=== PATIENT | female | born 1955 | race Caucasian/White ===

== ENCOUNTER → 2019-06-05 11:14 | Outpatient (BNVA) | payer MEDICARE, SELFPAY | PROVIDERS: Family Provider Nurse Practitioner Family; PCP Nurse Practitioner Family; Referring Provider Internal Medicine Nephrology; Visit Provider Family Medicine | DX: N18.4 Chronic kidney disease, stage 4 (severe) (principal) | CPT/HCPCS: 80069; 82044; 82728; 83540; 83550; 85025 ==

== ENCOUNTER 2019-07-21 13:22 | Emergency (ER) | payer OTHER, MEDICARE, SELFPAY ==
[2019-07-21 13:23] VITALS: BP 169/80; PULSE 70; RESP 18; TEMP 36.9; O2SAT 92; BMI 23.2
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
[2019-07-21 14:26] VITALS: BP 116/71; PULSE 63; RESP 16; O2SAT 93
--- NOTE | 2019-07-24 09:59 | DCPLANNER ---
Patient called case liner about a referral to the ortho clinic. certified orthotist practice manager reviewed patients chart, patient was referred to the ortho clinic, case liner called the ortho clinic, spoke with Pat, gave clinic patients information. A follow up appointment is scheduled for Wednesday, July 24, 2019 at 1:[address] Jose. Clinic called patient with appointment information.
--- NOTE | 2019-08-08 15:33 | DCPLANNER ---
Patient did attend appointment scheduled for 07.24.19 with ortho.
== END 2019-07-21 14:27 | disposition home or self-care (01) ==
PROVIDERS: Emergency Provider Emergency Medicine
DX: S72.411A Displaced unspecified condyle fracture of lower end of right femur, initial encounter for closed fracture (principal); I12.9 Hypertensive chronic kidney disease with stage 1 through stage 4 chronic kidney disease, or unspecified chronic kidney disease; N18.9 Chronic kidney disease, unspecified; E11.22 Type 2 diabetes mellitus with diabetic chronic kidney disease; E11.42 Type 2 diabetes mellitus with diabetic polyneuropathy; Z87.891 Personal history of nicotine dependence; Z79.84 Long term (current) use of oral hypoglycemic drugs; V89.2XXA Person injured in unspecified motor-vehicle accident, traffic, initial encounter; Y92.411 Interstate highway as the place of occurrence of the external cause
CPT/HCPCS: 29530; 70450; 71046; 73562; 99282; 99283; E0114; L1830

== ENCOUNTER → 2019-08-09 11:48 | Outpatient (BNVA) | payer MEDICARE, SELFPAY | PROVIDERS: PCP Family Medicine; Visit Provider Orthopaedic Surgery | DX: S72.4 Fracture of lower end of femur (principal); X58.XXXA Exposure to other specified factors, initial encounter | CPT/HCPCS: 73560; 73565 ==

== ENCOUNTER 2019-08-29 12:07 | Outpatient (CLI) | payer MEDICARE, SELFPAY ==
--- NOTE | 2019-08-29 12:45 | USCV_ITS ---
Yas Oconnell Age: 63 Gender: F : 1955 Exam Date: 08/29/2019 12:24 Ordering Phys: Karri Nayak MD (Andy) ([email or web address] [place] Technologist: Mary Werner [place] [facility] [place]: CAROTID ARTERY STENOSIS Risk Factors: Previous Vascular Surgery: Right Brachial BP: / Left Brachial BP: / Right Left Velocity (cm/s) Spectral Plaque Velocity (cm/s) Spectral Plaque Syst/Diast Broadening Syst/Diast Broadening 75.00/ 14.30 Prox CCA 109.20/ 26.50 75.00/ 17.60 Mid CCA 108.10/ 26.50 86.30/ 22.20 Distal CCA 148.60/ 32.90 310.90/80.95 Prox ICA 133.60/ 31.10 209.60/31.90 Mid ICA 125.80/ 23.30 89.30/ 26.50 Distal ICA 130.25/ 29.65 187.00 ECA 144.50 4.24 ICA/CCA 1.24 Antegrade Vertebral Antegrade 83.70/ 16.20 cm/s 48.00/ 13.10 cm/s Tri Subclavian Tri 191.1 132.8 0 0 FINDINGS Comparison 01/15 CONCLUSIONS Right ICA stenosis 70-99%. Severe atheromatous plaque right carotid bulb/ICA. Velocities stable from previous. Left ICA stenosis 50-69%. Moderate atheromatous plaque left carotid bulb/ICA. Left ICA velocities slightly progressed. Normal antegrade Doppler flow noted in the right vertebral artery. Normal antegrade Doppler flow noted in the left vertebral artery. Osito Webb MD (Electronically Signed) Final Date: 29 August 2019 15:49 S
== END 2019-08-29 12:08 | disposition home or self-care (01) ==
PROVIDERS: PCP Family Medicine; Visit Provider Thoracic Surgery (Cardiothoracic Vascular Surgery)
DX: I65.23 Occlusion and stenosis of bilateral carotid arteries (principal)
CPT/HCPCS: 93880

== ENCOUNTER 2019-09-04 07:56 | Outpatient (CLI) | payer MEDICARE, SELFPAY ==
--- NOTE | 2019-09-04 08:00 | CT_ITS ---
WS: [id number] CT ANGIOGRAM CAROTID ARTERIES HISTORY: ABNORMAL CAROTID DUPLEX TECHNIQUE: CT angiogram is performed of the carotid arteries. During arterial injection imaging is ob tained from the skull base to the aortic arch in 1.25 mm imaging. Coronal and sagittal reformats are submitted, MIP imaging also reviewed. Additional multiplanar reformats of the carotid arteries are carmona bmitted. NASCET criteria utilized. All CT scans at [facility] use at least one of these d ose optimization techniques: automated exposure control; mA and/or kV adjustment per patient size (in cludes targeted exams where dose is matched to clinical indication); or iterative reconstruction. CONTRAST: Visipaque 320; 75 mL IV. DLP: 806.19 mGycm COMPARISON: 07/24/2018 and carotid ultrasound 08/29/2019 Right carotid: Common carotid artery: Arises normally from the innominate artery. There is extensive scattered calci fication within the innominate artery and mild relative common carotid artery to the bifurcation. Internal carotid artery: Calcified plaque and intimal thickening causing narrowing of the proximal IC A. Stenosis calculated at 75%. External carotid artery: Patent. Left carotid: Common carotid artery: Small noncalcified plaque at the origin of the LEFT common carotid artery the arch. Common carotid artery arises at the base of the innominate. Internal carotid artery: Scattered calcified plaque and intimal thickening. No significant stenosis. Prior LEFT carotid endarterectomy. External carotid artery: Patent. Right vertebral artery: Unremarkable. Left vertebral artery: Mild scattered plaque. Smaller caliber LEFT vertebral artery but it is patent. There is very minimal narrowing in the C6 transverse foramina. Subclavian arteries: No stenosis or abnormality identified. Upper thorax: Chronic emphysema at the lung apices. Benign granuloma RIGHT upper lobe. Thyroid gland: Subcentimeter RIGHT thyroid nodule. Osseous structures: Multilevel spondylitic changes in the cervical spine. No fractures. Skull base: No abnormality at the skull base. There is an osseous defect in the RIGHT occipital bone which is stable. CT/CT angio neck [id number] IMPRESSION: 1. RIGHT ICA stenosis 75%. Minimal increase in stenosis since the prior CT ang iogram is probably not significant. 2. No significant LEFT ICA stenosis. Elevated velocities seen on the recent ul trasound are probably secondary to the RIGHT ICA stenosis. Status post LEFT car otid endarterectomy.
[2019-09-04 08:37] LABS: Blood Urea Nitrogen 30 mg/dL (8-23); Glomerular Filtration Rate 30.4 mL/min (90-130)
[2019-09-04] MEDS: iodixanol 320 mg/mL 100mL Btl IV (08:53)
== END 2019-09-04 07:57 | disposition home or self-care (01) ==
LOC: RADWPI 07:58
PROVIDERS: PCP Family Medicine; Visit Provider Thoracic Surgery (Cardiothoracic Vascular Surgery)
DX: I65.21 Occlusion and stenosis of right carotid artery (principal)
CPT/HCPCS: 70498; 82565; 84520; Q9967

== ENCOUNTER → 2019-09-05 09:44 | Outpatient (BNVA) | payer MEDICARE, SELFPAY | PROVIDERS: PCP Family Medicine; Visit Provider Internal Medicine | DX: N18.4 Chronic kidney disease, stage 4 (severe) (principal) | CPT/HCPCS: 80069; 82044; 82310; 83970 ==

== ENCOUNTER 2019-09-17 10:32 | Inpatient (IN) | payer MEDICARE, SELFPAY ==
--- NOTE | 2019-09-14 11:34 | ECG_ITS ---
Measurements Intervals [place] Rate: 57 P: 86 LA: 173 QRS: 76 QRSD: 93 T: 64 QT: 458 QTc: 449 SINUS BRADYCARDIA Compared to ECG 10/16/2017 18:25:31 Sinus tachycardia no longer present T-wave abnormality no longer present Electronically Signed On 09-14-2019 18:26:54 CDT by Amie Leonardo M.D. [email or web address]
[2019-09-14 11:42] VITALS: BMI 22.4
--- NOTE | 2019-09-14 12:29 | ANES.PREANE2 ---
Pre-Anesthetic Assessment Pre-Anesthetic Assessment: Height/Weight: Height 1.5 m Weight 50.349 kg Proposed Procedure: Operation Date: 09/17/19 07:00 Proposed Procedures p Carotid Endarterectomy(Right) - Karri Nayak MD Familial anesthetic complications: None Social: Social History: Tobacco and No alcohol Packs per day: 0.5 pppd Exam: Pre-Anes Outpt Exam: alert, oriented x 3, clear to auscultation bilaterally and regular rate & rhythm Airway: Cervical ROM: WNL MP: 2 Additional comments: missing Pulmonary: Pulmonary: Asthma and COPD CV/HEM: CV/HEM: HTN and TN (May 2018) Comments: stents X4 in 2019 : Comments: 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
[2019-09-14 13:31] LABS: Basophils # 0.1 10^3/uL (0.0-0.1); Basophils % 1.1 %; Eosinophils # 0.2 10^3/uL (0.0-0.8); Eosinophils % 2.9 %; Hematocrit 45.1 % (37.0-47.0); Hemoglobin 13.9 g/dL (11.5-15.3); Lymphocytes % 27.1 %; Mean Corpuscular HGB Conc 30.8 g/dL (30.0-36.0); Mean Corpuscular Hemoglobin 29.6 pg (28.0-34.0); Mean Platelet Volume 10.3 fL (7.4-10.4); Monocytes # 0.5 10^3/uL (0.2-0.9); Monocytes % 6.4 %; Neutrophils # 4.5 10^3/uL (1.8-7.7); Neutrophils % 62.2 %; Nucleated Red Blood Cells % 0 %; Platelet Count 270 10^3/cmm (130-400); Red Cell Distribution Width 12.9 % (12.1-15.1); White Blood Count 7.2 10^3/uL (4.0-10.0)
[2019-09-14 13:37] LABS: INR 0.91 (0.8-1.2)
[2019-09-14 13:43] LABS: Anion Gap 16.5 (5-19); Blood Urea Nitrogen 26 mg/dL (8-23); Calcium 9.7 mg/dL (8.5-10.5); Carbon Dioxide 27 mmol/L (22-29); Chloride 100 mmol/L (98-107); Glomerular Filtration Rate 28.4 mL/min (90-130); Glucose 99 mg/dL (65-115); Osmolality Calculated 285 mOsm/kg (285-295); Potassium 4.5 mmol/L (3.5-5.1); Sodium 139 mmol/L (136-145)
[2019-09-14 13:47] LABS: Urine Appearance Clear (CLEAR); Urine Color Yellow (Yellow); pH Urine 6.5 (5-7)
[2019-09-14 13:48] LABS: Add Urine Microscopic? YES; Bilirubin Urine Neg (NEGATIVE); Blood Urine Neg (Negative); Glucose Urine UA Norm (Normal); Ketones Urine Negative (Negative); Leukocyte Esterase Urine Negative (Negative); Nitrate Urine Negative (Negative); Protein Urine 3+ (Negative); Urobilinogen Urine Norm (Negative)
[2019-09-14 13:54] LABS: Add Urine Culture? No; Bacteria Urine TRACE; Squamous Epithelial Cell Urine 0-4 (0-5)
[2019-09-17] VITALS (32 sets, daily range): BP systolic 101–162; BP diastolic 48–72; PULSE 43–63; RESP 10–18; TEMP 36.2–36.9; O2SAT 93–100
[2019-09-17 06:02] LABS: Glucose Point of Care 92 mg/dL (70-110)
--- NOTE | 2019-09-17 06:17 | W.PM.OPSUD ---
Surgery/Procedure H&P Update DATE OF PROCEDURE: September 17, 2019 DATE H&P PERFORMED: 09/12/19 H&P UPDATE INFORMATION: I have reviewed H&P completed within last 30 days, I have examined patient prior to procedure and No changes to prior documentation PREOP DIAGNOSIS: Right carotid artery stenosis PRIMARY INDICATION FOR PROCEDURE: High-grade right carotid artery stenosis at bifurcation PLANNED PROCEDURE: Operation Date: 09/17/19 07:00 Proposed Procedures p Carotid Endarterectomy(Right) - Karri Nayak MD
[2019-09-17] MEDS: sodium chloride 0.9% 1,000 ML 30 ML IV (06:34)
[2019-09-17] MEDS: heparin, porcine 1,000 unit/mL INJ 10 mL 10000 UNIT IRRIGATION (07:40)
[2019-09-17] MEDS: vancomycin 1,000 MG SDV 1000 MG IRRIGATION (07:40)
--- NOTE | 2019-09-17 10:12 | PM.OP ---
Operative Report Date of procedure: September 17, 2019 Pre-op Diagnosis: Right carotid artery stenosis Post-op diagnosis: same Procedure Done: Right carotid endarterectomy with patch angioplasty Implants: Hemashield patch Specimens removed/disposition: Right carotid artery plaque to pathology Surgeon: Karri Nayak Anesthesia: General Estimated blood loss (mL): 50 Complications: None: Grossly neurologically intact postop Condition: stable Disposition: ICU Brief History: Patient is a 63-year-old female with a prior history for left carotid endarterectomy in September 2015. She is been followed with surveillance duplex studies and exam since that time. She had slowly increasing velocities on the right side. Unfortunately she continues to smoke. Most recent elevated velocities prompted a CTA of the neck which confirmed a stenosis of at least 75% at the bifurcation involving the right ICA proximally. Carotid endarterectomy was recommended to reduce her statistical increased risk for spontaneous CVA related to this high-grade lesion. Details the risk of procedure were carefully reviewed. Proper consents have been reviewed and signed. Procedure: Patient was placed on the OR table and underwent general endotracheal anesthesia with a neurological monitoring endotracheal tube as well as placement of a right radial arterial line. Bihemispheric monitoring pads were placed as well as grounding and sensing pads for nerve conduction evaluation during neck dissection.The entire upper chest and [right/left] neck were sterilely prepped and draped. Incision was made along the anterior border of the sternomastoid muscle and carried down to the platysma with cautery. Dissection from this point forward was carried out utilizing Metzenbaum scissors and limited use of bipolar cautery as needed. The internal jugular vein was dissected free and the facial vein was ligated, oversewn, and divided. Dissection was continued down through the ansa cervicalis with preservation of major branches. Minor branches were divided if required to allow for adequate exposure. Nerve conduction evaluation was performed throughout the dissection for protection of the recurrent nerve. We subsequently reached the common carotid artery. Dissection was then continued proximally to distally across the bifurcation. Vessel loops were placed around the common carotid artery, internal carotid artery, and external carotid artery. Distally, the base of the hypoglossal nerve could be identified and was protected. The internal carotid artery disease went fairly high and extended above the level of the mandibular angle. This did require some traction in this region, but great care was taken to minimize pressure to the hypoglossal nerve, which was protected. Care was taken during this dissection to avoid injury to the vagus nerve. The patient was then heparinized with 10,000 units. The systolic blood pressure was elevated to 160. Following this, in a rapid sequenced fashion, the distal internal carotid artery was clamped followed by clamping of the common carotid artery and external carotid artery. #11 scalpel blade was used to open the common carotid artery proximally. Beck scissors were then utilized to extend this arteriotomy across the distal common carotid artery and ulcerated very stenotic plaque and continue this further at the bifurcation across the calcific plaque in the internal carotid artery until we had reached normal intima. The internal carotid artery clamp was briefly flashed with evidence of brisk back bleeding, therefore we elected not to shunt. It should be noted that bi-hemispheric oximetry was recorded throughout the procedure. Next, a freer elevator was utilized to create a dissection plane the plaque from intima at the proximal portion of the arteriotomy. This was then divided with a #11 scalpel blade. This plaque was then further dissected along the intimal plane proximally to distally across the bifurcation. Utilizing an everting technique, plaque was removed from the external carotid artery with brisk flow. This plaque was then dissected free up the internal carotid artery to a feathered edge. Heparinized saline solution was utilized to remove any loose debris. Next, a Hemashield patch was brought into the field and sewn into position utilizing a running 6-0 Prolene suture, thereby completing our patch angioplasty. At the completion of the patch, the external carotid artery was opened followed by the common carotid artery and finally the internal carotid artery, thereby reestablishing cerebral flow. Areas of extravasation were repaired with 6-0 Prolene suture. After 5 minutes, heparin was reversed with protamine. Hemostasis was confirmed. The wound was irrigated with antibiotic solution. A small, flat, Shaka-Canseco drain was placed in the wound and connected to bulb suction. Sponge and needle count was correct. The wound was then closed in 2 layers of 3-0 Vicryl suture. Skin was reapproximated in a subcuticular manner with 4-0 Monocryl suture. A pressure dressing was then applied. The patient was awakened from anesthesia and spontaneous movement of all extremities as well as movement to command was noted. The patient was then transferred to the ICU in stable condition. We did student loan counselor with her by phone at completion of the procedure. Ms. Oconnell will be monitored in the ICU for at least the next 24 hours.
--- NOTE | 2019-09-17 10:30 | ANE.PACU2 ---
 Inpatient post-anesthesia follow up: Airway intact: Yes Vital signs: Temperature 98.2 F Pulse Rate 63 Respiratory Rate 18 Blood Pressure 162/72 Pulse Oximetry 94 Oxygen Delivery Me thod Room Air Oxygen Flow Rate Fraction of Inspir ed Oxygen Hydration adequate: Yes Nausea and vomiting: No Pain level: 2 Mental status: Baseline Additional Comments: this is note for post drop off in ICU after surgery. patient responds appropriately.
[2019-09-17] MEDS: sodium chloride 0.45% 1,000 ML 75 ML IV (10:56)
[2019-09-17] MEDS: atorvastatin 40 mg Tablet 80 MG PO (11:53)
[2019-09-17] MEDS: HYDROcodone-acetaminophen 5-325 mg Tablet 1 TAB PO (11:53)
[2019-09-17] MEDS: ceFAZolin 1,000 MG in sodium chloride 0.9% (plus) 50 ML 100 MG IV ×2 (12:46→21:26)
--- NOTE | 2019-09-17 19:23 | PC.NURSE ---
Solis and arterial line removed. pt tolerated well.
[2019-09-17 21:33] LABS: Glucose Point of Care 127 mg/dL (70-110)
[2019-09-18] VITALS (16 sets, daily range): BP systolic 108–152; BP diastolic 55–73; PULSE 52–71; RESP 10–21; TEMP 36.7–36.8; O2SAT 89–98
[2019-09-18] MEDS: TRAMadol 50 mg Tablet PO (00:49)
[2019-09-18] MEDS: sodium chloride 0.45% 1,000 ML 75 ML IV (03:34)
[2019-09-18] MEDS: HYDROcodone-acetaminophen 5-325 mg Tablet 1 TAB PO (05:07)
[2019-09-18] MEDS: ceFAZolin 1,000 MG in sodium chloride 0.9% (plus) 50 ML 100 MG IV (06:26)
[2019-09-18] MEDS: aspirin 81 mg EC Tablet PO (06:26)
--- NOTE | 2019-09-18 06:44 | P.DS_ITS ---
Discharge Providers Date of Admission: 09/17/19 10:32 Date of Discharge: September 18, 2019 Attending Provider at Admission: Karri Nayak MD Attending Provider at Discharge: Karri Nayak MD Primary Care Provider: Renay Duarte MD Diagnoses at Discharge Discharge Diagnosis (1) Carotid stenosis, right: Status: Acute Problem details: Patient electively admitted for repair of high-grade right carotid artery stenosis. Reason for Visit Reason for Visit: Reason For Visit: CAROTID Hospital Course Discharge Summary: Ms. Oconnell has been followed in heart care service for known carotid disease. She is status post left carotid endarterectomy in 2016. She is now developed a progressive and now significant stenosis of the right carotid artery at 75%. She underwent right carotid endarterectomy with patch angioplasty yesterday. Postoperatively she remains neurologically intact. No swallowing or speech difficulties. Low SIM drain output. SIM drain was discontinued this morning. Incision is clean and dry. Pain is been under good control. Vital signs are stable. She will be discharged home today in stable condition. She will follow-up in heart care services in 1 week. Physical Exam Const: COMMON NORMALS: oriented x3 Neck/C-Spine: COMMON NORMALS: full ROM OTHER: Incision is clean and dry. SIM drain was removed without difficulty. No significant swelling. No drainage. Trachea midline. Resp: COMMON NORMALS: clear to auscultation bilaterally AUSCULTATION: clear to auscultation bilaterally Cardio: COMMON NORMALS: regular rate, regular rhythm and S1 normal heart sound RATE: regular rate RHYTHM: regular rhythm HEART SOUNDS: S1 normal Neuro: COMMON NORMALS: oriented x3, no focal motor deficits and no sensory deficits noted Urinary Catheter Management^: [facility]: Cath Placed During This Visit: yes Reason for Continuing Indwelling Catheter: Accurate Measurement of Urinary Output in Critically Ill Patients Urinary Catheter Date of Insertion: 09/17/19 Urinary Catheter Time of Insertion: 07:20 Discharge Data Data Completed and Pending: Pending at discharge Category Date Time Status PRBC [Leukocyte R educed RBC] Routin e Lab 09/14/19 12:00 Results Retype for XM Rou la Lab 09/14/19 12:00 Results Type and Screen - Cardiac Routine Lab 09/14/19 12:00 Results Pathology: Surgic al [PTH] Routine Pth 09/17/19 09:10 Received Labs from last 24 hours 09/17/19 09/14/19 21:29 12:00 POC Glucose 127 Blood Type A Positive Rho(D) Type Positive Antibody Screen Negative Crossmatch See Detail Vitals: Last Vital Signs Temp 98.0 F 09/18/19 02:00 Pulse 63 09/18/19 06:00 Resp 16 09/18/19 06:00 BP 152/73 09/18/19 06:00 Pulse Ox 90 09/18/19 06:00 Discharge Plan Discharge Patient Disposition: Home, Self-Care Condition: Stable Prescriptions: New hydrocodone-acetaminophen 5-325 mg Tablet 1 tab PO Q8H PRN (Reason: Moderate Pain) Qty: 10 RF: 0 Continued trazodone 50 mg tablet 50 mg PO DAILY RF: 0 gabapentin 300 mg capsule 300 mg PO DAILY PRN (Reason: Anxiety) RF: 0 metoprolol succinate 50 mg capsule,sprinkle,ER 24hr 50 mg PO DAILY RF: 0 citalopram 40 mg tablet 40 mg PO DAILY RF: 0 albuterol sulfate [ProAir HFA] 90 mcg/actuation HFA aerosol inhaler 2 puff INHALATION Q6H PRN (Reason: Cough) RF: 0 aspirin 81 mg tablet,delayed release (DR/EC) 81 mg PO DAILY RF: 0 cholecalciferol (vitamin D3) 50 mcg (2,000 unit) capsule 2,000 unit PO DAILY RF: 0 iron-vitamin B complex Tablet 65 tab PO DAILY RF: 0 Wal-Zyr (cetirizine) 10 mg capsule 10 mg PO DAILY PRN (Reason: Allergy Symptoms) RF: 0 lisinopril 2.5 mg tablet 2.5 mg PO DAILY RF: 0 Symbicort 160-4.5 mcg/actuation HFA aerosol inhaler 2 puff INHALATION BID PRN (Reason: Cough) RF: 0 amlodipine 2.5 mg tablet 5 mg PO DAILY RF: 0 clopidogrel 75 mg tablet 75 mg PO DAILY RF: 0 glipizide 2.5 mg tablet extended release 24hr 2.5 mg PO DAILY RF: 0 rosuvastatin 40 mg tablet 40 mg PO DAILY RF: 0 Discharge Orders: Discharge Order (Routine); Ordered 09/18/19 Ordered By: Karri Nayak Referrals: Karri Nayak MD [Physician] - 09/27/19 Discharge Diet: Usual diet Discharge Activity: Limit activity as instructed Activity Restrictions/Additional Instructions: May remove bandage tomorrow May begin daily showers tomorrow No swimming or tub baths x 2 weeks No ointments on incision Report drainage, redness, heat, increased pain, or swelling to clinic No heavy lifting or pulling x2 weeks Discharge Attestations Time Spent in Discharge Care*: less than 30 min Specific Discharge Activities: Specific discharge activities: educating patient, documenting/other paperwork and evaluating patient/reviewing data Time Spent in Smoking Cessation: Time spent discussing smoking cessation with patient: 3 to 10 minutes Details of Smoking Cessation Education: Again, discussed concerns related to atherosclerosis and continued tobacco use in relation to her known carotid disease. Status at Discharge: Cognitive status at discharge: cognitively intact , Overall status at discharge: patient is back to baseline Quality Metrics Clinical Quality Measures During this hospital stay, did patient experience: None Coding Level of Care Code Acute Director Of Recruitment for Trell Nuñez Diagnoses Carotid stenosis, right I65.21
[2019-09-18 07:37] LABS: Glucose Point of Care 110 mg/dL (70-110)
[2019-09-18] MEDS: pantoprazole DR 40 mg Tablet PO (08:29)
[2019-09-18] MEDS: citalopram 20 mg Tablet 40 MG PO (08:29)
[2019-09-18] MEDS: atorvastatin 40 mg Tablet 80 MG PO (08:29)
[2019-09-18] MEDS: lisinopril 2.5 mg Tablet PO (08:29)
[2019-09-18] MEDS: amlodipine 5 mg Tablet PO (08:29)
[2019-09-18] MEDS: metoprolol tartrate 50 mg Tablet PO (08:30)
[2019-09-18] MEDS: albuterol 8 gm MDI 2 PUFF INHALATION (09:32)
--- NOTE | 2019-09-18 10:44 | PC.NURSE ---
Discharge instructions gone over. All questions answered. Neuromuscular check done upon discharge and all actions done appropriately. Discussed signs of infection at incision site and signs of stroke to was gone over. Follow up appointment made. TAken to personal vehicle via wheelchair.
== END 2019-09-18 10:59 | disposition home or self-care (01) | DRG 38 ==
LOC: ICU 10:33
PROVIDERS: Admitting Provider Thoracic Surgery (Cardiothoracic Vascular Surgery); PCP Family Medicine; Visit Provider Thoracic Surgery (Cardiothoracic Vascular Surgery)
PROC: 03CH0ZZ Extirpation of Matter from Right Common Carotid Artery, Open Approach (ICD-10-PCS; CPT 35301; principal; 2019-09-17 07:00)
DX: I65.21 Occlusion and stenosis of right carotid artery (principal); N18.4 Chronic kidney disease, stage 4 (severe); Z79.82 Long term (current) use of aspirin; Z79.02 Long term (current) use of antithrombotics/antiplatelets; F17.210 Nicotine dependence, cigarettes, uncomplicated; J44.9 Chronic obstructive pulmonary disease, unspecified; I25.2 Old myocardial infarction; Z95.5 Presence of coronary angioplasty implant and graft; I12.9 Hypertensive chronic kidney disease with stage 1 through stage 4 chronic kidney disease, or unspecified chronic kidney disease
CPT/HCPCS: 12345; 36415; 36416; 51702; 80048; 81001; 82962; 85025; 85610; 86850; 86900; 86920; 88304; 88305; 93005; 94640; J0690; J1644; J2001; J2370; J2405; J2704; J2720; J3010; J3370; J3490; J3535; J7030; P9016

== ENCOUNTER → 2019-10-08 17:35 | Outpatient (BNVA) | payer MEDICARE, SELFPAY | PROVIDERS: PCP Family Medicine; Visit Provider Family Medicine | DX: I10 Essential (primary) hypertension (principal); G47.00 Insomnia, unspecified; J44.9 Chronic obstructive pulmonary disease, unspecified; E78.5 Hyperlipidemia, unspecified; E11.42 Type 2 diabetes mellitus with diabetic polyneuropathy | CPT/HCPCS: 80053; 80061; 83036; 85025 ==

== ENCOUNTER 2019-10-25 12:10 | Outpatient (CLI) | payer MEDICARE, SELFPAY ==
--- NOTE | 2019-10-25 12:45 | USCV_ITS ---
Kourtney Yas Age: 63 Gender: F : 1955 Exam Date: 10/25/2019 12:24 Ordering Phys: Karri Nayak MD (And[place]) ([email or web address] [place] Technologist: Peg Alvarez Exam Location: [facility] [place] Indication: CAROTID STENOSIS Risk Factors: Smoker Previous Vascular Surgery: R CEA, , L CEA Right Brachial BP: / Left Brachial BP: / Right Left Velocity (cm/s) Spectral Plaque Velocity (cm/s) Spectral Plaque Syst/Diast Broadening Syst/Diast Broadening 90.40/ 17.60 Prox CCA 60.70 / 16.20 93.70/ 22.10 Hetro Mid CCA 45.80 / 10.90 79.40/ 7.70 Distal CCA 76.90 / 15.40 78.50/ 17.10 Prox ICA 145.95/ 23.20 Hetro 107.80/18.40 Mid ICA 122.70/ 29.50 86.80/ 23.70 Distal ICA 119.60/ 34.20 82.70 ECA 93.70 Hetro 1.15 ICA/CCA 2.12 Antegrade Vertebral Antegrade 52.60/ 19.70 cm/s 30.40/ 8.50 cm/s Tri Subclavian Tri 124.9 152.9 0 0 FINDINGS Comparison:. 08/29/19. Recent right CEA. Recently described stenosis has been corrected. Mild intimal thickening right ICA but no stenosis. Diffuse left carotid scattered calcified plaque and intimal thickening throughout the common carotid artery and extending through the bifurcation. Mild elevation of velocity. CONCLUSIONS Interval right CEA with resolved stenosis. Right ICA stenosis < 50%. Stable left carotid atherosclerosis. Left ICA stenosis 50-69%. Dr. Corina Aquino DO (Electronically Signed) Final Date: 25 Oct 2019 14:40 S
== END 2019-10-25 12:11 | disposition home or self-care (01) ==
LOC: RAD 12:14
PROVIDERS: PCP Family Medicine; Visit Provider Thoracic Surgery (Cardiothoracic Vascular Surgery)
DX: I65.23 Occlusion and stenosis of bilateral carotid arteries (principal)
CPT/HCPCS: 93880

== ENCOUNTER → 2019-12-13 12:12 | Outpatient (BNVA) | payer MEDICARE, SELFPAY | PROVIDERS: PCP Family Medicine; Visit Provider Internal Medicine Nephrology | DX: N18.4 Chronic kidney disease, stage 4 (severe) (principal) | CPT/HCPCS: 80069; 82044; 82306; 82310; 83970; 85025 ==

== ENCOUNTER 2020-03-06 09:46 | Outpatient (CLI) | payer MEDICARE, SELFPAY ==
--- NOTE | 2020-03-06 09:52 | MM_ITS ---
WS: [id number] BILATERAL SCREENING DIGITAL MAMMOGRAM WITH CAD HISTORY: SCREENING COMPARISON: 01/26/2019 and 01/06/2018 Bilateral CC and MLO views submitted. Computer aided detection analyzed. Breast composition: There are scattered areas of fibroglandular density. No suspicious masses, microc alcifications or architectural distortion. Benign calcifications in each breast. MM/[place] [id number] IMPRESSION: BI-RADS: 2-Benign FOLLOW UP: 1 Year Follow-up
== END 2020-03-06 09:47 | disposition home or self-care (01) ==
LOC: RADSHAW 09:50
PROVIDERS: PCP Family Medicine; Visit Provider Family Medicine
DX: Z12.31 Encounter for screening mammogram for malignant neoplasm of breast (principal)
CPT/HCPCS: 77067

== ENCOUNTER → 2020-03-18 10:46 | Outpatient (BNVA) | payer MEDICARE, SELFPAY | PROVIDERS: PCP Family Medicine; Visit Provider Family Medicine | DX: J44.9 Chronic obstructive pulmonary disease, unspecified (principal); E11.9 Type 2 diabetes mellitus without complications; I10 Essential (primary) hypertension; G47.00 Insomnia, unspecified; E78.5 Hyperlipidemia, unspecified; E11.42 Type 2 diabetes mellitus with diabetic polyneuropathy; N18.4 Chronic kidney disease, stage 4 (severe) | CPT/HCPCS: 80053; 80061; 80069; 82043; 82310; 83036; 83970 ==

== ENCOUNTER → 2020-04-15 13:25 | Outpatient (BNVA) | payer MEDICARE, SELFPAY | PROVIDERS: PCP Family Medicine; Visit Provider Internal Medicine Nephrology | DX: N18.4 Chronic kidney disease, stage 4 (severe) (principal) | CPT/HCPCS: 80048 ==

== ENCOUNTER → 2020-04-22 12:02 | Outpatient (BNVA) | payer MEDICARE, SELFPAY | PROVIDERS: PCP Family Medicine; Visit Provider Internal Medicine Nephrology | DX: N18.4 Chronic kidney disease, stage 4 (severe) (principal); R60.9 Edema, unspecified | CPT/HCPCS: 80069 ==

== ENCOUNTER 2020-04-28 13:21 | Emergency (ER) | payer MEDICARE, SELFPAY ==
[2020-04-28 13:39] VITALS: BP 169/46; PULSE 79; RESP 14; TEMP 36.8; O2SAT 94; BMI 23.2
--- NOTE | 2020-04-28 13:48 | ECG_ITS ---
[facility] Test Date: 2020-04-28 Pat Name: Yas Oconnell Department: Room: Gender: Female Word Processing Operator: CHARLOTTE : 1955 Requested By: Fabian Butler Order Number: [id number] Reading MD: CHILO WEINBERG Measurements Intervals [place] Rate: 78 P: 93 ID: [id number] QRS: 83 QRSD: 93 T: 66 QT: 407 QTc: 464 Interpretive Statements SINUS RHYTHM WARNING: DATA QUALITY MAY AFFECT INTERPRETATION Compared to ECG 09/14/2019 12:25:39 Sinus bradycardia no longer present Electronically Signed On 04-28-2020 17:23:57 CASH CHECKER by CHILO WEINBERG [id number]
--- NOTE | 2020-04-28 13:48 | XRR_ITS ---
PROCEDURE INFORMATION: Exam: XR Chest, 1 View Exam date and time: 04/28/2020 2:58 PM Age: 64 years old Clinical indication: Cough and dyspnea; Additional info: Dyspnea/cough TECHNIQUE: Imaging protocol: XR of the chest Views: Frontal portable upright view of the chest. COMPARISON: CR XR chest 2V* [id number] 07/21/2019 1:53 PM FINDINGS: Lungs: Mild pulmonary hyperexpansion. The pulmonary vasculature is congested. The lungs are otherwise peripherally clear bilaterally. Pleural space: No pleural effusion. No pneumothorax. Heart/Mediastinum: The heart is normal in size and contour. Mediastinum: Stable. Vasculature: Moderate aortic arch atherosclerotic calcification without ectasia. Bones/joints: Stable. XR/XR chest 1V portable [id number] IMPRESSION: 1. Mild pulmonary hyperexpansion. 2. Pulmonary vascular congestion.
--- NOTE | 2020-04-28 15:48 | ECG_ITS ---
[facility] Test Date: 2020-04-28 Pat Name: Yas Oconnell Department: Room: Gender: Female Circus Rider: : 1955 Requested By: Fabian Butler Order Number: [id number] Reading MD: CHILO WEINBERG Measurements Intervals [place] Rate: 84 P: 86 MI: 155 QRS: 78 QRSD: 94 T: 70 QT: 338 QTc: 400 Interpretive Statements SINUS RHYTHM NONSPECIFIC ST & T-WAVE ABNORMALITY Compared to ECG 04/28/2020 14:34:50 T-wave abnormality now present Electronically Signed On 04-28-2020 17:31:52 SENIOR ENVIRONMENTAL SCIENTIST by CHILO WEINBERG [id number]
[2020-04-28 18:06] LABS: Basophils # 0.1 10^3/uL (0.0-0.1); Eosinophils # 0.2 10^3/uL (0.0-0.8); Eosinophils % 2.8 %; Hematocrit 41.4 % (37.0-47.0); Hemoglobin 13.3 g/dL (11.5-15.3); Lymphocytes # 1.7 10^3/uL (0.8-4.8); Lymphocytes % 22.1 %; Mean Corpuscular HGB Conc 32.1 g/dL (30.0-36.0); Mean Corpuscular Hemoglobin 30.4 pg (28.0-34.0); Mean Corpuscular Volume 94.5 fL (81-99); Mean Platelet Volume 10.2 fL (7.4-10.4); Monocytes # 0.5 10^3/uL (0.2-0.9); Neutrophils # 5.18 10^3/uL (1.8-7.7); Neutrophils % 66.8 %; Nucleated Red Blood Cells % 0 %; Platelet Count 273 10^3/cmm (130-400); Red Blood Count 4.38 10^6/uL (4.1-5.3); Red Cell Distribution Width 11.9 % (12.1-15.1); White Blood Count 7.8 10^3/uL (4.0-10.0)
[2020-04-28 18:10] VITALS: BP 156/96; PULSE 82; O2SAT 92
[2020-04-28 18:27] LABS: Troponin(5th) Baseline 27 ng/L (0-10)
--- NOTE | 2020-04-28 18:29 | W.ED.GENADLT ---
Documented by User: Fabian Tellez DO 04/29/20 06:48 HPI - General Adult General: Chief complaint: General Medical Stated complaint: phy ref/kidney issues Time Seen by Provider: 04/28/20 16:46 History of Present Illness: HPI narrative: 64-year-old female comes in complaining of increased swelling in her legs. She has a history of chronic kidney disease she describes a stage IV she is about to the point of needing to have dialysis. She had up until recently been on an ELIUD inhibitor about 7 to 10 days ago the ELIUD inhibitor was stopped she has only taken 2 half milligrams lisinopril. We increased her from 5 to 10 mg of amlodipine. She denies any chest pain. She has had some orthopnea. She has a chronic baseline cough which is unchanged no fever no myalgias. Onset (ago): hour(s) Location: lower extremity Radiation: non-radiation Relieving factors: none Exacerbating factors: none Associated symptoms: Reports decreased appetite, dyspnea, short of breath and weakness; Deny chest pain, confusion, cough, diaphoresis, fevers/chills, headache(s), malaise, nausea, rash, palpitations, seizures, syncope or vomiting Treatments prior to arrival: none Review of Systems Const: Denies: malaise or diaphoresis ENMT: Denies: throat pain, ear or mastoid pain, nasal discharge or nasal congestion Card: Denies: chest pain, palpitations or syncope Resp: Reports: dyspnea GI: Denies: nausea or vomiting : Denies: flank pain, difficulty voiding, dysuria, urinary frequency or urinary urgency Skin/Breast: Denies: rash Neuro: Denies: headache(s) or confusion PFSH ED PFSH: Medical History CAD (coronary artery disease) Chronic kidney disease History of heart attack Hypertension Type 2 diabetes mellitus with diabetic polyneuropathy Surgical History H/O dilation and curettage History of carotid endarterectomy History of carpal tunnel release S/P pericardiocentesis S/P PTCA (percutaneous transluminal coronary angioplasty) Status post carotid endarterectomy Family History Mother Heart disease Dementia Father Cancer Denies family history of Diabetes CAD (coronary artery disease) Clotting disorder Hyperlipidemia Psychiatric illness Chronic kidney disease (CKD) Suicide Anesthesia complication Bleeding disorder Family history of premature coronary artery disease Lung disease Hypertension Stroke Social History Smoking and tobacco status: current every day smoker cigarettes Alcohol intake: never Current occupational status: retired and disabled Physical Exam Const: COMMON NORMALS: no acute distress GENERAL APPEARANCE: cooperative and comfortable ORIENTATION/CONSCIOUSNESS: Yes awake, Yes oriented to person, Yes oriented to place and Yes oriented to time HENMT: COMMON NORMALS: normocephalic, atraumatic and hearing grossly normal bilaterally HEAD & SCALP: normocephalic and atraumatic Eye: COMMON NORMALS: Equal, round and reactive pupils present, EOMs intact bilaterally, conjunctivae normal and no scleral icterus CONJUNCTIVA: Yes conjunctivae normal PUPIL: Yes Equal, round and reactive pupils present Neck/C-Spine: COMMON NORMALS: full ROM, no lymphadenopathy, supple and no JVD Lymph: LYMPHATIC: no lymphadenopathy noted and no lymphedema noted Resp: COMMON NORMALS: normal respiratory effort, No retractions, No use of accessory muscles and clear to auscultation bilaterally AUSCULTATION: clear to auscultation bilaterally Cardio: COMMON NORMALS: no JVD, regular rate, regular rhythm and No murmurs present (Cardio) RATE: regular rate RHYTHM: regular rhythm GI: COMMON NORMALS: Soft to palpation and No hepatosplenomegaly present AUSCULTATION: Yes normoactive bowel sounds PALPATION: Yes Soft to palpation, No Tenderness to palpation present (GI), No Guarding due to palpation present (GI) and Yes No hepatosplenomegaly present Extremity: NARRATIVE EXTREMITY EXAM: 2+ edema lower extremities bilaterally to the level of the knees Neuro: SENSORIUM/ORIENTATION: Yes oriented to person, Yes oriented to place and Yes oriented to time Skin: COMMON NORMALS: no rashes or lesions noted GENERAL SKIN EXAM: no rashes or lesions noted Course Vital Signs: Vital signs: Vital Signs Temperature 98.2 F 04/28/20 13:39 Pulse Rate 79 04/28/20 21:07 Respiratory Rate 18 04/28/20 21:07 Blood Pressure 181/76 04/28/20 21:07 Pulse Oximetry 94 04/28/20 21:07 MDM - General Adult MDM Narrative: Medical decision making narrative: Care turned over to Dr. Parra at change of shift. Lab Data: Labs: Lab Results 04/28/20 04/28/20 04/28/20 Range/Units 17:40 17:40 17:40 WBC 7.8 (4.0-10.0) 10^3/ uL RBC 4.38 (4.1-5.3) 10^6/u L Hgb 13.3 (11.5-15.3) g/dL Hct 41.4 (37.0-47.0) % MCV 94.5 (81-99) fL MCH 30.4 (28.0-34.0) pg MCHC 32.1 (30.0-36.0) g/dL RDW 11.9 L (12.1-15.1) % Plt Count 273 (130-400) 10^3/c mm MPV 10.2 (7.4-10.4) fL Neut % (Auto) 66.8 % Lymph % (Auto) 22.1 % [place] % (Auto) 7.0 % Eos % (Auto) 2.8 % Baso % (Auto) 1.0 % Neut # (Auto) 5.18 (1.8-7.7) 10^3/u L Lymph # (Auto) 1.7 (0.8-4.8) 10^3/u L [place] # (Auto) 0.5 (0.2-0.9) 10^3/u L Eos # (Auto) 0.2 (0.0-0.8) 10^3/u L Baso # (Auto) 0.1 (0.0-0.1) 10^3/u L Nucleated RBC % (a uto) 0 % Nucleated RBCs # 0.0 /100WBC Sodium 143 (136-145) mmol/L Potassium 3.2 L (3.5-5.1) mmol/L Chloride 103 (98-107) mmol/L Carbon Dioxide 28 (22-29) mmol/L Anion Gap 15.2 (5-19) BUN 34 H (8-23) mg/dL Creatinine 2.2 H (0.5-0.9) mg/dL GFR Calculation 22.5 L (90-130) mL/min Glucose 74 (65-115) mg/dL Calculated Osmolal ity 302 H (285-295) mOsm/k g Calcium 9.4 (8.5-10.5) mg/dL Magnesium (1.7-2.3) mg/dL Total Bilirubin 0.3 (0.15-1.2) mg/dL AST 26 (0-32) U/L ALT 30 (0-33) U/L Alkaline Phosphata se 121 H (35-105) IU/L Troponin T Baselin e 27 H (0-10) ng/L Troponin T 120 Min [place] (0-10) ng/L Delta Troponin T (0-10) ABS# NT-Pro-B Natriuret Pep 2982 H (0-125) pg/mL Total Protein 6.2 L (6.6-8.7) g/dL Albumin 3.9 (3.5-5.2) g/dL Globulin 2.3 (1.3-4.6) g/dL Urine Color (Yellow) Urine Appearance (CLEAR) Urine pH (5-7) Ur Specific Gravit y (1.005-1.030) Urine Protein (Negative) Urine Glucose (UA) (Normal) Urine Ketones (Negative) Urine Blood (Negative) Urine Nitrate (Negative) Urine Bilirubin (Negative) Urine Urobilinogen (Negative) mg/dL Ur Leukocyte Delfina ase (Negative) Urine RBC (0-2) /hpf Urine WBC (0-5) /hpf Ur Squamous Epith Cells (0-5) /hpf Amorphous Sediment Urine Bacteria (NONE) /hpf 04/28/20 04/28/20 04/28/20 Range/Units 17:50 19:20 19:20 WBC (4.0-10.0) 10^3/ uL RBC (4.1-5.3) 10^6/u L Hgb (11.5-15.3) g/dL Hct (37.0-47.0) % MCV (81-99) fL MCH (28.0-34.0) pg MCHC (30.0-36.0) g/dL RDW (12.1-15.1) % Plt Count (130-400) 10^3/c mm MPV (7.4-10.4) fL Neut % (Auto) % Lymph % (Auto) % [place] % (Auto) % Eos % (Auto) % Baso % (Auto) % Neut # (Auto) (1.8-7.7) 10^3/u L Lymph # (Auto) (0.8-4.8) 10^3/u L [place] # (Auto) (0.2-0.9) 10^3/u L Eos # (Auto) (0.0-0.8) 10^3/u L Baso # (Auto) (0.0-0.1) 10^3/u L Nucleated RBC % (a uto) % Nucleated RBCs # /100WBC Sodium (136-145) mmol/L Potassium (3.5-5.1) mmol/L Chloride (98-107) mmol/L Carbon Dioxide (22-29) mmol/L Anion Gap (5-19) BUN (8-23) mg/dL Creatinine (0.5-0.9) mg/dL GFR Calculation (90-130) mL/min Glucose (65-115) mg/dL Calculated Osmolal ity (285-295) mOsm/k g Calcium (8.5-10.5) mg/dL Magnesium 2.3 (1.7-2.3) mg/dL Total Bilirubin (0.15-1.2) mg/dL AST (0-32) U/L ALT (0-33) U/L Alkaline Phosphata se (35-105) IU/L Troponin T Baselin e (0-10) ng/L Troponin T 120 Min [place] 27.68 H (0-10) ng/L Delta Troponin T 0.68 (0-10) ABS# NT-Pro-B Natriuret Pep (0-125) pg/mL Total Protein (6.6-8.7) g/dL Albumin (3.5-5.2) g/dL Globulin (1.3-4.6) g/dL Urine Color Straw (Yellow) Urine Appearance Clear (CLEAR) Urine pH 7 (5-7) Ur Specific Gravit y 1.010 (1.005-1.030) Urine Protein 3+ H (Negative) Urine Glucose (UA) Norm (Normal) Urine Ketones Negative (Negative) Urine Blood 2+ H (Negative) Urine Nitrate Negative (Negative) Urine Bilirubin Neg (Negative) Urine Urobilinogen Norm (Negative) mg/dL Ur Leukocyte Delfina ase Negative (Negative) Urine RBC 0-4 H (0-2) /hpf Urine WBC 0-4 H (0-5) /hpf Ur Squamous Epith Cells None (0-5) /hpf Amorphous Sediment Not Reportable Urine Bacteria Trace (NONE) /hpf EKG Data^: EKG 1: Computer generated interpretation: Chest X-Ray 04/28/20 13:48 IMPRESSION: 1. Mild pulmonary hyperexpansion. 2. Pulmonary vascular congestion. EKG 2: Computer generated interpretation: Chest X-Ray 04/28/20 13:48 IMPRESSION: 1. Mild pulmonary hyperexpansion. 2. Pulmonary vascular congestion. EKG 3: Computer generated interpretation: Chest X-Ray 04/28/20 13:48 IMPRESSION: 1. Mild pulmonary hyperexpansion. 2. Pulmonary vascular congestion. Discharge Plan Discharge Patient Disposition: Home Clinical Impression: Congestive heart failure Qualifiers: Heart failure type: unspecified Heart failure chronicity: acute on chronic Qualified Code(s): I50.9 - Heart failure, unspecified Condition: Stable Prescriptions: No Action gabapentin 300 mg capsule 300 mg PO DAILY PRN (Reason: neuropathy) RF: 0 metoprolol succinate 50 mg capsule,sprinkle,ER 24hr 50 mg PO DAILY RF: 0 aspirin 81 mg tablet,delayed release (DR/EC) 81 mg PO DAILY RF: 0 cholecalciferol (vitamin D3) 50 mcg (2,000 unit) capsule 2,000 unit PO DAILY RF: 0 iron-vitamin B complex Tablet 65 tab PO DAILY RF: 0 Wal-Zyr (cetirizine) 10 mg capsule 10 mg PO DAILY PRN (Reason: Allergy Symptoms) RF: 0 albuterol sulfate 90 mcg/actuation HFA aerosol inhaler 1 inh INHALATION QID PRN (Reason: shortness of breath or wheezing) Qty: 8.5 RF: 5 glipizide 2.5 mg tablet extended release 24hr 2.5 mg PO DAILY Qty: 90 RF: 1 rosuvastatin 40 mg tablet 40 mg PO DAILY Qty: 90 RF: 1 citalopram 40 mg tablet 40 mg PO DAILY Qty: 90 RF: 1 trazodone 50 mg tablet 50 mg PO DAILY Qty: 90 RF: 1 Trelegy Ellipta 100-62.5-25 mcg blister with device 1 inh INHALATION DAILY Qty: 28 RF: 5 (DME) MELONIE HOSE(thigh high) INTERMEDIATE STRENGTH See Rx Instructions .Route .MEDSUPPLY Qty: 1 RF: 1 clopidogrel 75 mg tablet 75 mg PO DAILY RF: 0 amlodipine 5 mg tablet 10 mg PO DAILY RF: 0 Discharge Orders: Discharge Order (Routine); Ordered 04/28/20 Ordered By: Lo Kaye Referrals: Renay Duarte MD [Primary Care Provider] - 1-3 days Discharge Diet: Usual diet Discharge Activity: Increase activity as tolerated Patient Instructions: Congestive Heart Failure Activity Restrictions/Additional Instructions: Please return to the ER immediately for any of the signs or symptoms listed on your discharge instruction sheets, worsening/changing of your symptoms, you are not getting better as quickly as expected, or for ANY other cause or concerns. Call 's office first thing in the morning as Dr. Valiente who is covering for him is expecting your phone call. He will review your history and decide what medication changes if any are necessary to make. If you develop any other symptoms such as chest pain, worsening shortness of breath or has any other concerns please return to the ER immediately for recheck. Sign Out Sign Out Data: Patient Sign Out occurred on 04/28/20 at 18:48. Patient's care was discussed, and care was transferred from to Lo Kaye. Coding Level of Care Code ED Masseur/Masseuse for Chg Fwd Documented by User: Lo Kaye 04/28/20 22:09 HPI - General Adult General: Chief complaint: General Medical Stated complaint: phy ref/kidney issues Time Seen by Provider: 04/28/20 16:46 PFSH ED PFSH: Medical History CAD (coronary artery disease) Chronic kidney disease History of heart attack Hypertension Type 2 diabetes mellitus with diabetic polyneuropathy Surgical History H/O dilation and curettage History of carotid endarterectomy History of carpal tunnel release S/P pericardiocentesis S/P PTCA (percutaneous transluminal coronary angioplasty) Status post carotid endarterectomy Family History Mother Heart disease Dementia Father Cancer Denies family history of Diabetes CAD (coronary artery disease) Clotting disorder Hyperlipidemia Psychiatric illness Chronic kidney disease (CKD) Suicide Anesthesia complication Bleeding disorder Family history of premature coronary artery disease Lung disease Hypertension Stroke Social History Smoking and tobacco status: current every day smoker cigarettes Alcohol intake: never Current occupational status: retired and disabled Course Vital Signs: Vital signs: Vital Signs Temperature 98.2 F 04/28/20 13:39 Pulse Rate 79 04/28/20 21:07 Respiratory Rate 18 04/28/20 21:07 Blood Pressure 181/76 04/28/20 21:07 Pulse Oximetry 94 04/28/20 21:07 MDM - General Adult MDM Narrative: Medical decision making narrative: 1923 -Case turned over to me at change of shift from Dr. Tellez. Please see his note for his history, physical exam and medical decision-making notes. Patient tells me she for the past 2 weeks she has had increased swelling to both lower extremities and increasing shortness of breath. She denies any chest pain. Shortness of breath is when she lays flat and that is mild and the shortness of breath with exertion is not normally present. Patient does have a history of COPD and end-stage renal disease. Patient recently had her lisinopril stopped secondary to climbing creatinine and then was placed on 10 mg of amlodipine. Ever since that switch is when the symptoms began. Patient still denies any chest pain. There is no report of fever or cough. Patient does have end-stage renal disease but is not on dialysis at this time. 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 The patient is unaware of the specific reason why she was told to come here. 2055 -Mrs. Oconnell still has no chest pain. Her EKGs are normal and unchanging. Her troponin is trended down. Patient's only complaining of orthopnea and shortness of breath with exertion. I reviewed the case in its entirety with Dr. Carbajal who is on-call for . He wants me to give the patient an additional 20 mEq of potassium, this is in addition to the 40 already given. He then wants me to give her 80 mg of IV Lasix. He wants the patient to call 's office first thing in the morning and he is going to work through that office to review all of her medicines that she has taken and make the appropriate change. He understands the patient is not having any complaints at this time other than the shortness of breath with exertion. The patient understands to she needs to return here if her symptoms change or worsen but at this time she states that she is comfortable with this plan and wants to follow-up as an outpatient. Lab Data: Labs: Lab Results 04/28/20 04/28/20 04/28/20 Range/Units 17:40 17:40 17:40 WBC 7.8 (4.0-10.0) 10^3/ uL RBC 4.38 (4.1-5.3) 10^6/u L Hgb 13.3 (11.5-15.3) g/dL Hct 41.4 (37.0-47.0) % MCV 94.5 (81-99) fL MCH 30.4 (28.0-34.0) pg MCHC 32.1 (30.0-36.0) g/dL RDW 11.9 L (12.1-15.1) % Plt Count 273 (130-400) 10^3/c mm MPV 10.2 (7.4-10.4) fL Neut % (Auto) 66.8 % Lymph % (Auto) 22.1 % [place] % (Auto) 7.0 % Eos % (Auto) 2.8 % Baso % (Auto) 1.0 % Neut # (Auto) 5.18 (1.8-7.7) 10^3/u L Lymph # (Auto) 1.7 (0.8-4.8) 10^3/u L [place] # (Auto) 0.5 (0.2-0.9) 10^3/u L Eos # (Auto) 0.2 (0.0-0.8) 10^3/u L Baso # (Auto) 0.1 (0.0-0.1) 10^3/u L Nucleated RBC % (a uto) 0 % Nucleated RBCs # 0.0 /100WBC Sodium 143 (136-145) mmol/L Potassium 3.2 L (3.5-5.1) mmol/L Chloride 103 (98-107) mmol/L Carbon Dioxide 28 (22-29) mmol/L Anion Gap 15.2 (5-19) BUN 34 H (8-23) mg/dL Creatinine 2.2 H (0.5-0.9) mg/dL GFR Calculation 22.5 L (90-130) mL/min Glucose 74 (65-115) mg/dL Calculated Osmolal ity 302 H (285-295) mOsm/k g Calcium 9.4 (8.5-10.5) mg/dL Magnesium (1.7-2.3) mg/dL Total Bilirubin 0.3 (0.15-1.2) mg/dL AST 26 (0-32) U/L ALT 30 (0-33) U/L Alkaline Phosphata se 121 H (35-105) IU/L Troponin T Baselin e 27 H (0-10) ng/L Troponin T 120 Min [place] (0-10) ng/L Delta Troponin T (0-10) ABS# NT-Pro-B Natriuret Pep 2982 H (0-125) pg/mL Total Protein 6.2 L (6.6-8.7) g/dL Albumin 3.9 (3.5-5.2) g/dL Globulin 2.3 (1.3-4.6) g/dL Urine Color (Yellow) Urine Appearance (CLEAR) Urine pH (5-7) Ur Specific Gravit y (1.005-1.030) Urine Protein (Negative) Urine Glucose (UA) (Normal) Urine Ketones (Negative) Urine Blood (Negative) Urine Nitrate (Negative) Urine Bilirubin (Negative) Urine Urobilinogen (Negative) mg/dL Ur Leukocyte Delfina ase (Negative) Urine RBC (0-2) /hpf Urine WBC (0-5) /hpf Ur Squamous Epith Cells (0-5) /hpf Amorphous Sediment Urine Bacteria (NONE) /hpf 04/28/20 04/28/2020 Range/Units 17:50 19:20 19:20 WBC (4.0-10.0) 10^3/ uL RBC (4.1-5.3) 10^6/u L Hgb (11.5-15.3) g/dL Hct (37.0-47.0) % MCV (81-99) fL MCH (28.0-34.0) pg MCHC (30.0-36.0) g/dL RDW (12.1-15.1) % Plt Count (130-400) 10^3/c mm MPV (7.4-10.4) fL Neut % (Auto) % Lymph % (Auto) % [place] % (Auto) % Eos % (Auto) % Baso % (Auto) % Neut # (Auto) (1.8-7.7) 10^3/u L Lymph # (Auto) (0.8-4.8) 10^3/u L [place] # (Auto) (0.2-0.9) 10^3/u L Eos # (Auto) (0.0-0.8) 10^3/u L Baso # (Auto) (0.0-0.1) 10^3/u L Nucleated RBC % (a uto) % Nucleated RBCs # /100WBC Sodium (136-145) mmol/L Potassium (3.5-5.1) mmol/L Chloride (98-107) mmol/L Carbon Dioxide (22-29) mmol/L Anion Gap (5-19) BUN (8-23) mg/dL Creatinine (0.5-0.9) mg/dL GFR Calculation (90-130) mL/min Glucose (65-115) mg/dL Calculated Osmolal ity (285-295) mOsm/k g Calcium (8.5-10.5) mg/dL Magnesium 2.3 (1.7-2.3) mg/dL Total Bilirubin (0.15-1.2) mg/dL AST (0-32) U/L ALT (0-33) U/L Alkaline Phosphata se (35-105) IU/L Troponin T Baselin e (0-10) ng/L Troponin T 120 Min [place] 27.68 H (0-10) ng/L Delta Troponin T 0.68 (0-10) ABS# NT-Pro-B Natriuret Pep (0-125) pg/mL Total Protein (6.6-8.7) g/dL Albumin (3.5-5.2) g/dL Globulin (1.3-4.6) g/dL Urine Color Straw (Yellow) Urine Appearance Clear (CLEAR) Urine pH 7 (5-7) Ur Specific Gravit y 1.010 (1.005-1.030) Urine Protein 3+ H (Negative) Urine Glucose (UA) Norm (Normal) Urine Ketones Negative (Negative) Urine Blood 2+ H (Negative) Urine Nitrate Negative (Negative) Urine Bilirubin Neg (Negative) Urine Urobilinogen Norm (Negative) mg/dL Ur Leukocyte Delfina ase Negative (Negative) Urine RBC 0-4 H (0-2) /hpf Urine WBC 0-4 H (0-5) /hpf Ur Squamous Epith Cells None (0-5) /hpf Amorphous Sediment Not Reportable Urine Bacteria Trace (NONE) /hpf Imaging Data^: CXR: Attestation: I personally reviewed and interpreted this imaging study as follows: My impression: Changes COPD. Mild pulmonary vascular congestion EKG Data^: EKG 1: Attestation: I personally reviewed and interpreted this EKG as follows: EKG interpretation date: 04/28/20 EKG interpretation time: 19:49 Interpretation: Normal sinus rhythm at 78 beats a minute, no blocks, normal intervals, no acute ST-T wave changes. Computer generated interpretation: Chest X-Ray 04/28/20 13:48 IMPRESSION: 1. Mild pulmonary hyperexpansion. 2. Pulmonary vascular congestion. EKG 2: Attestation: I personally reviewed and interpreted this EKG as follows: EKG interpretation date: 04/28/20 EKG interpretation time: 19:42 Interpretation: Normal sinus rhythm at 79 beats a minute, no blocks, normal intervals, nonspecific ST-T wave changes. Unchanged from previous. Computer generated interpretation: Chest X-Ray 04/28/20 13:48 IMPRESSION: 1. Mild pulmonary hyperexpansion. 2. Pulmonary vascular congestion. EKG 3: Attestation: I personally reviewed and interpreted this EKG as follows: EKG interpretation date: 04/28/20 EKG interpretation time: 19:42 Interpretation: Normal sinus rhythm 79 beats a minute, no blocks, normal intervals, nonspecific ST-T wave changes. Computer generated interpretation: Chest X-Ray 04/28/20 13:48 IMPRESSION: 1. Mild pulmonary hyperexpansion. 2. Pulmonary vascular congestion. Discharge Plan Discharge Patient Disposition: Home Clinical Impression: Congestive heart failure Qualifiers: Heart failure type: unspecified Heart failure chronicity: acute on chronic Qualified Code(s): I50.9 - Heart failure, unspecified Condition: Stable Prescriptions: No Action gabapentin 300 mg capsule 300 mg PO DAILY PRN (Reason: neuropathy) RF: 0 metoprolol succinate 50 mg capsule,sprinkle,ER 24hr 50 mg PO DAILY RF: 0 aspirin 81 mg tablet,delayed release (DR/EC) 81 mg PO DAILY RF: 0 cholecalciferol (vitamin D3) 50 mcg (2,000 unit) capsule 2,000 unit PO DAILY RF: 0 iron-vitamin B complex Tablet 65 tab PO DAILY RF: 0 Wal-Zyr (cetirizine) 10 mg capsule 10 mg PO DAILY PRN (Reason: Allergy Symptoms) RF: 0 albuterol sulfate 90 mcg/actuation HFA aerosol inhaler 1 inh INHALATION QID PRN (Reason: shortness of breath or wheezing) Qty: 8.5 RF: 5 glipizide 2.5 mg tablet extended release 24hr 2.5 mg PO DAILY Qty: 90 RF: 1 rosuvastatin 40 mg tablet 40 mg PO DAILY Qty: 90 RF: 1 citalopram 40 mg tablet 40 mg PO DAILY Qty: 90 RF: 1 trazodone 50 mg tablet 50 mg PO DAILY Qty: 90 RF: 1 Trelegy Ellipta 100-62.5-25 mcg blister with device 1 inh INHALATION DAILY Qty: 28 RF: 5 (DME) MELONIE HOSE(thigh high) INTERMEDIATE STRENGTH See Rx Instructions .Route .MEDSUPPLY Qty: 1 RF: 1 clopidogrel 75 mg tablet 75 mg PO DAILY RF: 0 amlodipine 5 mg tablet 10 mg PO DAILY RF: 0 Discharge Orders: Discharge Order (Routine); Ordered 04/28/20 Ordered By: Lo Kaye Referrals: Renay Duarte MD [Primary Care Provider] - 1-3 days Discharge Diet: Usual diet Discharge Activity: Increase activity as tolerated Patient Instructions: Congestive Heart Failure Activity Restrictions/Additional Instructions: Please return to the ER immediately for any of the signs or symptoms listed on your discharge instruction sheets, worsening/changing of your symptoms, you are not getting better as quickly as expected, or for ANY other cause or concerns. Call 's office first thing in the morning as Dr. Valiente who is covering for him is expecting your phone call. He will review your history and decide what medication changes if any are necessary to make. If you develop any other symptoms such as chest pain, worsening shortness of breath or has any other concerns please return to the ER immediately for recheck. Sign Out Sign Out Data: Patient Sign Out occurred on 04/28/20 at 18:48. Patient's care was discussed, and care was transferred from to Lo Kaye. Coding Level of Care Code ED Masseur/Masseuse for Trell Nuñez
[2020-04-28 18:45] LABS: Alanine Aminotransferase 30 U/L (0-33); Albumin Level 3.9 g/dL (3.5-5.2); Alkaline Phosphatase 121 IU/L (35-105); Anion Gap 15.2 (5-19); Aspartate Amino Transferase 26 U/L (0-32); Blood Urea Nitrogen 34 mg/dL (8-23); Calcium 9.4 mg/dL (8.5-10.5); Carbon Dioxide 28 mmol/L (22-29); Chloride 103 mmol/L (98-107); Globulin 2.3 g/dL (1.3-4.6); Glomerular Filtration Rate 22.5 mL/min (90-130); Glucose 74 mg/dL (65-115); NT Pro B Type Natriuretic Pept 2982 pg/mL (0-125); Osmolality Calculated 302 mOsm/kg (285-295); Potassium 3.2 mmol/L (3.5-5.1); Sodium 143 mmol/L (136-145); Total Bilirubin 0.3 mg/dL (0.15-1.2); Total Protein 6.2 g/dL (6.6-8.7)
[2020-04-28 19:01] LABS: Add Urine Culture? No; Add Urine Microscopic? YES; Bacteria Urine TRACE /hpf; Bilirubin Urine Neg (Negative); Blood Urine 2+ (Negative); Glucose Urine UA Norm (Normal); Ketones Urine Negative (Negative); Leukocyte Esterase Urine Negative (Negative); Nitrate Urine Negative (Negative); Protein Urine 3+ (Negative); RBC Urine 0-4 /hpf (0-2); Urine Appearance Clear (CLEAR); Urine Color Straw (Yellow); Urobilinogen Urine Norm (Negative); WBC Urine 0-4 /hpf (0-5); pH Urine 7 (5-7)
--- NOTE | 2020-04-28 19:48 | ECG_ITS ---
[facility] Test Date: 2020-04-28 Pat Name: Yas Oconnell Department: Room: Gender: Female Marketing Director: : 1955 Requested By: Fabian Butler Order Number: [id number] Lenni MD: Janette Garcia M.D. Measurements Intervals [place] Rate: 79 P: 86 [place]: 162 QRS: 76 QRSD: 93 T: 69 QT: 418 QTc: 479 Interpretive Statements SINUS RHYTHM MODERATE ST DEPRESSION [0.05+ mV ST DEPRESSION] Compared to ECG 04/28/2020 16:56:29 ST (T wave) deviation now present T-wave abnormality no longer present Electronically Signed On 04-29-2020 22:32:06 ACCOUNTING GENERALIST by Janette Garcia M.D. [id number]
[2020-04-28 19:53] LABS: Magnesium 2.3 mg/dL (1.7-2.3)
[2020-04-28] MEDS: potassium chloride oral liq 20 mEq/15 mL UDC 40 MEQ PO (19:53)
[2020-04-28 19:54] LABS: Troponin 5 2HR 27.68 ng/L (0-10); Troponin 5 2HR Delta 0.68 ABS# (0-10)
[2020-04-28 19:55] VITALS: BP 154/80; PULSE 81; RESP 17; O2SAT 92
[2020-04-28 20:29] VITALS: BP 173/76; PULSE 83; RESP 18; O2SAT 95
[2020-04-28] MEDS: potassium chloride oral liq 20 mEq/15 mL UDC PO (21:01)
[2020-04-28] MEDS: FUROsemide 10 mg/mL SDV 10mL 80 MG IVP (21:02)
[2020-04-28 21:07] VITALS: BP 181/76; PULSE 79; RESP 18; O2SAT 94
== END 2020-04-28 21:16 | disposition home or self-care (01) ==
PROVIDERS: Family Medicine; Emergency Provider Emergency Medicine; PCP Family Medicine
DX: I13.0 Hypertensive heart and chronic kidney disease with heart failure and stage 1 through stage 4 chronic kidney disease, or unspecified chronic kidney disease (principal); E11.22 Type 2 diabetes mellitus with diabetic chronic kidney disease; N18.4 Chronic kidney disease, stage 4 (severe); I50.9 Heart failure, unspecified; Z79.82 Long term (current) use of aspirin; Z79.02 Long term (current) use of antithrombotics/antiplatelets; I25.10 Atherosclerotic heart disease of native coronary artery without angina pectoris; E11.42 Type 2 diabetes mellitus with diabetic polyneuropathy; F17.210 Nicotine dependence, cigarettes, uncomplicated
CPT/HCPCS: 12345; 71045; 80053; 81001; 83735; 83880; 84484; 85025; 93005; 96374; 96375; 99283; 99284; J1940

== ENCOUNTER → 2020-05-08 09:44 | Outpatient (BNVA) | payer MEDICARE, SELFPAY | PROVIDERS: PCP Family Medicine; Visit Provider Internal Medicine Nephrology | DX: N18.4 Chronic kidney disease, stage 4 (severe) (principal) | CPT/HCPCS: 80048 ==

== ENCOUNTER 2020-05-26 13:06 | Emergency (ER) | payer MEDICARE, SELFPAY ==
[2020-05-26 13:20] VITALS: BP 171/76; PULSE 62; RESP 18; TEMP 37.1; O2SAT 94; BMI 23.2
--- NOTE | 2020-05-26 14:27 | XR_ITS ---
WS: [id number] Exam: XR chest 1V portable [id number] Date/Time of Exam: 05/26/2020 2:27 PM Reason For Exam: chest pain Comparison 04/28/2020. The lungs are clear and fully expanded. Cardiomediastinal structures are unremarkable. Pulmonary vasc ularity mildly increased but unchanged. Bony structures are intact. XR/XR chest 1V portable [id number] IMPRESSION: 1. Increased pulmonary vascularity essentially unchanged since previous exam. 2. No pulmonary infiltrate or other significant finding.
--- NOTE | 2020-05-26 14:28 | ECG_ITS ---
[facility] Test Date: 2020-05-26 Pat Name: Yas Oconnell Department: Room: Gender: Female Environmental Health Aide: : 1955 Requested By: Fabian Butler Order Number: [id number] Lenin MD: Robert Cook M.D. Measurements Intervals [place] Rate: 60 P: 88 [place]: 158 QRS: 81 QRSD: 90 T: 64 QT: 429 QTc: 430 Interpretive Statements SINUS RHYTHM WITH SINUS ARRHYTHMIA Compared to ECG 04/28/2020 19:42:10 ST (T wave) deviation no longer present Electronically Signed On 05-26-2020 16:49:29 LEAD CAREGIVER by Robert Cook M.D. [email or web address] [email or web address].TappIn/store/NU/[id number] f
--- NOTE | 2020-05-26 16:28 | ECG_ITS ---
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 Measurements Intervals [place] Rate: 70 P: 88 MN: 163 QRS: 82 QRSD: 87 T: 58 QT: 414 QTc: 447 Interpretive Statements SINUS RHYTHM Compared to ECG 05/26/2020 13:29:20 Sinus arrhythmia no longer present Electronically Signed On 05-27-2020 23:56:19 CURING MACHINE OPERATOR by Janette Garcia M.D. [email or web address] Like My [email or web address] [facility].Wiki-[email or web address]/[id number] f
--- NOTE | 2020-05-26 19:11 | ED_ITS ---
HPI - Chest Pain General: Chief Complaint: Chest Pain Stated Complaint: CHEST PAIN,COUGH AND SOB Time Seen by Provider: 05/26/20 18:53 Source: patient Mode of arrival: ambulatory Limitations: no limitations History of Present Illness: HPI narrative: Dennys is a 64-year-old female has a history of CHF COPD along with heart history. States over the last 3 to 4 days she had increasing wheezing along with shortness of breath. She states her dyspnea is worse with exertion and improved with rest. She denies any fevers. She states she has had some chest pain as well with her dyspnea. Denies any vomiting or diarrhea. Associated symptoms: Reports dyspnea; Deny abdominal pain, fever(s), nausea or vomiting Review of Systems Const: Denies: fever(s), chills, body aches or change in appetite Eyes: Denies: blurry vision or eye discomfort ENMT: Denies: throat pain or dental pain Card: Denies: chest pain Resp: Reports: dyspnea, non-productive cough and wheezing GI: Denies: abdominal pain, nausea, vomiting or diarrhea : Denies: dysuria Musc: Denies: neck pain or back pain Skin/Breast: Denies: rash Neuro: Denies: headache(s) Psych: Denies: depression Liban/Lymph: Denies: easy bruising All/Imm: Denies: urticaria PFSH ED PFSH: Medical History CAD (coronary artery disease) Chronic kidney disease CKD (chronic kidney disease) stage 4, GFR 15-29 ml/min History of heart attack Hypertension Type 2 diabetes mellitus with diabetic polyneuropathy Surgical History H/O dilation and curettage History of carotid endarterectomy History of carpal tunnel release S/P pericardiocentesis S/P PTCA (percutaneous transluminal coronary angioplasty) Status post carotid endarterectomy Family History Mother Heart disease Dementia Father Cancer Denies family history of Diabetes CAD (coronary artery disease) Clotting disorder Hyperlipidemia Psychiatric illness Chronic kidney disease (CKD) Suicide Anesthesia complication Bleeding disorder Family history of premature coronary artery disease Lung disease Hypertension Stroke Social History Smoking and tobacco status: current every day smoker cigarettes Alcohol intake: never Current occupational status: retired and disabled Physical Exam Const: COMMON NORMALS: no acute distress, patient oriented x3 and healthy appearing HENMT: COMMON NORMALS: normocephalic and atraumatic HEAD & SCALP: normocephalic and atraumatic Eye: COMMON NORMALS: Equal, round and reactive pupils present and EOMs intact bilaterally PUPIL: Yes Equal, round and reactive pupils present Neck/C-Spine: COMMON NORMALS: full ROM and supple Chest: COMMONS NORMALS: normal inspection of the chest and normal palpation of entire chest wall Resp: COMMON NORMALS: normal respiratory effort, No retractions and No use of accessory muscles AUSCULTATION: wheezes Cardio: COMMON NORMALS: regular rate, regular rhythm and No murmurs present (Cardio) RATE: regular rate RHYTHM: regular rhythm GI: COMMON NORMALS: Normal to inspection, nondistended, normoactive bowel sounds present, Soft to palpation, non-tender and no masses PALPATION: Yes Soft to palpation Extremity: COMMON NORMALS: normal to inspection and full ROM Neuro: COMMON NORMALS: patient oriented x3, moves all extremities and no focal motor deficits Psych: COMMON NORMALS: mental status grossly normal, Normal thought process present and cooperative THOUGHT PROCESS: Normal thought process present Skin: COMMON NORMALS: no rashes or lesions noted and no wounds GENERAL SKIN EXAM: no rashes or lesions noted Course Vital Signs: Vital signs: Vital Signs Temperature 99.3 F 05/26/20 19:56 Pulse Rate 68 05/26/20 23:39 Respiratory Rate 16 05/26/20 23:39 Blood Pressure 186/66 05/26/20 23:39 Pulse Oximetry 91 05/26/20 23:39 MDM - Chest Pain MDM Narrative: Medical decision making narrative: Yas presents here with COPD exacerbation. She feels improved after breathing treatment. Repeat troponin showed no change. She has no signs of pulmonary embolism. X-ray showed no pneumonia. Will order is Covid test. Did a home O2 eval and she does not require oxygen at home. Patient is stable for discharge and will placed on antibiotics along with steroids. She is to return if worsening. Lab Data: Labs: Lab Results 05/26/20 05/26/20 05/26/20 Range/Units 20:00 20:00 20:00 WBC 9.5 (4.0-10.0) 10^3/ uL RBC 3.73 L (4.1-5.3) 10^6/u L Hgb 11.4 L (11.5-15.3) g/dL Hct 36.1 L (37.0-47.0) % MCV 96.8 (81-99) fL MCH 30.6 (28.0-34.0) pg MCHC 31.6 (30.0-36.0) g/dL RDW 12.1 (12.1-15.1) % Plt Count 194 (130-400) 10^3/c mm MPV 10.4 (7.4-10.4) fL Neut % (Auto) 71.5 % Lymph % (Auto) 17.1 % Lyman % (Auto) 8.5 % Eos % (Auto) 2.1 % Baso % (Auto) 0.6 % Neut # (Auto) 6.77 (1.8-7.7) 10^3/u L Lymph # (Auto) 1.6 (0.8-4.8) 10^3/u L Lyman # (Auto) 0.8 (0.2-0.9) 10^3/u L Eos # (Auto) 0.2 (0.0-0.8) 10^3/u L Baso # (Auto) 0.1 (0.0-0.1) 10^3/u L Nucleated RBC % (a uto) 0 % Nucleated RBCs # 0.0 /100WBC Sodium 140 (136-145) mmol/L Potassium 4.2 (3.5-5.1) mmol/L Chloride 108 H (98-107) mmol/L Carbon Dioxide 21 L (22-29) mmol/L Anion Gap 15.2 (5-19) BUN 42 H (8-23) mg/dL Creatinine 2.8 H (0.5-0.9) mg/dL GFR Calculation 17.0 L (90-130) mL/min Glucose 86 (65-115) mg/dL Calculated Osmolal ity 300 H (285-295) mOsm/k g Calcium 8.9 (8.5-10.5) mg/dL Total Bilirubin 0.4 (0.15-1.2) mg/dL AST 32 (0-32) U/L ALT 50 H (0-33) U/L Alkaline Phosphata se 105 (35-105) IU/L Troponin T Baselin e 27 H (0-10) ng/L Troponin T 120 Min cheesh-na (0-10) ng/L Delta Troponin T (0-10) ABS# NT-Pro-B Natriuret Pep (0-125) pg/mL Total Protein 5.5 L (6.6-8.7) g/dL Albumin 3.1 L (3.5-5.2) g/dL Globulin 2.4 (1.3-4.6) g/dL 05/26/20 05/26/20 Range/Units 20:00 21:45 WBC (4.0-10.0) 10^3/ uL RBC (4.1-5.3) 10^6/u L Hgb (11.5-15.3) g/dL Hct (37.0-47.0) % MCV (81-99) fL MCH (28.0-34.0) pg MCHC (30.0-36.0) g/dL RDW (12.1-15.1) % Plt Count (130-400) 10^3/c mm MPV (7.4-10.4) fL Neut % (Auto) % Lymph % (Auto) % Lyman % (Auto) % Eos % (Auto) % Baso % (Auto) % Neut # (Auto) (1.8-7.7) 10^3/u L Lymph # (Auto) (0.8-4.8) 10^3/u L Lyman # (Auto) (0.2-0.9) 10^3/u L Eos # (Auto) (0.0-0.8) 10^3/u L Baso # (Auto) (0.0-0.1) 10^3/u L Nucleated RBC % (a uto) % Nucleated RBCs # /100WBC Sodium (136-145) mmol/L Potassium (3.5-5.1) mmol/L Chloride (98-107) mmol/L Carbon Dioxide (22-29) mmol/L Anion Gap (5-19) BUN (8-23) mg/dL Creatinine (0.5-0.9) mg/dL GFR Calculation (90-130) mL/min Glucose (65-115) mg/dL Calculated Osmolal ity (285-295) mOsm/k g Calcium (8.5-10.5) mg/dL Total Bilirubin (0.15-1.2) mg/dL AST (0-32) U/L ALT (0-33) U/L Alkaline Phosphata se (35-105) IU/L Troponin T Baselin e (0-10) ng/L Troponin T 120 Min cheesh-na 27.55 H (0-10) ng/L Delta Troponin T 0.55 (0-10) ABS# NT-Pro-B Natriuret Pep 5548 H (0-125) pg/mL Total Protein (6.6-8.7) g/dL Albumin (3.5-5.2) g/dL Globulin (1.3-4.6) g/dL Imaging Data^: CXR: Radiologist's impression: [address] [address] XRay Report Signed Patient: Yas Oconnell Unit #: [id number] : 1955 Age/Sex: 64 / F ADM Date: 05/26/20 Loc: ER Room/Bed: Attending Dr: Ordering Provider/Ordering MD: Fabian Tellez DO Date of Service: 05/26/20 Procedure(s): XR chest 1V portable [id number] Accession Number(s): [id number] Report Number: [id number] WS: [id number] Exam: XR chest 1V portable [id number] Date/Time of Exam: 05/26/2020 2:27 PM Reason For Exam: chest pain Comparison 04/28/2020. The lungs are clear and fully expanded. Cardiomediastinal structures are unremarkable. Pulmonary vascularity mildly increased but unchanged. Bony structures are intact. XR/XR chest 1V portable [id number] IMPRESSION: 1. Increased pulmonary vascularity essentially unchanged since previous exam. 2. No pulmonary infiltrate or other significant finding. EKG Data^: EKG 1: Attestation: I personally reviewed and interpreted this EKG as follows: EKG interpretation date: 05/26/20 EKG interpretation time: 17:52 Interpretation: nsr hr [address] or t wave bnormalities qrs 87 qtc 434 EKG 2: Attestation: I personally reviewed and interpreted this EKG as follows: EKG interpretation date: 05/26/20 EKG interpretation time: 20:57 Interpretation: nsr hr [address] or t wave abnormalities qrs 89 qtc 436 Discharge Plan Discharge Patient Disposition: Home Clinical Impression: Chronic obstructive pulmonary disease Qualifiers: COPD type: COPD with acute exacerbation Qualified Code(s): J44.1 - Chronic obstructive pulmonary disease with (acute) exacerbation Condition: Stable Prescriptions: New Keflex 500 mg capsule 500 mg PO Q6H 7 Days Qty: 28 RF: 0 prednisone 50 mg tablet 50 mg PO DAILY Qty: 5 RF: 0 No Action aspirin 81 mg tablet,delayed release (DR/EC) 81 mg PO DAILY RF: 0 cholecalciferol (vitamin D3) 50 mcg (2,000 unit) capsule 2,000 unit PO DAILY RF: 0 iron-vitamin B complex Tablet 65 tab PO DAILY RF: 0 Wal-Zyr (cetirizine) 10 mg capsule 10 mg PO DAILY PRN (Reason: Allergy Symptoms) RF: 0 metoprolol succinate 50 mg capsule,sprinkle,ER 24hr 100 mg PO DAILY RF: 0 albuterol sulfate 90 mcg/actuation HFA aerosol inhaler 1 inh INHALATION QID PRN (Reason: shortness of breath or wheezing) Qty: 8.5 RF: 5 glipizide 2.5 mg tablet extended release 24hr 2.5 mg PO DAILY Qty: 90 RF: 1 rosuvastatin 40 mg tablet 40 mg PO DAILY Qty: 90 RF: 1 citalopram 40 mg tablet 40 mg PO DAILY Qty: 90 RF: 1 trazodone 50 mg tablet 50 mg PO DAILY Qty: 90 RF: 1 Trelegy Ellipta 100-62.5-25 mcg blister with device 1 inh INHALATION DAILY Qty: 28 RF: 5 chlorthalidone 50 mg tablet 50 mg PO DAILY RF: 0 potassium chloride 20 mEq tablet extended release 20 meq PO DAILY RF: 0 bumetanide 1 mg tablet 1 mg PO DAILY Qty: 90 RF: 3 (DME) MELONIE HOSE(thigh high) INTERMEDIATE STRENGTH See Rx Instructions .Route .MEDSUPPLY Qty: 1 RF: 1 clopidogrel 75 mg tablet 75 mg PO DAILY RF: 0 Discharge Orders: Discharge ED (Routine); Ordered 05/26/20 Ordered By: Shraon Berg Referrals: Renay Duarte MD [Primary Care Provider] - 1-3 days Discharge Diet: Advance as tolerated Discharge Activity: Resume usual activity Patient Instructions: Chronic Bronchitis (ED) Coding Level of Care Code ED Tanning Drum Operator for Chg Fwd Exam Comprehensive
[2020-05-26 19:12] VITALS: PULSE 58; RESP 22; O2SAT 95
[2020-05-26] MEDS: albuterol 8 gm MDI 2 PUFF INHALATION (19:12)
[2020-05-26 19:56] VITALS: BP 206/86; PULSE 69; RESP 16; TEMP 37.4; O2SAT 93
[2020-05-26 20:19] LABS: Basophils # 0.1 10^3/uL (0.0-0.1); Basophils % 0.6 %; Eosinophils # 0.2 10^3/uL (0.0-0.8); Eosinophils % 2.1 %; Hematocrit 36.1 % (37.0-47.0); Hemoglobin 11.4 g/dL (11.5-15.3); Lymphocytes # 1.6 10^3/uL (0.8-4.8); Lymphocytes % 17.1 %; Mean Corpuscular HGB Conc 31.6 g/dL (30.0-36.0); Mean Corpuscular Hemoglobin 30.6 pg (28.0-34.0); Mean Corpuscular Volume 96.8 fL (81-99); Mean Platelet Volume 10.4 fL (7.4-10.4); Monocytes # 0.8 10^3/uL (0.2-0.9); Monocytes % 8.5 %; Neutrophils # 6.77 10^3/uL (1.8-7.7); Neutrophils % 71.5 %; Nucleated Red Blood Cells % 0 %; Platelet Count 194 10^3/cmm (130-400); Red Blood Count 3.73 10^6/uL (4.1-5.3); Red Cell Distribution Width 12.1 % (12.1-15.1); White Blood Count 9.5 10^3/uL (4.0-10.0)
--- NOTE | 2020-05-26 20:28 | ECG_ITS ---
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 Measurements Intervals [place] Rate: 69 P: 95 SD: 156 QRS: 87 QRSD: 89 T: 65 QT: 417 QTc: 448 Interpretive Statements SINUS RHYTHM Compared to ECG 05/26/2020 17:52:01 No significant changes Electronically Signed On 05-27-2020 23:57:38 WASTE REDUCTION COORDINATOR by Janette Garcia M.D. [email or web address] servicesArchitexamemorial [email or web address]/store/[id number]
[2020-05-26 20:44] LABS: Troponin(5th) Baseline 27 ng/L (0-10)
[2020-05-26 20:45] LABS: Alanine Aminotransferase 50 U/L (0-33); Albumin Level 3.1 g/dL (3.5-5.2); Alkaline Phosphatase 105 IU/L (35-105); Anion Gap 15.2 (5-19); Aspartate Amino Transferase 32 U/L (0-32); Blood Urea Nitrogen 42 mg/dL (8-23); Calcium 8.9 mg/dL (8.5-10.5); Carbon Dioxide 21 mmol/L (22-29); Chloride 108 mmol/L (98-107); Globulin 2.4 g/dL (1.3-4.6); Glucose 86 mg/dL (65-115); Osmolality Calculated 300 mOsm/kg (285-295); Potassium 4.2 mmol/L (3.5-5.1); Sodium 140 mmol/L (136-145); Total Bilirubin 0.4 mg/dL (0.15-1.2); Total Protein 5.5 g/dL (6.6-8.7)
[2020-05-26 20:52] LABS: NT Pro B Type Natriuretic Pept 5548 pg/mL (0-125)
[2020-05-26] MEDS: acetaminophen 325 mg Tablet 650 MG PO (21:04)
[2020-05-26 21:06] VITALS: PULSE 72; RESP 14; O2SAT 92
[2020-05-26 22:25] VITALS: BP 186/67; PULSE 69; RESP 19; O2SAT 92
[2020-05-26 22:25] LABS: Troponin 5 2HR 27.55 ng/L (0-10); Troponin 5 2HR Delta 0.55 ABS# (0-10)
[2020-05-26] MEDS: FUROsemide 10 mg/mL SDV 4mL 40 MG IVP (22:26)
[2020-05-26 23:39] VITALS: BP 186/66; PULSE 68; RESP 16; O2SAT 91
[2020-05-27 17:35] LABS: Coronavirus Test Green County Not Detected
== END 2020-05-26 23:42 | disposition home or self-care (01) ==
PROVIDERS: Family Medicine; Emergency Provider Emergency Medicine; PCP Family Medicine
DX: J44.1 Chronic obstructive pulmonary disease with (acute) exacerbation (principal); Z79.82 Long term (current) use of aspirin; Z79.02 Long term (current) use of antithrombotics/antiplatelets; I25.10 Atherosclerotic heart disease of native coronary artery without angina pectoris; I12.9 Hypertensive chronic kidney disease with stage 1 through stage 4 chronic kidney disease, or unspecified chronic kidney disease; E11.22 Type 2 diabetes mellitus with diabetic chronic kidney disease; N18.4 Chronic kidney disease, stage 4 (severe); E11.42 Type 2 diabetes mellitus with diabetic polyneuropathy; F17.210 Nicotine dependence, cigarettes, uncomplicated
CPT/HCPCS: 12345; 71045; 80053; 83880; 84484; 85025; 87635; 93005; 94640; 96374; 96375; 99282; 99284; J1940; J2930; J3535

== ENCOUNTER 2020-06-02 12:30 | Outpatient (CLI) | payer MEDICARE, SELFPAY ==
--- NOTE | 2020-06-02 12:35 | USCV_ITS ---
Yas Oconnell Age: 64 Gender: F : 1955 Exam Date: 06/02/2020 13:11 Ordering Phys: Karri Nayak MD (Andy) ([email or web address] Technologist: Jany Kwong [place] [facility] [place] Indication: CAROTID STENOSIS Risk Factors: Previous Vascular Surgery: BILAT CEA Right Brachial BP: / Left Brachial BP: / Right Left Velocity (cm/s) Spectral Plaque Velocity (cm/s) Spectral Plaque Syst/Diast Broadening Syst/Diast Broadening 77.80/ 12.80 Prox CCA 82.00 / 15.40 73.70/ 14.90 Mid CCA 72.60 / 16.20 66.70/ 16.50 Distal CCA 83.10 / 15.60 71.80/ 13.70 Prox ICA 103.10/ 17.00 76.00/ 17.90 Mid ICA 103.90/ 23.70 74.40/ 17.90 Distal ICA 75.20 / 18.80 116.90 ECA 376.30 0.98 ICA/CCA 1.25 Antegrade Vertebral Antegrade 55.90/ 11.70 cm/s 40.20/ 12.00 cm/s Tri Subclavian Tri 106.9 189.5 0 0 FINDINGS Comparison:. 10/25/19. No significant elevation of systolic or diastolic velocities. Diffuse bilateral scattered calcified plaque and intimal thickening throughout the common carotid arteries and extending through the bifurcation. No stenosis. Antegrade vertebral arteries. CONCLUSIONS Bilateral ICA stenosis less than 50%. Mild carotid atherosclerosis. Dr. Corina Aquino DO (Electronically Signed) Final Date: 02 June 2020 14:20 S
== END 2020-06-02 12:31 | disposition home or self-care (01) ==
LOC: RAD 12:34
PROVIDERS: PCP Family Medicine; Visit Provider Thoracic Surgery (Cardiothoracic Vascular Surgery)
DX: I65.23 Occlusion and stenosis of bilateral carotid arteries (principal)
CPT/HCPCS: 93880

== ENCOUNTER → 2020-06-06 09:22 | Outpatient (BNVA) | payer MEDICARE, SELFPAY | PROVIDERS: PCP Family Medicine; Visit Provider Internal Medicine Nephrology | DX: N18.4 Chronic kidney disease, stage 4 (severe) (principal) | CPT/HCPCS: 80048 ==

== ENCOUNTER 2020-06-07 15:23 | Inpatient (IN) | payer MEDICARE, SELFPAY ==
[2020-06-07] VITALS (65 sets, daily range): BP systolic 158–228; BP diastolic 65–91; PULSE 52–77; RESP 4–28; TEMP 36.7–37.2; O2SAT 89–96; BMI 24.2
--- NOTE | 2020-06-07 15:53 | XRR_ITS ---
PROCEDURE INFORMATION: Exam: XR Chest, 1 View Exam date and time: 06/07/2020 4:03 PM Age: 64 years old Clinical indication: Dyspnea TECHNIQUE: Imaging protocol: XR of the chest Views: 1 view. Total images: 1 COMPARISON: 1. CR XR chest 1V portable [id number] 05/26/2020 2:43 PM 2. CR - XR chest 1V portable [id number] 04/28/2020 3:07:55 PM 3. CR - XR chest 2V* [id number] 07/21/2019 1:53:45 PM FINDINGS: Lungs: Bilateral reticulonodular interstitial lung disease which represents a new finding since prior studies. Potential for active interstitial pneumonitis. No findings raising suspicion for interstitial edema/pulmonary edema. Suspected underlying mild senile fibrosis. COPD/chronic bronchitis. Pleural space: Unremarkable. No pleural effusion. No pneumothorax. Heart/Mediastinum: Cardiac structures and configuration with arteriosclerosis. Bones/joints: Unremarkable. XR/XR chest 1V portable [id number] IMPRESSION: Bilateral reticulonodular interstitial lung disease which may represent active interstitial pneumonitis.
--- NOTE | 2020-06-07 15:53 | ECG_ITS ---
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 Measurements Intervals [place] Rate: 73 P: 84 [place]: 162 QRS: 89 QRSD: 87 T: 36 QT: 414 QTc: 458 Interpretive Statements SINUS RHYTHM MINIMAL ST DEPRESSION [0.025+ mV ST DEPRESSION] Compared to ECG 05/26/2020 20:57:31 ST (T wave) deviation now present Electronically Signed On 06-07-2020 17:23:03 POCKET SETTER by Shabana Hall M.D. [id number]
[2020-06-07 16:02] LABS: Basophils % 0.3 %; Eosinophils # 0.2 10^3/uL (0.0-0.8); Eosinophils % 1.9 %; Hematocrit 34.8 % (37.0-47.0); Hemoglobin 11.1 g/dL (11.5-15.3); Lymphocytes # 1.4 10^3/uL (0.8-4.8); Lymphocytes % 12.8 %; Mean Corpuscular HGB Conc 31.9 g/dL (30.0-36.0); Mean Corpuscular Hemoglobin 30.6 pg (28.0-34.0); Mean Corpuscular Volume 95.9 fL (81-99); Mean Platelet Volume 10.3 fL (7.4-10.4); Monocytes # 0.8 10^3/uL (0.2-0.9); Monocytes % 7.9 %; Neutrophils # 8.18 10^3/uL (1.8-7.7); Neutrophils % 76.8 %; Nucleated Red Blood Cells % 0 %; Platelet Count 241 10^3/cmm (130-400); Red Blood Count 3.63 10^6/uL (4.1-5.3); Red Cell Distribution Width 12.1 % (12.1-15.1); White Blood Count 10.6 10^3/uL (4.0-10.0)
--- NOTE | 2020-06-07 16:07 | ED_ITS ---
HPI - Chest Pain General: Chief Complaint: Chest Pain Stated Complaint: High bp/ SOB/ tighness in chest Time Seen by Provider: 06/07/20 15:45 History of Present Illness: HPI narrative: The patient is a 64-year-old female with past medical history 1 kidney, stage IV kidney disease, COPD, coronary artery disease, history of TX, hypertension, diabetes who comes to the ER complaining of increased swelling in her legs, shortness of breath, and elevated blood pressures. At home she had a systolic blood pressure of 230 and came to the ER. She says she started to not feel well 2 weeks ago and was diagnosed with bronchitis, given steroids and sent home. It helped her breathing but made her have increased swelling. She has chronic issues with swelling and takes Lasix at home. Also has associated mild chest tightness she says she has been told she might have congestive heart failure also Pertinent past history: coronary artery disease and prior TX Timing of current episode: constant Onset: during rest Pain radiation: none Quality: tightness Relieving factors: nothing Context: recent illness Associated symptoms: Reports dyspnea and leg edema; Deny abdominal pain or palpitations Review of Systems General: Reports: 10 or more systems reviewed and unremarkable except in HPI and below Const: Denies: fatigue Eyes: Denies: change in vision, blurry vision or eye redness ENMT: Denies: throat pain, swelling of lips/tongue, ear or mastoid pain or nasal congestion Card: Denies: chest pain, palpitations, irregular heart rhythm, edema, dyspnea on exertion or orthopnea Resp: Reports: dyspnea and wheezing; Denies: productive cough or non-productive cough GI: Denies: abdominal pain, diarrhea or GI cramping : Denies: flank pain, difficulty voiding, urinary frequency or urinary urgency Musc: Denies: neck pain, back pain, extremity pain, joint pain, joint redness, limited range of motion or muscle weakness Skin/Breast: Denies: rash, pruritus, erythema, skin pain or skin tenderness Neuro: Denies: headache(s), numbness in extremities, weakness in extremities, sensory changes, difficulty walking, dizziness, confusion or Slurred speech present Psych: Denies: anxiety or depression Endo: Denies: polyuria All/Imm: Denies: urticaria, throat swelling or tongue swelling PFS ED PFSH: Medical History (Updated 06/07/20 @ 21:14 by Filipe Carballo MD) CAD (coronary artery disease) Chronic kidney disease CKD (chronic kidney disease) stage 4, GFR 15-29 ml/min History of heart attack Hypertension Type 2 diabetes mellitus with diabetic polyneuropathy Surgical History H/O dilation and curettage H/O tubal ligation History of carotid endarterectomy History of carpal tunnel release S/P pericardiocentesis S/P PTCA (percutaneous transluminal coronary angioplasty) S/P thoracentesis Status post carotid endarterectomy Family History Mother Heart disease Dementia Father Cancer Denies family history of Diabetes CAD (coronary artery disease) Clotting disorder Hyperlipidemia Psychiatric illness Chronic kidney disease (CKD) Suicide Anesthesia complication Bleeding disorder Family history of premature coronary artery disease Lung disease Hypertension Stroke Social History (Updated 06/07/20 @ 19:14 by China Melgar MD) Smoking and tobacco status: current some day smoker cigarettes [ Other cigarette details: 4 cig/day ] Alcohol intake: never Substance/Drug Use: current Substance/Drug use frequency: few times a week Substance/Drug use type: Marijuana Household members: spouse Marital status: Current occupational status: retired and disabled Physical Exam Const: COMMON NORMALS: no acute distress, average body habitus, patient oriented x3, no limitations, healthy appearing, alert and well nourished GENERAL APPEARANCE: cooperative, comfortable, well kempt and well developed ORIENTATION/CONSCIOUSNESS: Yes awake, Yes oriented to person, Yes oriented to place and Yes oriented to time HENMT: COMMON NORMALS: normocephalic, external ears normal and Normal external nose present HEAD & SCALP: normal to inspection and normocephalic NOSE: Normal external nose present EXTERNAL EAR: Yes external ears normal MOUTH: Normal oral and palatal mucosa present THROAT: posterior oropharynx normal Eye: COMMON NORMALS: Equal, round and reactive pupils present and EOMs intact bilaterally GENERAL EYE: appearance normal, both eyes and all related structures PUPIL: Yes Equal, round and reactive pupils present Neck/C-Spine: COMMON NORMALS: full ROM, no lymphadenopathy, no meningeal signs and no JVD GENERAL: Yes normal visual inspection Lymph: LYMPHATIC: no lymphadenopathy noted Chest: COMMONS NORMALS: normal inspection of the chest and normal palpation of entire chest wall Resp: COMMON NORMALS: normal respiratory effort, No retractions and No use of accessory muscles EFFORT & INSPECTION: Yes able to speak in complete sentences AUSCULTATION: wheezes expiratory wheezes and lower bilaterally Cardio: COMMON NORMALS: no JVD, regular rate, regular rhythm, S1 normal heart sound present, S2 normal heart sound present and Peripheral pulses 2+ throughout RATE: regular rate RHYTHM: regular rhythm HEART SOUNDS: S1 normal heart sound present and S2 normal heart sound present PERIPHERAL PULSES: Peripheral pulses 2+ throughout GI: COMMON NORMALS: Normal to inspection, nondistended, normoactive bowel sounds present, Soft to palpation, non-tender and no masses INSPECTION: Yes normal to inspection PALPATION: Yes Soft to palpation : COMMON NORMALS: Yes no CVA tenderness BLADDER/KIDNEY EXAM: Yes no CVA tenderness Back/Pelvis: COMMON NORMALS: no CVA tenderness, thoracic and lumbar spine normal to inspection, no thoracic nor lumbar tenderness and thoraco-lumbar ROM normal Extremity: COMMON NORMALS: normal to inspection, full ROM, capillary refill normal and no joint enlargement GENERAL: Yes normal exam except as noted OTHER: 3+ pitting edema to knees bilaterally. Neuro: COMMON NORMALS: patient oriented x3, CN's II-XII intact bilaterally, mo ves all extremities, no focal motor deficits, no sensory deficits noted and gait normal SENSORIUM/ORIENTATION: Yes alert, Yes oriented to person, Yes oriented to place and Yes oriented to time MENINGEAL SIGNS: Yes no meningeal signs Psych: COMMON NORMALS: mental status grossly normal, Normal thought process present, cooperative, normal affect and speech normal APPEARANCE: Yes well kempt ATTITUDE: Yes calm SPEECH: Yes normal speech THOUGHT PROCESS: Normal thought process present Skin: COMMON NORMALS: no rashes or lesions noted GENERAL SKIN EXAM: no rashes or lesions noted Course Vital Signs: Vital signs: Vital Signs Temperature 98.1 F 06/07/20 19:24 Pulse Rate 66 06/07/20 19:24 Respiratory Rate 17 06/07/20 19:24 Blood Pressure 199/86 06/07/20 19:24 Pulse Oximetry 91 06/07/20 19:24 MDM - Chest Pain MDM Narrative: Medical decision making narrative: The patient came to the ER grossly swollen in her lower extremities and short of breath with wheezing. She has known COPD and CHF as well as chronic kidney failure. She only has 1 kidne y. She was given Lasix and it is obvious that she will need admission. Discussed with Dr. Lo who accepts for admission Lab Data: Labs: Lab Results 06/07/20 06/07/20 06/07/20 Range/Units 15:45 15:47 15:47 WBC 10.6 H (4.0-10.0) 10^3/ uL RBC 3.63 L (4.1-5.3) 10^6/u L Hgb 11.1 L (11.5-15.3) g/dL Hct 34.8 L (37.0-47.0) % MCV 95.9 (81-99) fL MCH 30.6 (28.0-34.0) pg MCHC 31.9 (30.0-36.0) g/dL RDW 12.1 (12.1-15.1) % Plt Count 241 (130-400) 10^3/c mm MPV 10.3 (7.4-10.4) fL Neut % (Auto) 76.8 % Lymph % (Auto) 12.8 % Lake % (Auto) 7.9 % Eos % (Auto) 1.9 % Baso % (Auto) 0.3 % Neut # (Auto) 8.18 H (1.8-7.7) 10^3/u L Lymph # (Auto) 1.4 (0.8-4.8) 10^3/u L Lake # (Auto) 0.8 (0.2-0.9) 10^3/u L Eos # (Auto) 0.2 (0.0-0.8) 10^3/u L Baso # (Auto) 0.0 (0.0-0.1) 10^3/u L Nucleated RBC % (a uto) 0 % Nucleated RBCs # 0.0 /100WBC PT 13.20 (12.1-14.9) SECO NDS INR 0.97 (0.8-1.2) Sodium (136-145) mmol/L Potassium (3.5-5.1) mmol/L Chloride (98-107) mmol/L Carbon Dioxide (22-29) mmol/L Anion Gap (5-19) BUN (8-23) mg/dL Creatinine (0.5-0.9) mg/dL GFR Calculation (90-130) mL/min Glucose (65-115) mg/dL Calculated Osmolal ity (285-295) mOsm/k g Calcium (8.5-10.5) mg/dL Total Bilirubin (0.15-1.2) mg/dL AST (0-32) U/L ALT (0-33) U/L Alkaline Phosphata se (35-105) IU/L Troponin T Baselin e (0-10) ng/L NT-Pro-B Natriuret Pep (0-125) pg/mL Total Protein (6.6-8.7) g/dL Albumin (3.5-5.2) g/dL Globulin (1.3-4.6) g/dL Urine Color (Yellow) Urine Appearance (CLEAR) Urine pH (5-7) Ur Specific Gravit y (1.005-1.030) Urine Protein (Negative) Urine Glucose (UA) (Normal) Urine Ketones (Negative) Urine Blood (Negative) Urine Nitrate (Negative) Urine Bilirubin (Negative) Urine Urobilinogen (Negative) mg/dL Ur Leukocyte Delfina ase (Negative) Urine RBC (0-2) /hpf Urine WBC (0-5) /hpf Ur Squamous Epith Cells (0-5) /hpf Amorphous Sediment Urine Bacteria (NONE) /hpf Urine Mucus /hpf Ethyl Alcohol (0-10) mg/dL Hepatitis A IgM Ab Non-reactive (Nonreactive) Hep Bs Antigen Non-reactive (Nonreactive) Hep B Core IgM Ab Non-reactive (Nonreactive) Hepatitis C Antibo dy Non-reactive (Nonreactive) SARS-CoV-2 Ag (Rap id) (Negative) 06/07/20 06/07/20 06/07/20 Range/Units 15:47 15:47 15:47 WBC (4.0-10.0) 10^3/ uL RBC (4.1-5.3) 10^6/u L Hgb (11.5-15.3) g/dL Hct (37.0-47.0) % MCV (81-99) fL MCH (28.0-34.0) pg MCHC (30.0-36.0) g/dL RDW (12.1-15.1) % Plt Count (130-400) 10^3/c mm MPV (7.4-10.4) fL Neut % (Auto) % Lymph % (Auto) % Lake % (Auto) % Eos % (Auto) % Baso % (Auto) % Neut # (Auto) (1.8-7.7) 10^3/u L Lymph # (Auto) (0.8-4.8) 10^3/u L Lake # (Auto) (0.2-0.9) 10^3/u L Eos # (Auto) (0.0-0.8) 10^3/u L Baso # (Auto) (0.0-0.1) 10^3/u L Nucleated RBC % (a uto) % Nucleated RBCs # /100WBC PT (12.1-14.9) SECO NDS INR (0.8-1.2) Sodium 140 (136-145) mmol/L Potassium 4.6 (3.5-5.1) mmol/L Chloride 106 (98-107) mmol/L Carbon Dioxide 24 (22-29) mmol/L Anion Gap 14.6 (5-19) BUN 61 H (8-23) mg/dL Creatinine 2.9 H (0.5-0.9) mg/dL GFR Calculation 16.3 L (90-130) mL/min Glucose 97 (65-115) mg/dL Calculated Osmolal ity 307 H (285-295) mOsm/k g Calcium 8.9 (8.5-10.5) mg/dL Total Bilirubin 0.3 (0.15-1.2) mg/dL AST 52 H (0-32) U/L ALT 61 H (0-33) U/L Alkaline Phosphata se 111 H (35-105) IU/L Troponin T Baselin e 30 H (0-10) ng/L NT-Pro-B Natriuret Pep 9530 H (0-125) pg/mL Total Protein 5.4 L (6.6-8.7) g/dL Albumin 3.5 (3.5-5.2) g/dL Globulin 1.9 (1.3-4.6) g/dL Urine Color (Yellow) Urine Appearance (CLEAR) Urine pH (5-7) Ur Specific Gravit y (1.005-1.030) Urine Protein (Negative) Urine Glucose (UA) (Normal) Urine Ketones (Negative) Urine Blood (Negative) Urine Nitrate (Negative) Urine Bilirubin (Negative) Urine Urobilinogen (Negative) mg/dL Ur Leukocyte Delfina ase (Negative) Urine RBC (0-2) /hpf Urine WBC (0-5) /hpf Ur Squamous Epith Cells (0-5) /hpf Amorphous Sediment Urine Bacteria (NONE) /hpf Urine Mucus /hpf Ethyl Alcohol < 10 (0-10) mg/dL Hepatitis A IgM Ab (Nonreactive) Hep Bs Antigen (Nonreactive) Hep B Core IgM Ab (Nonreactive) Hepatitis C Antibo dy (Nonreactive) SARS-CoV-2 Ag (Rap id) (Negative) 06/07/20 06/07/20 Range/Units 16:16 16:16 WBC (4.0-10.0) 10^3/ uL RBC (4.1-5.3) 10^6/u L Hgb (11.5-15.3) g/dL Hct (37.0-47.0) % MCV (81-99) fL MCH (28.0-34.0) pg MCHC (30.0-36.0) g/dL RDW (12.1-15.1) % Plt Count (130-400) 10^3/c mm MPV (7.4-10.4) fL Neut % (Auto) % Lymph % (Auto) % Lake % (Auto) % Eos % (Auto) % Baso % (Auto) % Neut # (Auto) (1.8-7.7) 10^3/u L Lymph # (Auto) (0.8-4.8) 10^3/u L Lake # (Auto) (0.2-0.9) 10^3/u L Eos # (Auto) (0.0-0.8) 10^3/u L Baso # (Auto) (0.0-0.1) 10^3/u L Nucleated RBC % (a uto) % Nucleated RBCs # /100WBC PT (12.1-14.9) SECO NDS INR (0.8-1.2) Sodium (136-145) mmol/L Potassium (3.5-5.1) mmol/L Chloride (98-107) mmol/L Carbon Dioxide (22-29) mmol/L Anion Gap (5-19) BUN (8-23) mg/dL Creatinine (0.5-0.9) mg/dL GFR Calculation (90-130) mL/min Glucose (65-115) mg/dL Calculated Osmolal ity (285-295) mOsm/k g Calcium (8.5-10.5) mg/dL Total Bilirubin (0.15-1.2) mg/dL AST (0-32) U/L ALT (0-33) U/L Alkaline Phosphata se (35-105) IU/L Troponin T Baselin e (0-10) ng/L NT-Pro-B Natriuret Pep (0-125) pg/mL Total Protein (6.6-8.7) g/dL Albumin (3.5-5.2) g/dL Globulin (1.3-4.6) g/dL Urine Color Straw (Yellow) Urine Appearance Clear (CLEAR) Urine pH 5 (5-7) Ur Specific Gravit y 1.015 (1.005-1.030) Urine Protein 3+ H (Negative) Urine Glucose (UA) Trace H (Normal) Urine Ketones Negative (Negative) Urine Blood Neg (Negative) Urine Nitrate Negative (Negative) Urine Bilirubin Neg (Negative) Urine Urobilinogen Norm (Negative) mg/dL Ur Leukocyte Delfina ase Negative (Negative) Urine RBC None (0-2) /hpf Urine WBC None (0-5) /hpf Ur Squamous Epith Cells 5-10 H (0-5) /hpf Amorphous Sediment Not Reportable Urine Bacteria Trace (NONE) /hpf Urine Mucus Trace /hpf Ethyl Alcohol (0-10) mg/dL Hepatitis A IgM Ab (Nonreactive) Hep Bs Antigen (Nonreactive) Hep B Core IgM Ab (Nonreactive) Hepatitis C Antibo dy (Nonreactive) SARS-CoV-2 Ag (Rap id) Negative (Negative) Discharge Plan Discharge Patient Disposition: Home Clinical Impression: Chronic obstructive pulmonary disease, Acute exacerbation of CHF (congestive heart failure) Condition: Stable Coding Level of Care Code ED Senior Accounting Specialist for Chg Fwd Exam Comprehensive
[2020-06-07] MEDS: FUROsemide 10 mg/mL SDV 4mL 40 MG IVP (16:09)
[2020-06-07 16:13] LABS: INR 0.97 (0.8-1.2)
[2020-06-07] MEDS: cloNIDine 0.1 mg Tablet 0.2 MG PO (16:20)
[2020-06-07 16:22] LABS: Troponin(5th) Baseline 30 ng/L (0-10)
[2020-06-07 16:30] LABS: Alanine Aminotransferase 61 U/L (0-33); Albumin Level 3.5 g/dL (3.5-5.2); Alkaline Phosphatase 111 IU/L (35-105); Anion Gap 14.6 (5-19); Aspartate Amino Transferase 52 U/L (0-32); Blood Urea Nitrogen 61 mg/dL (8-23); Calcium 8.9 mg/dL (8.5-10.5); Carbon Dioxide 24 mmol/L (22-29); Chloride 106 mmol/L (98-107); Globulin 1.9 g/dL (1.3-4.6); Glomerular Filtration Rate 16.3 mL/min (90-130); Glucose 97 mg/dL (65-115); NT Pro B Type Natriuretic Pept 9530 pg/mL (0-125); Osmolality Calculated 307 mOsm/kg (285-295); Potassium 4.6 mmol/L (3.5-5.1); Sodium 140 mmol/L (136-145); Total Bilirubin 0.3 mg/dL (0.15-1.2); Total Protein 5.4 g/dL (6.6-8.7)
[2020-06-07] MEDS: albuterol 8 gm MDI 2 PUFF INHALATION (16:35)
[2020-06-07 16:51] LABS: SARS Covid-2 Antigen Negative (Negative)
[2020-06-07 17:25] LABS: Alcohol Level < 10 mg/dL (0-10)
--- NOTE | 2020-06-07 17:53 | ECG_ITS ---
[facility] Test Date: 2020-06-07 Pat Name: Yas Oconnell Department: Room: Gender: Female News Video Editor: : 1955 Requested By: Filipe Carballo Order Number: [id number] Phelps MD: Shabana Hall M.D. Measurements Intervals [place] Rate: 62 P: 76 OH: 154 QRS: 90 QRSD: 93 T: 18 QT: 433 QTc: 442 Interpretive Statements SINUS RHYTHM Compared to ECG 06/07/2020 15:38:46 ST (T wave) deviation no longer present Electronically Signed On 06-07-2020 17:55:15 DENTAL EQUIPMENT MECHANIC by Shabana Hall M.D. [email or web address]
[2020-06-07 18:18] LABS: Troponin 5 2HR 29.27 ng/L (0-10)
[2020-06-07 18:26] LABS: Hepatitis A Antibody IgM Non-Reactive (Nonreactive); Hepatitis B Core IgM Non-Reactive (Nonreactive); Hepatitis B Surface Antigen Non-Reactive (Nonreactive); Hepatitis C Virus Antibody Non-Reactive (Nonreactive)
[2020-06-07 18:33] LABS: Troponin 5 2HR Delta -0.73 ABS# (0-10)
[2020-06-07 18:41] LABS: Add Urine Microscopic? YES; Bilirubin Urine Neg (Negative); Blood Urine Neg (Negative); Glucose Urine UA Trace (Normal); Ketones Urine Negative (Negative); Leukocyte Esterase Urine Negative (Negative); Nitrate Urine Negative (Negative); Protein Urine 3+ (Negative); Specific Gravity, Urine 1.015 (1.005-1.030); Urine Appearance Clear (CLEAR); Urine Color Straw (Yellow); Urobilinogen Urine Norm (Negative); pH Urine 5 (5-7)
[2020-06-07 18:50] LABS: Add Urine Culture? No; Bacteria Urine TRACE /hpf; Mucus Urine TRACE /hpf
--- NOTE | 2020-06-07 19:03 | PM.HP ---
Providers/Chief Complaint Admitting Physician: China Melgar MD Primary Care Provider: Renay Duarte MD Chief Complaint: High bp/ SOB/ tighness in chest History of Present Illness Yas Oconnell is a 64 year old female with PMHx noted below presents complaints of gradually worsening shortness of breath with exertion, increasing lower extremity swelling, gradually increasing blood pressure. She has been monitoring her blood pressure at home and at bedside provides a log reflecting upward trend with most recent systolic blood pressure this morning greater than 220. 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 She follows up with Dr. Leonardo and respectively. She has known CKD stage IV seems that she has only one functioning kidney potentially due to diabetic nephropathy. There has been some discussion about potential for dialysis so her kidney function has been closely monitored. She has noticed that she is getting increasingly short of breath with decreasing distance, has noted that she sometimes wakes up at night to sit up and catch her breath and she has noted consistent lower extremity edema and some abdominal distention and overall weight gain. She was seen in the ER on 05/26 for acute COPD exacerbation during which time she was prescribed a short course of oral steroids and Keflex. Patient states that while taking the steroids her blood pressure has increased even more so and she has noticed herself feeling more puffy. states that she had some changes in her mentation as well as increased jitteriness. She would like to avoid taking the steroids in the future if possible. Initial blood pressure here was 228/84, this has since improved following a dose of clonidine and is currently 158/65. Further work-up includes white count of 10.6, hemoglobin of 11.1, normal electrolytes, BUN of 61, creatinine of 2.9, BNP of 9500, baseline troponin of 30, chest x-ray is reported as possible interstitial pneumonitis, rapid COVID-19 testing is negative. She has received a 40 mg dose of IV Lasix. I had an extensive discussion with patient and about need for further diuresis and improved blood pressure control, they are both agreeable to the care plan. Due to this, patient needs admission. Review of Systems Const: Denies: fever(s), chills or change in appetite Eyes: Denies: change in vision ENMT: Reports: dry mouth Card: Reports: edema, swelling of feet/ankles, dyspnea on exertion and other (PND); Denies: chest pain or lightheadedness Resp: Reports: dyspnea, productive cough (white/schroeder sputum) and wheezing GI: Reports: constipation (chronic, intermittent); Denies: abdominal pain, nausea, vomiting, hematemesis or hematochezia : Reports: urinary frequency; Denies: difficulty voiding, dysuria, oliguria or hematuria Musc: Denies: back pain Skin/Breast: Denies: rash Neuro: Denies: numbness in extremities, weakness in extremities, dizziness or confusion Psych: Denies: anxiety Medications/Allergies Home Medications Medication Instructions Recorded Confirmed Last Taken Type aspirin 81 mg tablet,delayed 81 mg PO DAILY@199906/26/19 06/07/20 06/06/20 History release cetirizine 10 mg capsule 10 mg PO DAILY@06/26/19 06/07/20 06/07/20 History cholecalciferol (vitamin D3) 50 2,000 unit PO DAILY@06/26/19 06/07/20 06/07/20 History mcg (2,000 unit) capsule clopidogrel 75 mg PO DAILY@09/14/19 06/07/20 06/07/20 History metoprolol succinate 50 mg capsule 100 mg PO Q12H ea 05/05/20 06/07/20 06/07/20 History sprinkle, ext. release 24 hr potassium chloride 20 mEq 20 meq PO DAILY@199905/05/20 06/07/20 06/06/20 History tablet,extended release albuterol sulfate 90 mcg/actuation See Rx Instructions .ROUTE 05/27/20 06/07/20 06/07/20 Rx aerosol inhaler .COMPLEX #9 g bumetanide 0.5 mg PO DAILY@06/07/20 06/07/20 06/07/20 History citalopram 40 mg PO DAILY@06/07/20 06/07/20 06/07/20 History doxazosin 2 mg PO DAILY@199906/07/20 06/07/20 06/06/20 History ferrous sulfate 325 mg PO DAILY@06/07/20 06/07/20 06/06/20 History fululranlpw-qahdtrykm-ylgghdoe 1 inh INHALATION DAILY@06/07/20 06/07/20 06/07/20 History [Trelegy Ellipta] glipizide 2.5 mg PO DAILY@06/07/20 06/07/20 06/07/20 History rosuvastatin 40 mg PO DAILY@199906/07/20 06/07/20 06/06/20 History trazodone 50 mg PO BEDTIME 06/07/20 06/07/20 06/06/20 History Allergies Allergy/AdvReac Type Severity Reaction Status Date / Time prednisone AdvReac Mild ADR-Confusi Verified 06/07/20 19:29 on PFSH Acute PFSH: Medical History (Updated 06/07/20 @ 19:30 by China Melgar MD) CAD (coronary artery disease) Chronic kidney disease CKD (chronic kidney disease) stage 4, GFR 15-29 ml/min History of heart attack Hypertension Type 2 diabetes mellitus with diabetic polyneuropathy Surgical History H/O dilation and curettage H/O tubal ligation History of carotid endarterectomy History of carpal tunnel release S/P pericardiocentesis S/P PTCA (percutaneous transluminal coronary angioplasty) S/P thoracentesis Status post carotid endarterectomy Family History Mother Heart disease Dementia Father Cancer Denies family history of Diabetes CAD (coronary artery disease) Clotting disorder Hyperlipidemia Psychiatric illness Chronic kidney disease (CKD) Suicide Anesthesia complication Bleeding disorder Family history of premature coronary artery disease Lung disease Hypertension Stroke Social History (Updated 06/07/20 @ 19:14 by China Melgar MD) Smoking and tobacco status: current some day smoker cigarettes [ Other cigarette details: 4 cig/day ] Alcohol intake: never Substance/Drug Use: current Substance/Drug use frequency: few times a week Substance/Drug use type: Marijuana Household members: spouse Marital status: Current occupational status: retired and disabled Vitals/I&O/Wt Last Vital Signs Temp 98.9 F 06/07/20 18:42 Pulse 67 06/07/20 18:42 Resp 19 H 06/07/20 18:42 BP 158/65 06/07/20 18:42 Pulse Ox 95 06/07/20 18:42 Weight last 48 hrs Weight 55.338 kg Physical Exam Const: COMMON NORMALS: no acute distress, patient oriented x3 and alert GENERAL APPEARANCE: cooperative and comfortable NUTRITIONAL APPEARANCE: thin ORIENTATION/CONSCIOUSNESS: Yes awake OTHER: -looks appropriate for age HENMT: COMMON NORMALS: normocephalic, atraumatic and hearing grossly normal bilaterally HEAD & SCALP: normocephalic and atraumatic MOUTH: moist mucous membranes abnormal Details: parched Eye: COMMON NORMALS: Equal, round and reactive pupils present, EOMs intact bilaterally and conjunctivae normal CONJUNCTIVA: Yes conjunctivae normal PUPIL: Yes Equal, round and reactive pupils present Neck/C-Spine: COMMON NORMALS: full ROM GENERAL: Yes normal visual inspection and Yes trachea midline Chest: COMMONS NORMALS: normal inspection of the chest Resp: COMMON NORMALS: normal respiratory effort, No retractions and No use of accessory muscles EFFORT & INSPECTION: Yes able to speak in complete sentences, Yes symmetric chest movement and Yes tachypneic AUSCULTATION: wheezes expiratory wheezes (diffuse) and diminished lung sounds Cardio: COMMON NORMALS: regular rate, regular rhythm, S1 normal heart sound present, S2 normal heart sound present and No murmurs present (Cardio) RATE: regular rate RHYTHM: regular rhythm HEART SOUNDS: S1 normal heart sound present and S2 normal heart sound present OTHER: -hypertensive GI: COMMON NORMALS: Normal to inspection, nondistended, normoactive bowel sounds present, Soft to palpation and non-tender PALPATION: Yes Soft to palpation Extremity: COMMON NORMALS: normal to inspection and full ROM GENERAL: Yes edema (2+ pitting edema in bilateral LEs) Neuro: COMMON NORMALS: patient oriented x3, moves all extremities, no focal motor deficits and no sensory deficits noted Psych: COMMON NORMALS: mental status grossly normal, Normal thought process present, cooperative, normal affect and speech normal SPEECH: Yes normal speech THOUGHT PROCESS: Normal thought process present Skin: COMMON NORMALS: no rashes or lesions noted, no jaundice, no petechiae and no mottling GENERAL SKIN EXAM: no rashes or lesions noted Data : 06/07/20 15:47 06/07/20 15:47 Other data: -all labs reviewed including CBC, CMP, troponins, BNP -CXR and ECG reviewed A&P Assessment and plan (1) Acute exacerbation of CHF (congestive heart failure): -as evidenced by dyspnea on exertion, PND, increased LE edema, elevated BNP (9500) -last Echo (2018): EF=58%, G1DD; order repeat echo Status: Acute Qualifiers: Heart failure type: diastolic Qualified Code(s): I50.33 - Acute on chronic diastolic (congestive) heart failure (2) Hypertensive urgency: -has had gradually increasing BP at home, primarily systolic. On arrival here, BP-228/84 -improved after clonidine -resume BB, doxazosin, add hydralazine -close monitoring of BP -suspect this is multifactorial given underlying chronic kidney disease, acute CHF exacerbation, recent steroid use Status: Acute (3) CKD (chronic kidney disease) stage 4, GFR 15-29 ml/min: -baseline Cr -monitor renal function closely with diuresis -follows up with Status: Chronic (4) Type 2 diabetes mellitus with diabetic polyneuropathy: -check A1c -accucheks, hypoglycemia precautions, ISS, hold oral hypoglycemic agents -renal diabetic diet as tolerated Status: Acute Qualifiers: Diabetes mellitus longterm insulin use: without termite control service representative use Qualified Code(s): E11.42 - Type 2 diabetes mellitus with diabetic polyneuropathy (5) Chronic obstructive pulmonary disease: -recently treated for acute COPD exacerbation with short course of oral steroids and Keflex -noted wheezing on examination -would like to avoid steroids as patient thinks this contributed to edema as well as episodes of confusion, jitteriness -monitor respiratory status, supplemental oxygen as needed, not oxygen dependent at baseline -neb treatments as needed; would hold off on additional antibiotic treatment at this time given recent use -rapid COVID-19 negative; screen for influenza Status: Acute Qualifiers: COPD type: COPD with acute exacerbation Qualified Code(s): J44.1 - Chronic obstructive pulmonary disease with (acute) exacerbation (6) CAD (coronary artery disease): -hx of CAD s/p stenting x 4 (LAD x 2, LCx, RCA) in 2018 -resume ASA, Plavix, statin -follows up with Dr. Leonardo Status: Chronic Qualifiers: Coronary Disease-Associated Artery/Lesion type: [place] artery [place] vs. transplanted heart: [place] heart Associated angina: without angina Qualified Code(s): I25.10 - Atherosclerotic heart disease of [place] coronary artery without angina pectoris Additional A&P Information -hx of carotid artery stenosis s/p L carotid endarterectomy with patch angioplasty due to 95% left ICA stenosis -gastritis per endoscopic evaluation (2018): famotidine -hx of normocytic anemia; Hg stable -troponin slightly elevated, no significant delta, likely from demand ischemia secondary to hypertensive urgency, CHF exacerbation -GI ppx with famotidine -DVT ppx with heparin -Dispo: home -Code status: FULL code Attestations Medical Necessity Statement*: Yas Oconnell's hospital stay will require greater than 2 midnights for management of acute CHF exacerbation, hypertensive urgency requiring diuresis, close monitoring of renal function and blood pressure. Time Spent in Patient Care: Greater than 35 minutes (>than 50% of time spent in counselling and/or direct pt care on unit). Coding Level of Care Code Acute Director Of Radiology for Trell Nuñez Diagnoses Acute exacerbation of CHF (congestive heart failure) I50.33 Heart failure type: diastolic Hypertensive urgency I16.0 CKD (chronic kidney disease) stage 4, GFR 15-29 ml/min N18.4 Type 2 diabetes mellitus with diabetic polyneuropathy E11.42 Diabetes mellitus termite control service representative insulin use: without termite control service representative use Chronic obstructive pulmonary disease J44.1 COPD type: COPD with acute exacerbation CAD (coronary artery disease) I25.10 Coronary Disease-Associated Artery/Lesion type: [place] artery [place] vs. transplanted heart: [place] heart Associated angina: without angina
[2020-06-07 20:19] LABS: Glucose Point of Care 69 mg/dL (70-110)
[2020-06-07] MEDS: bumetanide 0.25 mg/mL SDV 4 mL 1 MG IV (21:23)
[2020-06-07] MEDS: trazodone 50 mg Tablet PO (21:24)
[2020-06-07] MEDS: aspirin 81 mg EC Tablet PO (21:24)
[2020-06-07] MEDS: hyDRALAzine 25 mg Tablet PO (21:24)
[2020-06-07] MEDS: atorvastatin 40 mg Tablet 80 MG PO (21:24)
[2020-06-07] MEDS: heparin 5,000 unit/mL INJ 1 mL 5000 UNIT SUBCUT (21:25)
[2020-06-07] MEDS: metoprolol tartrate 50 mg Tablet 100 MG PO (21:25)
[2020-06-07] MEDS: acetaminophen 325 mg Tablet 650 MG PO (21:25)
[2020-06-07] MEDS: doxazosin 1 mg Tablet 2 MG PO (21:26)
[2020-06-07] MEDS: ferrous sulfate EC 325 mg Tablet PO (21:27)
[2020-06-07 22:32] LABS: Troponin 5 6HR 30.81 ng/L (0-10); Troponin 5 6HR Delta 0.81 ng/L (0-12)
[2020-06-08] VITALS (26 sets, daily range): BP systolic 124–199; BP diastolic 48–86; PULSE 51–65; RESP 11–24; TEMP 36.7–37.2; O2SAT 90–95
[2020-06-08 01:00] LABS: Glucose Point of Care 105 mg/dL (70-110)
--- NOTE | 2020-06-08 05:00 | USCV_ITS ---
Kourtney Yas Age: 64 Gender: F : 1955 Exam Date: 06/08/2020 06:29 Ordering Phys: China Melgar MD Technologist: Monie Buckner [place] [facility] [place]: Acute CHF exacerbation, hypertensive urgency BP: 144 / 55 HR: 62 Rhythm: Sinus Technical Quality: Fair MEASUREMENTS (Male / Female) Normal Values 2D ECHO LV Diastolic Diameter PLAX 3.6 cm 4.2 - 5.9 / 3.9 - 5.3 cm LV Systolic Diameter PLAX 2.0 cm LV Chamber Size 3.7 cm IVS Diastolic Thickness 1.4 cm 0.6 - 1.0 / 0.6 - 0.9 cm IVS Systolic Thickness 1.4 cm LVPW Diastolic Thickness 0.9 cm 0.6 - 1.0 / 0.6 - 0.9 cm LVPW Systolic Thickness 0.9 cm RV Chamber Size 2.2 cm LVOT Diameter 1.7 cm LV Ejection Fraction 2D Teich 76.2 % LV Ejection Fraction MOD 2C 73.7 % LV Ejection Fraction 2C AL 73.7 % LA Diameter 2.8 cm LA Width 3.7 cm LA Height 5.3 cm RA Width 2.9 cm RA Height 4.6 cm Aorta at Sinotubular Diameter 1.7 cm M-MODE LV Diastolic Diameter MM 4.2 cm 4.2 - 5.9 / 3.9 - 5.3 cm LV Systolic Diameter MM 2.3 cm LV Ejection Fraction MM Teich 77.8 % IVS Diastolic Thickness MM 0.9 cm 0.6 - 1.0 / 0.6 - 0.9 cm IVS Systolic Thickness MM 1.8 cm LVPW Diastolic Thickness MM 1.0 cm 0.6 - 1.0 / 0.6 - 0.9 cm LVPW Systolic Thickness MM 1.5 cm RV Diastolic Diameter MM 1.9 cm Aortic Annulus Diameter 2.0 cm LA Ao Ratio MM 1.7 MV E Point Septal Separation 0.6 cm DOPPLER AV Peak Velocity 224.0 cm/s LVOT Peak Velocity 93.0 cm/s AV Area Cont Eq vti 1.0 cm squared AV Area Cont Eq pk 0.9 cm squared MV Peak Velocity 141.0 cm/s MV Area PHT 3.9 cm squared Mitral E to A Ratio 1.8 MV E' Velocity 142.0 cm/s TR Peak Velocity 263.2 cm/s TR Peak Gradient 27.7 mmHg TR Mean Velocity 238.9 cm/s TR Mean Gradient 23.5 mmHg TR Velocity Time Integral 109.5 cm TV Peak E Velocity 72.0 cm/s Right Atrial Pressure 8.0 mmHg Pulmonary Artery Systolic Pressu 35.7 mmHg PV Peak Velocity 80.0 cm/s RV Acceleration Time 0.1 s RV Ejection Time 0.3 s RV AcT/ET 0.4 FINDINGS Left Ventricle Normal left ventricular size, systolic function and wall thickness, with no regional wall motion abnormalities. Left ventricular ejection fraction is estimated at 73 %. Indeterminate diastolic function. Right Ventricle Normal right ventricular size and systolic function. Right ventricular systolic pressure 39 mmHg. Right Atrium Normal right atrial size. Right atrial size estimated at 8 mmHg. Left Atrium Mildly increased left atrial size. Mitral Valve Moderate mitral annular calcification. No mitral valve stenosis. Trace mitral valve regurgitation. Aortic Valve Aortic valve not well visualized. Mildly thickened and calcified trileaflet aortic valve. Aortic valve sclerosis without stenosis. Mild aortic valve regurgitation. Tricuspid Valve Structurally normal tricuspid valve. Mild tricuspid valve regurgitation. Pulmonic Valve Pulmonic valve not well visualized. No pulmonary valve stenosis. Trace pulmonary valve regurgitation. Pericardium No pericardial effusion. Aorta Normal-sized aortic root. Normal-sized inferior vena cava with less than 50% respiratory variation. CONCLUSIONS 1. Normal left ventricular size, systolic function and wall thickness, with no regional wall motion abnormalities. Left ventricular ejection fraction is estimated at 73 %. 2. Normal right ventricular size and systolic function. 3. Mild pulmonary hypertension with pulmonary artery pressure estimated at 39 mmHg. 4. Mild aortic valve regurgitation. 5. When compared to previous echocardiogram dated 07/26/2017, there is aortic valve regurgitation now. Shabana Hall MD (Electronically Signed) Final Date: 08 June 2020 17:34 S
[2020-06-08 05:13] LABS: Basophils % 0.3 %; Eosinophils # 0.2 10^3/uL (0.0-0.8); Eosinophils % 3.1 %; Hematocrit 29.9 % (37.0-47.0); Hemoglobin 9.6 g/dL (11.5-15.3); Lymphocytes # 1.3 10^3/uL (0.8-4.8); Lymphocytes % 19.2 %; Mean Corpuscular HGB Conc 32.1 g/dL (30.0-36.0); Mean Corpuscular Hemoglobin 30.4 pg (28.0-34.0); Mean Corpuscular Volume 94.6 fL (81-99); Mean Platelet Volume 10.4 fL (7.4-10.4); Monocytes # 0.7 10^3/uL (0.2-0.9); Monocytes % 10.5 %; Neutrophils # 4.52 10^3/uL (1.8-7.7); Neutrophils % 66.8 %; Nucleated Red Blood Cells % 0 %; Platelet Count 211 10^3/cmm (130-400); Red Blood Count 3.16 10^6/uL (4.1-5.3); White Blood Count 6.8 10^3/uL (4.0-10.0)
[2020-06-08] MEDS: heparin 5,000 unit/mL INJ 1 mL 5000 UNIT SUBCUT ×3 (05:17→19:13)
[2020-06-08 05:38] LABS: Estmated Average Glucose 111; Hemoglobin A1C 5.5 % (4.0-6.0)
[2020-06-08 05:43] LABS: Anion Gap 13.8 (5-19); Blood Urea Nitrogen 60 mg/dL (8-23); Calcium 8.4 mg/dL (8.5-10.5); Carbon Dioxide 23 mmol/L (22-29); Chloride 108 mmol/L (98-107); Glomerular Filtration Rate 15.7 mL/min (90-130); Glucose 85 mg/dL (65-115); Osmolality Calculated 308 mOsm/kg (285-295); Phosphorus 5.1 mg/dL (2.5-4.5); Potassium 3.8 mmol/L (3.5-5.1); Sodium 141 mmol/L (136-145); Thyroid Stimulating Hormone 2.92 uIU/mL (0.27-4.20)
[2020-06-08] MEDS: bumetanide 0.25 mg/mL SDV 4 mL 1 MG IV ×2 (06:41→19:12)
[2020-06-08 06:43] LABS: Glucose Point of Care 117 mg/dL (70-110)
[2020-06-08] MEDS: famotidine 20 mg Tablet PO ×2 (08:20→17:15)
[2020-06-08] MEDS: cholecalciferol (vitamin D3) 1,000 unit Tablet 2000 UNIT PO (08:20)
[2020-06-08] MEDS: hyDRALAzine 25 mg Tablet PO ×3 (08:20→17:15)
[2020-06-08] MEDS: metoprolol tartrate 50 mg Tablet 100 MG PO ×2 (08:21→20:51)
[2020-06-08] MEDS: citalopram 20 mg Tablet 40 MG PO (08:21)
[2020-06-08] MEDS: clopidogrel 75 mg Tablet PO (08:21)
[2020-06-08] MEDS: potassium chloride ER 20 mEq Tablet PO (08:21)
[2020-06-08] MEDS: docusate sodium 100 mg Capsule PO ×2 (08:21→17:16)
[2020-06-08] MEDS: acetaminophen 325 mg Tablet 650 MG PO ×2 (08:22→16:03)
--- NOTE | 2020-06-08 09:00 | PC.NURSE ---
Patient had episode of incontinence. MELONIE hose and socks changed, sabina care performed. Absorbent briefs applied. No further needs identified at this time.
--- NOTE | 2020-06-08 09:06 | PM.PN ---
Subjective Subjective: Interval history: Blood pressure improved this AM, remains on RA, no documentation of urine output overnight because patient was voiding independently. Renal function stable, resolved leukocytosis. Resting quietly in bed, no complaints, rested well overnight. Medications: Reviewed: Yes Medication Review Details: Active Medications Generic Name Dose Route Start Last Admin Trade Name Freq PRN Reason Stop Dose Admin Acetaminophen 650 mg 06/07/20 19:45 06/08/20 08:22 Acetaminophen 32 5 Mg Tablet PO 650 mg Q6H PRN Administration Mild/Mod Pain Or Temp >/= 101 Albuterol Sulfate 2 puff 06/07/20 19:45 Albuterol 8 Gm M di INHALATION Q6H PRN shortness of raj th Albuterol/Ipratrop ium 3 ml 06/07/20 19:45 Ipratropium-Albu terol 3 Ml Neb INHALATION Q6H PRN SHORTNESS OF RAJ TH Aspirin 81 mg 06/07/20 20:00 06/07/20 21:24 Aspirin 81 Mg Ec Tablet PO 81 mg DAILY@1999 [facility] Administration Atorvastatin Calci um 80 mg 06/07/20 20:00 06/07/20 21:24 Atorvastatin 40 Mg Tablet PO 80 mg DAILY@1999 [facility] Administration Bumetanide 1 mg 06/07/20 19:45 06/08/20 06:41 Bumetanide 0.25 Mg/Ml Sdv 4 Ml IV 1 mg Q12H [facility] Administration Citalopram Hydrobr omide 40 mg 06/08/20 08:00 06/08/20 08:21 Citalopram 20 Mg Tablet PO 40 mg DAILY@ [facility] Administration Clopidogrel Bisulf ate 75 mg 06/08/20 08:00 06/08/20 08:21 Clopidogrel 75 M g Tablet PO 75 mg DAILY@08 [facility] Administration Dextrose 25 ml 06/07/20 19:45 Dextrose 50% Syr amber 50 Ml IVP ONCE PRN hypoglycemia prot ocol Protocol Dextrose 50 ml 06/07/20 19:45 Dextrose 50% Syr amber 50 Ml IVP PRN PRN hypoglycemia prot ocol Protocol Docusate Sodium 100 mg 06/08/20 09:00 06/08/20 08:21 Docusate Sodium 100 Mg Capsule PO 100 mg BID [facility] Administration Doxazosin Mesylate 2 mg 06/07/20 20:00 06/07/20 21:26 Doxazosin 1 Mg T ablet PO 2 mg DAILY@1999 [facility] Administration Famotidine 20 mg 06/08/20 09:00 06/08/20 08:20 Famotidine 20 Mg Tablet PO 20 mg BID [facility] Administration Ferrous Sulfate 325 mg 06/07/20 20:00 06/07/20 21:27 Ferrous Sulfate Ec 325 Mg Tablet PO 325 mg DAILY@20 [facility] Administration Glucagon 1 mg 06/07/20 19:45 Glucagon 1 Mg/Ml Inj 1 Ml IM ONCE PRN Adult Acute Hypog lycemia Prot. Protocol Heparin Sodium (Be ef Lung) 5,000 unit 06/07/20 19:45 06/08/20 05:17 Heparin 5,000 Un it/Ml Inj 1 Ml SUBCUT 5,000 unit Q8H [facility] Administration Hydralazine HCl 25 mg 06/07/20 21:00 06/08/20 08:20 Hydralazine 25 M g Tablet PO 25 mg TID [facility] Administration Dextrose 500 mls @ 100 mls /hr 06/07/20 19:45 D5w IV ONCE PRN Adult Acute Hypog lycemia Prot Protocol Insulin Aspart 0 unit 06/07/20 21:00 06/08/20 07:23 Insulin Aspart 1 00 Unit/1 Ml SUBCUT Not Given WM&BEDTIME [facility] Protocol Metoprolol Tartrat e 100 mg 06/07/20 21:00 06/08/20 08:21 Metoprolol Tartr ate 50 Mg Tablet PO 100 mg BID@0900,2100 [facility] Administration Morphine Sulfate 2 mg 06/07/20 19:45 Morphine 4 Mg/Ml Sdv 1 Ml IVP Q4H PRN SEVERE PAIN Ondansetron HCl 4 mg 06/07/20 19:45 Ondansetron 2 Mg /Ml Sdv 2 Ml IVP Q6H PRN vomiting, or N/V if npo Potassium Chloride 20 meq 06/08/20 09:00 06/08/20 08:21 Potassium Chlori de Er 20 Meq Table t PO 20 meq DAILY [facility] Administration Trazodone HCl 50 mg 06/07/20 21:00 06/07/20 21:24 Trazodone 50 Mg Tablet PO 50 mg BEDTIME [facility] Administration Vitamin D 2,000 unit 06/08/20 08:00 06/08/20 08:20 Cholecalciferol (Vitamin D3) 1,000 Unit Tablet PO 2,000 unit DAILY@08 [facility] Administration prednisone Adverse Reaction (Mild, Verified 06/07/20 19:29) ADR-Confusion Vitals/I&O/Wt Last Vital Signs Temp 98.0 F 06/08/20 07:12 Pulse 62 06/08/20 07:12 Resp 11 L 06/08/20 07:12 BP 165/73 06/08/20 07:12 Pulse Ox 90 06/08/20 07:12 06/07/20 06/08/20 06/08/20 22:59 06:59 14:59 Intake Total 120 / 120 Balance 120 / 120 Weight last 48 hrs Weight 55.338 kg Physical Exam Const: COMMON NORMALS: no acute distress, patient oriented x3 and alert GENERAL APPEARANCE: cooperative and comfortable NUTRITIONAL APPEARANCE: thin ORIENTATION/CONSCIOUSNESS: Yes awake OTHER: -looks appropriate for age HENMT: COMMON NORMALS: normocephalic, atraumatic and hearing grossly normal bilaterally HEAD & SCALP: normocephalic and atraumatic MOUTH: moist mucous membranes abnormal Details: parched Eye: COMMON NORMALS: Equal, round and reactive pupils present, EOMs intact bilaterally and conjunctivae normal CONJUNCTIVA: Yes conjunctivae normal PUPIL: Yes Equal, round and reactive pupils present Neck/C-Spine: COMMON NORMALS: full ROM GENERAL: Yes normal visual inspection and Yes trachea midline Chest: COMMONS NORMALS: normal inspection of the chest Resp: COMMON NORMALS: normal respiratory effort, No retractions and No use of accessory muscles EFFORT & INSPECTION: Yes able to speak in complete sentences, Yes symmetric chest movement and Yes tachypneic AUSCULTATION: wheezes expiratory wheezes (diffuse) and diminished lung sounds Cardio: COMMON NORMALS: regular rate, regular rhythm, S1 normal heart sound present, S2 normal heart sound present and No murmurs present (Cardio) RATE: regular rate RHYTHM: regular rhythm HEART SOUNDS: S1 normal heart sound present and S2 normal heart sound present OTHER: -hypertensive GI: COMMON NORMALS: Normal to inspection, nondistended, normoactive bowel sounds present, Soft to palpation and non-tender PALPATION: Yes Soft to palpation Extremity: COMMON NORMALS: normal to inspection and full ROM GENERAL: Yes edema (2+ pitting edema in bilateral LEs) Neuro: COMMON NORMALS: patient oriented x3, moves all extremities, no focal motor deficits and no sensory deficits noted SENSORIUM/ORIENTATION: Yes alert Psych: COMMON NORMALS: mental status grossly normal, Normal thought process present, cooperative, normal affect and speech normal SPEECH: Yes normal speech THOUGHT PROCESS: Normal thought process present Skin: COMMON NORMALS: no rashes or lesions noted, no jaundice, no petechiae and no mottling GENERAL SKIN EXAM: no rashes or lesions noted Data : 06/08/20 04:48 06/08/20 04:48 A&P Assessment and plan (1) Acute exacerbation of CHF (congestive heart failure): -as evidenced by dyspnea on exertion, PND, increased LE edema, elevated BNP (9500) -last Echo (2018): EF=58%, G1DD; order repeat echo Status: Acute (2) Hypertensive urgency: -has had gradually increasing BP at home, primarily systolic. On arrival here, BP-228/84. -improved after clonidine -continue BB, doxazosin, hydralazine; titrate as needed -close monitoring of BP -suspect this is multifactorial given underlying chronic kidney disease, acute CHF exacerbation, recent steroid use Status: Acute (3) CKD (chronic kidney disease) stage 4, GFR 15-29 ml/min: -baseline Cr appears to be around 2 -continue to monitor renal function closely with diuresis -follows up with Status: Chronic (4) Type 2 diabetes mellitus with diabetic polyneuropathy: -A1c-5.5 -accucheks, hypoglycemia precautions, ISS, hold oral hypoglycemic agents -renal diabetic diet as tolerated Status: Acute Qualifiers: Diabetes mellitus intermediate insulin use: without intermediate use Qualified Code(s): E11.42 - Type 2 diabetes mellitus with diabetic polyneuropathy (5) Chronic obstructive pulmonary disease: -recently treated for acute COPD exacerbation with short course of oral steroids and Keflex -noted wheezing on examination -would like to avoid steroids as patient thinks this contributed to edema as well as episodes of confusion, jitteriness -monitor respiratory status, supplemental oxygen as needed, not oxygen dependent at baseline -neb treatments as needed; would hold off on additional antibiotic treatment at this time given recent use -rapid COVID-19 negative; screen for influenza Status: Acute (6) CAD (coronary artery disease): -hx of CAD s/p stenting x 4 (LAD x 2, LCx, RCA) in 2018 -continue ASA, Plavix, statin -follows up with Dr. Leonardo Status: Chronic Qualifiers: Associated angina: without angina Coronary Disease-Associated Artery/Lesion type: [place] artery [place] vs. transplanted heart: [place] heart Qualified Code(s): I25.10 - Atherosclerotic heart disease of [place] coronary artery without angina pectoris Additional A&P Information -hx of carotid artery stenosis s/p L carotid endarterectomy with patch angioplasty due to 95% left ICA stenosis -gastritis per endoscopic evaluation (2018): famotidine -hx of normocytic anemia; Hg stable -troponin slightly elevated, no significant delta, likely from demand ischemia secondary to hypertensive urgency, CHF exacerbation -GI ppx with famotidine -DVT ppx with heparin -Dispo: home -Code status: FULL code Attestations Medical Necessity Statement*: Patient requires hospitalization for continued diuresis, more optimal BP control, close monitoring of renal function given underlying CKD stage IV. Time Spent in Patient Care: 16 - 35 minutes (>than 50% of time spent in counselling and/or direct pt care on unit). Coding Level of Care Code Acute Payroll Administrative Assistant for Chg Fwd Exam Comprehensive Diagnoses Acute exacerbation of CHF (congestive heart failure) I50.9 Hypertensive urgency I16.0 CKD (chronic kidney disease) stage 4, GFR 15-29 ml/min N18.4 Type 2 diabetes mellitus with diabetic polyneuropathy E11.42 Diabetes mellitus intermediate insulin use: without emt intermediate use Chronic obstructive pulmonary disease J44.9 CAD (coronary artery disease) I25.10 Associated angina: without angina Coronary Disease-Associated Artery/Lesion type: [place] artery [place] vs. transplanted heart: [place] heart
--- NOTE | 2020-06-08 09:45 | PC.CHAP ---
Pastoral Care Encounter/Spiritual Assessment Type of Contact [] Declined construction supervisor/carpenter visit [] Patient/Family/Request visit [] Outpatient visit [] Follow-up visit [] Physician referral [] Code/Alert [X] Routine visit [] Staff referral [] Actively dying [] Patient sleeping [] Family support [] [] Out of room [] Palliative care [] [] Receiving care in room [] Pre-surgical visit [] Trauma [] Long length of stay [] ICU visit [] Other: Relational/Emotional Strength [X] Patient feels connected with others/family/visitors/staff [] Distress [] Loneliness/isolation [] Abandonment Spirituality of Patient [X] Person of Marta [] Attends Congregation of their Marta [X] Believes in Prayer [X] Reads Bible or Christian materials [] There are Spiritual issues to be addressed Phlebotomist Supervisor/Instructor Interventions [X] Prayer [X] Active listening [X] Non-anxious presence [X] Spiritual/emotional support [] Crisis/trauma care [] Spiritual counseling [] Bereavement support [] Provided bereavement packet [] Provided Bible/devotional materials [] Provided toy/stuffed animal, coloring book to patient or family member [] Provided Communion [] Anointing/[place] [] Salvation [X] Completed spiritual assessment [] Other: Impact on Illness or Injury [] Angry [] Fearful [] Anxious [] Often cries [] Exhaustion [] Unable to work [] Unable to attend methodist [] Unable to walk/stand [] Unable to read [] Unable to drive [] Unable to eat/drink [] Unable to sleep [] Unable to be with family [] Patient intubated [] Other: Summary Pt alert and able to speak freely. Indicated a strong support system with family and community. Pt said she is a believer, prayer was offered and received. Offered Bible and Daily Bread but Pt declined. Time spent with patient 5-10 min
[2020-06-08 10:50] LABS: Influenza A by IFA Negative (Negative); Influenza B by IFA Negative (Negative)
[2020-06-08 11:03] LABS: Glucose Point of Care 120 mg/dL (70-110)
--- NOTE | 2020-06-08 14:50 | PC.NURSE ---
Dr. Melgar notified patient BP 179/76. 25 mg Hydralazine administered 30 minutes ago. Telephone order to recheck BP in 30 minutes, RBTO. Nurse to continue to monitor.
[2020-06-08 16:26] LABS: Glucose Point of Care 107 mg/dL (70-110)
[2020-06-08] MEDS: ferrous sulfate EC 325 mg Tablet PO (19:15)
[2020-06-08] MEDS: aspirin 81 mg EC Tablet PO (19:15)
[2020-06-08] MEDS: atorvastatin 40 mg Tablet 80 MG PO (19:15)
[2020-06-08] MEDS: doxazosin 1 mg Tablet 2 MG PO (19:16)
[2020-06-08] MEDS: hyDRALAzine 25 mg Tablet 50 MG PO (20:52)
[2020-06-08] MEDS: trazodone 50 mg Tablet PO (20:52)
[2020-06-08 21:13] LABS: Glucose Point of Care 105 mg/dL (70-110)
[2020-06-09] VITALS (12 sets, daily range): BP systolic 126–160; BP diastolic 57–90; PULSE 22–66; RESP 16–20; TEMP 36.7–37; O2SAT 90–98
--- NOTE | 2020-06-09 03:12 | PC.NURSE ---
NURSE NOTE: PT ALERT AND ORIENTED X4. MOVES ALL EXTREMITIES AND FOLLOWS COMMANDS. PT C/O SKIN BURNING WHEN URINE TOUCHES HER SKIN. NO DIFFICULTY URINATING. OUTPUT ADEQUATE. THIS NURSE TOLD PT WOULD PASS ON TO DAYSHIFT TO LET DOCTOR KNOW IN MORNING. PT CURRENTLY RESTING WITH EYES CLOSED. RESP EVEN AND NON LABORED. ALL VS AND ASSESSMENTS CHARTED. NO DISTRESS NOTED. WILL CONTINUE TO MONITOR.
[2020-06-09] MEDS: heparin 5,000 unit/mL INJ 1 mL 5000 UNIT SUBCUT ×3 (04:15→20:26)
[2020-06-09 05:47] LABS: Anion Gap 14.6 (5-19); Blood Urea Nitrogen 60 mg/dL (8-23); Calcium 8.3 mg/dL (8.5-10.5); Carbon Dioxide 23 mmol/L (22-29); Chloride 108 mmol/L (98-107); Glucose 108 mg/dL (65-115); Osmolality Calculated 311 mOsm/kg (285-295); Potassium 3.6 mmol/L (3.5-5.1); Sodium 142 mmol/L (136-145)
[2020-06-09 06:07] LABS: Glucose Point of Care 109 mg/dL (70-110)
[2020-06-09] MEDS: cholecalciferol (vitamin D3) 1,000 unit Tablet 2000 UNIT PO (08:55)
[2020-06-09] MEDS: clopidogrel 75 mg Tablet PO (08:55)
[2020-06-09] MEDS: hyDRALAzine 25 mg Tablet 50 MG PO ×3 (08:55→20:26)
[2020-06-09] MEDS: citalopram 20 mg Tablet 40 MG PO (08:55)
[2020-06-09] MEDS: potassium chloride ER 20 mEq Tablet PO (08:56)
[2020-06-09] MEDS: famotidine 20 mg Tablet PO ×2 (08:56→17:35)
[2020-06-09] MEDS: bumetanide 0.25 mg/mL SDV 4 mL 1 MG IV ×2 (08:56→20:25)
[2020-06-09] MEDS: metoprolol tartrate 50 mg Tablet 100 MG PO (08:59)
[2020-06-09] MEDS: acetaminophen 325 mg Tablet 650 MG PO (09:00)
--- NOTE | 2020-06-09 09:16 | P.PN_ITS ---
Subjective Subjective: Interval history: Continues to diurese well, BP improved, on RA, afebrile. Improved renal function. Resting quietly in bed, no complaints, encouraged to get up and ambulate more today with continued monitoring of vitals and symptoms, she admits to some dyspnea when ambulating to the bathroom. Medications: Reviewed: Yes Medication Review Details: Active Medications Generic Name Dose Route Start Last Admin Trade Name Freq PRN Reason Stop Dose Admin Acetaminophen 650 mg 06/07/20 19:45 06/09/20 09:00 Acetaminophen 32 5 Mg Tablet PO 650 mg Q6H PRN Administration Mild/Mod Pain Or Temp >/= 101 Albuterol Sulfate 2 puff 06/07/20 19:45 Albuterol 8 Gm M di INHALATION Q6H PRN shortness of raj th Albuterol/Ipratrop ium 3 ml 06/07/20 19:45 Ipratropium-Albu terol 3 Ml Neb INHALATION Q6H PRN SHORTNESS OF RAJ TH Aspirin 81 mg 06/07/20 20:00 06/08/20 19:15 Aspirin 81 Mg Ec Tablet PO 81 mg DAILY@1999 [facility] Administration Atorvastatin Calci um 80 mg 06/07/20 20:00 06/08/20 19:15 Atorvastatin 40 Mg Tablet PO 80 mg DAILY@1999 [facility] Administration Bumetanide 1 mg 06/07/20 19:45 06/09/20 08:56 Bumetanide 0.25 Mg/Ml Sdv 4 Ml IV 1 mg Q12H [facility] Administration Citalopram Hydrobr omide 40 mg 06/08/20 08:00 06/09/20 08:55 Citalopram 20 Mg Tablet PO 40 mg DAILY@ [facility] Administration Clopidogrel Bisulf ate 75 mg 06/08/20 08:00 06/09/20 08:55 Clopidogrel 75 M g Tablet PO 75 mg DAILY@08 [facility] Administration Dextrose 25 ml 06/07/20 19:45 Dextrose 50% Syr amber 50 Ml IVP ONCE PRN hypoglycemia prot ocol Protocol Dextrose 50 ml 06/07/20 19:45 Dextrose 50% Syr amber 50 Ml IVP PRN PRN hypoglycemia prot ocol Protocol Docusate Sodium 100 mg 06/08/20 09:00 06/09/20 08:57 Docusate Sodium 100 Mg Capsule PO Not Given BID [facility] Doxazosin Mesylate 2 mg 06/07/20 20:00 06/08/20 19:16 Doxazosin 1 Mg T ablet PO 2 mg DAILY@1999 [facility] Administration Famotidine 20 mg 06/08/20 09:00 06/09/20 08:56 Famotidine 20 Mg Tablet PO 20 mg BID [facility] Administration Ferrous Sulfate 325 mg 06/07/20 20:00 06/08/20 19:15 Ferrous Sulfate Ec 325 Mg Tablet PO 325 mg DAILY@20 [facility] Administration Glucagon 1 mg 06/07/20 19:45 Glucagon 1 Mg/Ml Inj 1 Ml IM ONCE PRN Adult Acute Hypog lycemia Prot. Protocol Heparin Sodium (Be ef Lung) 5,000 unit 06/07/20 19:45 06/09/20 04:15 Heparin 5,000 Un it/Ml Inj 1 Ml SUBCUT 5,000 unit Q8H [facility] Administration Hydralazine HCl 50 mg 06/08/20 21:00 06/09/20 08:55 Hydralazine 25 M g Tablet PO 50 mg TID [facility] Administration Dextrose 500 mls @ 100 mls /hr 06/07/20 19:45 D5w IV ONCE PRN Adult Acute Hypog lycemia Prot Protocol Insulin Aspart 0 unit 06/07/20 21:00 06/09/20 08:59 Insulin Aspart 1 00 Unit/1 Ml SUBCUT Not Given WM&BEDTIME [facility] Protocol Metoprolol Tartrat e 50 mg 06/09/20 21:00 Metoprolol Tartr ate 50 Mg Tablet PO BID@0900,2100 [facility] Morphine Sulfate 2 mg 06/07/20 19:45 Morphine 4 Mg/Ml Sdv 1 Ml IVP Q4H PRN SEVERE PAIN Ondansetron HCl 4 mg 06/07/20 19:45 Ondansetron 2 Mg /Ml Sdv 2 Ml IVP Q6H PRN vomiting, or N/V if npo Potassium Chloride 20 meq 06/08/20 09:00 06/09/20 08:56 Potassium Chlori de Er 20 Meq Table t PO 20 meq DAILY [facility] Administration Trazodone HCl 50 mg 06/07/20 21:00 06/08/20 20:52 Trazodone 50 Mg Tablet PO 50 mg BEDTIME [facility] Administration Vitamin D 2,000 unit 06/08/20 08:00 06/09/20 08:55 Cholecalciferol (Vitamin D3) 1,000 Unit Tablet PO 2,000 unit DAILY@08 [facility] Administration prednisone Adverse Reaction (Mild, Verified 06/07/20 19:29) ADR-Confusion Vitals/I&O/Wt Last Vital Signs Temp 98.6 F 06/09/20 07:47 Pulse 62 06/09/20 07:47 Resp 17 06/09/20 07:47 BP 149/90 06/09/20 07:47 Pulse Ox 90 06/09/20 07:47 06/08/20 06/09/20 06/09/20 22:59 06:59 14:59 Intake Total 240 / 600 Output Total 500 / 500 750 / 750 Balance -260 / 100 -750 / -750 Weight last 48 hrs Weight 53.07 kg Weight 55.338 kg Physical Exam Const: COMMON NORMALS: no acute distress, patient oriented x3 and alert GENERAL APPEARANCE: cooperative and comfortable NUTRITIONAL APPEARANCE: thin ORIENTATION/CONSCIOUSNESS: Yes awake OTHER: -looks appropriate for age HENMT: COMMON NORMALS: normocephalic, atraumatic and hearing grossly normal bilaterally HEAD & SCALP: normocephalic and atraumatic MOUTH: moist mucous membranes abnormal Details: parched Eye: COMMON NORMALS: Equal, round and reactive pupils present, EOMs intact bilaterally and conjunctivae normal CONJUNCTIVA: Yes conjunctivae normal PUPIL: Yes Equal, round and reactive pupils present Neck/C-Spine: COMMON NORMALS: full ROM GENERAL: Yes normal visual inspection and Yes trachea midline Chest: COMMONS NORMALS: normal inspection of the chest Resp: COMMON NORMALS: normal respiratory effort, No retractions and No use of accessory muscles EFFORT & INSPECTION: Yes able to speak in complete sentences, Yes symmetric chest movement and Yes tachypneic AUSCULTATION: whe ezes expiratory wheezes (decreased) and diminished lung sounds Cardio: COMMON NORMALS: regular rate, regular rhythm, S1 normal heart sound present, S2 normal heart sound present and No murmurs present (Cardio) RATE: regular rate RHYTHM: regular rhythm HEART SOUNDS: S1 normal heart sound present and S2 normal heart sound present OTHER: -hypertensive though BP improved GI: COMMON NORMALS: Normal to inspection, nondistended, normoactive bowel sounds present, Soft to palpation and non-tender PALPATION: Yes Soft to palpation Extremity: COMMON NORMALS: normal to inspection and full ROM GENERAL: Yes edema (some edema in bilateral ankles ) Neuro: COMMON NORMALS: patient oriented x3, moves all extremities, no focal motor deficits and no sensory deficits noted SENSORIUM/ORIENTATION: Yes alert Psych: COMMON NORMALS: mental status grossly normal, Normal thought process present, cooperative, normal affect and speech normal SPEECH: Yes normal speech THOUGHT PROCESS: Normal thought process present Skin: COMMON NORMALS: no rashes or lesions noted, no jaundice, no petechiae and no mottling GENERAL SKIN EXAM: no rashes or lesions noted Data : 06/08/20 04:48 06/09/20 04:36 A&P Assessment and plan (1) Acute exacerbation of CHF (congestive heart failure): -as evidenced by dyspnea on exertion, PND, increased LE edema, elevated BNP (9500) -Echo: EF=73%, no RWMA, trace MR, mild AR, mild TR, trace NE, mild pulmonary HTN (39) -continue to monitor vital signs -monitor renal function, lytes -daily weights, monitor Is & Os Status: Acute (2) Hypertensive urgency: -has had gradually increasing BP at home, primarily systolic. On arrival here, BP-228/84. -improved after clonidine -continue BB, doxazosin, hydralazine; titrate as needed -close monitoring of BP -suspect this is multifactorial given underlying chronic kidney disease, acute CHF exacerbation, recent steroid use Status: Acute (3) CKD (chronic kidney disease) stage 4, GFR 15-29 ml/min: -baseline Cr appears to be around 2 -continue to monitor renal function closely with diuresis -follows up with Status: Chronic (4) Type 2 diabetes mellitus with diabetic polyneuropathy: -A1c-5.5 -accucheks, hypoglycemia precautions, ISS, hold oral hypoglycemic agents -renal diabetic diet as tolerated Status: Acute Qualifiers: Diabetes mellitus exterminator helper insulin use: without halfway use Qualified Code(s): E11.42 - Type 2 diabetes mellitus with diabetic polyneuropathy (5) Chronic obstructive pulmonary disease: -recently treated for acute COPD exacerbation with short course of oral steroids and Keflex -noted wheezing on examination, decreased -would like to avoid steroids as patient thinks this contributed to edema as well as episodes of confusion, jitteriness -continue to monitor respiratory status, supplemental oxygen as needed, not oxygen dependent at baseline -neb treatments as needed; would hold off on additional antibiotic treatment at this time given recent use -rapid COVID-19 negative; influenza negative Status: Acute (6) CAD (coronary artery disease): -hx of CAD s/p stenting x 4 (LAD x 2, LCx, RCA) in 2018 -continue ASA, Plavix, statin -follows up with Dr. Leonardo Status: Chronic Qualifiers: Associated angina: without angina Coronary Disease-Associated Artery/Lesion type: [place] artery [place] vs. transplanted heart: [place] heart Qualified Code(s): I25.10 - Atherosclerotic heart disease of [place] coronary artery without angina pectoris Additional A&P Information -hx of carotid artery stenosis s/p L carotid endarterectomy with patch angioplasty due to 95% left ICA stenosis -gastritis per endoscopic evaluation (2018): famotidine -hx of normocytic anemia; Hg stable -troponin slightly elevated, no significant delta, likely from demand ischemia secondary to hypertensive urgency, CHF exacerbation -GI ppx with famotidine -DVT ppx with heparin -Dispo: home -Code status: FULL code Attestations Medical Necessity Statement*: Patient requires hospitalization for continued IV diuresis, monitoring of BP and renal function. Time Spent in Patient Care: 16 - 35 minutes (>than 50% of time spent in counselling and/or direct pt care on unit) . Coding Level of Care Code Acute Volunteer Firefighter for Chg Fwd Exam Comprehensive Diagnoses Acute exacerbation of CHF (congestive heart failure) I50.9 Hypertensive urgency I16.0 CKD (chronic kidney disease) stage 4, GFR 15-29 ml/min N18.4 Type 2 diabetes mellitus with diabetic polyneuropathy E11.42 Diabetes mellitus halfway insulin use: without halfway use Chronic obstructive pulmonary disease J44.9 CAD (coronary artery disease) I25.10 Associated angina: without angina Coronary Disease-Associated Artery/Lesion type: [place] artery [place] vs. transplanted heart: [place] heart
[2020-06-09 11:15] LABS: Glucose Point of Care 206 mg/dL (70-110)
[2020-06-09 11:31] LABS: Bilirubin Urine Neg (Negative); Blood Urine Neg (Negative); Glucose Urine UA Trace (Normal); Ketones Urine Negative (Negative); Nitrate Urine Negative (Negative); Protein Urine 2+ (Negative); Urine Appearance Clear (CLEAR); Urine Color Straw (Yellow); pH Urine 5 (5-7)
[2020-06-09 11:32] LABS: Add Urine Culture? No; Add Urine Microscopic? YES; Bacteria Urine 1+ /hpf; Leukocyte Esterase Urine Negative (Negative); Squamous Epithelial Cell Urine 0-4 /hpf (0-5); Transitional Epi Cells Urine RARE /hpf; Urobilinogen Urine Norm (Negative); WBC Urine 0-4 /hpf (0-5)
--- NOTE | 2020-06-09 13:08 | PC.RESP ---
Smoking Cessation and Pulmonary Rehab information sent to patient.
--- NOTE | 2020-06-09 14:11 | PC.NURSE ---
ambulated approx 100 ft on room air .o2 sat 91-92%.hr sr in 60's.bp 145/66.states did not feel winded.
[2020-06-09 17:18] LABS: Glucose Point of Care 95 mg/dL (70-110)
[2020-06-09] MEDS: aspirin 81 mg EC Tablet PO (20:25)
[2020-06-09] MEDS: ferrous sulfate EC 325 mg Tablet PO (20:25)
[2020-06-09] MEDS: trazodone 50 mg Tablet PO (20:25)
[2020-06-09] MEDS: atorvastatin 40 mg Tablet 80 MG PO (20:25)
[2020-06-09] MEDS: doxazosin 1 mg Tablet 2 MG PO (20:26)
[2020-06-09 21:27] LABS: Glucose Point of Care 128 mg/dL (70-110)
[2020-06-09] MEDS: metoprolol tartrate 50 mg Tablet PO (21:50)
[2020-06-10] VITALS (9 sets, daily range): BP systolic 123–175; BP diastolic 65–84; PULSE 54–68; RESP 15–19; TEMP 36.6–36.8; O2SAT 92–95
[2020-06-10 04:43] LABS: Alanine Aminotransferase 31 U/L (0-33); Albumin Level 3.3 g/dL (3.5-5.2); Alkaline Phosphatase 89 IU/L (35-105); Aspartate Amino Transferase 17 U/L (0-32); Blood Urea Nitrogen 59 mg/dL (8-23); Calcium 8.8 mg/dL (8.5-10.5); Carbon Dioxide 24 mmol/L (22-29); Chloride 106 mmol/L (98-107); Glomerular Filtration Rate 15.1 mL/min (90-130); Glucose 119 mg/dL (65-115); Osmolality Calculated 312 mOsm/kg (285-295); Sodium 142 mmol/L (136-145); Total Bilirubin 0.3 mg/dL (0.15-1.2); Total Protein 5.3 g/dL (6.6-8.7)
--- NOTE | 2020-06-10 05:10 | PC.NURSE ---
NURSE NOTE: SHIFT SUMMARY: PT ALERT AND ORIENTED X4. UAL, GAIT STEADY. PT UP WALKING IN THE FORBES ON AND OFF ALL NIGHT. DENIES PAIN. CURRENTLY SITTING ON SIDE OF BED TEXTING ON PHONE. ALL VS AND ASSESSMENTS CHARTED. NO DISTRESS NOTED.
[2020-06-10 06:49] LABS: Glucose Point of Care 143 mg/dL (70-110)
--- NOTE | 2020-06-10 07:33 | PC.NURSE ---
NURSE NOTE: MISSED DOSE HEPARIN: PLACED CALL TO DR. MORAES AT 0700-MISSED [phone] HEPARIN DOSE. RECEIVED ORDERS TO NOTIFY PHARMACY TO CHANGE HEPARIN TIMES TO EVERY 8 HOURS STARTING AT 0700. PHARMACY NOTIFIED .
[2020-06-10] MEDS: bumetanide 0.25 mg/mL SDV 4 mL 1 MG IV (07:57)
[2020-06-10] MEDS: heparin 5,000 unit/mL INJ 1 mL 5000 UNIT SUBCUT ×2 (07:57→14:17)
[2020-06-10] MEDS: clopidogrel 75 mg Tablet PO (07:57)
[2020-06-10] MEDS: citalopram 20 mg Tablet 40 MG PO (07:57)
[2020-06-10] MEDS: cholecalciferol (vitamin D3) 1,000 unit Tablet 2000 UNIT PO (07:57)
[2020-06-10] MEDS: potassium chloride ER 20 mEq Tablet PO (09:15)
[2020-06-10] MEDS: famotidine 20 mg Tablet PO (09:15)
[2020-06-10] MEDS: docusate sodium 100 mg Capsule PO (09:15)
[2020-06-10] MEDS: hyDRALAzine 25 mg Tablet 50 MG PO ×2 (09:15→14:17)
[2020-06-10] MEDS: metoprolol tartrate 50 mg Tablet PO (09:16)
--- NOTE | 2020-06-10 09:32 | DCPLANNER ---
IMM completed 06/10/20 @ 1592. Copy of rights given to pt.
[2020-06-10 12:08] LABS: Glucose Point of Care 211 mg/dL (70-110)
--- NOTE | 2020-06-10 12:57 | P.DS_ITS ---
Discharge Providers Date of Admission: 06/07/20 17:43 Date of Discharge: June 10, 2020 Attending Provider at Admission: China Melgar MD Attending Provider at Discharge: China Melgar MD Consults: None Primary Care Provider: Renay Duarte MD Diagnoses at Discharge Discharge Diagnosis (1) Acute exacerbation of CHF (congestive heart failure): Status: Acute Permanent problem details: -as evidenced by dyspnea on exertion, PND, increased LE edema, elevated BNP (9500) -Echo: EF=73%, no RWMA, trace MR, mild AR, mild TR, trace MS, mild pulmonary HTN (39) -compensated, switched to oral diuretics Qualifiers: Heart failure type: diastolic Qualified Code(s): I50.33 - Acute on chronic diastolic (congestive) heart failure (2) Hypertensive urgency: Status: Resolved Permanent problem details: -has had gradually increasing BP at home, primarily systolic. On arrival here, BP-228/84. -improved after clonidine -continue BB, doxazosin, hydralazine; titrate as needed -close monitoring of BP -suspect this is multifactorial given underlying chronic kidney disease, acute CHF exacerbation, recent steroid use (3) CKD (chronic kidney disease) stage 4, GFR 15-29 ml/min: Status: Chronic Permanent problem details: -baseline Cr appears to be around 2-3 -follows up with (4) Type 2 diabetes mellitus with diabetic polyneuropathy: Status: Chronic Permanent problem details: -A1c-5.5 -accucheks, hypoglycemia precautions, ISS, hold oral hypoglycemic agents -renal diabetic diet as tolerated Qualifiers: Diabetes mellitus alf insulin use: without alf use Qualified Code(s): E11.42 - Type 2 diabetes mellitus with diabetic polyneuropathy (5) Chronic obstructive pulmonary disease: Status: Acute Permanent problem details: -recently treated for acute COPD exacerbation with short course of oral steroids and Keflex -noted wheezing on examination, decreased -would like to avoid steroids as patient thinks this contributed to edema as well as episodes of confusion, jitteriness -continue to monitor respiratory status, supplemental oxygen as needed, not oxygen dependent at baseline -neb treatments as needed; would hold off on additional antibiotic treatment at this time given recent use -rapid COVID-19 negative; influenza negative Qualifiers: COPD type: COPD with acute exacerbation Qualified Code(s): J44.1 - Chronic obstructive pulmonary disease with (acute) exacerbation (6) CAD (coronary artery disease): Status: Chronic Permanent problem details: -hx of CAD s/p stenting x 4 (LAD x 2, LCx, RCA) in 2018 -continue ASA, Plavix, statin -follows up with Dr. Leonardo Qualifiers: Associated angina: without angina Coronary Disease-Associated Artery/Lesion type: [place] artery [place] vs. transplanted heart: [place] heart Qualified Code(s): I25.10 - Atherosclerotic heart disease of [place] coronary artery without angina pectoris Other Information Additional DC diagnoses/information: -hx of carotid artery stenosis s/p L carotid endarterectomy with patch angioplasty due to 95% left ICA stenosis -gastritis per endoscopic evaluation (2018): famotidine -hx of normocytic anemia; Hg stable -troponin slightly elevated, no significant delta, likely from demand ischemia secondary to hypertensive urgency, CHF exacerbation Reason for Visit Reason for Visit: High bp/ SOB/ tighness in chest Hospital Course Hospital Course Patient was admitted to the cardiac stepdown unit and started on IV diuresis, secondary to noted clinical evidence of decompensated CHF. She was noted to have hypertensive urgency in the ER which required multiple antihypertensive medications. I suspect this is multifactorial given her underlying CKD stage IV, recent steroid use and acute CHF exacerbation. Blood pressure is much better controlled but I suspect she will deal with some degree of hypertension given her chronic kidney disease. Renal function has been closely monitored in light of need for diuresis and has remained relatively stable and will need to continue to be monitored closely as she may continue to have worsening renal function and required dialysis in the near future. She already follows up with . Metoprolol dose had to be reduced due to noted bradycardia. She is now clinically compensated and can resume oral diuresis with Bumex. She did present with some evidence of mild COPD exacerbation, had recently completed a course of oral steroids and antibiotics. She states that she would not want to have further systemic steroid therapy as she had significant jitteriness and episodes of altered mental status. She has not required supplemental oxygen and respiratory status is otherwise at her baseline. Did complain of some dysuria with noted mild pyuria and bacteria so is on empiric oral antibiotics for treatment of UTI. She will require appropriate follow-up with her primary care physician as well as with and Dr. Leonardo. She is advised to continue to monitor her blood pressure at least once daily and keep a log for review with her regular doctor allow for further adjustments of her medications if needed. She is ambulatory without noted dyspnea, tolerating oral intake without difficulty, voiding well, has consistently been afebrile. She is advised to seek medical attention immediately should her symptoms recur. Physical Exam Const: COMMON NORMALS: no acute distress, patient oriented x3 and alert GENERAL APPEARANCE: cooperative and comfortable NUTRITIONAL APPEARANCE: thin ORIENTATION/CONSCIOUSNESS: Yes awake OTHER: -looks appropriate for age HENMT: COMMON NORMALS: normocephalic, atraumatic and hearing grossly normal bi laterally HEAD & SCALP: normocephalic and atraumatic MOUTH: moist mucous membranes abnormal Details: parched Eye: COMMON NORMALS: Equal, round and reactive pupils present, EOMs intact bilaterally and conjunctivae normal CONJUNCTIVA: Yes conjunctivae normal PUPIL: Yes Equal, round and reactive pupils present Neck/C-Spine: COMMON NORMALS: full ROM GENERAL: Yes normal visual inspection and Yes trachea midline Chest: COMMONS NORMALS: normal inspection of the chest Resp: COMMON NORMALS: normal respiratory effort, No retractions and No use of accessory muscles EFFORT & INSPECTION: Yes able to speak in complete sentences and Yes symmetric chest movement AUSCULTATION: diminished lung sounds OTHER: -minimal dyspnea with exertion Cardio: COMMON NORMALS: regular rate, regular rhythm, S1 normal heart sound present, S2 normal heart sound present and No murmurs present (Cardio) RATE: regular rate RHYTHM: regular rhythm HEART SOUNDS: S1 normal heart sound present and S2 normal heart sound present OTHER: -normotensive GI: COMMON NORMALS: Normal to inspection, nondistended, normoactive bowel sounds present, Soft to palpation and non-tender PALPATION: Yes Soft to palpation Extremity: COMMON NORMALS: normal to inspection, full ROM, no clubbing, cyanosis or edema and no pedal edema Neuro: COMMON NORMALS: patient oriented x3, moves all extremities, no focal motor deficits and no sensory deficits noted SENSORIUM/ORIENTATION: Yes alert Psych: COMMON NORMALS: mental status grossly normal, Normal thought process present, cooperative, normal affect and speech normal SPEECH: Yes normal speech THOUGHT PROCESS: Normal thought process present Skin: COMMON NORMALS: no rashes or lesions noted, no jaundice, no petechiae and no mottling GENERAL SKIN EXAM: no rashes or lesions noted Discharge Data Data Completed and Pending: Completed Studies During Hospitalization Category Date Time Status XR chest 1V radha ble [id number] Stat Exams 06/07/20 15:53 Completed CV echo complete* [id number] Routine Ultrasound 06/08/20 05:00 Completed Labs from last 24 hours 06/10/20 06/10/20 06/10/20 11:16 06:43 03:35 Sodium 142 Potassium 4.0 Chloride 106 Carbon Dioxide 24 Anion Gap 16.0 BUN 59 H Creatinine 3.1 H GFR Calculation 15.1 L Glucose 119 H POC Glucose 211 H 143 H Calculated Osmolal ity 312 H Calcium 8.8 Total Bilirubin 0.3 AST 17 ALT 31 Alkaline Phosphata se 89 Total Protein 5.3 L Albumin 3.3 L Globulin 2.0 06/09/20 06/09/20 21:18 17:04 Sodium Potassium Chloride Carbon Dioxide Anion Gap BUN Creatinine GFR Calculation Glucose POC Glucose 128 H 95 Calculated Osmolal ity Calcium Total Bilirubin AST ALT Alkaline Phosphata se Total Protein Albumin Globulin Vitals: Last Vital Signs Temp 98.3 F 06/10/20 05:40 Pulse 54 L 06/10/20 10:47 Resp 19 H 06/10/20 10:47 BP 123/66 06/10/20 10:47 Pulse Ox 95 06/10/20 09:05 Discharge Plan Discharge Patient Disposition: Home Condition: Stable Prescriptions: New cephalexin 250 mg Capsule 250 mg PO TID 7 Days Qty: 21 RF: 0 hydralazine 25 mg Tablet 50 mg PO TID 30 Days Qty: 180 RF: 0 metoprolol tartrate 50 mg Tablet 50 mg PO BID@0900,2100 30 Days Qty: 60 RF: 0 Continued aspirin 81 mg tablet,delayed release (DR/EC) 81 mg PO DAILY@1999 RF: 0 cholecalciferol (vitamin D3) 50 mcg (2,000 unit) capsule 2,000 unit PO DAILY@08 RF: 0 Wal-Zyr (cetirizine) 10 mg capsule 10 mg PO DAILY@ RF: 0 potassium chloride 20 mEq tablet extended release 20 meq PO DAILY@1999 RF: 0 albuterol sulfate 90 mcg/actuation HFA aerosol inhaler See Rx Instructions .ROUTE .COMPLEX Qty: 9 RF: 0 clopidogrel 75 mg tablet 75 mg PO DAILY@08 RF: 0 ferrous sulfate 325 mg (65 mg iron) Tablet 325 mg PO DAILY@20 RF: 0 citalopram 40 mg tablet 40 mg PO DAILY@08 RF: 0 trazodone 50 mg tablet 50 mg PO BEDTIME RF: 0 glipizide 2.5 mg tablet extended release 24hr 2.5 mg PO DAILY@ RF: 0 rosuvastatin 40 mg tablet 40 mg PO DAILY@1999 RF: 0 Trelegy Ellipta 100-62.5-25 mcg blister with device 1 inh INHALATION DAILY@ RF: 0 doxazosin 2 mg Tablet 2 mg PO DAILY@1999 30 Days Qty: 30 RF: 0 Changed bumetanide 0.5 mg tablet 0.5 mg PO BID 30 Days Qty: 60 RF: 0 Discontinued metoprolol succinate 50 mg capsule,sprinkle,ER 24hr 100 mg PO Q12H RF: 0 Discharge Orders: Discharge Order (Routine); Ordered 06/10/20 Ordered By: China Melgar Referrals: Pee Garcia MD [Referring] - 2 weeks (Follow up for CKD stage 4) Amie Leonardo MD [Physician] - 1 month Renay Duarte MD [Primary Care Provider] - 4-7 days Discharge Diet: Advance as tolerated, Cardiac and Diabetic Discharge Activity: Increase activity as tolerated Activity Restrictions/Additional Instructions: -Please continue to monitor your blood pressure at home, preferably at the same time every day, and keep a log for review with your doctor -Please monitor your weight at least twice/week and keep a log for review with your doctor Discharge Attestations Time Spent in Discharge Care*: greater than 30 min Specific Discharge Activities: educating patient, educating and/or supporting family/caregiver (), discussing with lining caser/social workers/dc planners, documenting/other paperwork and evaluating patient/reviewing data Status at Discharge: Cognitive status at discharge: cognitively intact , Behavioral status at discharge: cooperative and independent in ADL's , Functional status at discharge: independent ambulation Overall status at discharge: patient is progressing back to baseline Quality Metrics Clinical Quality Measures During this hospital stay, did patient experience: None Coding Level of Care Code Acute 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 transplanted heart: [place] heart
[2020-06-10 13:36] LABS: Anion Gap 13.3 (5-19); Blood Urea Nitrogen 58 mg/dL (8-23); Calcium 8.8 mg/dL (8.5-10.5); Carbon Dioxide 24 mmol/L (22-29); Chloride 107 mmol/L (98-107); Glomerular Filtration Rate 15.1 mL/min (90-130); Glucose 177 mg/dL (65-115); Osmolality Calculated 311 mOsm/kg (285-295); Potassium 4.3 mmol/L (3.5-5.1); Sodium 140 mmol/L (136-145)
== END 2020-06-10 16:50 | disposition home or self-care (01) | DRG 291 ==
LOC: ER 17:34 → CSU 18:07
PROVIDERS: Admitting Provider Family Medicine; Emergency Provider Family Medicine; PCP Family Medicine; Visit Provider Family Medicine
DX: I13.0 Hypertensive heart and chronic kidney disease with heart failure and stage 1 through stage 4 chronic kidney disease, or unspecified chronic kidney disease (principal); I50.33 Acute on chronic diastolic (congestive) heart failure; N18.4 Chronic kidney disease, stage 4 (severe); J44.1 Chronic obstructive pulmonary disease with (acute) exacerbation; E11.22 Type 2 diabetes mellitus with diabetic chronic kidney disease; N28.9 Disorder of kidney and ureter, unspecified; I25.10 Atherosclerotic heart disease of native coronary artery without angina pectoris; Z95.5 Presence of coronary angioplasty implant and graft; I25.2 Old myocardial infarction; E11.42 Type 2 diabetes mellitus with diabetic polyneuropathy; F17.210 Nicotine dependence, cigarettes, uncomplicated; I16.0 Hypertensive urgency; Z79.82 Long term (current) use of aspirin; Z79.02 Long term (current) use of antithrombotics/antiplatelets; Z79.51 Long term (current) use of inhaled steroids; Z79.84 Long term (current) use of oral hypoglycemic drugs
CPT/HCPCS: 12345; 36415; 36416; 71045; 80048; 80053; 80074; 80307; 81001; 82962; 83036; 83735; 83880; 84100; 84443; 84484; 85025; 85610; 87426; 87804; 93005; 93306; 94640; 96372; 99283; J1644; J1815; J1940; J3490; J3535

== ENCOUNTER → 2020-07-07 11:29 | Outpatient (BNVA) | payer MEDICARE, SELFPAY | PROVIDERS: PCP Family Medicine; Visit Provider Internal Medicine Nephrology | DX: N18.4 Chronic kidney disease, stage 4 (severe) (principal) | CPT/HCPCS: 80069; 82043; 82310; 83970 ==

== ENCOUNTER → 2020-07-23 00:01 | Outpatient (BNVA) | payer MEDICARE, SELFPAY | PROVIDERS: PCP Family Medicine; Visit Provider Internal Medicine Nephrology | DX: N18.4 Chronic kidney disease, stage 4 (severe) (principal) | CPT/HCPCS: 80048 ==

== ENCOUNTER → 2020-08-13 09:01 | Outpatient (BNVA) | payer MEDICARE, SELFPAY | PROVIDERS: PCP Family Medicine; Visit Provider Internal Medicine Nephrology | DX: N18.5 Chronic kidney disease, stage 5 (principal) | CPT/HCPCS: 80069; 82043; 82306; 82310; 83970; 85025; 86706; 86803; 87340 ==

== ENCOUNTER → 2020-09-03 10:06 | Outpatient (BNVA) | payer MEDICARE, SELFPAY | PROVIDERS: PCP Family Medicine; Visit Provider Surgery | DX: Z20.822 Contact with and (suspected) exposure to COVID-19 (principal); N18.4 Chronic kidney disease, stage 4 (severe) | CPT/HCPCS: 87635 ==

== ENCOUNTER 2020-09-08 08:46 | Day surgery (SDC) | payer MEDICARE, SELFPAY ==
[2020-09-05 14:04] VITALS: BMI 22.2
[2020-09-08] VITALS (14 sets, daily range): BP systolic 109–173; BP diastolic 50–75; PULSE 62–75; RESP 14–20; TEMP 36.1–36.6; O2SAT 92–100
--- NOTE | 2020-09-08 08:31 | ANES.PREANE2 ---
Pre-Anesthetic Assessment Pre-Anesthetic Assessment: Height/Weight: Height 1.5 m Weight 49.895 kg Preop Diagnosis: Right carotid artery stenosis Proposed Procedure: Operation Date: 09/08/20 10:15 Proposed Procedures p Peritoneal Catheter Insertion [id number] N18.4(Not Applicable) - Puneet Mckoy MD Was Beta Maurice taken within 24 hours: Yes Was Clonidine taken within 24 hours: N/A Social: Social History: Tobacco and No alcohol Exam: Pre-Anes Outpt Exam: alert, oriented x 3, clear to auscultation bilaterally and regular rate & rhythm Airway: Submandibular: WNL Cervical ROM: WNL MP: 2 Pulmonary: Pulmonary: COPD, Cough and SOB CV/HEM: CV/HEM: CAD, CHF and HTN : : Chronic renal failure Hepatic: Hepatic: None reported GI: GI: None reported Metabolic: Metabolic: DM Neuropsych: Neuropsych: CVA and TIA Anesthetic Plan: ASA status: 3 Anesthesia: General PFSH Anesthesia PFSH: Medical History (Updated 08/29/20 @ 11:12 by Puneet Mckoy MD) CAD (coronary artery disease) -hx of CAD s/p stenting x 4 (LAD x 2, LCx, RCA) in 2018 -continue ASA, Plavix, statin -follows up with Dr. Leonardo CAD (coronary artery disease) Chronic obstructive pulmonary disease -recently treated for acute COPD exacerbation with short course of oral steroids and Keflex -noted wheezing on examination, decreased -would like to avoid steroids as patient thinks this contributed to edema as well as episodes of confusion, jitteriness -continue to monitor respiratory status, supplemental oxygen as needed, not oxygen dependent at baseline -neb treatments as needed; would hold off on additional antibiotic treatment at this time given recent use -rapid COVID-19 negative; influenza negative CKD (chronic kidney disease) stage 4, GFR 15-29 ml/min -baseline Cr appears to be around 2-3 -follows up with Hypertension Myocardial infarct Type 2 diabetes mellitus with diabetic polyneuropathy -A1c-5.5 -accucheks, hypoglycemia precautions, ISS, hold oral hypoglycemic agents -renal diabetic diet as tolerated Surgical History (Updated 08/29/20 @ 11:12 by Puneet Mckoy MD) H/O dilation and curettage H/O tubal ligation History of carotid endarterectomy History of carpal tunnel release History of colonoscopy with polypectomy 2018 S/P pericardiocentesis S/P PTCA (percutaneous transluminal coronary angioplasty) S/P thoracentesis Status post carotid endarterectomy Family History Mother Heart disease Dementia Father Cancer Denies family history of Diabetes CAD (coronary artery disease) Clotting disorder Hyperlipidemia Psychiatric illness Chronic kidney disease (CKD) Suicide Anesthesia complication Bleeding disorder Family history of premature coronary artery disease Lung disease Hypertension Stroke Social History Smoking and tobacco status: current some day smoker cigarettes [ Other cigarette details: 4 cig/day ] Alcohol intake: never Household members: spouse Marital status: Current occupational status: retired and disabled Data Anesthesia Cardiac Studies: No Data to Display
[2020-09-08 09:38] LABS: Glucose Point of Care 121 mg/dL (70-110)
[2020-09-08] MEDS: sodium chloride 0.9% 1,000 ML 30 ML IV (09:41)
--- NOTE | 2020-09-08 10:43 | W.PM.OPSUD ---
Surgery/Procedure H&P Update DATE OF PROCEDURE: September 08, 2020 DATE H&P PERFORMED: 08/29/20 H&P UPDATE INFORMATION: I have reviewed H&P completed within last 30 days, I have examined patient prior to procedure and No changes to prior documentation PREOP DIAGNOSIS: Chronic kidney disease PLANNED PROCEDURE: Operation Date: 09/08/20 10:15 Proposed Procedures p Peritoneal Catheter Insertion 21786 N18.4(Not Applicable) - Puneet Mckoy MD
[2020-09-08] MEDS: heparin 5,000 unit/mL INJ 1 mL 5000 UNIT (11:53)
[2020-09-08] MEDS: heparin 5,000 unit/mL INJ 1 mL 5000 UNIT XX (12:04)
--- NOTE | 2020-09-08 12:50 | SUR.PHASEI ---
1238- RESPIRATORY THERAPY TO PACU 1250- PATIENT TO MECHANICAL VENTILATION PER CHARISMA, RT
--- NOTE | 2020-09-08 13:05 | XR_ITS ---
WS: [id number] PORTABLE CHEST HISTORY: POST OP SOB COMPARISON: 06/07/2020 Endotracheal tube in good position with the tip ending several centimeters above the amena. Mildly hyperexpanded lungs. New ill-defined opacification in the central LEFT lung and posterior to t he LEFT heart. RIGHT lung is clear. No pleural effusion or pneumothorax. Cardiac size: Mildly enlarged cardiac silhouette. Mediastinum/Aorta: Mild atherosclerosis aorta. No osseous abnormality seen. XR/XR chest 1V portable [id number] IMPRESSION: 1. Endotracheal tube in good position. 2. New small focal opacifications in the mid and lower LEFT lung may be aspira tion pneumonia or pneumonitis.
--- NOTE | 2020-09-08 13:26 | SUR.PHASEI ---
1323- ET TUBE DISCONTINUED PER DR. WEAVER. SIMPLE MASK APPLIED AT 6LPM SAT 99%
--- NOTE | 2020-09-08 13:28 | ANE.PACU2 ---
Inpatient post-anesthesia follow up: Airway intact: Yes Vital signs: Temperature 97.0 F Pulse Rate 68 Respiratory Rate 17 Blood Pressure 129/52 Pulse Oximetry 99 Oxygen Delivery Me thod Simple Mask Oxygen Flow Rate 6 Fraction of Inspir ed Oxygen 100 Hydration adequate: Yes Nausea and vomiting: No Pain level: 2 Mental status: Baseline
--- NOTE | 2020-09-08 14:58 | PM.OP ---
Operative Report Date of procedure: September 08, 2020 Pre-op Diagnosis: Chronic kidney disease Post-op diagnosis: same Procedure Done: Laparoscopic placement of peritoneal dialysis catheter Pathology: none sent Surgeon: Puneet Mckoy Anesthesia: General Condition: stable Disposition: PACU Procedure: The patient was taken to the operating room and intubated under general anesthesia after IV antibiotic had been administered. The abdomen was prepped and draped in a sterile manner. Using 15 blade a 1 cm incision was made in the left upper quadrant and a Veress needle introduced to create 15 mm of pneumoperitoneum. Using Optiview technique, a 5 mm port was placed and a 5 mm 30? scope was introduced. Another 5 mm port was placed in the left lower quadrant at the level of the umbilicus in the midclavicular line. The pigtail peritoneal dialysis catheter was placed on the abdominal wall and the position marked, an introducer needle was passed through the abdominal wall to the right of the midline inferior to the umbilicus, guidewire passed through the introducer needle, the needle was removed and a dilator sheath was placed over the guidewire and inner dilator and guidewire was removed. The pigtail catheter was introduced as the peel-away sheath was removed with the tip of the catheter in the pelvis and the cuff within the rectus muscle. The catheter was tunneled proximally to exit in the right upper quadrant. A subcutaneous pocket was created. The catheter was attached to a saline bag and there was good inflow and outflow noted. 20 mL of 1:10,000 heparin was injected into the tube. The ports were removed under direct visualization and there was no bleeding from the port sites. The skin at the 5 mm port sites were closed using 4-0 Monocryl and Dermabond. Sterile dressings were applied at the catheter site. The patient was intubated and transferred to recovery room in stable condition.
== END 2020-09-08 15:29 | disposition home or self-care (01) ==
PROVIDERS: PCP Family Medicine; Visit Provider Surgery
PROC: (CPT 49324; principal; 2020-09-08 10:05)
DX: E11.22 Type 2 diabetes mellitus with diabetic chronic kidney disease (principal); I13.0 Hypertensive heart and chronic kidney disease with heart failure and stage 1 through stage 4 chronic kidney disease, or unspecified chronic kidney disease; N18.4 Chronic kidney disease, stage 4 (severe); I50.9 Heart failure, unspecified; J44.9 Chronic obstructive pulmonary disease, unspecified; I25.10 Atherosclerotic heart disease of native coronary artery without angina pectoris; Z86.73 Personal history of transient ischemic attack (TIA), and cerebral infarction without residual deficits; Z95.5 Presence of coronary angioplasty implant and graft; E11.42 Type 2 diabetes mellitus with diabetic polyneuropathy; F17.210 Nicotine dependence, cigarettes, uncomplicated
CPT/HCPCS: 49324; 36416; 71045; 82962; 87070; 87077; 87186; 94002; 94799; C1750; J0690; J1644; J2405; J2704; J3010; J3490; J7030

== ENCOUNTER → 2020-09-15 10:13 | Outpatient (BNVA) | payer MEDICARE, SELFPAY | PROVIDERS: PCP Family Medicine; Visit Provider Family Medicine | DX: E11.42 Type 2 diabetes mellitus with diabetic polyneuropathy (principal); G47.00 Insomnia, unspecified; I15.1 Hypertension secondary to other renal disorders; N28.89 Other specified disorders of kidney and ureter; N18.5 Chronic kidney disease, stage 5; F17.210 Nicotine dependence, cigarettes, uncomplicated; E11.22 Type 2 diabetes mellitus with diabetic chronic kidney disease | CPT/HCPCS: 80053; 80061; 82043; 82310; 83036; 83970; 84100; 84443; 85025 ==

== ENCOUNTER → 2020-09-29 12:02 | Outpatient (BNVA) | payer MEDICARE, SELFPAY | PROVIDERS: PCP Family Medicine; Visit Provider Internal Medicine Nephrology | DX: N18.5 Chronic kidney disease, stage 5 (principal) | CPT/HCPCS: 80048; 86705; 86706; 86803; 87340 ==

== ENCOUNTER 2020-12-10 13:42 | Outpatient (CLI) | payer MEDICARE, SELFPAY ==
--- NOTE | 2020-12-10 14:15 | USCV_ITS ---
Yas Oconnell Age: 65 Gender: F : 1955 Exam Date: 12/10/2020 13:56 Ordering Phys: Karri Nayak MD ([place]) [email or web address] [place] Technologist: [place] [facility] [place]: HX OF BILAT ENDART Risk Factors: Previous Vascular Surgery: Right Brachial BP: / Left Brachial BP: / Right Left Velocity (cm/s) Spectral Plaque Velocity (cm/s) Spectral Plaque Syst/Diast Broadening Syst/Diast Broadening 95.90/ 19.80 Prox CCA 79.40 / 17.60 91.50/ 17.60 Mid CCA 67.30 / 14.30 129.00/24.30 Distal CCA 93.70 / 18.70 88.20/ 19.80 Prox ICA 113.30/ 25.20 94.80/ 22.10 Mid ICA 143.20/ 30.60 101.40/27.60 Distal ICA 107.80/ 24.10 141.10 ECA 200.50 0.79 ICA/CCA 1.53 Antegrade Vertebral Antegrade 63.90/ 17.60 cm/s 29.90/ 6.30 cm/s Tri Subclavian Tri 100.3 142.2 0 0 FINDINGS Moderate heterogeneous plaques at the left bifurcation and proximal internal carotid artery. Mild diffuse plaques of the right bifurcation and internal carotid artery. Mild to moderate diffuse plaques at the distal common carotid artery on the right side Antegrade flow in the vertebral arteries bilaterally Moderate to heavy plaques at the proximal external carotid artery on the left side CONCLUSIONS Moderate heterogeneous plaques at the left bifurcation and proximal internal carotid artery with velocity elevation, consistent with 50 to 69% stenosis. Mild diffuse plaques of the right bifurcation and internal carotid artery, with Doppler features suggestive of less than 50% stenosis . Mild to moderate diffuse plaques at the distal common carotid artery on the right side Elevated velocity in the external carotid artery on the left side, suggestive of hemodynamically significant stenosis. No significant stenosis in the proximal subclavian or vertebral arteries, based on the above findings Compared to the study from 06/02/2020, there is some worsening of stenosis on the left side Dr Janette Garcia MD [facility] (Electronically Signed) Final Date: 12 December 2020 08:31 S
== END 2020-12-10 13:43 | disposition home or self-care (01) ==
PROVIDERS: PCP Family Medicine; Visit Provider Thoracic Surgery (Cardiothoracic Vascular Surgery)
DX: I65.23 Occlusion and stenosis of bilateral carotid arteries (principal)
CPT/HCPCS: 93880

== ENCOUNTER → 2021-03-23 11:41 | Outpatient (BNVA) | payer MEDICARE, SELFPAY | PROVIDERS: PCP Family Medicine; Visit Provider Family Medicine | DX: E11.42 Type 2 diabetes mellitus with diabetic polyneuropathy (principal); E78.5 Hyperlipidemia, unspecified; G47.00 Insomnia, unspecified; I15.1 Hypertension secondary to other renal disorders; N28.89 Other specified disorders of kidney and ureter; J44.1 Chronic obstructive pulmonary disease with (acute) exacerbation | CPT/HCPCS: 80053; 80061; 83036; 84443; 85025 ==

== ENCOUNTER 2021-04-16 11:36 | Outpatient (CLI) | payer MEDICARE, SELFPAY ==
--- NOTE | 2021-04-16 11:41 | MM_ITS ---
WS: [id number] BILATERAL DIGITAL SCREENING MAMMOGRAPHY WITH CAD CLINICAL INFORMATION: SCREENING HISTORY: Screening mammogram. No current complaints. COMPARISON: March 06, 2020 TECHNIQUE: Bilateral CC and MLO views. FINDINGS: Scattered fibroglandular densities bilaterally. Weight loss compared to previous. A few incidental be nign punctate calcifications. No suspicious focal mass, asymmetry, calcifications, or architectural d istortion. No evidence of malignancy. MM/[place] [id number] IMPRESSION: BI-RADS: 2-Benign FOLLOW UP: 1 Year Follow-up Recommend return to annual screening mammography.
== END 2021-04-16 11:37 | disposition home or self-care (01) ==
LOC: RADSHAW 11:39
PROVIDERS: PCP Family Medicine; Visit Provider Family Medicine
DX: Z12.31 Encounter for screening mammogram for malignant neoplasm of breast (principal)
CPT/HCPCS: 77067

== ENCOUNTER → 2021-06-24 13:06 | Outpatient (BNVA) | payer MEDICARE, SELFPAY | PROVIDERS: PCP Family Medicine; Visit Provider Family Medicine | DX: E87.6 Hypokalemia (principal); M62.838 Other muscle spasm; M54.2 Cervicalgia | CPT/HCPCS: 80053; 83735; 85025 ==

== ENCOUNTER 2021-06-30 14:46 | Outpatient (CLI) | payer MEDICARE, SELFPAY ==
--- NOTE | 2021-06-30 15:15 | XR_ITS ---
WS: [id number] XR KUB [id number] REASON FOR EXAM: PAIN/PD CATHETER RLQ IN PELVIS/ABD/PELVIC SWELLING/TENDER JAVIER FINDINGS: Nonspecific bowel gas pattern with some small segments of gas-filled small bowel in the right abdomen . These bowel segments may have some bowel wall edema. No free air or retroperitoneal air. PE catheter seen overlying the the lower central and right lower abdomen. The distal most PE catheter is coiled in the midline in the mid pelvis. There are some calcifications in the right upper quadrant location and etiology uncertain. XR/XR KUB [id number] IMPRESSION: Nonspecific bowel gas pattern as above. PD catheter configuration as above.
== END 2021-06-30 14:47 | disposition home or self-care (01) ==
LOC: RAD 15:02
PROVIDERS: PCP Family Medicine; Visit Provider Internal Medicine Nephrology
DX: Z49.02 Encounter for fitting and adjustment of peritoneal dialysis catheter (principal); R52 Pain, unspecified; R19.01 Right upper quadrant abdominal swelling, mass and lump
CPT/HCPCS: 74018

== ENCOUNTER 2021-08-17 12:35 | Outpatient (CLI) | payer MEDICARE, SELFPAY ==
--- NOTE | 2021-08-17 12:48 | US_ITS ---
WS: [id number] ULTRASOUND ABDOMEN LIMITED CLINICAL INFORMATION: ABDOMINAL NODULES TO RUQ COMPARISON: None. FINDINGS: Liver Size: Normal. Craniocaudal length: 11.7 cm. Echogenicity: Normal. Surface nodularity: None. Mass (size and location): None. Bile ducts Intrahepatic ducts: Normal. Common bile duct diameter: 0.2 cm. Gallbladder Normal. Gallstones: None. Gallbladder sludge: None. Gallbladder wall thickening: None. Pericholecystic fluid: None. Sonographic Wu sign: Absent. Pancreas Normal as visualized. Right kidney: Atrophic and echogenic compatible with medical renal disease. Simple RIGHT renal cyst m easuring 2.2 x 2.0 cm Hydronephrosis: None. Size: 5.1 cm x 3.0 cm x 2.9 cm. Abdominal aorta and IVC Visualized portions are normal. Ascites: None. US/US abdomen limited [id number] IMPRESSION: 1. Normal liver. 2. Gallbladder is normal. Normal common bile duct. 3. Atrophic echogenic RIGHT kidney. No hydronephrosis. 4. No other significant findings.
== END 2021-08-17 12:36 | disposition home or self-care (01) ==
LOC: RAD 12:37
PROVIDERS: PCP Family Medicine; Visit Provider Internal Medicine Nephrology
DX: R19.01 Right upper quadrant abdominal swelling, mass and lump (principal); N26.1 Atrophy of kidney (terminal)
CPT/HCPCS: 76705

== ENCOUNTER → 2021-10-22 11:58 | Outpatient (BNVA) | payer MEDICARE, SELFPAY | PROVIDERS: PCP Family Medicine; Visit Provider Nurse Practitioner Family | DX: J06.9 Acute upper respiratory infection, unspecified (principal); J20.9 Acute bronchitis, unspecified; J44.9 Chronic obstructive pulmonary disease, unspecified; R05.9 Cough, unspecified | CPT/HCPCS: 71046 ==

== ENCOUNTER → 2021-12-22 12:45 | Outpatient (BNVA) | payer MEDICARE, SELFPAY | PROVIDERS: PCP Family Medicine; Visit Provider Family Medicine | DX: E11.42 Type 2 diabetes mellitus with diabetic polyneuropathy (principal); E78.5 Hyperlipidemia, unspecified; G47.00 Insomnia, unspecified; I15.1 Hypertension secondary to other renal disorders; N28.89 Other specified disorders of kidney and ureter; J44.9 Chronic obstructive pulmonary disease, unspecified | CPT/HCPCS: 80053; 80061; 83036; 84443; 85025 ==

== ENCOUNTER 2022-04-19 11:01 | Outpatient (CLI) | payer MEDICARE, SELFPAY ==
--- NOTE | 2022-04-19 11:08 | MM_ITS ---
WS: [id number] . BILATERAL SCREENING DIGITAL TOMOSYNTHESIS MAMMOGRAM WITH CAD HISTORY: SCREENING COMPARISON: 04/16/2021, 03/06/2020 Bilateral CC and MLO views with tomosynthesis and synthetic mammography submitted. Computer aided det ection analyzed. Breast composition: The breasts are heterogeneously dense, which may obscure small masses. No suspici ous masses, microcalcifications or architectural distortion. Benign lymph nodes upper outer quadrants of each breast. MM/[place] [id number] IMPRESSION: BI-RADS: 2-Benign FOLLOW UP: 1 Year Follow-up
== END 2022-04-19 11:02 | disposition home or self-care (01) ==
LOC: RAD 11:02
PROVIDERS: PCP Family Medicine; Visit Provider Family Medicine
DX: Z12.31 Encounter for screening mammogram for malignant neoplasm of breast (principal)
CPT/HCPCS: 77063; 77067

== ENCOUNTER → 2022-07-14 12:25 | Outpatient (BNVA) | payer MEDICARE, SELFPAY | PROVIDERS: PCP Family Medicine; Visit Provider Internal Medicine | DX: I25.10 Atherosclerotic heart disease of native coronary artery without angina pectoris (principal); I15.1 Hypertension secondary to other renal disorders; N28.89 Other specified disorders of kidney and ureter; I11.0 Hypertensive heart disease with heart failure; I50.9 Heart failure, unspecified; F17.210 Nicotine dependence, cigarettes, uncomplicated | CPT/HCPCS: 99214 ==

== ENCOUNTER 2022-08-09 07:57 | Outpatient (CLI) | payer MEDICARE, SELFPAY ==
--- NOTE | 2022-08-09 08:00 | USCV_ITS ---
Yas Oconnell Age: 66 Gender: F : 1955 Exam Date: 08/09/2022 08:07 Ordering Phys: Robert Cook M.D ([email or web address]) Technologist: [place] [facility] [place]: [place] Risk Factors: Previous Vascular Surgery: Right Brachial BP: / Left Brachial BP: / Right Left Velocity (cm/s) Spectral Plaque Velocity (cm/s) Spectral Plaque Syst/Diast Broadening Syst/Diast Broadening 89.10/ 18.50 Prox CCA 109.60/ 28.00 89.90/ 21.80 Mid CCA 117.10/ 25.30 98.50/ 29.10 Distal CCA 153.60/ 36.30 100.30/26.50 Prox ICA 144.10/ 22.40 90.60/ 27.30 Mid ICA 170.50/ 39.10 92.30/ 37.50 Distal ICA 106.30/ 31.30 88.40 ECA 162.30 1.02 ICA/CCA 1.11 Antegrade Vertebral Antegrade 69.30/ 22.40 cm/s 35.50/ 18.40 cm/s Tri Subclavian Bi 102.9 174.0 0 0 FINDINGS Comparison:. 12/10/20. Diffuse bilateral scattered calcified plaque and intimal thickening throughout the common carotid arteries and extending through the bifurcation. Progression of plaque since the prior exam. Antegrade vertebral arteries. Abnormal right carotid waveforms, parvus tardus waveform but velocity not elevated. On a prior CTA 09/04/19 there was calcified plaque at the origin of the right carotid artery. This plaque may have progressed and now be stenotic. CONCLUSIONS Bilateral ICA stenosis less than 50%. Moderate diffuse carotid atherosclersis. Right carotid tardus parvus waveforms, progressed since the prior exam, may indicate stenosis more proximally. Recommend CTA Carotid arteries to asses origin of the right common carotid. Dr. Corina Aquino DO (Electronically Signed) Final Date: 09 August 2022 09:36 S
== END 2022-08-09 07:58 | disposition home or self-care (01) ==
LOC: RAD 08:01
PROVIDERS: PCP Family Medicine; Visit Provider Internal Medicine
DX: I65.23 Occlusion and stenosis of bilateral carotid arteries (principal)
CPT/HCPCS: 93880

== ENCOUNTER → 2022-08-17 12:04 | Outpatient (BNVA) | payer MEDICARE, SELFPAY | PROVIDERS: PCP Family Medicine; Visit Provider Family Medicine | DX: E11.42 Type 2 diabetes mellitus with diabetic polyneuropathy (principal); E78.5 Hyperlipidemia, unspecified; I15.1 Hypertension secondary to other renal disorders; J44.1 Chronic obstructive pulmonary disease with (acute) exacerbation; N28.89 Other specified disorders of kidney and ureter | CPT/HCPCS: 80053; 80061; 83036; 84439; 84443; 84481 ==

== ENCOUNTER 2022-09-06 08:59 | Outpatient (CLI) | payer MEDICARE, SELFPAY ==
[2022-09-06 09:46] VITALS: BMI 23.2
--- NOTE | 2022-09-06 09:46 | ECG_ITS ---
[facility] Test Date: 2022-09-06 Pat Name: Yas Oconnell Department: Room: Gender: Female Program Director/Air Personality: Brigette Cronin : 1955 Requested By: Robert Cook Order Number: [id number] Lenin MD: Robert Cook M.D. Interpretive Statements NAME OF STUDY: LEXISCAN SESTAMIBI STRESS TEST INDICATION: [Shortness of Breath, ] Procedure: At the baseline, the blood pressure was 130/93 mmHg with a heart rate of 68 bpm. The electrocardiogram showed normal sinus rhythm, normal axis with normal ST and T's. The Lexiscan was infused over a period of 20 seconds. A total of 0.4 mg of Lexiscan was infused. The stress phase was continued for a total of 5 minutes. Heart rate was at the end of stress phase was 79 bpm and a blood pressure of 120/62 mmHg. The EKG at the peak infusion revealed normal sinus rhythm with no significant ST-T wave changes. Sestamibi was injected 20 seconds after the Lexiscan infusion. Blood pressure at the end of recovery phase was 126/57 mmHg with a heart rate of 80 bpm. Conclusion: 1. Normal EKG response to Lexiscan infusion 2. No Lexiscan induced chest pain or cardiac arrhythmia. 3. Normal blood pressure and heart rate response. 4. Sestamibi/sestamibi perfusion scan pending; see separate report. Electronically Signed On 09-11-2022 13:07:38 CDT by Robert Cook M.D. [email or web address]
--- NOTE | 2022-09-06 09:47 | NMCV_ITS ---
NM john perf SPECT r/s* [id number] Yas Oconnell Age: 66 Gender: F : 1955 Exam Date: 09/06/2022 11:04 Ordering Phys: Robert Cook M.D ([email or web address]) Technologist: NICKY [place] Exam Location: [facility] Indications: CHEST PAIN, SHORTNESS OF BREATH STRESS TEST Please see separate stress test report in [facility] for full findings IMAGE PROTOCOL Rest/Stress 1 Lexiscan Day Radiopharmaceutical Dose (mCi) Administration Site Administered by Rest: Tc-99m 10.6 IV NICKY [place] Sestamibi Stress:Tc-99m 32.3 IV NICKY [place] Sestamibi Rest: 06-Sep-2022 60 Discovery 630 Stress: 06-Sep-2022 30 Discovery 630 0.4mg Lexiscan. Supine position only as patient was unable to lay prone. SPECT RESULTS Technical Quality: Excellent Raw Data Analysis: Normal Image Corrections: No attenuation or motion correction applied Summed Stress Score: 6 Summed Rest Score: 7 Summed Difference Score: 1 PERFUSION FINDINGS There is a small to medium sized area of mostly fixed perfusion defect noted in the apical, apical lateral and apical inferior glaser. This is consistent with small to medium sized area of prior infarct in these territories with minimal sabina-infarct ischemia. FUNCTIONAL RESULTS (calculated via Gated SPECT) Stress Image LV EF (%): 76 Stress EDV (mL):97 TID: 0.95 Stress ESV (mL):23 FUNCTIONAL FINDINGS: There is normal left ventricular systolic function. IMPRESSIONS 1) Abnormal myocardial perfusion imaging with small to medium sized area of prior infarct in the apical, apical lateral and apical inferior glaser with minimal sabina-infarct ischemia. 2) LV systolic function is normal Robert Cook MD (Electronically Signed) Final Date: 11 September 2022 13:33 S
[2022-09-06] MEDS: regadenoson 0.4 Mg/5 ml Syringe IVP (11:45)
[2022-09-06 12:00] VITALS: BP 126/57; PULSE 80
== END 2022-09-06 09:00 | disposition home or self-care (01) ==
LOC: CDL 09:01
PROVIDERS: PCP Family Medicine; Visit Provider Internal Medicine
DX: R07.9 Chest pain, unspecified (principal); R06.02 Shortness of breath; R94.39 Abnormal result of other cardiovascular function study
CPT/HCPCS: 78452; 86787; 93017; 96374; A9500; J2785

== ENCOUNTER 2022-09-09 13:59 | Outpatient (CLI) | payer MEDICARE, SELFPAY ==
[2022-09-09] MEDS: iohexol 350 mg/mL 500 mL Btl (per mL) IV (14:23)
--- NOTE | 2022-09-09 15:00 | CT_ITS ---
WS: [id number] CTA NECK TECHNIQUE: Contrast enhanced CTA of the neck with coronal and sagittal reformatted images and maximum intensity projection (MIP) images. NASCET criteria utilized. CLINICAL INFORMATION: Carotid stenosis COMPARISON: September 04, 2019 DLP: 187.[address] scans at [facility] use at least one of these dose optimization techniques: automated e xposure control; mA and/or kV adjustment per patient size (includes targeted exams where dose is matc hed to clinical indication); or iterative reconstruction. FINDINGS: Large calcification. Moderate calcified atheromatous disease at the great vessel origins appears prog ressed compared to previous. No flow-limiting stenosis. RIGHT: RIGHT common carotid artery is patent. Postoperative changes RIGHT carotid endarterectomy. No significant RIGHT ICA stenosis. ICA is patent to the skull base. LEFT: LEFT common carotid artery is patent. Moderate calcified atheromatous plaque LEFT carotid bulb extending into the ICA. Less than 50% LEFT ICA stenosis. LEFT ICA is patent to the skull base. RIGHT vertebral artery is patent. Smaller but patent LEFT vertebral artery. Mild mucosal thickening e thmoid air cells. Mild mucosal thickening RIGHT mastoid tip. LEFT mastoid air cells well aerated. Mil d mucosal thickening ethmoid air cells. Advanced chronic emphysematous changes in the lung apices. Sm all RIGHT thyroid nodule measuring 5 mm. Straightening of the normal cervical lordosis. Moderate spon dylitic changes. CT/CT angio neck [id number] IMPRESSION: 1. Less than 50% ICA stenosis bilaterally. Both ICAs are patent to the skull b ase. RIGHT carotid endarterectomy is new from previous 2. Moderate calcified atheromatous disease LEFT carotid bulb extending into th e ICA. Atheromatous disease progressed from previous. Prior LEFT CEA 3. RIGHT dominant vertebral artery. Smaller but patent LEFT vertebral artery. Vertebral arteries are patent to the basilar junction. 4. Advanced chronic emphysematous changes in the lung apices.
== END 2022-09-09 14:00 | disposition home or self-care (01) ==
PROVIDERS: PCP Family Medicine; Visit Provider Internal Medicine
DX: I65.23 Occlusion and stenosis of bilateral carotid arteries; J43.9 Emphysema, unspecified
CPT/HCPCS: 70498; Q9967

== ENCOUNTER 2022-10-04 09:42 | Outpatient (CLI) | payer MEDICARE, SELFPAY ==
--- NOTE | 2022-10-04 10:01 | US_ITS ---
WS: [id number] Complete ABDOMINAL ULTRASOUND HISTORY: RULE OUT FREE FLUID OR HERNIA COMPARISON: None available. Heart appears enlarged. Only a small portion is visualized. RIGHT atrium appears significantly dilate d. Liver: 11.4 cm in length. Normal size liver and echogenicity. No bile duct dilatation or mass. There is an echogenic mass inseparable from the inferior liver and RIGHT kidney measuring 2.0 x 2.0 cm. Portal Vein: Normal hepatopetal flow with monophasic waveform. Gallbladder: Normally distended gallbladder with no stones or wall thickening. Very small amount of s ludge layering in the gallbladder. CBD: 0.4 cm Pancreas: Obscured. Right kidney: 6.8 cm x 3.9 x 3.0 cm. Cortex:0.7 cm. Small shrunken echogenic kidney. Diffuse cortical thinning with no hydronephrosis. No hydronephrosis. Left kidney: 8.3 cm x 3.9 cm x 3.6 cm. Cortex: 1.0 cm. Echogenic small kidney. Spleen: 9.4 cm in length. Normal. Aorta and IVC: Unremarkable abdominal aorta and IVC. Small amount of ascites adjacent to the liver. US/US abdomen complete* [id number] Impression: 1. Small echogenic kidneys consistent with chronic medical renal disease. 2. Echogenic mass inseparable from the inferior RIGHT lobe of the liver and th e adjacent kidney. Needs to be further evaluated for etiology. Could potentiall y be a loop of colon with inspissated fecal material. Recommend follow-up CT ab domen and pelvis with IV and oral contrast. 3. Enlarged heart with a small amount of ascites adjacent to the liver. 4. Minimal sludge in the gallbladder. No bile duct dilatation.
== END 2022-10-04 09:43 | disposition home or self-care (01) ==
PROVIDERS: PCP Family Medicine; Visit Provider Internal Medicine Nephrology
DX: Z03.89 Encounter for observation for other suspected diseases and conditions ruled out (principal)
CPT/HCPCS: 76700

== ENCOUNTER 2022-10-22 12:42 | Outpatient (CLI) | payer MEDICARE, SELFPAY ==
--- NOTE | 2022-10-22 12:50 | CT_ITS ---
WS: [id number] CT ABDOMEN WITH CONTRAST HISTORY: ABDOMINAL MASS OR LUMP Contiguous single phase 5 mm axial imaging performed to the abdomen. Oral contrast has been provided. Coronal and sagittal reformats are submitted. All CT scans at [facility] use at least one of these dose optimization techniques: automated exposure control; mA and/or kV adjustment per patient size (includes targeted exams where dose is matched to clinical indication); or iterative reconstruct ion. IV CONTRAST: Omnipaque 350; 100 mL IV. Oral contrast: Yes. DLP: 143.87 mGy.cm COMPARISON: 07/07/2017, 10/14/2022 Lower thorax: Lung bases are clear. Heart is normal size. Small hiatal hernia. Liver/biliary system: Normal size with no intrahepatic dilatation. Gallbladder: Normal. No gallstones or wall thickening. No pericholecystic fluid. Pancreas: Mild atrophy. No pancreatic duct dilatation. Spleen: Normal size spleen. No mass or infarct. Adrenal glands: Normal. Right kidney: Marked atrophy with multiple acquired cysts. Cysts have increased in size since 2018. Left kidney: Normal size kidney with multiple cortical cysts. No obstruction. Aorta: Advanced atherosclerotic calcification within the aorta. There is a large calcification within the suprarenal aorta causing it significant stenosis near the origin of the celiac axis. New calcifi cations since 2018. Lymphadenopathy: None. Free fluid: Small amount of ascites adjacent to the liver and mild mesenteric edema. GI tract: Marked distention of the stomach with oral contrast. No small bowel obstruction. Marked fec al retention. There is a calcific density in the RIGHT lower quadrant posterior to the cecum which wa s present in 2018. Abdominal wall: Unremarkable abdominal wall. No hernia. Visualized osseous structures: Unremarkable. CT/CT abdomen w con* [id number] IMPRESSION: 1. No mass identified in the RIGHT abdomen corresponding to the findings seen on the recent ultrasound. This may been a loop of colon with dense inspissated material. 2. Marked constipation. 3. Suprarenal aortic stenosis. High-grade stenosis due to a large calcificatio n near the celiac axis. 4. Bilateral renal cysts. Atrophied RIGHT kidney.
[2022-10-22] MEDS: iohexol 350 mg/mL 500 mL Btl (per mL) PO (12:57)
[2022-10-22] MEDS: iohexol 350 mg/mL 500 mL Btl (per mL) IV (12:57)
== END 2022-10-22 12:43 | disposition home or self-care (01) ==
LOC: RAD 12:45
PROVIDERS: PCP Family Medicine; Visit Provider Internal Medicine Nephrology
DX: R19.00 Intra-abdominal and pelvic swelling, mass and lump, unspecified site (principal); K59.00 Constipation, unspecified; I35.0 Nonrheumatic aortic (valve) stenosis; N28.1 Cyst of kidney, acquired
CPT/HCPCS: 74160; Q9967

== ENCOUNTER 2022-12-24 13:21 | Outpatient (CLI) | payer MEDICARE, SELFPAY ==
--- NOTE | 2022-12-24 13:31 | XR_ITS ---
WS: [email or web address] EXAMINATION: XR lumbar spine 2-3V* [id number] L-SPINE : 3 views REASON FOR EXAM: M54.50 - Low back pain, unspecified COMPARISON: None available. ORDER DATE: 12/24/2022 1:47 PM FINDINGS: The lumbar vertebral bodies and the disc spaces are normal in width except for moderate narrowing at L5-S1.. In the lumbar vertebra, there is no evidence of compression deformities or spondylolisthesis . There is prominent atherosclerotic aortoiliac calcification. A peritoneal dialysis catheter is pres ent. Prior cholecystectomy XR/XR lumbar spine 2-3V* [id number] IMPRESSION: Degenerative disc change at L5-S1
--- NOTE | 2022-12-24 13:31 | XR_ITS ---
WS: [email or web address] EXAMINATION: XR knee RT 3V* [id number] REASON FOR EXAM: M25.561 - Pain in right knee COMPARISON: 08/09/2019 ORDER DATE: 12/24/2022 1:47 PM FINDINGS: There are marginal osteophytes associated with the tibial spines, patella and other articular margins with medial and to a slight degree patellofemoral compartment narrowing. There is no sign of any acu te fracture or dislocation. There are minimal vascular calcifications present XR/XR knee RT 3V* [id number] IMPRESSION: MEDIAL AND PATELLOFEMORAL COMPARTMENT NARROWING WITH OSTEOARTHRITIC CHANGES.
--- NOTE | 2022-12-24 13:31 | XR_ITS ---
WS: [email or web address] EXAMINATION: XR sacrum coccyx min 2V [id number] REASON FOR EXAM: M54.50 - Low back pain, unspecified COMPARISON: None available. ORDER DATE: 12/24/2022 1:47 PM FINDINGS-IMPRESSION There is no sign of acute osseous abnormality. There is disc narrowing at L5-S1. Atherosclerotic vasc ular plaque is present throughout the aorta and iliac vessels. A peritoneal dialysis catheter is seen .
== END 2022-12-24 13:22 | disposition home or self-care (01) ==
LOC: RAD 13:26
PROVIDERS: PCP Family Medicine; Visit Provider Family Medicine
DX: M17.11 Unilateral primary osteoarthritis, right knee (principal); M51.37 Other intervertebral disc degeneration, lumbosacral region; I70.0 Atherosclerosis of aorta; I70.8 Atherosclerosis of other arteries; Z96.89 Presence of other specified functional implants
CPT/HCPCS: 72100; 72220; 73562

== ENCOUNTER 2022-12-26 15:53 | Inpatient (IN) | payer MEDICARE, SELFPAY ==
[2022-12-26 16:28] VITALS: BP 103/65; PULSE 66; RESP 12; TEMP 36.7; O2SAT 91; BMI 22.2
[2022-12-26 18:02] LABS: Basophils % 0.5 %; Eosinophils # 0.2 10^3/uL (0.0-0.8); Eosinophils % 3.2 %; Hematocrit 35.3 % (37.0-47.0); Hemoglobin 10.6 g/dL (11.5-15.3); Lymphocytes # 1.2 10^3/uL (0.8-4.8); Lymphocytes % 16.2 %; Mean Corpuscular Hemoglobin 30.5 pg (28.0-34.0); Mean Corpuscular Volume 101.7 fl (81-99); Mean Platelet Volume 10.1 fL (7.4-10.4); Monocytes # 0.7 10^3/uL (0.2-0.9); Monocytes % 9.8 %; Neutrophils # 5.22 10^3/uL (1.8-7.7); Neutrophils % 69.9 %; Nucleated Red Blood Cells % 0 %; Platelet Count 208 10^3/cmm (130-400); Red Blood Count 3.47 10^6/uL (4.1-5.3); Red Cell Distribution Width 13.9 % (12.1-15.1); White Blood Count 7.5 10^3/uL (4.0-10.0)
[2022-12-26 18:23] LABS: Alanine Aminotransferase 12 U/L (0-33); Albumin Level 3.8 g/dL (3.5-5.2); Alkaline Phosphatase 73 U/L (35-105); Anion Gap 17.6 (5-19); Aspartate Amino Transferase 20 U/L (0-32); Blood Urea Nitrogen 65 mg/dL (8-23); Calcium 10.6 mg/dL (8.5-10.5); Carbon Dioxide 29 mmol/L (22-29); Chloride 98 mmol/L (98-107); Globulin 2.2 g/dL (1.3-4.6); Glomerular Filtration Rate 6.7 mL/min (90-130); Glucose 52 mg/dL (65-115); Osmolality Calculated 304 mOsm/kg (285-295); Potassium 5.6 mmol/L (3.5-5.1); Sodium 139 mmol/L (136-145); Total Bilirubin 0.3 mg/dL (0.15-1.2)
[2022-12-26 20:17] LABS: Glucose Point of Care 61 mg/dL (70-110)
--- NOTE | 2022-12-26 20:19 | W.ED.WEAKNES ---
HPI - Weakness General: Chief complaint: Weakness Stated complaint: double vision, muscle spasm Time Seen by Provider: 12/26/22 19:51 History of Present Illness: 60-year-old female with generalized weakness. She is experiencing some muscle twitches as well. She has a numb feeling to her bilateral legs. This started sometime yesterday evening. She does peritoneal dialysis. She has had some mild mental status changes. She also has COPD, and is oxygen dependent. She says that she feels tight right now chest, and is wheezing. MD Complaint: generalized weakness Onset (ago): hour(s) Duration: constant Severity: moderate Quality: tingling and numbness Relieving factors: none Exacerbating factors: none Associated symptoms: Reports confusion (Mild) and short of breath; Denies chest pain, chills, decreased appetite, diaphoresis, dysuria, fever(s), headache(s), nausea or vomiting Review of Systems Const: Denies: fever(s), chills or diaphoresis ENMT: Denies: throat pain Card: Denies: chest pain Resp: Reports: dyspnea and non-productive cough GI: Denies: abdominal pain, nausea or vomiting : Denies: dysuria Skin/Breast: Reports: rash (Ecchymosis from falls) Neuro: Reports: confusion (Mild); Denies: headache(s) PFSH ED PFSH: Medical History (Updated 12/27/22 @ 00:25 by Milan Pond MD) Acute bronchitis Acute bronchitis Acute sinusitis CAD (coronary artery disease) -hx of CAD s/p stenting x 4 (LAD x 2, LCx, RCA) in 2018 -continue ASA, Plavix, statin -follows up with Dr. Leonardo CAD (coronary artery disease) Carotid stenosis, right Chronic obstructive pulmonary disease -recently treated for acute COPD exacerbation with short course of oral steroids and Keflex -noted wheezing on examination, decreased -would like to avoid steroids as patient thinks this contributed to edema as well as episodes of confusion, jitteriness -continue to monitor respiratory status, supplemental oxygen as needed, not oxygen dependent at baseline -neb treatments as needed; would hold off on additional antibiotic treatment at this time given recent use -rapid COVID-19 negative; influenza negative CKD (chronic kidney disease) stage 4, GFR 15-29 ml/min -baseline Cr appears to be around 2-3 -follows up with Contusion of right leg Cough History of heart attack Hyperlipidemia Hypertension Hypokalemia Impacted ear wax Insomnia Low Back Pain Myocardial infarct Right knee pain Skin lesion Type 2 diabetes mellitus with diabetic polyneuropathy -A1c-5.5 -accucheks, hypoglycemia precautions, ISS, hold oral hypoglycemic agents -renal diabetic diet as tolerated URI (upper respiratory infection) Surgical History H/O dilation and curettage H/O tubal ligation History of carotid endarterectomy History of carpal tunnel release History of colonoscopy with polypectomy 2018 Peritoneal dialysis catheter in situ (09/08/20) S/P pericardiocentesis S/P PTCA (percutaneous transluminal coronary angioplasty) S/P thoracentesis Status post carotid endarterectomy Family History Mother Heart disease Dementia Father Cancer Denies family history of Diabetes CAD (coronary artery disease) Clotting disorder Hyperlipidemia Psychiatric illness Chronic kidney disease (CKD) Suicide Anesthesia complication Bleeding disorder Family history of premature coronary artery disease Lung disease Hypertension Stroke Social History Smoking and tobacco status: current every day smoker cigarettes Packs smoked per day: 1.5 Years cigarettes smoked: 50 [ Other cigarette details: 4 cig/day] Alcohol intake: never Substance/Drug Use: never Household members: spouse Marital status: Current occupational status: retired and disabled Current gender identity: Female Physical Exam Const: GENERAL APPEARANCE: cooperative and frail appearing ORIENTATION/CONSCIOUSNESS: Yes awake, Yes oriented to person, Yes oriented to place and Yes oriented to time HENMT: COMMON NORMALS: normocephalic HEAD & SCALP: normocephalic FACE & SINUS: face symmetric Eye: COMMON NORMALS: Equal, round and reactive pupils present and EOMs intact bilaterally PUPIL: Yes Equal, round and reactive pupils present Chest: CHEST: Yes Symmetrical chest wall rise Resp: EFFORT & INSPECTION: Yes tachypneic and Yes labored AUSCULTATION: wheezes Cardio: COMMON NORMALS: regular rate and regular rhythm RATE: regular rate RHYTHM: regular rhythm Neuro: SENSORIUM/ORIENTATION: Yes oriented to person, Yes oriented to place and Yes oriented to time Skin: NARRATIVE SKIN EXAM: Multiple ecchymotic areas to the right upper extremity, bilateral lower extremities, worse on the right from previous falls. Course Vital Signs: Vital signs: Vital Signs Temperature 97.5 F L 12/27/22 07:28 Pulse Rate 75 12/27/22 08:12 Respiratory Rate 16 12/27/22 08:05 Blood Pressure 152/74 12/27/22 07:28 Pulse Oximetry 97 12/27/22 08:05 Oxygen Delivery Me thod Nasal Cannula 12/27/22 08:05 Oxygen Flow Rate 2 12/27/22 08:05 Fraction of Inspir ed Oxygen 30 12/26/22 21:05 MDM - Weakness Medical Decision Making 67-year-old female. She complains of generalized weakness with muscle twitching and paresthesias. She is on peritoneal dialysis for end-stage renal disease. She would due to 1500 mL green bags tonight she says. Her BUN is 65, creatinine of 6.2. Potassium is 5.6. Magnesium is 3.0 with a phosphorus of 5.4. On blood gas testing, pH is 7.28 with a PCO2 of 61 and a PO2 of 60. She is placed on BiPAP after DuoNeb treatment. She is given dexamethasone. Urinalysis is somewhat contaminated. No clear evidence of UTI. Chest x-ray is negative. Spoke with hospitalist for admission for hypercapnic respiratory failure. We have a call out to nephrology for clearance for continued dialysis tonight. Lab Data 12/27/22 05:44 12/27/22 05:44 Radiology Impressions Chest X-Ray 12/26/22 20:21 IMPRESSION: 1. Negative for infiltrate. 2. Emphysematous changes. Laboratory Results WBC 7.5 10^3/uL (4.0-10.0) 12/26/22 17:40 RBC 3.47 10^6/uL (4.1-5.3) L 12/26/22 17:40 Hgb 10.6 g/dL (11.5-15.3) L 12/26/22 17:40 Hct 35.3 % (37.0-47.0) L 12/26/22 17:40 MCV 101.7 fl (81-99) H 12/26/22 17:40 MCH 30.5 pg (28.0-34.0) 12/26/22 17:40 MCHC 30.0 g/dL (30.0-36.0) 12/26/22 17:40 RDW 13.9 % (12.1-15.1) 12/26/22 17:40 Plt Count 208 10^3/cmm (130-400) 12/26/22 17:40 MPV 10.1 fL (7.4-10.4) 12/26/22 17:40 Neut % (Auto) 69.9 % 12/26/22 17:40 Lymph % (Auto) 16.2 % 12/26/22 17:40 [place] % (Auto) 9.8 % 12/26/22 17:40 Eos % (Auto) 3.2 % 12/26/22 17:40 Baso % (Auto) 0.5 % 12/26/22 17:40 Neut # (Auto) 5.22 10^3/uL (1.8-7.7) 12/26/22 17:40 Lymph # (Auto) 1.2 10^3/uL (0.8-4.8) 12/26/22 17:40 [place] # (Auto) 0.7 10^3/uL (0.2-0.9) 12/26/22 17:40 Eos # (Auto) 0.2 10^3/uL (0.0-0.8) 12/26/22 17:40 Baso # (Auto) 0.0 10^3/uL (0.0-0.1) 12/26/22 17:40 Nucleated RBC % (auto) 0 % 12/26/22 17:40 Nucleated RBCs # 0.0 /100WBC 12/26/22 17:40 Specimen Type Arterial 12/26/22 20:32 Sample Site Radial, right 12/26/22 20:32 ABG pH 7.28 (7.35-7.45) L 12/26/22 20:32 ABG pCO2 60.5 mmHg (35-45) H* 12/26/22 20:32 ABG pO2 59.9 mmHg (80.0-100.0) L 12/26/22 20:32 ABG HCO3 28.7 mmol/L (22-26) H 12/26/22 20:32 ABG Base Excess 0.9 mmol/L (-2.0-2.0) 12/26/22 20:32 Shahab Test Pos 12/26/22 20:32 Hematocrit 34.3 % (37-47) L 12/26/22 20:32 O2 Delivery Device Nc 12/26/22 20:32 O2 Liters/Min 2.0 % 12/26/22 20:32 FiO2 28.0 % 12/26/22 20:32 3D Designer ID Paz 12/26/22 20:32 Sodium 139 mmol/L (136-145) 12/26/22 17:40 Potassium 5.6 mmol/L (3.5-5.1) H 12/26/22 17:40 Chloride 98 mmol/L (98-107) 12/26/22 17:40 Carbon Dioxide 29 mmol/L (22-29) 12/26/22 17:40 Anion Gap 17.6 (5-19) 12/26/22 17:40 BUN 65 mg/dL (8-23) H 12/26/22 17:40 Creatinine 6.2 mg/dL (0.5-0.9) H* 12/26/22 17:40 GFR Calculation 6.7 mL/min (90-130) L 12/26/22 17:40 Glucose 52 mg/dL (65-115) L 12/26/22 17:40 POC Glucose 61 mg/dL (70-110) L 12/26/22 20:13 Calculated Osmolality 304 mOsm/kg (285-295) H 12/26/22 17:40 Calcium 10.6 mg/dL (8.5-10.5) H 12/26/22 17:40 Phosphorus 5.4 mg/dL (2.5-4.5) H 12/26/22 17:40 Magnesium 3.0 mg/dL (1.7-2.3) H 12/26/22 17:40 Total Bilirubin 0.3 mg/dL (0.15-1.2) 12/26/22 17:40 AST 20 U/L (0-32) 12/26/22 17:40 ALT 12 U/L (0-33) 12/26/22 17:40 Alkaline Phosphatase 73 U/L (35-105) 12/26/22 17:40 Creatine Kinase 68 U/L (26-192) 12/26/22 17:40 Total Protein 6.0 g/dL (6.6-8.7) L 12/26/22 17:40 Albumin 3.8 g/dL (3.5-5.2) 12/26/22 17:40 Globulin 2.2 g/dL (1.3-4.6) 12/26/22 17:40 Urine Color Yellow (Yellow) 12/26/22 20:52 Urine Appearance Clear (CLEAR) 12/26/22 20:52 Urine pH 5 (5-7) 12/26/22 20:52 Ur Specific [place] 1.015 (1.005-1.030) 12/26/22 20:52 Urine Protein 2+ (Negative) H 12/26/22 20:52 Urine Glucose (UA) Norm (Normal) 12/26/22 20:52 Urine Ketones Negative (Negative) 12/26/22 20:52 Urine Blood 2+ (Negative) H 12/26/22 20:52 Urine Nitrate Negative (Negative) 12/26/22 20:52 Urine Bilirubin Neg (Negative) 12/26/22 20:52 Urine Urobilinogen Norm mg/dL (Negative) 12/26/22 20:52 Ur Leukocyte Esterase Trace (Negative) H 12/26/22 20:52 Urine RBC 15-25 /hpf (0-2) H 12/26/22 20:52 Urine WBC 0-4 /hpf (0-5) H 12/26/22 20:52 Ur Squamous Epith Cells 10-15 /hpf (0-5) H 12/26/22 20:52 Amorphous Sediment Not Reportable 12/26/22 20:52 Urine Bacteria 1+ /hpf (NONE) H 12/26/22 20:52 Discharge Plan Discharge Patient Disposition: Admitted As Inpatient Admit Provider: Milan Pond Clinical Impression: Respiratory failure with hypercapnia, ESRD on peritoneal dialysis Condition: Stable Coding Level of Care Code ED Area Safety Manager for Trell Nuñez
--- NOTE | 2022-12-26 20:21 | XRR_ITS ---
PROCEDURE INFORMATION: Exam: XR Chest Exam date and time: 12/26/2022 8:34 PM Age: 67 years old Clinical indication: Shortness of breath; Additional info: SOB TECHNIQUE: Imaging protocol: Radiologic exam of the chest. Views: 1 view. COMPARISON: CR XR chest 2V* [id number] 10/22/2021 12:02 PM FINDINGS: Lungs: Emphysematous changes. Pleural spaces: Unremarkable. No pleural effusion. No pneumothorax. Heart/Mediastinum: Unremarkable. No cardiomegaly. Bones/joints: Unremarkable. XR/XR chest 1V portable [id number] IMPRESSION: 1. Negative for infiltrate. 2. Emphysematous changes.
[2022-12-26 20:26] LABS: Creatine Phosphokinase 68 U/L (26-192); Phosphorus 5.4 mg/dL (2.5-4.5)
[2022-12-26] MEDS: ipratropium-albuterol 3 mL Neb INHALATION (20:31)
[2022-12-26 20:38] VITALS: PULSE 82; RESP 18; O2SAT 91
[2022-12-26 20:47] LABS: ABG PH Result 7.28 (7.35-7.45); Arterial Blood Gas Hematocrit 34.3 % (37-47); Base Excess ABG 0.9 mmol/L (-2.0-2.0); Blood Gas Allen Test Pos; Blood Gas Operator Identificat MONRO; Blood Gas Sample Site Radial, right; Blood Gas Sample Type Arterial; HCO3 ABG 28.7 mmol/L (22-26); Oxygen Device NC; PO2 ABG 59.9 mmHg (80.0-100.0)
[2022-12-26 20:49] LABS: ABG PCO2 60.5 mmHg (35-45)
[2022-12-26 21:03] LABS: Add Urine Microscopic? YES; Bilirubin Urine Neg (Negative); Blood Urine 2+ (Negative); Glucose Urine UA Norm (Normal); Ketones Urine Negative (Negative); Leukocyte Esterase Urine Trace (Negative); Nitrate Urine Negative (Negative); Protein Urine 2+ (Negative); Specific Gravity, Urine 1.015 (1.005-1.030); Urine Appearance Clear (CLEAR); Urine Color Yellow (Yellow); Urobilinogen Urine Norm (Negative); pH Urine 5 (5-7)
[2022-12-26 21:05] VITALS: PULSE 67; RESP 18; O2SAT 97
[2022-12-26 21:05] LABS: Bacteria Urine 1+ /hpf; RBC Urine 15-25 /hpf (0-2); WBC Urine 0-4 /hpf (0-5)
[2022-12-26 21:06] LABS: Add Urine Culture? Yes
[2022-12-26 21:15] VITALS: RESP 16
[2022-12-26] MEDS: ondansetron 2 mg/ML SDV 2 mL 4 MG IVP (21:15)
[2022-12-26] MEDS: morphine 4 mg/mL SDV 1 mL 2 MG IVP (21:15)
--- NOTE | 2022-12-26 21:38 | P.HP_ITS ---
Providers/Chief Complaint Primary Care Provider: Renay Duarte MD Chief Complaint: double vision, muscle spasm History of Present Illness Yas Oconnell is a 67 year old female with a past medical history significant for end-stage renal disease on peritoneal dialysis, COPD, hyperlipidemia, type 2 diabetes mellitus, coronary artery disease, congestive heart failure, carotid stenosis, and hypertension who presents to the emergency department with generalized weakness times several days. She also endorses associated symptoms of chest tightness. She also endorses intermittent unintentional muscle twitches in her lower and upper extremities. Symptoms usually worse upon awakening and slowly improved throughout the day. She also endorses associated numbness. The twitching and the numbness has been going on for about 3 weeks per . In the ED, patient was found to have respiratory failure with hypercapnia requiring BiPAP. She reports that BiPAP is improving her breathing. Review of Systems Narrative: A complete review of systems was obtained and is negative except as stated in HPI. Medications/Allergies Home Medications Medication Instructions Recorded Confirmed Last Taken Type aspirin 81 mg tablet,delayed 81 mg PO DAILY@199906/26/19 12/27/22 12/26/22 History release cholecalciferol (vitamin D3) 50 2,000 unit PO DAILY@06/26/19 12/27/22 12/26/22 History mcg (2,000 unit) capsule bumetanide 0.5 mg tablet 2 mg PO BID 12/18/20 12/27/22 12/26/22 History polyethylene glycol 3350 17 17 g PO DAILY 12/18/20 12/27/22 12/26/22 History gram/dose oral powder (Miralax) ipratropium 0.5 mg-albuterol 3 mg 3 ml inhalation Q4H PRN wheezing 10/22/21 12/27/22 12/26/22 Rx (2.5 mg base)/3 mL nebulization #180 mL soln nebulizers #1 ea 10/22/21 12/24/22 Unknown Rx RenalPlex 1 tab PO DAILY 07/14/22 12/27/22 12/26/22 History budesonide 0.5 mg/2 mL suspension 0.5 mg inhalation BID 07/14/22 12/27/22 History for nebulization clopidogrel 75 mg tablet 75 mg PO DAILY@08 #90 tabs 07/14/22 12/27/22 12/26/22 Rx formoterol fumarate 20 mcg/2 mL 2 ml inhalation BID 07/14/22 12/27/22 12/26/22 H istory solution for nebulization (Perforomist) losartan 25 mg tablet 25 mg PO DAILY 07/14/22 12/27/22 12/26/22 History metoprolol succinate 50 mg 50 mg PO DAILY #90 tabs 07/14/22 12/27/22 12/26/22 Rx tablet,extended release 24 hr potassium chloride 20 mEq 20 meq PO BID 07/14/22 12/27/22 12/26/22 History tablet,extended release albuterol sulfate 90 mcg/actuation See Rx Instructions .Route 08/17/22 12/27/22 12/26/22 Rx aerosol inhaler .COMPLEX #9 grams citalopram 40 mg tablet 40 mg PO DAILY@08 #90 tabs 08/17/22 12/27/22 12/26/22 Rx rosuvastatin 40 mg tablet 40 mg PO DAILY@2000 #90 tabs 08/17/22 12/27/22 12/26/22 Rx tramadol 50 mg tablet 50 mg PO Q8H PRN pain #60 tabs 12/24/22 12/27/22 12/26/22 Rx glipizide 2.5 mg tablet, extended 2.5 mg PO DAILY 12/27/22 12/27/22 12/26/22 History release 24 hr hydralazine 25 mg tablet 25 mg PO TID 12/27/22 12/27/22 12/26/22 History trazodone 50 mg tablet 100 mg PO BEDTIME 12/27/22 12/27/22 12/26/22 History Allergies Allergy/AdvReac Type Severity Reaction Status Date / Time prednisone AdvReac Mild ADR-Confusi Verified 12/26/22 16:27 on PFSH Acute PFSH: Medical History (Updated 12/27/22 @ 00:25 by Milan Pond MD) Acute bronchitis Acute bronchitis Acute sinusitis CAD (coronary artery disease) -hx of CAD s/p stenting x 4 (LAD x 2, LCx, RCA) in 2018 -continue ASA, Plavix, statin -follows up with Dr. Leonardo CAD (coronary artery disease) Carotid stenosis, right Chronic obstructive pulmonary disease -recently treated for acute COPD exacerbation with short course of oral steroids and Keflex -noted wheezing on examination, decreased -would like to avoid steroids as patient thinks this contributed to edema as well as episodes of confusion, jitteriness -continue to monitor respiratory status, supplemental oxygen as needed, not o xygen dependent at baseline -neb treatments as needed; would hold off on additional antibiotic treatment at this time given recent use -rapid COVID-19 negative; influenza negative CKD (chronic kidney disease) stage 4, GFR 15-29 ml/min -baseline Cr appears to be around 2-3 -follows up with Contusion of right leg Cough History of heart attack Hyperlipidemia Hypertension Hypokalemia Impacted ear wax Insomnia Low Back Pain Myocardial infarct Right knee pain Skin lesion Type 2 diabetes mellitus with diabetic polyneuropathy -A1c-5.5 -accucheks, hypoglycemia precautions, ISS, hold oral hypoglycemic agents -renal diabetic diet as tolerated URI (upper respiratory infection) Surgical History H/O dilation and curettage H/O tubal ligation History of carotid endarterectomy History of carpal tunnel release History of colonoscopy with polypectomy 2018 Peritoneal dialysis catheter in situ (09/08/20) S/P pericardiocentesis S/P PTCA (percutaneous transluminal coronary angioplasty) S/P thoracentesis Status post carotid endarterectomy Family History Mother Heart disease Dementia Father Cancer Denies family history of Diabetes CAD (coronary artery disease) Clotting disorder Hyperlipidemia Psychiatric illness Chronic kidney disease (CKD) Suicide Anesthesia complication Bleeding disorder Family history of premature coronary artery disease Lung disease Hypertension Stroke Social History Smoking and tobacco status: current every day smoker cigarettes Packs smoked per day: 1.5 Years cigarettes smoked: 50 [ Other cigarette details: 4 cig/day] Alcohol intake: never Substance/Drug Use: never Household members: spouse Marital status: Current occupational status: retired and disabled Current gender identity: Female Vitals/I&O/Wt Last Vital Signs Temp 98.0 F 12/26/22 16:28 Pulse 67 12/26/22 21:05 Resp 16 12/26/22 21:15 BP 103/65 12/26/22 16:28 Pulse Ox 97 12/26/22 21:05 O2 Del Method Nasal Cannula 12/26/22 20:38 O2 Flow Rate 2 12/26/22 20:38 FiO2 30 12/26/22 21:05 Weight last 48 hrs Weight 49.895 kg Physical Exam Narrative: General: Patient is awake and alert. Appears fatigued. Very pleasant. Head: Normocephalic. Atraumatic. EOM intact. Neck: No JVD. Cardiovascular: RRR. No gallops. No murmurs. No peripheral edema. Lungs: Diffuse wheezing throughout lung knight and throughout respiratory cycle, no crackles, rales or rhonchi. Skin: No jaundice. No rashes. Abdomen: Normal bowel sounds, abdomen soft and nontender. PD catheter is present. Genito Urinary: Genital exam not performed since complaints not related. Rectal: Rectal exam not performed since no symptoms indicated blood loss. Extremities: No cyanosis or clubbing. Musculoskeletal: No swollen or erythematous joints. Neurological: Moves all 4 extremities. No myoclonus. Data 12/26/22 17:40 12/26/22 17:40 A&P Assessment and plan (1) Respiratory failure with hypercapnia: ABG reviewed Continue BiPAP Serial ABGs as needed Treat underlying cardiopulmonary pathology Telemetry with continuous pulse oximetry (2) COPD (chronic obstructive pulmonary disease): History of adverse reaction to prednisone per ED provider Dexamethasone 6 mg IV daily Nebulizing treatments ordered RT requested to eval and treat Pulmonary toilet Procalcitonin and CRP ordered Low threshold for antibiotics (3) Hyperkalemia: Potassium 5.6 Plan for PD dialysis tonight Repeat electrolytes in a.m. Telemetry monitoring (4) CHF (congestive heart failure): Chronic congestive heart failure of unknown type No recent echocardiogram available for review Continue home Bumex Strict I's and O's Daily weights Qualifiers: Heart failure type: unspecified Heart failure chronicity: acute on chronic Qualified Code(s): I50.9 - Heart failure, unspecified (5) CAD (coronary artery disease): Continue aspirin Continue statin Continue Plavix Qualifiers: Coronary Disease-Associated Artery/Lesion type: [place] artery [place] vs. transplanted heart: [place] heart Associated angina: without angina Qualified Code(s): I25.10 - Atherosclerotic heart disease of [place] coronary ar [place] without angina pectoris (6) ESRD on peritoneal dialysis: Continue peritoneal dialysis, nephrology consulted by ED (7) Type 2 diabetes mellitus with diabetic polyneuropathy: Sliding-scale insulin correction Avoid hypoglycemia Qualifiers: Diabetes mellitus penitentiary insulin use: without penitentiary use Qualified Code(s): E11.42 - Type 2 diabetes mellitus with diabetic polyneuropathy (8) Muscle spasm: Possibly related to electrolyte imbalances Correct electrolytes monitor for change in symptomatology Further work-up pending clinical response Plan DVT prophylaxis: Heparin Code: Full Attestations Medical Necessity Statement*: Patient presents with acute hypercapnic respiratory failure requiring noninvasive mechanical ventilation secondary to COPD exacerbation with multiple comorbidities with expected hospitalization to cross 2 midnights. Coding Level of Care Code Acute Code for [facility] Diagnoses Respiratory failure with hypercapnia J96.92 COPD (chronic obstructive pulmonary disease) J44.9 Hyperkalemia E87.5 CHF (congestive heart failure) I50.9 Heart failure type: unspecified Heart failure chronicity: acute on chronic CAD (coronary artery disease) I25.10 Coronary Disease-Associated Artery/Lesion type: [place] artery [place] vs. transplanted heart: [place] heart Associated angina: without angina ESRD on peritoneal dialysis N18.6; Z99.2 Type 2 diabetes mellitus with diabetic polyneuropathy E11.42 Diabetes mellitus penitentiary insulin use: without long term care social worker use Muscle spasm M62.838
[2022-12-26] MEDS: dexamethasone 4 mg/mL INJ 8 MG IVP (22:11)
--- NOTE | 2022-12-26 22:43 | PM.CONSULT ---
Providers/Reason For Consult Consulting Physician/Specialty*: ESRD /Nephrology Reason for Consult*: ESRD Primary Care Provider: Renay Duarte MD History of Present Illness History of Present Illness Yas Oconnell is a 67 year old female Past medical history of end-stage renal disease on peritoneal dialysis, COPD on home O2, dyslipidemia type 2 diabetes coronary artery disease and CHF, history of carotid stenosis and hypertension presented to the emergency department complaining of generalized weakness and shortness of breath. Also complained of having muscle twitches. In the ED patient was noted to be short of breath and high per The ER and was placed on BiPAP. Lab data significant for hemoglobin of 5.6 creatinine of 6.2. Review of Systems Narrative: Other ROS engative Medications/Allergies Home Medications Medication Instructions Recorded Confirmed Last Taken Type aspirin 81 mg tablet,delayed 81 mg PO DAILY@199906/26/19 12/27/22 12/26/22 History release cholecalciferol (vitamin D3) 50 2,000 unit PO DAILY@06/26/19 12/27/22 12/26/22 History mcg (2,000 unit) capsule bumetanide 0.5 mg tablet 2 mg PO BID 12/18/20 12/27/22 12/26/22 History polyethylene glycol 3350 17 17 g PO DAILY 12/18/20 12/27/22 12/26/22 History gram/dose oral powder (Miralax) ipratropium 0.5 mg-albuterol 3 mg 3 ml inhalation Q4H PRN wheezing 10/22/21 12/27/22 12/26/22 Rx (2.5 mg base)/3 mL nebulization #180 mL soln nebulizers #1 ea 10/22/21 12/24/22 Unknown Rx RenalPlex 1 tab PO DAILY 07/14/22 12/27/22 12/26/22 History budesonide 0.5 mg/2 mL suspension 0.5 mg inhalation BID 07/14/22 12/27/22 12/26/22 History for nebulization clopidogrel 75 mg tablet 75 mg PO DAILY@08 #90 tabs 07/14/22 12/27/22 12/26/22 Rx formoterol fumarate 20 mcg/2 mL 2 ml inhalation BID 07/14/22 12/27/22 12/26/22 History solution for nebulization (Perforomist) losartan 25 mg tablet 25 mg PO DAILY 07/14/22 12/27/22 12/26/22 History metoprolol succinate 50 mg 50 mg PO DAILY #90 tabs 07/14/22 12/27/22 12/26/22 Rx tablet,extended release 24 hr potassium chloride 20 mEq 20 meq PO BID 07/14/22 12/27/22 12/26/22 History tablet,extended release albuterol sulfate 90 mcg/actuation See Rx Instructions .Route 08/17/22 12/27/22 12/26/22 Rx aerosol inhaler .COMPLEX #9 grams citalopram 40 mg tablet 40 mg PO DAILY@08 #90 tabs 08/17/22 12/27/22 12/26/22 Rx rosuvastatin 40 mg tablet 40 mg PO DAILY@2000 #90 tabs 08/17/22 12/27/22 12/26/22 Rx tramadol 50 mg tablet 50 mg PO Q8H PRN pain #60 tabs 12/24/22 12/27/22 12/26/22 Rx glipizide 2.5 mg tablet, extended 2.5 mg PO DAILY 12/27/22 12/27/22 12/26/22 History release 24 hr hydralazine 25 mg tablet 25 mg PO TID 12/27/22 12/27/22 12/26/22 History trazodone 50 mg tablet 100 mg PO BEDTIME 12/27/22 12/27/22 12/26/22 History Allergies Allergy/AdvReac Type Severity Reaction Status Date / Time prednisone AdvReac Mild ADR-Confusi Verified 12/26/22 16:27 on PFSH Acute PFSH: Medical History (Updated 12/27/22 @ 00:25 by Milan Pond MD) Acute bronchitis Acute bronchitis Acute sinusitis CAD (coronary artery disease) -hx of CAD s/p stenting x 4 (LAD x 2, LCx, RCA) in 2018 -continue ASA, Plavix, statin -follows up with Dr. Leonardo CAD (coronary artery disease) Carotid stenosis, right Chronic obstructive pulmonary disease -recently treated for acute COPD exacerbation with short course of oral steroids and Keflex -noted wheezing on examination, decreased -would like to avoid steroids as patient thinks this contributed to edema as well as episodes of confusion, jitteriness -continue to monitor respiratory status, supplemental oxygen as needed, not oxygen dependent at baseline -neb treatments as needed; would hold off on additional antibiotic treatment at this time given recent use -rapid COVID-19 negative; influenza negative CKD (chronic kidney disease) stage 4, GFR 15-29 ml/min -baseline Cr appears to be around 2-3 -follows up with Contusion of right leg Cough History of heart attack Hyperlipidemia Hypertension Hypokalemia Impacted ear wax Insomnia Low Back Pain Myocardial infarct Right knee pain Skin lesion Type 2 diabetes mellitus with diabetic polyneuropathy -A1c-5.5 -accucheks, hypoglycemia precautions, ISS, hold oral hypoglycemic agents -renal diabetic diet as tolerated URI (upper respiratory infection) Surgical History H/O dilation and curettage H/O tubal ligation History of carotid endarterectomy History of carpal tunnel release History of colonoscopy with polypectomy 2018 Peritoneal dialysis catheter in situ (09/08/20) S/P pericardiocentesis S/P PTCA (percutaneous transluminal coronary angioplasty) S/P thoracentesis Status post carotid endarterectomy Family History Mother Heart disease Dementia Father Cancer Denies family history of Diabetes CAD (coronary artery disease) Clotting disorder Hyperlipidemia Psychiatric illness Chronic kidney disease (CKD) Suicide Anesthesia complication Bleeding disorder Family history of premature coronary artery disease Lung disease Hypertension Stroke Social History Smoking and tobacco status: current every day smoker cigarettes Packs smoked per day: 1.5 Years cigarettes smoked: 50 [ Other cigarette details: 4 cig/day] Alcohol intake: never Substance/Drug Use: never Household members: spouse Marital status: Current occupational status: retired and disabled Current gender identity: Female Vitals/I&O/Wt Last Vital Signs Temp 98.0 F 12/26/22 16:28 Pulse 67 12/26/22 21:05 Resp 16 12/26/22 21:15 BP 103/65 12/26/22 16:28 Pulse Ox 97 12/26/22 21:05 O2 Del Method Nasal Cannula 12/26/22 20:38 O2 Flow Rate 2 12/26/22 20:38 FiO2 30 12/26/22 21:05 Weight last 48 hrs Weight 49.895 kg Physical Exam Narrative: awake , alert , no distress HEENT , PEERLA S1 S2 RRR per report wheezing [place] per report No edema Data 12/27/22 05:44 12/27/22 05:44 A&P Assessment and plan (1) ESRD on peritoneal dialysis: Plan 1. End-stage renal disease: On peritoneal dialysis, patient is on cycler-1500 mL bags, 2.5% dextrose, 2 exchanges 4 hours apart at home. -Ordered peritoneal dialysis while in here. 2. Hyperkalemia: Need to be on low potassium diet 3. Hypertension: Restart home medications 4. Acute on chronic respiratory failure: Multifactorial secondary to CHF and COPD, management per primary team 5. Anemia: Hemoglobin 10.6. Patient evaluated using audiovisual cart. Time spent 45 minutes. Consult Attestations Medical Necessity Statement: PER MEDICINE Coding Level of Care Code Acute Code for [facility] Diagnoses ESRD on peritoneal dialysis N18.6; Z99.2
[2022-12-26 23:43] VITALS: PULSE 62; RESP 17; O2SAT 95
[2022-12-27] VITALS (20 sets, daily range): BP systolic 113–152; BP diastolic 55–74; PULSE 63–75; RESP 16–20; TEMP 36.2–36.9; O2SAT 93–99
[2022-12-27 01:17] LABS: Procalcitonin 0.34 ng/mL (0-0.5)
--- NOTE | 2022-12-27 01:34 | PC.NURSE ---
Message left on the teleneph hotline for physician to call and update with orders for pt PD.
[2022-12-27] MEDS: ipratropium-albuterol 3 mL Neb INHALATION ×5 (03:24→19:55)
[2022-12-27 05:55] LABS: Basophils % 0.2 %; Hematocrit 34.3 % (37.0-47.0); Hemoglobin 10.3 g/dL (11.5-15.3); Lymphocytes # 0.3 10^3/uL (0.8-4.8); Lymphocytes % 6.6 %; Mean Corpuscular Hemoglobin 30.2 pg (28.0-34.0); Mean Corpuscular Volume 100.6 fl (81-99); Mean Platelet Volume 9.6 fL (7.4-10.4); Monocytes % 0.5 %; Neutrophils # 3.92 10^3/uL (1.8-7.7); Neutrophils % 92.5 %; Nucleated Red Blood Cells % 0 %; Platelet Count 196 10^3/cmm (130-400); Red Blood Count 3.41 10^6/uL (4.1-5.3); Red Cell Distribution Width 13.6 % (12.1-15.1); White Blood Count 4.2 10^3/uL (4.0-10.0)
[2022-12-27 06:16] LABS: Anion Gap 18.2 (5-19); Blood Urea Nitrogen 64 mg/dL (8-23); Calcium 10.1 mg/dL (8.5-10.5); Carbon Dioxide 28 mmol/L (22-29); Chloride 94 mmol/L (98-107); Glomerular Filtration Rate 6.7 mL/min (90-130); Glucose 288 mg/dL (65-115); Osmolality Calculated 307 mOsm/kg (285-295); Potassium 6.2 mmol/L (3.5-5.1); Sodium 134 mmol/L (136-145)
[2022-12-27] MEDS: heparin 5,000 unit/mL INJ 1 mL 5000 UNIT SUBCUT ×2 (06:29→18:07)
[2022-12-27] MEDS: Dianeal low Ca w/2.5% dex 2,000 mL Bag 2000 ML INTRAPERIT (06:31)
[2022-12-27 06:42] LABS: Glucose Point of Care 485 mg/dL (70-110)
[2022-12-27] MEDS: TRAMadol 50 mg Tablet PO (07:50)
[2022-12-27] MEDS: citalopram 20 mg Tablet 40 MG PO (07:50)
[2022-12-27] MEDS: clopidogrel 75 mg Tablet PO (07:50)
[2022-12-27 08:08] LABS: Glucose Point of Care 422 mg/dL (70-110)
[2022-12-27] MEDS: budesonide 0.5 mg/2 mL Neb INHALATION ×2 (08:09→19:55)
[2022-12-27] MEDS: insulin lispro 100 unit/1 mL SUBCUT ×3 (08:13→18:08)
--- NOTE | 2022-12-27 09:35 | PM.PN ---
Subjective Subjective: no new c/o Medications: Reviewed: Yes Vitals/I&O/Wt Last Vital Signs Temp 97.5 F L 12/27/22 07:28 Pulse 75 12/27/22 08:12 Resp 16 12/27/22 08:05 BP 152/74 12/27/22 07:28 Pulse Ox 97 12/27/22 08:05 O2 Del Method Nasal Cannula 12/27/22 08:05 O2 Flow Rate 2 12/27/22 08:05 FiO2 30 12/26/22 21:05 Weight last 48 hrs Weight 54.25 kg Weight 49.895 kg Physical Exam Narrative: awake , alert , no distress HEENT , PEERLA S1 S2 RRR per report wheezing [place] per report No edema Data 12/27/22 05:44 12/27/22 05:44 A&P Assessment and plan (1) ESRD on peritoneal dialysis: Plan 1. End-stage renal disease: On peritoneal dialysis, patient is on cycler-1500 mL bags, 2.5% dextrose, 2 exchanges 4 hours apart at home. -Ordered peritoneal dialysis while in here. 2. Hyperkalemia: Need to be on low potassium diet 3. Hypertension: Restart home medications 4. Acute on chronic respiratory failure: Multifactorial secondary to CHF and COPD, management per primary team 5. Anemia: Hemoglobin 10.6. Patient evaluated using audiovisual cart. Time spent 45 minutes. Attestations Medical Necessity Statement*: per medicine Coding Level of Care Code Acute Code for Chg Fwd Diagnoses ESRD on peritoneal dialysis N18.6; Z99.2
--- NOTE | 2022-12-27 09:45 | PC.PHAR ---
PT STATES BUMETANINDE IS 2MG TWICE DAILY, POTASSIUM CHLORIDE 20 MEQ IS 1 DAILY.
[2022-12-27] MEDS: metoprolol succinate ER (24 HR) 50 mg Tablet PO (09:51)
[2022-12-27] MEDS: polyethylene glycol 3350 Pkt 17 gm PO (09:51)
[2022-12-27] MEDS: hyDRALAzine 25 mg Tablet PO ×3 (09:51→20:54)
[2022-12-27] MEDS: bumetanide 1 mg Tablet 2 MG PO ×2 (09:51→18:07)
[2022-12-27] MEDS: dexamethasone 10 mg/mL INJ 6 MG IVP (10:22)
[2022-12-27 11:02] LABS: Glucose Point of Care 227 mg/dL (70-110)
[2022-12-27] MEDS: morphine 4 mg/mL SDV 1 mL 2 MG IVP ×2 (12:51→18:24)
[2022-12-27] MEDS: Dianeal low Ca w/2.5% dex 2,000 mL Bag 1500 ML INTRAPERIT ×3 (15:00→23:57)
[2022-12-27 16:51] LABS: Glucose Point of Care 171 mg/dL (70-110)
--- NOTE | 2022-12-27 19:08 | P.PN_ITS ---
Subjective Subjective: She is feeling slightly better but still coughing quite a bit, feeling congested but not bringing up phlegm. Wheezing. Vitals/I&O/Wt Last Vital Signs Temp 97.3 F L 12/27/22 15:55 Pulse 70 12/27/22 15:55 Resp 18 12/27/22 15:55 BP 121/64 12/27/22 15:55 Pulse Ox 97 12/27/22 15:55 O2 Del Method Nasal Cannula 12/27/22 15:55 O2 Flow Rate 2 12/27/22 15:54 FiO2 30 12/26/22 21:05 12/27/22 12/27/22 12/27/22 06:59 14:59 22:59 Intake Total 720 / 720 480 / 1200 Output Total 350 / 350 Balance 720 / 720 130 / 850 Weight last 48 hrs Weight 54.25 kg Weight 49.895 kg Physical Exam Const: COMMON NORMALS: patient oriented x3 and alert GENERAL APPEARANCE: cooperative ORIENTATION/CONSCIOUSNESS: Yes awake HENMT: COMMON NORMALS: oropharynx normal Neck/C-Spine: COMMON NORMALS: no JVD Resp: AUSCULTATION: wheezes and diminished lung sounds Cardio: COMMON NORMALS: no JVD, regular rhythm, S1 normal heart sound present, S2 normal heart sound present and No murmurs present (Cardio) RHYTHM: regular rhythm HEART SOUNDS: S1 normal heart sound present and S2 normal heart sound present GI: COMMON NORMALS: Normal to inspection, nondistended, normoactive bowel sounds present, Soft to palpation and non-tender PALPATION: Yes Soft to palpation Extremity: COMMON NORMALS: no joint enlargement and no pedal edema Neuro: COMMON NORMALS: patient oriented x3 and moves all extremities SENSORIUM/ORIENTATION: Yes alert Skin: COMMON NORMALS: no rashes or lesions noted GENERAL SKIN EXAM: no rashes or lesions noted Data 12/27/22 05:44 12/27/22 05:44 Micro: Microbiology 12/27/22 11:10 Gram Stain - Final Sputum - Expectorated Sputum A&P Assessment and plan (1) Respiratory failure with hypercapnia: Improving. Weaned off BiPAP. Still congested feeling, not bringing up phlegm. Wheezing, diminished air entry bilaterally. Continue IV steroid, breathing treatment. Procalcitonin noted 0.35, initiate antibiotic. Treat underlying cardiopulmonary pathology Telemetry with continuous pulse oximetry (2) COPD (chronic obstructive pulmonary disease): Continue treatment of severe exacerbation of COPD, with dyspnea, productive cough with difficult to expectorate sputum, respiratory failure. Continue Dexamethasone 6 mg IV daily. As above noted procalcitonin abnormality, and antibiotic coverage with Levaquin with history of sputum culture growing MDR Serratia. Follow-up sputum culture. Noted so far GPC, gram-negative diplococci?, Few GPR. Droplet isolation for now. Check MRSA PCR. Nebulizing treatments ordered RT requested to eval and treat Pulmonary toilet (3) Hyperkalemia: Potassium 6.2. Nephrology documentation appreciated. Continues with peritoneal dialysis. Follow-up chemistry. Low potassium diet Repeat electrolytes in a.m. Telemetry monitoring (4) CHF (congestive heart failure): Chronic congestive heart failure of unknown type No recent echocardiogram available for review Continue home Bumex Strict I's and O's Daily weights Qualifiers: Heart failure type: unspecified Heart failure chronicity: acute on chronic Qualified Code(s): I50.9 - Heart failure, unspecified (5) CAD (coronary artery disease): Continue aspirin Continue statin Continue Plavix Qualifiers: Coronary Disease-Associated Artery/Lesion type: [place] artery [place] vs. transplanted heart: [place] heart Associated angina: without angina Qualified Code(s): I25.10 - Atherosclerotic heart disease of [place] coronary artery without angina pectoris (6) ESRD on peritoneal dialysis: Continue peritoneal dialysis, nephrology consulted by ED (7) Type 2 diabetes mellitus with diabetic polyneuropathy: Sliding-scale insulin correction Avoid hypoglycemia Qualifiers: Diabetes mellitus correction insulin use: without terminal superintendent use Qualified Code(s): E11.42 - Type 2 diabetes mellitus with diabetic polyneuropathy (8) Muscle spasm: Follow-up potassium level. Check magnesium. Calcium noted 10.1. Plan DVT prophylaxis: Heparin Code: Full Discussed with nursing, case management. Attestations Medical Necessity Statement*: Continue admission for assessment management of respiratory failure, COPD exacerbation. Diagnoses Respiratory failure with hypercapnia J96.92 COPD (chronic obstructive pulmonary disease) J44.9 Hyperkalemia E87.5 CHF (congestive heart failure) I50.9 Heart failure type: unspecified Heart failure chronicity: acute on chronic CAD (coronary artery disease) I25.10 Coronary Disease-Associated Artery/Lesion type: [place] artery [place] vs. transplanted heart: [place] heart Associated angina: without angina ESRD on peritoneal dialysis N18.6; Z99.2 Type 2 diabetes mellitus with diabetic polyneuropathy E11.42 Diabetes mellitus correction insulin use: without correction use Muscle spasm M62.838
[2022-12-27 20:29] LABS: Glucose Point of Care 206 mg/dL (70-110)
[2022-12-27] MEDS: levofloxacin-dextrose 5 % 750 MG/150 ML PREMIX 100 MG IV (20:53)
[2022-12-27] MEDS: atorvastatin 40 mg Tablet 80 MG PO (20:53)
[2022-12-27] MEDS: aspirin 81 mg EC Tablet PO (20:54)
[2022-12-27] MEDS: trazodone 100 mg Tablet PO (20:54)
[2022-12-27] MEDS: guaiFENesin 600 mg Tablet 1200 MG PO (20:54)
[2022-12-28] VITALS (16 sets, daily range): BP systolic 94–156; BP diastolic 42–75; PULSE 61–104; RESP 16–19; TEMP 36.2–36.8; O2SAT 92–98; BMI 24.1
[2022-12-28] MEDS: ipratropium-albuterol 3 mL Neb INHALATION ×5 (02:40→20:56)
[2022-12-28] MEDS: Dianeal low Ca w/2.5% dex 2,000 mL Bag 1500 ML INTRAPERIT ×2 (04:15→08:33)
[2022-12-28 05:30] LABS: Basophils % 0.1 %; Eosinophils % 0.1 %; Hematocrit 30.9 % (37.0-47.0); Hemoglobin 9.6 g/dL (11.5-15.3); Lymphocytes # 0.7 10^3/uL (0.8-4.8); Mean Corpuscular HGB Conc 31.1 g/dL (30.0-36.0); Mean Corpuscular Hemoglobin 30.8 pg (28.0-34.0); Mean Platelet Volume 10.2 fL (7.4-10.4); Monocytes # 0.7 10^3/uL (0.2-0.9); Monocytes % 5.5 %; Neutrophils # 11.91 10^3/uL (1.8-7.7); Neutrophils % 89.1 %; Nucleated Red Blood Cells % 0 %; Platelet Count 211 10^3/cmm (130-400); Red Blood Count 3.12 10^6/uL (4.1-5.3); Red Cell Distribution Width 13.9 % (12.1-15.1); White Blood Count 13.4 10^3/uL (4.0-10.0)
[2022-12-28 05:46] LABS: Anion Gap 16.5 (5-19); Blood Urea Nitrogen 58 mg/dL (8-23); Calcium 9.3 mg/dL (8.5-10.5); Carbon Dioxide 27 mmol/L (22-29); Chloride 98 mmol/L (98-107); Glomerular Filtration Rate 7.6 mL/min (90-130); Glucose 164 mg/dL (65-115); Osmolality Calculated 304 mOsm/kg (285-295); Potassium 4.5 mmol/L (3.5-5.1); Sodium 137 mmol/L (136-145)
[2022-12-28 05:52] LABS: Magnesium 2.5 mg/dL (1.7-2.3)
[2022-12-28 06:37] LABS: Glucose Point of Care 173 mg/dL (70-110)
[2022-12-28] MEDS: heparin 5,000 unit/mL INJ 1 mL 5000 UNIT SUBCUT ×2 (06:41→16:56)
[2022-12-28] MEDS: budesonide 0.5 mg/2 mL Neb INHALATION ×2 (08:16→20:56)
[2022-12-28] MEDS: citalopram 20 mg Tablet 40 MG PO (08:58)
[2022-12-28] MEDS: guaiFENesin 600 mg Tablet 1200 MG PO ×2 (08:58→16:56)
[2022-12-28] MEDS: clopidogrel 75 mg Tablet PO (08:59)
[2022-12-28] MEDS: bumetanide 1 mg Tablet 2 MG PO ×2 (08:59→16:55)
[2022-12-28] MEDS: polyethylene glycol 3350 Pkt 17 gm PO (08:59)
[2022-12-28] MEDS: insulin lispro 100 unit/1 mL SUBCUT ×3 (09:07→16:55)
--- NOTE | 2022-12-28 09:42 | PC.CHAP ---
Pastoral Care Encounter/Spiritual Assessment Type of Contact [] Declined solutions manager visit [] Patient/Family/Request visit [] Outpatient visit [] Follow-up visit [] Physician referral [] Code/Alert [x] Routine visit [] Staff referral [] Actively dying [] Patient sleeping [] Family support [] [] Out of room [] Palliative care [] [] Receiving care in room [] Pre-surgical visit [] Trauma [] Long length of stay [] ICU visit [] Other: Relational/Emotional Strength [x] Patient feels connected with others/family/visitors/staff [] Distress [] Loneliness/isolation [] Abandonment Spirituality of Patient [x] Person of Marta [x] Attends Rastafarian of their Marta [x] Believes in Prayer [] Reads Bible or Yazidism materials [] There are Spiritual issues to be addressed Learning Coordinator Interventions x[] Prayer [] Active listening [] Non-anxious presence [x] Spiritual/emotional support [] Crisis/trauma care [] Spiritual counseling [] Bereavement support [] Provided bereavement packet [] Provided Bible/devotional materials [] Provided toy/stuffed animal, coloring book to patient or family member [] Provided Communion [] Anointing/[place] [] Salvation [x] Completed spiritual assessment [] Other: Impact on Illness or Injury [] Angry [] Fearful [] Anxious [] Often cries [] Exhaustion [] Unable to work [] Unable to attend yarsani [] Unable to walk/stand [] Unable to read [] Unable to drive [] Unable to eat/drink [] Unable to sleep [] Unable to be with family [] Patient intubated [] Other: Summary Time spent with patient 5 min
[2022-12-28] MEDS: dexamethasone 10 mg/mL INJ 6 MG IVP (09:56)
--- NOTE | 2022-12-28 09:58 | PM.PN ---
Subjective Subjective: no new complaints Medications: Reviewed: Yes Vitals/I&O/Wt Last Vital Signs Temp 97.3 F L 12/28/22 07:30 Pulse 72 12/28/22 08:00 Resp 18 12/28/22 08:00 BP 103/42 12/28/22 07:30 Pulse Ox 98 12/28/22 08:00 O2 Del Method Nasal Cannula 12/28/22 08:00 O2 Flow Rate 2 12/28/22 08:00 FiO2 30 12/26/22 21:05 12/27/22 12/28/22 12/28/22 22:59 06:59 14:59 Intake Total 750 / 1470 240 / 1710 Output Total 350 / 350 300 / 300 Balance 400 / 1120 240 / 1360 -300 / -300 Weight last 48 hrs Weight 54.176 kg Weight 54.25 kg Weight 49.895 kg Physical Exam Narrative: awake , alert , no distress HEENT , PEERLA S1 S2 RRR per report wheezing k[place] per report No edema Data 12/28/22 05:20 12/28/22 05:20 Micro: Microbiology 12/27/22 11:10 Gram Stain - Final Sputum - Expectorated Sputum A&P Assessment and plan (1) ESRD on peritoneal dialysis: Plan 1. End-stage renal disease: On peritoneal dialysis, patient is on cycler-1500 mL bags, 2.5% dextrose, 2 exchanges 4 hours apart at home. -Ordered peritoneal dialysis while in here. 2. Hyperkalemia: Need to be on low potassium diet 3. Hypertension: Restart home medications 4. Acute on chronic respiratory failure: Multifactorial secondary to CHF and COPD, management per primary team 5. Anemia: Hemoglobin 9.6. Ordered Epogen Patient evaluated using audiovisual cart. Time spent 45 minutes. Attestations Medical Necessity Statement*: per medicine Coding Level of Care Code Acute Code for Chg Fwd Diagnoses ESRD on peritoneal dialysis N18.6; Z99.2
[2022-12-28 10:51] LABS: Glucose Point of Care 215 mg/dL (70-110)
[2022-12-28 11:24] LABS: Glucose Point of Care 178 mg/dL (70-110)
--- NOTE | 2022-12-28 11:33 | P.PN_ITS ---
Subjective Subjective: Continues to feel congested. Medications: Medication Review Details: She is still feeling congested. Still coughing. Wheezing. Vitals/I&O/Wt Last Vital Signs Temp 97.1 F L 12/28/22 11:20 Pulse 71 12/28/22 11:20 Resp 18 12/28/22 11:20 BP 132/55 12/28/22 11:20 Pulse Ox 96 12/28/22 11:20 O2 Del Method Nasal Cannula 12/28/22 11:20 O2 Flow Rate 2 12/28/22 08:00 FiO2 30 12/26/22 21:05 12/27/22 12/28/22 12/28/22 22:59 06:59 14:59 Intake Total 750 / 1470 240 / 1710 Output Total 350 / 350 300 / 300 Balance 400 / 1120 240 / 1360 -300 / -300 Weight last 48 hrs Weight 54.176 kg Weight 54.25 kg Weight 49.895 kg Physical Exam Const: COMMON NORMALS: patient oriented x3 and alert GENERAL APPEARANCE: cooperative ORIENTATION/CONSCIOUSNESS: Yes awake HENMT: COMMON NORMALS: oropharynx normal Neck/C-Spine: COMMON NORMALS: no JVD Resp: AUSCULTATION: rhonchi, wheezes and diminished lung sounds Cardio: COMMON NORMALS: no JVD, regular rhythm, S1 normal heart sound present, S2 normal heart sound present and No murmurs present (Cardio) RHYTHM: regular rhythm HEART SOUNDS: S1 normal heart sound present and S2 normal heart sound present GI: COMMON NORMALS: Normal to inspection, nondistended, normoactive bowel sounds present, Soft to palpation and non-tender PALPATION: Yes Soft to palpation Extremity: COMMON NORMALS: no joint enlargement and no pedal edema Neuro: COMMON NORMALS: patient oriented x3 and moves all extremities SENSORIUM/ORIENTATION: Yes alert Skin: COMMON NORMALS: no rashes or lesions noted GENERAL SKIN EXAM: no rashes or lesions noted Data 12/28/22 05:20 12/28/22 05:20 Micro: Microbiology 12/26/22 20:52 Urine Culture - Final Urine,Clean Catch 12/27/22 11:10 Gram Stain - Final Sputum - Expectorated Sputum A&P Assessment and plan (1) Respiratory failure with hypercapnia: Unimproved. Persistent wheezing, diminished air entry. Tight. Congested. Discussed with her escalating steroid therapy. Change steroids to Solu-Medrol 40 mg every 6 hours, may have to escalate further. Discussed with RT. Started on empiric antibiotic, continue. Target O2 saturation 88-92 %. Avoid hyperoxia. BiPAP as needed for support. Procalcitonin noted 0.35, initiate antibiotic. Treat underlying cardiopulmonary pathology Telemetry with continuous pulse oximetry (2) COPD (chronic obstructive pulmonary disease): As above. Severe exacerbation of COPD, accompanied also by hypercapnic acute metabolic encephalopathy. As above noted procalcitonin abnormality, and antibiotic coverage with Levaquin with history of sputum culture growing MDR [place]. Follow-up sputum culture. Noted so far GPC, gram-negative diplococci?, Few GPR. Droplet isolation for now. Check MRSA PCR. Nebulizing treatments ordered RT requested to eval and treat Pulmonary toilet (3) Hyperkalemia: Improved. Continue PD. Nephrology documentation appreciated. Continues with peritoneal dialysis. Follow-up chemistry. Low potassium diet Repeat electrolytes in a.m. Telemetry monitoring (4) CHF (congestive heart failure): Chronic congestive heart failure of unknown type No recent echocardiogram available for review Continue home Bumex Strict I's and O's Daily weights Qualifiers: Heart failure chronicity: acute on chronic Heart failure type: unspecified Qualified Code(s): I50.9 - Heart failure, unspecified (5) CAD (coronary artery disease): Continue aspirin Continue statin Continue Plavix Qualifiers: Associated angina: without angina Coronary Disease-Associated Artery/Lesion type: [place] artery [place] vs. transplanted heart: [place] heart Qualified Code(s): I25.10 - Atherosclerotic heart disease of [place] coronary artery without angina pectoris (6) ESRD on peritoneal dialysis: Continue peritoneal dialysis, nephrology consulted by ED (7) Type 2 diabetes mellitus with diabetic polyneuropathy: Sliding-scale insulin correction Avoid hypoglycemia Qualifiers: Diabetes mellitus termite treater insulin use: without termite treater use Qualified Code(s): E11.42 - Type 2 diabetes mellitus with diabetic polyneuropathy (8) Muscle spasm: Follow-up potassium level. Check magnesium. Calcium noted 10.1. (9) Acute metabolic encephalopathy: She has been having tremor/jerking movements in her arms. Noted hypercapnic respiratory status on presentation. Discussed with her , suspected acute metabolic encephalopathy secondary to hypercarbia. Some tremor could be also from breathing treatments. Additionally for now we will decrease citalopram dose to 20 mg. Hold tramadol. She did need some morphine due to hip pain after recent fall. Discussed risk of encephalopathy with pain medication especially in the setting of kidney disease. Limit morphine if possible. Tylenol. Lidocaine patch. Continue to reassess. At risk of deterioration. Plan Right hip pain: provides history of recent fall and states that she is still having right hip pain. After recent fall, pain radiating to the right groin. Had a set of images when was evaluated, including XR sacrum, I do not see hip x-ray. Will obtain dedicated images. Local pain control with lidocaine. Acetaminophen as needed. Hold tramadol due to encephalopathy. Limit morphine if possible, but did require IV morphine. DVT prophylaxis: Heparin Code: Full Attestations Medical Necessity Statement*: Continue admission for assessment and management of severe exacerbation of COPD, acute metabolic encephalopathy. Diagnoses Respiratory failure with hypercapnia J96.92 COPD (chronic obstructive pulmonary disease) J44.9 Hyperkalemia E87.5 CHF (congestive heart failure) I50.9 Heart failure chronicity: acute on chronic Heart failure type: unspecified CAD (coronary artery disease) I25.10 Associated angina: without angina Coronary Disease-Associated Artery/Lesion type: [place] artery [place] vs. transplanted heart: [place] heart ESRD on peritoneal dialysis N18.6; Z99.2 Type 2 diabetes mellitus with diabetic polyneuropathy E11.42 Diabetes mellitus termite treater insulin use: without fci use Muscle spasm M62.838 Acute metabolic encephalopathy G93.41
--- NOTE | 2022-12-28 11:37 | XRR_ITS ---
PROCEDURE INFORMATION: Exam: XR Right Hip Exam date and time: 12/28/2022 11:46 AM Age: 67 years old Clinical indication: Injury or trauma; Fall; Blunt trauma (contusions or hematomas); Right; Hip; Additional info: Fall, R groin/hip pain TECHNIQUE: Imaging protocol: Radiologic exam of the right hip. Views: 1 view hip with pelvis when performed. COMPARISON: [place] [id number] 07/07/2017 11:52 AM FINDINGS: Bones/joints: Osteopenia. No radiographic evidence of acute fracture or dislocation. Alignment anatomic. Mild right hip joint osteoarthrosis. No erosive or destructive change. No lytic or blastic lesion. Mild degenerative changes of the right sacroiliac joint and pubic symphysis. Soft tissues: Grossly unremarkable. XR/XR hip RT 2-3V wo/w pel* [id number] IMPRESSION: No acute radiographic findings.
[2022-12-28] MEDS: methylPREDNISolone sod succ 40 MG in water for injection-sterile 1 ML 12 MG IVP ×3 (11:49→23:43)
[2022-12-28] MEDS: pantoprazole 40 mg SDV IVP (11:49)
[2022-12-28] MEDS: epoetin alfa 1000 Unit/0.05 mL (ESRD) 20000 UNIT SUBCUT (12:52)
[2022-12-28 16:28] LABS: Glucose Point of Care 238 mg/dL (70-110)
[2022-12-28] MEDS: lidocaine 5% Patch 1 PATCH TOPICAL (20:29)
[2022-12-28] MEDS: atorvastatin 40 mg Tablet 80 MG PO (20:30)
[2022-12-28] MEDS: aspirin 81 mg EC Tablet PO (20:30)
[2022-12-28] MEDS: hyDRALAzine 25 mg Tablet PO (20:30)
[2022-12-28] MEDS: trazodone 100 mg Tablet PO (20:30)
[2022-12-28 22:42] LABS: Glucose Point of Care 271 mg/dL (70-110)
[2022-12-29] VITALS (14 sets, daily range): BP systolic 110–126; BP diastolic 60–66; PULSE 72–91; RESP 16–18; TEMP 36.6–36.8; O2SAT 94–99; BMI 23.8
[2022-12-29] MEDS: ipratropium-albuterol 3 mL Neb INHALATION ×7 (00:33→23:37)
[2022-12-29] MEDS: Dianeal low Ca w/2.5% dex 2,000 mL Bag 1500 ML INTRAPERIT ×2 (04:21→10:45)
[2022-12-29 04:22] LABS: Basophils % 0.1 %; Hematocrit 35.3 % (37.0-47.0); Hemoglobin 10.9 g/dL (11.5-15.3); Lymphocytes # 0.3 10^3/uL (0.8-4.8); Lymphocytes % 3.5 %; Mean Corpuscular HGB Conc 30.9 g/dL (30.0-36.0); Mean Corpuscular Hemoglobin 30.7 pg (28.0-34.0); Mean Corpuscular Volume 99.4 fl (81-99); Mean Platelet Volume 10.1 fL (7.4-10.4); Monocytes # 0.1 10^3/uL (0.2-0.9); Monocytes % 1.2 %; Neutrophils # 8.83 10^3/uL (1.8-7.7); Neutrophils % 94.3 %; Nucleated Red Blood Cells % 0 %; Platelet Count 243 10^3/cmm (130-400); Red Blood Count 3.55 10^6/uL (4.1-5.3); Red Cell Distribution Width 14.2 % (12.1-15.1); White Blood Count 9.4 10^3/uL (4.0-10.0)
[2022-12-29 04:45] LABS: Anion Gap 17.8 (5-19); Blood Urea Nitrogen 68 mg/dL (8-23); Calcium 9.3 mg/dL (8.5-10.5); Carbon Dioxide 26 mmol/L (22-29); Chloride 97 mmol/L (98-107); Glomerular Filtration Rate 7.3 mL/min (90-130); Glucose 201 mg/dL (65-115); Osmolality Calculated 307 mOsm/kg (285-295); Potassium 4.8 mmol/L (3.5-5.1); Sodium 136 mmol/L (136-145)
[2022-12-29 06:47] LABS: Glucose Point of Care 340 mg/dL (70-110)
--- NOTE | 2022-12-29 06:54 | PM.PN ---
Subjective Subjective: no new complaints Medications: Reviewed: Yes Vitals/I&O/Wt Last Vital Signs Temp 98.1 F 12/29/22 03:33 Pulse 86 12/29/22 03:55 Resp 17 12/29/22 03:55 BP 117/64 12/29/22 03:33 Pulse Ox 96 12/29/22 03:55 O2 Del Method Nasal Cannula 12/29/22 03:55 O2 Flow Rate 2 12/29/22 03:55 FiO2 30 12/28/22 15:38 12/28/22 12/28/22 12/29/22 14:59 22:59 06:59 Intake Total 241 / 241 961 / 1202 1203 Output Total 300 / 300 300 / 600 Balance -59 / -59 661 / 602 Weight last 48 hrs Weight 53.637 kg Weight 54.176 kg Physical Exam Narrative: awake , alert , no distress HEENT , PEERLA S1 S2 RRR per report wheezing [place] per report No edema Data 12/30/22 04:41 12/30/22 04:41 Micro: Microbiology 12/27/22 11:10 Gram Stain - Final Sputum - Expectorated Sputum Sputum Culture - Preliminary Presumptive p. aeruginosa 12/26/22 20:52 Urine Culture - Final Urine,Clean Catch A&P Assessment and plan (1) ESRD on peritoneal dialysis: Plan 1. End-stage renal disease: On peritoneal dialysis, patient is on cycler-1500 mL bags, 2.5% dextrose, 2 exchanges 4 hours apart at home. -Ordered peritoneal dialysis while in here. 2. Hyperkalemia: resolved 3. Hypertension: Restarted home medications 4. Acute on chronic respiratory failure: Multifactorial secondary to CHF and COPD, management per primary team 5. Anemia: Hemoglobin 10.9 . s/p Epogen Patient evaluated using audiovisual cart. Time spent 20 minutes. Attestations Medical Necessity Statement*: per medicine Coding Level of Care Code Acute Code for Chg Fwd Diagnoses ESRD on peritoneal dialysis N18.6; Z99.2
[2022-12-29] MEDS: heparin 5,000 unit/mL INJ 1 mL 5000 UNIT SUBCUT ×2 (06:58→16:38)
[2022-12-29] MEDS: budesonide 0.5 mg/2 mL Neb INHALATION ×2 (08:07→20:04)
[2022-12-29] MEDS: clopidogrel 75 mg Tablet PO (08:31)
[2022-12-29] MEDS: guaiFENesin 600 mg Tablet 1200 MG PO ×2 (08:32→16:38)
[2022-12-29] MEDS: pantoprazole DR 40 mg Tablet PO (08:32)
[2022-12-29] MEDS: citalopram 20 mg Tablet PO (08:32)
[2022-12-29] MEDS: bumetanide 1 mg Tablet 2 MG PO ×2 (08:33→16:37)
[2022-12-29] MEDS: metoprolol succinate ER (24 HR) 50 mg Tablet PO (08:33)
[2022-12-29] MEDS: hyDRALAzine 25 mg Tablet PO ×3 (08:33→20:49)
[2022-12-29] MEDS: polyethylene glycol 3350 Pkt 17 gm PO (08:35)
[2022-12-29] MEDS: lidocaine 5% Patch 1 PATCH TOPICAL (08:39)
[2022-12-29 08:44] LABS: Glucose Point of Care 286 mg/dL (70-110)
[2022-12-29] MEDS: insulin lispro 100 unit/1 mL SUBCUT ×3 (08:52→17:37)
[2022-12-29] MEDS: acetaminophen 325 mg Tablet 650 MG PO ×3 (08:54→23:36)
--- NOTE | 2022-12-29 10:10 | PC.SOCIAL ---
IMM update IMM updated with patient and family at bedside. Copy PG 2 provided. Verbalized an understanding. Initialled, dated, timed, and placed in chart.
[2022-12-29 11:21] LABS: Glucose Point of Care 317 mg/dL (70-110)
[2022-12-29 11:21] LABS: Glucose Point of Care 349 mg/dL (70-110)
--- NOTE | 2022-12-29 11:28 | P.PN_ITS ---
Subjective Subjective: She is minimally better. Still coughing, feeling congested. She would like to discuss with nephrology regarding peritoneal dialysis regimen. Hip is feeling better. Responding well to lidocaine patch. Discussed with her to let us know in case of recurrent or persistent pain we may consider imaging with CT scan in case a fracture to small to catch on the x-ray. Vitals/I&O/Wt Last Vital Signs Temp 97.8 F 12/29/22 11:21 Pulse 78 12/29/22 11:21 Resp 18 12/29/22 11:21 BP 113/65 12/29/22 11:21 Pulse Ox 94 12/29/22 11:21 O2 Del Method Nasal Cannula 12/29/22 11:21 O2 Flow Rate 2 12/29/22 11:21 FiO2 30 12/28/22 15:38 12/28/22 12/29/22 12/29/22 22:59 06:59 14:59 Intake Total 961 / 1202 1203 Output Total 300 / 600 Balance 661 / 602 603 Weight last 48 hrs Weight 53.637 kg Weight 54.176 kg Physical Exam Const: COMMON NORMALS: patient oriented x3 and alert GENERAL APPEARANCE: c ooperative ORIENTATION/CONSCIOUSNESS: Yes awake HENMT: COMMON NORMALS: oropharynx normal Neck/C-Spine: COMMON NORMALS: no JVD Resp: COMMON NORMALS: normal respiratory effort and clear to auscultation bilaterally AUSCULTATION: clear to auscultation bilaterally, rhonchi, wheezes and diminished lung sounds Cardio: COMMON NORMALS: no JVD, regular rhythm, S1 normal heart sound present, S2 normal heart sound present and No murmurs present (Cardio) RHYTHM: regular rhythm HEART SOUNDS: S1 normal heart sound present and S2 normal heart sound present GI: COMMON NORMALS: Normal to inspection, nondistended, normoactive bowel s ounds present, Soft to palpation and non-tender PALPATION: Yes Soft to pa lpation Extremity: COMMON NORMALS: no joint enlargement and no pedal edema Neuro: COMMON NORMALS: patient oriented x3 and moves all extremities SENSORIUM/ORIENTATION: Yes alert Skin: COMMON NORMALS: no rashes or lesions noted GENERAL SKIN EXAM: no rashes or lesions noted Data 12/29/22 03:59 12/29/22 03:59 Micro: Microbiology 12/27/22 11:10 Gram Stain - Final Sputum - Expectorated Sputum Sputum Culture - Preliminary Presumptive p. aeruginosa 12/26/22 20:52 Urine Culture - Final Urine,Clean Catch A&P Assessment and plan (1) Respiratory failure with hypercapnia: Still only minimal subjective improvement, continues with wheezing, diminished air entry, reactive airways with prominent asthmatic component to COPD exacerbation. Discussed with her increasing steroid dose, increase to 60 mg. At risk of complications related to steroid, discussed with her and her . At risk of hyperglycemia, hypertension, gastritis, encephalopathy, other complications. Monitor closely. Discussed with her also preliminary sputum culture appears may be showing Pseudomonas. Follow-up results. Continue Levaquin. Target O2 saturation 88-92 %. Avoid hyperoxia. BiPAP as needed for support. Discussed with nursing. Discussed with case management. Post discharge plan would be so far to return home with . (2) COPD (chronic obstructive pulmonary disease): As above. Severe exacerbation of COPD, accompanied also by hypercapnic acute metabolic encephalopathy accompanied by asterixis. Encephalopathy with slight i mprovement. As above noted procalcitonin abnormality, and antibiotic coverage with Levaquin. Sputum culture appears to be growing Pseudomonas. Follow-up sputum culture. Noted so far GPC, gram-negative diplococci?, Few GPR. Droplet isolation for now. Check MRSA PCR. Nebulizing treatments ordered RT requested to eval and treat Pulmonary toilet (3) Hyperkalemia: Improved. Continue PD. Nephrology documentation appreciated. Continues with peritoneal dialysis. Follow-up chemistry. Low potassium diet Repeat electrolytes in a.m. Telemetry monitoring (4) CHF (congestive heart failure): Chronic congestive heart failure of unknown type No recent echocardiogram available for review Continue home Bumex Strict I's and O's Daily weights Qualifiers: Heart failure type: unspecified Heart failure chronicity: acute on chronic Qualified Code(s): I50.9 - Heart failure, unspecified (5) CAD (coronary artery disease): Continue aspirin Continue statin Continue Plavix Qualifiers: Coronary Disease-Associated Artery/Lesion type: [place] artery [place] vs. transplanted heart: [place] heart Associated angina: without angina Qualified Code(s): I25.10 - Atherosclerotic heart disease of [place] coronary artery without angina pectoris (6) ESRD on peritoneal dialysis: Continue peritoneal dialysis, nephrology consulted by ED (7) Type 2 diabetes mellitus with diabetic polyneuropathy: Sliding-scale insulin correction Avoid hypoglycemia Qualifiers: Diabetes mellitus senior living insulin use: without intermediate card tender use Qualified Code(s): E11.42 - Type 2 diabetes mellitus with diabetic polyneuropathy (8) Muscle spasm: Follow-up potassium level. Check magnesium. Calcium noted 10.1. (9) Acute metabolic encephalopathy: Acute metabolic encephalopathy with asterixis with some improvement. Continue to monitor. Continue to treat severe COPD exacerbation with respiratory acidosis. She has been having tremor/jerking movements in her arms. Noted hypercapnic respiratory status on presentation. Discussed with her , suspected acute metabolic encephalopathy secondary to hypercarbia. Some tremor could be also from breathing treatments. Additionally for now we will decrease citalopram dose to 20 mg. Hold tramadol. She did need some morphine due to hip pain after recent fall. Discussed risk of encephalopathy with pain medication especially in the setting of kidney disease. Limit morphine if possible. Tylenol. Lidocaine patch. Continue to reassess. At risk of deterioration. Plan Right hip pain: X-ray noted, I do not see a fracture. Discussed with her and her to let us know in case of persistent or worsening pain, persistently bothersome pain with exertion, in case x-ray did not catch a small fracture may perform CT. Lidocaine patch seems to be helping symptoms. Continue Tylenol as needed. DVT prophylaxis: Heparin Code: Full Attestations Medical Necessity Statement*: Admission for assessment management of slow to improve severe exacerbation of COPD. Diagnoses Respiratory failure with hypercapnia J96.92 COPD (chronic obstructive pulmonary disease) J44.9 Hyperkalemia E87.5 CHF (congestive heart failure) I50.9 Heart failure type: unspecified Heart failure chronicity: acute on chronic CAD (coronary artery disease) I25.10 Coronary Disease-Associated Artery/Lesion type: [place] artery [place] vs. transplanted heart: [place] heart Associated angina: without angina ESRD on peritoneal dialysis N18.6; Z99.2 Type 2 diabetes mellitus with diabetic polyneuropathy E11.42 Diabetes mellitus intermediate card tender insulin use: without senior living use Muscle spasm M62.838 Acute metabolic encephalopathy G93.41
[2022-12-29] MEDS: methylPREDNISolone sod succ 60 MG in water for injection-sterile 0.96 ML 11.52 MG IVP (12:16)
[2022-12-29] MEDS: methylPREDNISolone sod succ 60 MG in water for injection-sterile 0.96 ML 11.5 MG IVP ×2 (16:38→23:49)
[2022-12-29 17:27] LABS: Glucose Point of Care 147 mg/dL (70-110)
[2022-12-29 20:31] LABS: Glucose Point of Care 248 mg/dL (70-110)
[2022-12-29] MEDS: aspirin 81 mg EC Tablet PO (20:48)
[2022-12-29] MEDS: atorvastatin 40 mg Tablet 80 MG PO (20:48)
[2022-12-29] MEDS: levofloxacin-dextrose 5 % 500 MG/100 ML PREMIX 100 MG IV (20:49)
[2022-12-29] MEDS: trazodone 100 mg Tablet PO (20:49)
[2022-12-30] VITALS (17 sets, daily range): BP systolic 101–145; BP diastolic 53–90; PULSE 66–88; RESP 14–18; TEMP 36.5–36.9; O2SAT 93–98
[2022-12-30] MEDS: ipratropium-albuterol 3 mL Neb INHALATION ×6 (03:31→23:23)
[2022-12-30] MEDS: Dianeal low Ca w/2.5% dex 2,000 mL Bag 1500 ML INTRAPERIT ×2 (04:00→09:00)
[2022-12-30 04:54] LABS: Basophils % 0.1 %; Hematocrit 32.9 % (37.0-47.0); Hemoglobin 10.2 g/dL (11.5-15.3); Lymphocytes # 0.3 10^3/uL (0.8-4.8); Lymphocytes % 3.1 %; Mean Corpuscular Hemoglobin 30.8 pg (28.0-34.0); Mean Corpuscular Volume 99.4 fl (81-99); Mean Platelet Volume 9.8 fL (7.4-10.4); Monocytes # 0.1 10^3/uL (0.2-0.9); Monocytes % 1.7 %; Neutrophils # 7.65 10^3/uL (1.8-7.7); Neutrophils % 93.5 %; Nucleated Red Blood Cells % 0 %; Platelet Count 222 10^3/cmm (130-400); Red Blood Count 3.31 10^6/uL (4.1-5.3); Red Cell Distribution Width 14.6 % (12.1-15.1); White Blood Count 8.2 10^3/uL (4.0-10.0)
[2022-12-30 05:08] LABS: Anion Gap 18.9 (5-19); Blood Urea Nitrogen 70 mg/dL (8-23); Calcium 8.7 mg/dL (8.5-10.5); Carbon Dioxide 27 mmol/L (22-29); Chloride 95 mmol/L (98-107); Glomerular Filtration Rate 7.4 mL/min (90-130); Glucose 278 mg/dL (65-115); Osmolality Calculated 312 mOsm/kg (285-295); Potassium 4.9 mmol/L (3.5-5.1); Sodium 136 mmol/L (136-145)
[2022-12-30] MEDS: methylPREDNISolone sod succ 60 MG in water for injection-sterile 0.96 ML 11.5 MG IVP ×3 (05:14→23:29)
[2022-12-30] MEDS: heparin 5,000 unit/mL INJ 1 mL 5000 UNIT SUBCUT ×2 (06:02→17:31)
[2022-12-30 06:21] LABS: Glucose Point of Care 294 mg/dL (70-110)
[2022-12-30] MEDS: budesonide 0.5 mg/2 mL Neb INHALATION ×2 (07:25→19:41)
[2022-12-30] MEDS: lidocaine 5% Patch 1 PATCH TOPICAL (09:13)
[2022-12-30] MEDS: bumetanide 1 mg Tablet 2 MG PO ×2 (09:14→17:31)
[2022-12-30] MEDS: guaiFENesin 600 mg Tablet 1200 MG PO ×2 (09:14→17:31)
[2022-12-30] MEDS: pantoprazole DR 40 mg Tablet PO (09:14)
[2022-12-30] MEDS: citalopram 20 mg Tablet PO (09:14)
[2022-12-30] MEDS: metoprolol succinate ER (24 HR) 50 mg Tablet PO (09:14)
[2022-12-30] MEDS: clopidogrel 75 mg Tablet PO (09:14)
[2022-12-30] MEDS: insulin lispro 100 unit/1 mL SUBCUT ×3 (09:15→17:31)
[2022-12-30] MEDS: polyethylene glycol 3350 Pkt 17 gm PO (09:15)
[2022-12-30] MEDS: acetaminophen 325 mg Tablet 650 MG PO ×2 (09:15→17:31)
[2022-12-30 11:02] LABS: Glucose Point of Care 310 mg/dL (70-110)
--- NOTE | 2022-12-30 11:24 | CT_ITS ---
WS: [id number] CT RIGHT HIP, NONCONTRAST. HISTORY: prior fall, pain, assess for Fx Technique: All CT scans at [facility] use at least one of these dose optimization techniques: automated exposure control; mA and/or kV adjustment per patient size (includes targeted exams where dose is matched to clinical indication); or iterative reconstruction. DLP: 271.81 mGy.cm COMPARISON: Radiographs 12/28/2022 No acute RIGHT hip fracture is identified. Mild narrowing of the hip joint. There is a small bone fem oral head. Mild SI joint degenerative air. The visualized sacrum is normal. Mild soft tissue induration along the lateral hip from recent injury. Moderate vascular calcification s. Catheter coiled in the pelvis. CT/CT hip RT wo con* [id number] IMPRESSION: 1. No RIGHT hip fracture confirmed by CT. If pain continues and there is adrian nued suspicion for fracture consider follow-up MRI RIGHT hip, noncontrast. This would help evaluate for occult fracture. 2. Soft tissue induration lateral to the RIGHT hip.
--- NOTE | 2022-12-30 11:25 | P.PN_ITS ---
Subjective Subjective: Today she is feeling slightly better subjectively. Still bothered by pain in the right hip/groin. Some pain in the right knee. Vitals/I&O/Wt Last Vital Signs Temp 97.8 F 12/30/22 11:17 Pulse 66 12/30/22 11:17 Resp 16 12/30/22 11:17 BP 133/60 12/30/22 11:17 Pulse Ox 98 12/30/22 11:17 O2 Del Method Nasal Cannula 12/30/22 11:17 O2 Flow Rate 2 12/30/22 11:05 FiO2 30 12/28/22 15:38 12/29/22 12/30/22 12/30/22 22:59 06:59 14:59 Intake Total 100.96 / 101.92 1.92 / 103.84 360 / 360 Balance 100.96 / 101.92 1.92 / 103.84 360 / 360 Weight last 48 hrs Weight 52.815 kg Weight 53.637 kg Physical Exam Const: COMMON NORMALS: patient oriented x3 and alert GENERAL APPEARANCE: cooperative ORIENTATION/CONSCIOUSNESS: Yes awake HENMT: COMMON NORMALS: oropharynx normal Neck/C-Spine: COMMON NORMALS: no JVD Resp: COMMON NORMALS: normal respiratory effort and clear to auscultation bilaterally AUSCULTATION: clear to auscultation bilaterally, no rhonchi and wheezes Cardio: COMMON NORMALS: no JVD, regular rhythm, S1 normal heart sound present, S2 normal heart sound present and No murmurs present (Cardio) RHYTHM: regular rhythm HEART SOUNDS: S1 normal heart sound present and S2 normal heart sound present GI: COMMON NORMALS: Normal to inspection, nondistended, normoactive bowel sounds present, Soft to palpation and non-tender PALPATION: Yes Soft to palpation Extremity: COMMON NORMALS: no joint enlargement and no pedal edema Neuro: COMMON NORMALS: patient oriented x3 and moves all extremities SENSORIUM/ORIENTATION: Yes alert Skin: COMMON NORMALS: no rashes or lesions noted GENERAL SKIN EXAM: no rashes or lesions noted Data 12/30/22 04:41 12/30/22 04:41 Micro: Microbiology 12/27/22 11:10 Gram Stain - Final Sputum - Expectorated Sputum Sputum Culture - Final Pseudomonas aeruginosa 12/27/22 10:03 MRSA Culture - Final Nose A&P Assessment and plan (1) Respiratory failure with hypercapnia: She is subjectively feeling mildly better. She still has diffuse wheezing. Perhaps mild improvement from yesterday. Slightly better air entry. Discussed with her and her she [place] identified in sputum culture, noted sensitive to Levaquin on review today. MRSA PCR noted negative. Continue same dose IV steroids for now, discussed will not go up any further for now. She is having worse glucose, glucose noted up to 310 this morning. Continue sliding scale. We will add low-dose Lantus. At risk of worsening hyperglycemia and other steroid complications, gastritis, hypertension. Discussed with her and her . They would like to continue same dose for now. Continue to monitor. Discussed risk of difficult recovery with pseudomonal infection. Continue Levaquin. Target O2 saturation 88-92 %. Avoid hyperoxia. BiPAP as needed for support. Discussed with case management in rounds. Post discharge plan would be so far to return home with . (2) COPD (chronic obstructive pulmonary disease): As above. Severe exacerbation of COPD, accompanied also by hypercapnic acute metabolic encephalopathy accompanied by asterixis. Encephalopathy appears to have improved. Nebulizing treatments ordered RT Pulmonary toilet (3) Hyperkalemia: Resolved. Continue PD. Nephrology documentation appreciated. Continues with peritoneal dialysis. Follow-up chemistry. Low potassium diet Repeat electrolytes in a.m. Telemetry monitoring (4) CHF (congestive heart failure): Chronic congestive heart failure of unknown type No recent echocardiogram available for review Continue home Bumex Strict I's and O's Daily weights Qualifiers: Heart failure type: unspecified Heart failure chronicity: acute on chronic Qualified Code(s): I50.9 - Heart failure, unspecified (5) CAD (coronary artery disease): Continue aspirin Continue statin Continue Plavix Qualifiers: Coronary Disease-Associated Artery/Lesion type: [place] artery [place] vs. transplanted heart: [place] heart Associated angina: without angina Qualified Code(s): I25.10 - Atherosclerotic heart disease of [place] coronary artery without angina pectoris (6) ESRD on peritoneal dialysis: Continue peritoneal dialysis, nephrology consulted by ED (7) Type 2 diabetes mellitus with diabetic polyneuropathy: Sliding-scale insulin correction Avoid hypoglycemia Qualifiers: Diabetes mellitus [facility] insulin use: without [facility] use Qualified Code(s): E11.42 - Type 2 diabetes mellitus with diabetic polyneuropathy (8) Muscle spasm: Follow-up potassium level. Check magnesium. Calcium noted 10.1. (9) Acute metabolic encephalopathy: Acute metabolic encephalopathy with asterixis appears to have resolved. Continue to treat severe COPD exacerbation with respiratory acidosis. She had tremor/jerking movements in her arms. Noted hypercapnic respiratory status on presentation. Discussed with her , suspected acute metabolic encephalopathy secondary to hypercarbia. Some tremor could be also from breathing treatments. Additionally for now we will decrease citalopram dose to 20 mg. Hold tramadol. She did need some morphine due to hip pain after recent fall. Discussed risk of encephalopathy with pain medication especially in the setting of kidney disease. Limit morphine if possible. Tylenol. Lidocaine patch. Continue to reassess. At risk of deterioration. Plan Right hip pain: Still pain in right hip/right groin. X-ray without fracture. Will assess CT. Lidocaine patch, Tylenol. DVT prophylaxis: Heparin Code: Full Attestations 2 Medical Necessity Statement*: Continue admission for assessment management of severe exacerbation of PAD with pseudomonal infection, in a lady with underlying diabetes, worsening hyperglycemia, additional comorbidities as above. Diagnoses Respiratory failure with hypercapnia J96.92 COPD (chronic obstructive pulmonary disease) J44.9 Hyperkalemia E87.5 CHF (congestive heart failure) I50.9 Heart failure type: unspecified Heart failure chronicity: acute on chronic CAD (coronary artery disease) I25.10 Coronary Disease-Associated Artery/Lesion type: [place] artery [place] vs. transplanted heart: [place] heart Associated angina: without angina ESRD on peritoneal dialysis N18.6; Z99.2 Type 2 diabetes mellitus with diabetic polyneuropathy E11.42 Diabetes mellitus [employer] insulin use: without [facility] use Muscle spasm M62.838 Acute metabolic encephalopathy G93.41
[2022-12-30] MEDS: methylPREDNISolone sod succ 60 MG in water for injection-sterile 0.96 ML 11.52 MG IVP (12:14)
[2022-12-30 18:28] LABS: Glucose Point of Care 147 mg/dL (70-110)
[2022-12-30 20:50] LABS: Glucose Point of Care 229 mg/dL (70-110)
[2022-12-30] MEDS: trazodone 100 mg Tablet PO (21:16)
[2022-12-30] MEDS: atorvastatin 40 mg Tablet 80 MG PO (21:16)
[2022-12-30] MEDS: aspirin 81 mg EC Tablet PO (21:16)
[2022-12-30] MEDS: insulin glargine 100 units/1 mL 5 UNIT SUBCUT (21:16)
[2022-12-31] VITALS (16 sets, daily range): BP systolic 96–122; BP diastolic 51–64; PULSE 60–83; RESP 15–17; TEMP 36.4–36.7; O2SAT 94–98
[2022-12-31] MEDS: ipratropium-albuterol 3 mL Neb INHALATION ×5 (03:43→20:34)
[2022-12-31] MEDS: Dianeal low Ca w/2.5% dex 2,000 mL Bag 1500 ML INTRAPERIT ×2 (04:51→11:25)
[2022-12-31] MEDS: methylPREDNISolone sod succ 60 MG in water for injection-sterile 0.96 ML 11.52 MG IVP ×4 (05:37→23:52)
[2022-12-31 05:49] LABS: Basophils % 0.1 %; Hematocrit 32.6 % (37.0-47.0); Hemoglobin 10.1 g/dL (11.5-15.3); Lymphocytes # 0.4 10^3/uL (0.8-4.8); Lymphocytes % 4.8 %; Mean Corpuscular Hemoglobin 30.4 pg (28.0-34.0); Mean Corpuscular Volume 98.2 fl (81-99); Mean Platelet Volume 10.4 fL (7.4-10.4); Monocytes # 0.2 10^3/uL (0.2-0.9); Monocytes % 2.1 %; Neutrophils # 7.66 10^3/uL (1.8-7.7); Neutrophils % 91.2 %; Nucleated Red Blood Cells % 0.4 %; Platelet Count 242 10^3/cmm (130-400); Red Blood Count 3.32 10^6/uL (4.1-5.3); Red Cell Distribution Width 14.6 % (12.1-15.1); White Blood Count 8.4 10^3/uL (4.0-10.0)
[2022-12-31 06:08] LABS: Anion Gap 17.7 (5-19); Blood Urea Nitrogen 77 mg/dL (8-23); Calcium 8.7 mg/dL (8.5-10.5); Carbon Dioxide 26 mmol/L (22-29); Chloride 94 mmol/L (98-107); Glomerular Filtration Rate 7.6 mL/min (90-130); Glucose 313 mg/dL (65-115); Osmolality Calculated 311 mOsm/kg (285-295); Potassium 4.7 mmol/L (3.5-5.1); Sodium 133 mmol/L (136-145)
[2022-12-31] MEDS: heparin 5,000 unit/mL INJ 1 mL 5000 UNIT SUBCUT ×2 (06:22→18:07)
[2022-12-31 06:39] LABS: Glucose Point of Care 342 mg/dL (70-110)
[2022-12-31] MEDS: budesonide 0.5 mg/2 mL Neb INHALATION ×2 (07:52→20:34)
--- NOTE | 2022-12-31 09:11 | PC.SOCIAL ---
IMM update IMM updated with patient. Verbalized an understanding. Copy Pg 2 provided. Initialled, dated, timed, and placed in chart.
[2022-12-31] MEDS: guaiFENesin 600 mg Tablet 1200 MG PO ×2 (09:43→18:08)
[2022-12-31] MEDS: metoprolol succinate ER (24 HR) 50 mg Tablet PO (09:43)
[2022-12-31] MEDS: hyDRALAzine 25 mg Tablet PO ×2 (09:43→16:13)
[2022-12-31] MEDS: citalopram 20 mg Tablet PO (09:43)
[2022-12-31] MEDS: clopidogrel 75 mg Tablet PO (09:43)
[2022-12-31] MEDS: bumetanide 1 mg Tablet 2 MG PO ×2 (09:43→18:08)
[2022-12-31] MEDS: pantoprazole DR 40 mg Tablet PO (09:43)
[2022-12-31] MEDS: insulin lispro 100 unit/1 mL SUBCUT ×3 (09:44→18:07)
[2022-12-31] MEDS: polyethylene glycol 3350 Pkt 17 gm PO (09:50)
[2022-12-31] MEDS: lidocaine 5% Patch 1 PATCH TOPICAL (09:50)
[2022-12-31] MEDS: acetaminophen 325 mg Tablet 650 MG PO (11:35)
[2022-12-31 11:46] LABS: Glucose Point of Care 220 mg/dL (70-110)
[2022-12-31 12:35] LABS: Glucose Point of Care 254 mg/dL (70-110)
--- NOTE | 2022-12-31 13:36 | PM.PN ---
Subjective Subjective: sob better Medications: Reviewed: Yes Vitals/I&O/Wt Last Vital Signs Temp 98.1 F 12/31/22 12:00 Pulse 71 12/31/22 12:00 Resp 16 12/31/22 12:00 BP 105/64 12/31/22 12:00 Pulse Ox 95 12/31/22 12:00 O2 Del Method Nasal Cannula 12/31/22 11:30 O2 Flow Rate 2 12/31/22 11:30 FiO2 30 12/28/22 15:38 12/30/22 12/31/22 12/31/22 22:59 06:59 14:59 Intake Total 120.96 / 841.92 1.92 / 843.84 240.96 / 240.96 Balance 120.96 / 841.92 1.92 / 843.84 240.96 / 240.96 Weight last 48 hrs Weight 53.609 kg Weight 52.815 kg Physical Exam Narrative: awake , alert , no distress HEENT , PEERLA S1 S2 RRR per report wheezing [place] per report No edema Data 12/31/22 05:23 12/31/22 05:23 A&P Assessment and plan (1) ESRD on peritoneal dialysis: Plan 1. End-stage renal disease: On peritoneal dialysis, patient is on cycler-1500 mL bags, 2.5% dextrose, 2 exchanges 4 hours apart at home. -Ordered peritoneal dialysis while in here. 2. Hyperkalemia: resolved 3. Hypertension: Restarted home medications 4. Acute on chronic respiratory failure: Multifactorial secondary to CHF and COPD, management per primary team 5. Anemia: Hemoglobin 10.1 . s/p Epogen Patient evaluated using audiovisual cart. Time spent 20 minutes. Attestations Medical Necessity Statement*: per medicine Coding Level of Care Code Acute Code for Chg Fwd Diagnoses ESRD on peritoneal dialysis N18.6; Z99.2
[2022-12-31 17:49] LABS: Glucose Point of Care 328 mg/dL (70-110)
--- NOTE | 2022-12-31 19:55 | P.PN_ITS ---
Subjective Subjective: Today she is feeling mildly better. Still gets dyspneic with exertion. Discussed with them results of CT of the right hip. Discussed to let us know in case of recurrent bothersome pain in which case may benefit from assessment by MRI. Vitals/I&O/Wt Last Vital Signs Temp 98.1 F 12/31/22 16:00 Pulse 82 12/31/22 16:00 Resp 15 12/31/22 16:00 BP 122/54 12/31/22 16:00 Pulse Ox 94 12/31/22 16:00 O2 Del Method Nasal Cannula 12/31/22 14:59 O2 Flow Rate 2 12/31/22 14:59 FiO2 30 12/28/22 15:38 12/31/22 12/31/22 12/31/22 06:59 14:59 22:59 Intake Total 1.92 / 843.84 390.96 / 390.96 360.96 / 751.92 Balance 1.92 / 843.84 390.96 / 390.96 360.96 / 751.92 Weight last 48 hrs Weight 53.609 kg Weight 52.815 kg Physical Exam Const: COMMON NORMALS: patient oriented x3 and alert GENERAL APPEARANCE: cooperative ORIENTATION/CONSCIOUSNESS: Yes awake HENMT: COMMON NORMALS: oropharynx normal Neck/C-Spine: COMMON NORMALS: no JVD Resp: AUSCULTATION: wheezes Cardio: COMMON NORMALS: no JVD, regular rhythm, S1 normal heart sound present, S2 normal heart sound present and No murmurs present (Cardio) RHYTHM: regular rhythm HEART SOUNDS: S1 normal heart sound present and S2 normal heart sound present GI: COMMON NORMALS: Normal to inspection, nondistended, normoactive bowel sounds present, Soft to palpation and non-tender PALPATION: Yes Soft to palpation Extremity: COMMON NORMALS: no joint enlargement and no pedal edema Neuro: COMMON NORMALS: patient oriented x3 and moves all extremities SENSORIUM/ORIENTATION: Yes alert Skin: COMMON NORMALS: no rashes or lesions noted GENERAL SKIN EXAM: no rashes or lesions noted Data 12/31/22 05:23 12/31/22 05:23 A&P Assessment and plan (1) Respiratory failure with hypercapnia: Subjectively she is improving. Still diffuse wheezing on exam, but slightly better with slightly better air entry. Still requiring 2 L nasal cannula oxygen. For now will not de-escalate IV steroids just yet. We do have to increase her insulin regimen, increasing Lantus to 10. Continue renally dosed Levaquin with pseudomonal lower respiratory infection. MRSA PCR noted negative. At risk of worsening hyperglycemia and other steroid complications, gastritis, hypertension. Discussed with her and her . They would like to continue same dose for now. Continue to monitor. Discussed risk of difficult recovery with pseudomonal infection. Continue Levaquin. Target O2 saturation 88-92 %. Avoid hyperoxia. BiPAP as needed for support. Discussed with case management. Still plan post discharge would be so far to return home with . (2) COPD (chronic obstructive pulmonary disease): As above. Severe exacerbation of COPD, accompanied also by hypercapnic acute metabolic encephalopathy accompanied by asterixis. Encephalopathy appears to have improved. Nebulizing treatments ordered RT Pulmonary toilet (3) Hyperkalemia: Resolved. Continue PD. Nephrology documentation appreciated. Continues with peritoneal dialysis. Follow-up chemistry. Low potassium diet Repeat electrolytes in a.m. Telemetry monitoring (4) CHF (congestive heart failure): Chronic congestive heart failure of unknown type No recent echocardiogram available for review Continue home Bumex Strict I's and O's Daily weights Qualifiers: Heart failure type: unspecified Heart failure chronicity: acute on chronic Qualified Code(s): I50.9 - Heart failure, unspecified (5) CAD (coronary artery disease): Continue aspirin Continue statin Continue Plavix Qualifiers: Coronary Disease-Associated Artery/Lesion type: [place] artery [place] vs. transplanted heart: [place] heart Associated angina: without angina Qualified Code(s): I25.10 - Atherosclerotic heart disease of [place] coronary artery without angina pectoris (6) ESRD on peritoneal dialysis: Continue peritoneal dialysis, nephrology consulted by ED (7) Type 2 diabetes mellitus with diabetic polyneuropathy: Sliding-scale insulin correction Avoid hypoglycemia Qualifiers: Diabetes mellitus group home insulin use: without [place] use Qualified Code(s): E11.42 - Type 2 diabetes mellitus with diabetic polyneuropa thy (8) Muscle spasm: Follow-up potassium level. Check magnesium. Calcium noted 10.1. (9) Acute metabolic encephalopathy: Acute metabolic encephalopathy with asterixis appears to have resolved. Continue to treat severe COPD exacerbation with respiratory acidosis. She had tremor/jerking movements in her arms. Noted hypercapnic respiratory status on presentation. Discussed with her , suspected acute metabolic encephalopathy secondary to hypercarbia. Some tremor could be also from breathing treatments. Additionally for now we will decrease citalopram dose to 20 mg. Hold tramadol. She did need some morphine due to hip pain after recent fall. Discussed risk of encephalopathy with pain medication especially in the setting of kidney disease. Limit morphine if possible. Tylenol. Lidocaine patch. Continue to reassess. At risk of deterioration. Plan Right hip pain: Still pain in right hip/right groin. X-ray without fracture. Will assess CT. Lidocaine patch, Tylenol. DVT prophylaxis: Heparin Code: Full Attestations Medical Necessity Statement*: Continue admit for assessment management of lower respiratory tract infection with Pseudomonas, severe exacerbation of COPD with persistent bronchospastic/asthmatic component with adverse effects of therapy with worsening hyperglycemia. Diagnoses Respiratory failure with hypercapnia J96.92 COPD (chronic obstructive pulmonary disease) J44.9 Hyperkalemia E87.5 CHF (congestive heart failure) I50.9 Heart failure type: unspecified Heart failure chronicity: acute on chronic CAD (coronary artery disease) I25.10 Coronary Disease-Associated Artery/Lesion type: [place] artery [place] vs. transplanted heart: [place] heart Associated angina: without angina ESRD on peritoneal dialysis N18.6; Z99.2 Type 2 diabetes mellitus with diabetic polyneuropathy E11.42 Diabetes mellitus [place] insulin use: without [place] use Muscle spasm M62.838 Acute metabolic encephalopathy G93.41
[2022-12-31 20:38] LABS: Glucose Point of Care 188 mg/dL (70-110)
[2022-12-31] MEDS: aspirin 81 mg EC Tablet PO (21:34)
[2022-12-31] MEDS: insulin glargine 100 units/1 mL 10 UNIT SUBCUT (21:35)
[2022-12-31] MEDS: trazodone 100 mg Tablet PO (21:35)
[2022-12-31] MEDS: atorvastatin 40 mg Tablet 80 MG PO (21:35)
[2022-12-31] MEDS: levofloxacin-dextrose 5 % 500 MG/100 ML PREMIX 100 MG IV (21:37)
[2023-01-01] VITALS (9 sets, daily range): BP systolic 110–132; BP diastolic 47–64; PULSE 66–80; RESP 14–18; TEMP 36.5–36.8; O2SAT 90–98
[2023-01-01] MEDS: ipratropium-albuterol 3 mL Neb INHALATION ×4 (00:46→12:15)
[2023-01-01 03:10] LABS: Basophils % 0.1 %; Hematocrit 32.7 % (37.0-47.0); Hemoglobin 10.3 g/dL (11.5-15.3); Lymphocytes # 0.3 10^3/uL (0.8-4.8); Lymphocytes % 4.2 %; Mean Corpuscular HGB Conc 31.5 g/dL (30.0-36.0); Mean Corpuscular Hemoglobin 30.4 pg (28.0-34.0); Mean Corpuscular Volume 96.5 fl (81-99); Mean Platelet Volume 10.1 fL (7.4-10.4); Monocytes # 0.3 10^3/uL (0.2-0.9); Monocytes % 3.3 %; Neutrophils % 90.1 %; Nucleated Red Blood Cells # 0.1 /100WBC; Nucleated Red Blood Cells % 1.5 %; Platelet Count 246 10^3/cmm (130-400); Red Blood Count 3.39 10^6/uL (4.1-5.3); Red Cell Distribution Width 14.4 % (12.1-15.1); White Blood Count 8.1 10^3/uL (4.0-10.0)
[2023-01-01 03:34] LABS: Anion Gap 14.9 (5-19); Blood Urea Nitrogen 80 mg/dL (8-23); Calcium 8.8 mg/dL (8.5-10.5); Carbon Dioxide 29 mmol/L (22-29); Chloride 97 mmol/L (98-107); Glucose 209 mg/dL (65-115); Osmolality Calculated 312 mOsm/kg (285-295); Potassium 4.9 mmol/L (3.5-5.1); Sodium 136 mmol/L (136-145)
[2023-01-01] MEDS: Dianeal low Ca w/4.25% dex 2,000 mL Bag 2000 ML INTRAPERIT ×2 (04:28→09:15)
[2023-01-01] MEDS: methylPREDNISolone sod succ 60 MG in water for injection-sterile 0.96 ML 11.52 MG IVP ×2 (05:48→12:33)
[2023-01-01] MEDS: heparin 5,000 unit/mL INJ 1 mL 5000 UNIT SUBCUT (05:48)
[2023-01-01 06:29] LABS: Glucose Point of Care 350 mg/dL (70-110)
[2023-01-01] MEDS: budesonide 0.5 mg/2 mL Neb INHALATION (07:57)
[2023-01-01] MEDS: bumetanide 1 mg Tablet 2 MG PO (08:16)
[2023-01-01] MEDS: clopidogrel 75 mg Tablet PO (08:16)
[2023-01-01] MEDS: guaiFENesin 600 mg Tablet 1200 MG PO (08:16)
[2023-01-01] MEDS: metoprolol succinate ER (24 HR) 50 mg Tablet PO (08:16)
[2023-01-01] MEDS: citalopram 20 mg Tablet PO (08:16)
[2023-01-01] MEDS: hyDRALAzine 25 mg Tablet PO (08:16)
[2023-01-01] MEDS: polyethylene glycol 3350 Pkt 17 gm PO (08:17)
[2023-01-01] MEDS: lidocaine 5% Patch 1 PATCH TOPICAL (08:17)
[2023-01-01] MEDS: pantoprazole DR 40 mg Tablet PO (08:17)
[2023-01-01] MEDS: insulin lispro 100 unit/1 mL SUBCUT ×2 (08:18→12:02)
[2023-01-01] MEDS: acetaminophen 325 mg Tablet 650 MG PO (09:26)
[2023-01-01 11:50] LABS: Glucose Point of Care 366 mg/dL (70-110)
--- NOTE | 2023-01-01 12:08 | P.DS_ITS ---
Discharge Providers Date of Admission: 12/26/22 23:23 Date of Discharge: January 01, 2023 Attending Provider at Admission: Milan Podn MD Attending Provider at Discharge: Jared Vines Primary Care Provider: Renay Duarte MD Diagnoses at Discharge Discharge Diagnosis (1) Respiratory failure with hypercapnia: Status: Acute (2) COPD (chronic obstructive pulmonary disease): Status: Acute (3) Hyperkalemia: Status: Acute (4) CHF (congestive heart failure): Status: Acute Qualifiers: Heart failure chronicity: acute on chronic Heart failure type: unspecified Qualified Code(s): I50.9 - Heart failure, unspecified (5) CAD (coronary artery disease): Status: Acute Qualifiers: Associated angina: without angina Coronary Disease-Associated Artery/Lesion type: [place] artery [place] vs. transplanted heart: [place] heart Qualified Code(s): I25.10 - Atherosclerotic heart disease of [place] coronary artery without angina pectoris (6) ESRD on peritoneal dialysis: Status: Acute (7) Type 2 diabetes mellitus with diabetic polyneuropathy: Status: Acute Qualifiers: Diabetes mellitus prison insulin use: without middle or intermediate school principal use Qualified Code(s): E11.42 - Type 2 diabetes mellitus with diabetic polyneuropathy Permanent problem details: -A1c-5.5 -accucheks, hypoglycemia precautions, ISS, hold oral hypoglycemic agents -renal diabetic diet as tolerated (8) Muscle spasm: Status: Acute (9) Acute metabolic encephalopathy: Status: Acute Reason for Visit Reason for Visit: double vision, muscle spasm Hospital Course Hospital Course Pleasant 67-year-old lady with ESRD on PD, COPD, on oxygen 2 L, smoking addiction, HLD, DM 2, CAD, CHF, carotid stenosis, HTN, other comorbidities was admitted for assessment management after presenting with generalized weakness, intermittent tremor/shakes/twitches in extremities, recently after a fall some pain in the right hip, right knee. On presentation with respiratory failure with hypercapnia with severe dissipation of COPD, with asthmatic component with bronchospasm, diffuse wheezing. Hyperkalemia. She was started on treatment for respiratory failure with IV steroid, breathing treatments, pulmonary toilet, with elevation procalcitonin was started on antibiotic, initially switched to Levaquin eventually growing Pseudomonas in sputum culture. Very slow improvement with persistent bronchospasm, wheezing, steroid dose is increased several times, eventually now with resolution of wheezing today, improved air entry and feeling significantly better. We will continue with Levaquin course at discharge for pseudomonal lower respiratory tract infection, prednisone taper. Glipizide increased while tapering steroid, subsequently to return to usual dosing. Continue consistent carbohydrate diet. Would benefit from quitting smoking. Please revisit with her. Additionally is referred for follow-up with pulmonology. Hyperkalemia has resolved. Continued on peritoneal dialysis. Tremor/aches/twitches/jerking movements secondary to hypercapnic metabolic encephalopathy with respiratory failure have resolved with improving condition. Has had some persistent pain in the right hip/groin, some pain in the right knee. Knee x-rays were obtained during last visit, noted osteoarthritis. Hip imaging obtained with x-ray and CT, no fracture noted. Responding to lidocaine patch. Heart sounds lateral soft tissue thickening suspected contusion. Please revisit, in case worsening or persistent pain, please refer for MRI. Consider follow-up with orthopedics. Physical Exam Narrative: She reports she is feeling significantly improved and is comfortable returning home today. at bedside. Const: COMMON NORMALS: patient oriented x3 and alert GENERAL APPEARANCE: cooperative ORIENTATION/CONSCIOUSNESS: Yes awake HENMT: COMMON NORMALS: oropharynx normal Neck/C-Spine: COMMON NORMALS: no JVD Resp: COMMON NORMALS: normal respiratory effort and clear to auscultation bilaterally AUSCULTATION: clear to auscultation bilaterally OTHER: Minimally diminished with significant improvement. Cardio: COMMON NORMALS: no JVD, regular rhythm, S1 normal heart sound present, S2 normal heart sound present and No murmurs present (Cardio) RHYTHM: regular rhythm HEART SOUNDS: S1 normal heart sound present and S2 normal heart sound present GI: COMMON NORMALS: Normal to inspection, nondistended, normoactive bowel sounds present, Soft to palpation and non-tender PALPATION: Yes Soft to palpation Extremity: COMMON NORMALS: no joint enlargement and no pedal edema Neuro: COMMON NORMALS: patient oriented x3 and moves all extremities SENSORIUM/ORIENTATION: Yes alert Skin: COMMON NORMALS: no rashes or lesions noted GENERAL SKIN EXAM: no rashes or lesions noted Discharge Data Studies Completed and Pending Completed Studies During Hospitalization Category Date Time Status CT hip RT wo con* [id number] Routine Cat Scan 12/30/22 11:24 Completed XR chest 1V portable [id number] Stat Exams 12/26/22 20:21 Completed XR hip RT 2-3V wo/w pel* [id number] Routine Exams 12/28/22 11:37 Completed Pending at discharge Category Date Time Status Basic Metabolic Panel AM LABS Lab 01/02/23 04:00 Ordered Complete Blood Count w/Auto AM LABS Lab 01/02/23 04:00 Ordered Radiology Impressions Chest X-Ray 12/26/22 20:21 IMPRESSION: 1. Negative for infiltrate. 2. Emphysematous changes. Hip/Pelvis X-Ray 12/28/22 11:37 IMPRESSION: No acute radiographic findings. Hip CT 12/30/22 11:24 IMPRESSION: 1. No RIGHT hip fracture confirmed by CT. If pain continues and there is continued suspicion for fracture consider follow-up MRI RIGHT hip, noncontrast. This would help evaluate for occult fracture. 2. Soft tissue induration lateral to the RIGHT hip. Laboratory Results WBC 8.1 10^3/uL (4.0-10.0) 01/01/23 02:48 RBC 3.39 10^6/uL (4.1-5.3) L 01/01/23 02:48 Hgb 10.3 g/dL (11.5-15.3) L 01/01/23 02:48 Hct 32.7 % (37.0-47.0) L 01/01/23 02:48 MCV 96.5 fl (81-99) 01/01/23 02:48 MCH 30.4 pg (28.0-34.0) 01/01/23 02:48 MCHC 31.5 g/dL (30.0-36.0) 01/01/23 02:48 RDW 14.4 % (12.1-15.1) 01/01/23 02:48 Plt Count 246 10^3/cmm (130-400) 01/01/23 02:48 MPV 10.1 fL (7.4-10.4) 01/01/23 02:48 Neut % (Auto) 90.1 % 01/01/23 02:48 Lymph % (Auto) 4.2 % 01/01/23 02:48 [place] % (Auto) 3.3 % 01/01/23 02:48 Eos % (Auto) 0.0 % 01/01/23 02:48 Baso % (Auto) 0.1 % 01/01/23 02:48 Neut # (Auto) 7.30 10^3/uL (1.8-7.7) 01/01/23 02:48 Lymph # (Auto) 0.3 10^3/uL (0.8-4.8) L 01/01/23 02:48 [place] # (Auto) 0.3 10^3/uL (0.2-0.9) 01/01/23 02:48 Eos # (Auto) 0.0 10^3/uL (0.0-0.8) 01/01/23 02:48 Baso # (Auto) 0.0 10^3/uL (0.0-0.1) 01/01/23 02:48 Nucleated RBC % (auto) 1.5 % 01/01/23 02:48 Nucleated RBCs # 0.1 /100WBC 01/01/23 02:48 Specimen Type Arterial 12/26/22 20:32 Sample Site Radial, right 12/26/22 20:32 ABG pH 7.28 (7.35-7.45) L 12/26/22 20:32 ABG pCO2 60.5 mmHg (35-45) H* 12/26/22 20:32 ABG pO2 59.9 mmHg (80.0-100.0) L 12/26/22 20:32 ABG HCO3 28.7 mmol/L (22-26) H 12/26/22 20:32 ABG Base Excess 0.9 mmol/L (-2.0-2.0) 12/26/22 20:32 Shahab Test Pos 12/26/22 20:32 Hematocrit 34.3 % (37-47) L 12/26/22 20:32 O2 Delivery Device Nc 12/26/22 20:32 O2 Liters/Min 2.0 % 12/26/22 20:32 FiO2 28.0 % 12/26/22 20:32 Healthcare Manager ID Fanro 12/26/22 20:32 Sodium 136 mmol/L (136-145) 01/01/23 02:48 Potassium 4.9 mmol/L (3.5-5.1) 01/01/23 02:48 Chloride 97 mmol/L (98-107) L 01/01/23 02:48 Carbon Dioxide 29 mmol/L (22-29) 01/01/23 02:48 Anion Gap 14.9 (5-19) 01/01/23 02:48 BUN 80 mg/dL (8-23) H 01/01/23 02:48 Creatinine 6.0 mg/dL (0.5-0.9) H* 01/01/23 02:48 GFR Calculation 7.0 mL/min (90-130) L 01/01/23 02:48 Glucose 209 mg/dL (65-115) H 01/01/23 02:48 POC Glucose 366 mg/dL (70-110) H 01/01/23 11:47 Calculated Osmolality 312 mOsm/kg (285-295) H 01/01/23 02:48 Calcium 8.8 mg/dL (8.5-10.5) 01/01/23 02:48 Phosphorus 5.4 mg/dL (2.5-4.5) H 12/26/22 17:40 Magnesium 2.5 mg/dL (1.7-2.3) H 12/28/22 05:20 Total Bilirubin 0.3 mg/dL (0.15-1.2) 12/26/22 17:40 AST 20 U/L (0-32) 12/26/22 17:40 ALT 12 U/L (0-33) 12/26/22 17:40 Alkaline Phosphatase 73 U/L (35-105) 12/26/22 17:40 Creatine Kinase 68 U/L (26-192) 12/26/22 17:40 C-Reactive Protein 3.0 mg/L (0.0-4.9) 12/27/22 00:38 Total Protein 6.0 g/dL (6.6-8.7) L 12/26/22 17:40 Albumin 3.8 g/dL (3.5-5.2) 12/26/22 17:40 Globulin 2.2 g/dL (1.3-4.6) 12/26/22 17:40 Procalcitonin 0.34 ng/mL (0-0.5) 12/27/22 00:38 Urine Color Yellow (Yellow) 12/26/22 20:52 Urine Appearance Clear (CLEAR) 12/26/22 20:52 Urine pH 5 (5-7) 12/26/22 20:52 Ur Specific [place] 1.015 (1.005-1.030) 12/26/22 20:52 Urine Protein 2+ (Negative) H 12/26/22 20:52 Urine Glucose (UA) Norm (Normal) 12/26/22 20:52 Urine Ketones Negative (Negative) 12/26/22 20:52 Urine Blood 2+ (Negative) H 12/26/22 20:52 Urine Nitrate Negative (Negative) 12/26/22 20:52 Urine Bilirubin Neg (Negative) 12/26/22 20:52 Urine Urobilinogen Norm mg/dL (Negative) 12/26/22 20:52 Ur Leukocyte Esterase Trace (Negative) H 12/26/22 20:52 Urine RBC 15-25 /hpf (0-2) H 12/26/22 20:52 Urine WBC 0-4 /hpf (0-5) H 12/26/22 20:52 Ur Squamous Epith Cells 10-15 /hpf (0-5) H 12/26/22 20:52 Amorphous Sediment Not Reportable 12/26/22 20:52 Urine Bacteria 1+ /hpf (NONE) H 12/26/22 20:52 Vitals Last Vital Signs Temp 98.1 F 01/01/23 11:33 Pulse 74 01/01/23 11:33 Resp 16 01/01/23 11:33 BP 132/64 01/01/23 11:33 Pulse Ox 92 01/01/23 11:33 O2 Del Method Nasal Cannula 01/01/23 11:33 O2 Flow Rate 2 01/01/23 08:00 FiO2 30 12/28/22 15:38 Discharge Plan Discharge Patient Disposition: Home Condition: Stable Prescriptions: New guaifenesin [Mucinex] 600 mg Tablet Extended Release 12hr 1,200 mg PO BID Qty: 14 0RF lidocaine 5 % Adhesive Patch,Medicated 1 patch topical [id number] 14 Days Qty: 7 0RF levofloxacin 500 mg tablet 500 mg PO Q48H 5 Days Qty: 3 0RF Rx Instructions: Starting Sun 01/02 prednisone 20 mg tablet 20 mg PO DAILY Qty: 11 0RF Rx Instructions: 2 tab for 3 days, then 1 tab for 3 days, then 1/2 tab for 4 days. Continued aspirin 81 mg tablet,delayed release (DR/EC) 81 mg PO DAILY@2000 cholecalciferol (vitamin D3) 50 mcg (2,000 unit) capsule 2,000 unit PO DAILY@08 polyethylene glycol 3350 [Miralax] 17 gram/dose powder 17 g PO DAILY losartan 25 mg tablet 25 mg PO DAILY budesonide 0.5 mg/2 mL suspension for nebulization 0.5 mg inhalation BID formoterol fumarate [Perforomist] 20 mcg/2 mL solution for nebulization 2 ml inhalation BID metoprolol succinate 50 mg tablet extended release 24 hr 50 mg PO DAILY Qty: 90 3RF clopidogrel 75 mg tablet 75 mg PO DAILY@08 Qty: 90 3RF Hold Instructions: Resume on 09/11/20. albuterol sulfate 90 mcg/actuation HFA aerosol inhaler See Rx Instructions .ROUTE .COMPLEX Qty: 9 4RF Dose Instruction: INHALE 2 PUFFS BY MOUTH EVERY 6 HOURS NEEDED FOR COUGH Rx Instructions: INHALE 2 PUFFS BY MOUTH EVERY 4 hours as needed citalopram 40 mg tablet 40 mg PO DAILY@08 Qty: 90 2RF rosuvastatin 40 mg tablet 40 mg PO DAILY@2000 Qty: 90 3RF tramadol 50 mg tablet 50 mg PO Q8H PRN (Reason: pain) Qty: 60 0RF (DME) nebulizers [facility] [place] See Rx Instructions .Route Qty: 1 0RF Rx Instructions: 1 nebulizer and all required suppliesAs directed trazodone 50 mg tablet 100 mg PO BEDTIME hydralazine 25 mg tablet 25 mg PO TID PRN (Reason: Anxiety) glipizide 2.5 mg tablet extended release 24hr 2.5 mg PO DAILY bumetanide 2 mg tablet 2 mg PO BID RenaPlex-D 800 mcg-12.5 mg -2,000 unit tablet 1 tab PO DAILY gentamicin 0.1 % cream See Rx Instructions .ROUTE .COMPLEX Rx Instructions: 1 applic topically to exit site daily. calcitriol 0.25 mcg capsule 0.25 mcg PO DAILY lactulose 10 gram/15 mL solution See Rx Instructions .ROUTE .COMPLEX Rx Instructions: TAKE 30 ML BY MOUTH EVERY 4 HOURS NEEDED. Discontinued potassium chloride 20 mEq tablet extended release 20 meq PO DAILY Discharge Orders: Discharge Order (Routine); Ordered 01/01/23 Ordered By: Jared Vines Referrals: Nephrology [Provider Group] - 1 week Datar,Abdulkadir Fournier MD [Physician] - 2 weeks (copd) Renay Duarte MD [Primary Care Provider] - 4-7 days Discharge Diet: As Directed, Cardiac and Diabetic Patient Instructions: How to Stop Smoking (DC), Chronic Kidney Disease Diet (GEN), Cigarette Smoking and Your Health (GEN), COPD (Chronic Obstructive Pulmonary Disease) (GEN), Peritoneal Dialysis (GEN), Opioid Safety Activity Restrictions/Additional Instructions: Complete antibiotic course for pseudomonal lower respiratory tract infection, COPD exacerbation. Complete prednisone taper. Increase glipizide to 5 mg (2 tablets) only while taking steroid due to steroid increasing her blood glucose. Continue to monitor glucose, avoid low glucose values. In case glucose decreasing to below 150, decrease glipizide back to usual dose, in case glucose decreasing below 100, hold glipizide entirely. Maintain consistent carbohydrate diet. Please stop smoking, continuing to smoke will increase your risk of worsening lung function, progression of lung disease, as well as additional risk of heart attack, risk of stroke, risk of several types of cancer. Please never smoke anywhere near oxygen due to severe risk of airway [place] and fire hazard. Continue oxygen at home, adjust to target oxygen saturation 88-92%. Maintain renal/low potassium diet. Discontinue potassium supplements. Continue peritoneal dialysis, follow-up with nephrology in office. Follow-up with your primary doctor in office regarding the above, as well as discussed pain in the right hip, suspected contusion, no fracture noted on x-ray or CT. If pain worsens or persists, discuss imaging with MRI. In case of worsening or new concerning symptoms seek medical attention. Discharge Attestations Time Spent in Discharge Care*: greater than 30 min Status at Discharge: Cognitive status at discharge: cognitively intact , Behavioral status at discharge: cooperative and independent in ADL's , Quality Metrics Clinical Quality Measures [ No reported AMI, CVA or VTE this stay] Coding Level of Care Code 88948 Total time (in minutes) for Discharge: 45 Diagnoses Respiratory failure with hypercapnia J96.92 COPD (chronic obstructive pulmonary disease) J44.9 Hyperkalemia E87.5 CHF (congestive heart failure) I50.9 Heart failure chronicity: acute on chronic Heart failure type: unspecified CAD (coronary artery disease) I25.10 Associated angina: without angina Coronary Disease-Associated Artery/Lesion type: [place] artery [place] vs. transplanted heart: [place] heart ESRD on peritoneal dialysis N18.6; Z99.2 Type 2 diabetes mellitus with diabetic polyneuropathy E11.42 Diabetes mellitus middle or intermediate school principal insulin use: without middle or intermediate school principal use Muscle spasm M62.838 Acute metabolic encephalopathy G93.41
== END 2023-01-01 15:00 | disposition home or self-care (01) | DRG 190 ==
LOC: ER 22:13 → MEDSURG 23:24
PROVIDERS: Emergency Medicine; Physician Assistant; Admitting Provider Internal Medicine; Emergency Provider Emergency Medicine; PCP Family Medicine; Visit Provider Internal Medicine
DX: J44.1 Chronic obstructive pulmonary disease with (acute) exacerbation (principal); G93.41 Metabolic encephalopathy; N18.6 End stage renal disease; J96.22 Acute and chronic respiratory failure with hypercapnia; I13.2 Hypertensive heart and chronic kidney disease with heart failure and with stage 5 chronic kidney disease, or end stage renal disease; B96.5 Pseudomonas (aeruginosa) (mallei) (pseudomallei) as the cause of diseases classified elsewhere; E87.5 Hyperkalemia; I50.9 Heart failure, unspecified; E11.22 Type 2 diabetes mellitus with diabetic chronic kidney disease; I25.10 Atherosclerotic heart disease of native coronary artery without angina pectoris; Z95.5 Presence of coronary angioplasty implant and graft; E11.21 Type 2 diabetes mellitus with diabetic nephropathy; E11.65 Type 2 diabetes mellitus with hyperglycemia; M62.838 Other muscle spasm; Z99.81 Dependence on supplemental oxygen; E78.5 Hyperlipidemia, unspecified; Z99.2 Dependence on renal dialysis; D63.1 Anemia in chronic kidney disease; I25.2 Old myocardial infarction; Z79.84 Long term (current) use of oral hypoglycemic drugs; Z79.891 Long term (current) use of opiate analgesic; Z79.51 Long term (current) use of inhaled steroids; Z79.02 Long term (current) use of antithrombotics/antiplatelets; Z79.82 Long term (current) use of aspirin; M17.0 Bilateral primary osteoarthritis of knee; M25.551 Pain in right hip; W19.XXXA Unspecified fall, initial encounter
CPT/HCPCS: 36415; 36416; 36600; 71045; 72100; 72220; 73502; 73562; 73700; 80048; 80053; 81001; 82550; 82803; 82962; 83735; 84100; 84145; 85025; 86140; 87070; 87077; 87086; 87186; 87205; 87641; 94640; 94660; 96372; 96374; 96375; 99285; C9113; J1100; J1644; J1815; J1956; J2270; J2405; J2920; J2930; J7626; Q3014; Q4081

== ENCOUNTER → 2023-01-05 15:30 | Outpatient (BNVA) | payer MEDICARE, SELFPAY | PROVIDERS: PCP Family Medicine; Visit Provider Family Medicine | DX: J44.9 Chronic obstructive pulmonary disease, unspecified (principal) | CPT/HCPCS: 80053 ==

== ENCOUNTER 2023-01-28 14:50 | Emergency (ER) | payer MEDICARE, SELFPAY ==
[2023-01-28] VITALS (7 sets, daily range): BP systolic 122–173; BP diastolic 71–96; PULSE 65–87; RESP 16–20; TEMP 36.7; O2SAT 92–95; BMI 22.2
--- NOTE | 2023-01-28 17:54 | XRR_ITS ---
PROCEDURE INFORMATION: Exam: XR Chest Exam date and time: 01/28/2023 6:24 PM Age: 67 years old Clinical indication: Pain; Chest pressure; Additional info: Chest pain TECHNIQUE: Imaging protocol: Radiologic exam of the chest. Views: 1 view. COMPARISON: CR (CHEST, ) 12/26/2022 8:34 PM FINDINGS: Lungs: There is a small indistinct interstitial infiltrate left lung base with small accompanying pleural effusion that has developed suspicious for pneumonia. Remaining lung knight are unchanged with mild upper lobe interstitial/nodular opacities the that may be secondary to chronic airway changes. Pleural spaces: See Lungs finding. Heart/Mediastinum: Unremarkable. No cardiomegaly. Bones/joints: Unremarkable for age. XR/XR chest 1V [id number] IMPRESSION: Small left basilar interstitial infiltrate and effusion probably secondary to pneumonia.
--- NOTE | 2023-01-28 17:54 | W.ED.GENADLT ---
HPI - General Adult General: Chief complaint: General Medical Stated complaint: Muscle spasms, Weakness, Memory issues Time Seen by Provider: 01/28/23 17:52 History of Present Illness: Patient is a 67-year-old female that presents to the emerge with a 3-day history of confusion, fatigue, and extremity spasticity. Patient has a medical history that includes COPD, CAD, end-stage renal disease. She currently does peritoneal dialysis every night. She states that she has continued to do her dialysis and there have been no significant changes in her medical history. Last admission early November 2022, Hospitalist H&P: Yas Oconnell is a 67 year old female with a past medical history significant for end-stage renal disease on peritoneal dialysis, COPD, hyperlipidemia, type 2 diabetes mellitus, coronary artery disease, congestive heart failure, carotid stenosis, and hypertension who presents to the emergency department with generalized weakness times several days.? She also endorses associated symptoms of chest tightness.? She also endorses intermittent unintentional muscle twitches in her lower and upper extremities.? Symptoms usually worse upon awakening and slowly improved throughout the day.? She also endorses associated numbness.? The twitching and the numbness has been going on for about 3 weeks per . In the ED, patient was found to have respiratory failure with hypercapnia requiring BiPAP.? She reports that BiPAP is improving her breathing. Associated symptoms: Reports confusion, dyspnea and malaise; Deny chest pain, headache(s), nausea, rash, palpitations or vomiting Review of Systems General: Reports: 10 or more systems reviewed and unremarkable except in HPI and below Const: Reports: change in appetite, fatigue and malaise; Denies: fever(s), chills or change in weight Eyes: Denies: change in vision, eye discomfort, eye discharge or eye redness ENMT: Denies: throat pain, enlarged tonsils, odynophagia, hoarseness, ear or mastoid pain, ear discharge, change in hearing, tinnitus, nasal discharge, nasal congestion, post nasal drip or sinus pain Card: Denies: chest pain, palpitations, irregular heart rhythm, edema, dyspnea on exertion, orthopnea or leg pain with exertion Resp: Reports: dyspnea; Denies: productive cough, non-productive cough, wheezing, stridor or chest congestion GI: Denies: abdominal pain, nausea, vomiting, dysphagia, diarrhea, constipation, bloating, GI cramping or hematochezia : Denies: flank pain, difficulty voiding, dysuria, urinary frequency, urinary urgency, urinary hesitancy, oliguria or hematuria Musc: Denies: neck pain, back pain, extremity pain, joint pain, joint swelling, joint redness, joint warmth or muscle weakness Skin/Breast: Denies: rash, pruritus, erythema, photosensitivity or new lesions Neuro: Reports: confusion and involuntary movements; Denies: headache(s), numbness in extremities, weakness in extremities, sensory changes, lack of coordination, difficulty walking, frequent falls, dizziness, Slurred speech present, difficulty communicating thoughts or seizure-like activity Endo: Denies: polyuria, polydipsia or tired all the time Liban/Lymph: Denies: easy bruising or easy bleeding PFSH ED PFSH: Medical History (Updated 01/28/23 @ 22:03 by MAGI Betancourt) Acute bronchitis Acute bronchitis Acute sinusitis CAD (coronary artery disease) -hx of CAD s/p stenting x 4 (LAD x 2, LCx, RCA) in 2018 -continue ASA, Plavix, statin -follows up with Dr. Leonardo CAD (coronary artery disease) Carotid stenosis, right Chronic obstructive pulmonary disease -recently treated for acute COPD exacerbation with short course of oral steroids and Keflex -noted wheezing on examination, decreased -would like to avoid steroids as patient thinks this contributed to edema as well as episodes of confusion, jitteriness -continue to monitor respiratory status, supplemental oxygen as needed, not oxygen dependent at baseline -neb treatments as needed; would hold off on additional antibiotic treatment at this time given recent use -rapid COVID-19 negative; influenza negative CKD (chronic kidney disease) stage 4, GFR 15-29 ml/min -baseline Cr appears to be around 2-3 -follows up with Contusion of right leg Cough History of heart attack Hyperlipidemia Hypertension Hypokalemia Impacted ear wax Insomnia Low Back Pain Myocardial infarct Right knee pain Skin lesion Type 2 diabetes mellitus with diabetic polyneuropathy -A1c-5.5 -accucheks, hypoglycemia precautions, ISS, hold oral hypoglycemic agents -renal diabetic diet as tolerated URI (upper respiratory infection) Surgical History H/O dilation and curettage H/O tubal ligation History of carotid endarterectomy History of carpal tunnel release History of colonoscopy with polypectomy 2018 Peritoneal dialysis catheter in situ (09/08/20) S/P pericardiocentesis S/P PTCA (percutaneous transluminal coronary angioplasty) S/P thoracentesis Status post carotid endarterectomy Family History Mother Heart disease Dementia Father Cancer Denies family history of Diabetes CAD (coronary artery disease) Clotting disorder Hyperlipidemia Psychiatric illness Chronic kidney disease (CKD) Suicide Anesthesia complication Bleeding disorder Family history of premature coronary artery disease Lung disease Hypertension Stroke Social History Smoking and tobacco status: current every day smoker cigarettes Packs smoked per day: 1.5 Years cigarettes smoked: 50 [ Other cigarette details: 4 cig/day] Alcohol intake: never Substance/Drug Use: never Household members: spouse Marital status: Current occupational status: retired and disabled Current gender identity: Female Physical Exam Const: COMMON NORMALS: no acute distress, patient oriented x3 and alert GENERAL APPEARANCE: cooperative ORIENTATION/CONSCIOUSNESS: Yes awake, Yes oriented to person, Yes oriented to place and Yes oriented to time HENMT: COMMON NORMALS: normocephalic and atraumatic HEAD & SCALP: normocephalic and atraumatic FACE & SINUS: normal facial exam MOUTH: Normal oral and palatal mucosa present THROAT: posterior oropharynx normal Eye: COMMON NORMALS: Equal, round and reactive pupils present, EOMs intact bilaterally, conjunctivae normal and no scleral icterus GENERAL EYE: appearance normal, both eyes and all related structures ALIGNMENT: Yes alignment normal PERIORBITAL: periorbital findings normal CONJUNCTIVA: Yes conjunctivae normal PUPIL: Yes Equal, round and reactive pupils present Neck/C-Spine: COMMON NORMALS: full ROM GENERAL: Yes normal visual inspection Lymph: LYMPHATIC: no lymphadenopathy noted Chest: COMMONS NORMALS: normal inspection of the chest Breast/axilla inspection: Yes no chest deformity, asymmetry, normal contours, no nodules, masses, tenderness Resp: COMMON NORMALS: normal respiratory effort, No retractions, No use of accessory muscles and clear to auscultation bilaterally EFFORT & INSPECTION: Yes able to speak in complete sentences and Yes symmetric chest movement AUSCULTATION: clear to auscultation bilaterally Cardio: COMMON NORMALS: regular rate, regular rhythm and Peripheral pulses 2+ throughout RATE: regular rate RHYTHM: regular rhythm PERIPHERAL PULSES: Peripheral pulses 2+ throughout GI: COMMON NORMALS: Normal to inspection, nondistended, normoactive bowel sounds present, Soft to palpation, non-tender and No hepatosplenomegaly present INSPECTION: Yes normal to inspection AUSCULTATION: Yes normoactive bowel sounds PALPATION: Yes Soft to palpation and Yes No hepatosplenomegaly present RECTAL EXAM: deferred Extremity: COMMON NORMALS: normal to inspection GENERAL: Yes normal exam except as noted Neuro: COMMON NORMALS: patient oriented x3 SENSORIUM/ORIENTATION: Yes alert, Yes oriented to person, Yes oriented to place and Yes oriented to time CRANIAL NERVES: Yes CN normal except as noted Psych: COMMON NORMALS: mental status grossly normal, Normal thought process present, cooperative, activity/motor behavior normal, denies homicidal ideation and denies suicidal ideation THOUGHT PROCESS: Normal thought process present Skin: COMMON NORMALS: no rashes or lesions noted, no wounds and turgor normal GENERAL SKIN EXAM: no rashes or lesions noted and turgor normal Course Vital Signs: Vital signs: Vital Signs Temperature 98.1 F 01/28/23 16:14 Pulse Rate 78 01/28/23 21:34 Respiratory Rate 20 H 01/28/23 21:34 Blood Pressure 160/85 01/28/23 21:34 Pulse Oximetry 93 01/28/23 21:34 Oxygen Delivery Me thod Room Air 01/28/23 21:34 Oxygen Flow Rate 1 01/28/23 16:14 [facility] Adult Medical Decision Making Patient has a medical history of end-stage renal disease, CAD, carotid stenosis, COPD, hyperlipidemia, hypertension, type 2 diabetes. Differential diagnosis includes metabolic encephalopathy, worsening renal function, Patient underwent laboratory, radiographic evaluation along with an EKG. Negative for leukocytosis but has chronic mild anemia. Her sodium is a little low but potassium is within limits. She does have a small left basilar interstitial infiltrate and effusion likely due to pneumonia. Her ABGs are stable. Her renal function is very poor. BUN is 75 with a creatinine of 5.2. Hospitalist consulted Lab Data 01/28/23 18:17 01/28/23 18:17 Radiology Impressions Chest X-Ray 01/28/23 17:54 IMPRESSION: Small left basilar interstitial infiltrate and effusion probably secondary to pneumonia. Laboratory Results WBC 4.88 10^3/uL (3.29-11.43) 01/28/23 18:17 RBC 3.31 10^6/uL (3.85-5.65) L 01/28/23 18:17 Hgb 10.30 g/dL (11.27-16.99) L 01/28/23 18:17 Hct 33.1 % (36-47) L 01/28/23 18:17 MCV 100.0 fl (85-98) H 01/28/23 18:17 MCH 31.1 pg (27-33) 01/28/23 18:17 MCHC 31.1 g/dL (30-55) 01/28/23 18:17 RDW 14.2 % (12.1-15.1) 01/28/23 18:17 Plt Count 337 10^3/cmm (157-399) 01/28/23 18:17 MPV 9.3 fL (7.4-10.4) 01/28/23 18:17 Neut % (Auto) 59.8 % 01/28/23 18:17 Lymph % (Auto) 15.2 % 01/28/23 18:17 Peach % (Auto) 19.1 % 01/28/23 18:17 Eos % (Auto) 4.5 % 01/28/23 18:17 Baso % (Auto) 0.6 % 01/28/23 18:17 Neut # (Auto) 2.92 10^3/uL (1.8-7.7) 01/28/23 18:17 Lymph # (Auto) 0.7 10^3/uL (0.8-4.8) L 01/28/23 18:17 Peach # (Auto) 0.9 10^3/uL (0.2-0.9) 01/28/23 18:17 Eos # (Auto) 0.2 10^3/uL (0.0-0.8) 01/28/23 18:17 Baso # (Auto) 0.0 10^3/uL (0.0-0.1) 01/28/23 18:17 Nucleated RBC % (auto) 0 % 01/28/23 18:17 Nucleated RBCs # 0.0 /100WBC 01/28/23 18:17 Specimen Type Arterial 01/28/23 18:48 Sample Site Brachial, right 01/28/23 18:48 ABG pH 7.41 (7.35-7.45) 01/28/23 18:48 ABG pCO2 45.9 mmHg (35-45) H 01/28/23 18:48 ABG pO2 89.2 mmHg (80.0-100.0) 01/28/23 18:48 ABG HCO3 29.3 mmol/L (22-26) H 01/28/23 18:48 ABG Base Excess 4.2 mmol/L (-2.0-2.0) H 01/28/23 18:48 Shahab Test N/a 01/28/23 18:48 Hematocrit 30.0 % (37-47) L 01/28/23 18:48 Hgb O2 Saturation 95.7 % (95-100) 01/28/23 18:48 Carboxyhemoglobin 1.8 %THgb (0.4-20.1) 01/28/23 18:48 Methemoglobin 0.9 % (0.4-1.5) 01/28/23 18:48 Total Hemoglobin 9.8 g/dL (12-16) L 01/28/23 18:48 O2 Delivery Device Nc 01/28/23 18:48 O2 Liters/Min 1.0 % 01/28/23 18:48 FiO2 24.0 % 01/28/23 18:48 Baseball Glove Shaper ID Amh 01/28/23 18:48 Sodium 134 mmol/L (136-145) L 01/28/23 18:17 Potassium 4.3 mmol/L (3.5-5.1) 01/28/23 18:17 Chloride 94 mmol/L (98-107) L 01/28/23 18:17 Carbon Dioxide 31 mmol/L (22-29) H 01/28/23 18:17 Anion Gap 13.3 (5-19) 01/28/23 18:17 BUN 75 mg/dL (8-23) H 01/28/23 18:17 Creatinine 5.2 mg/dL (0.5-0.9) H 01/28/23 18:17 GFR Calculation 8.3 mL/min (90-130) L 01/28/23 18:17 Glucose 68 mg/dL (65-115) 01/28/23 18:17 Calculated Osmolality 299 mOsm/kg (285-295) H 01/28/23 18:17 Calcium 9.4 mg/dL (8.5-10.5) 01/28/23 18:17 Total Bilirubin 0.3 mg/dL (0.15-1.2) 01/28/23 18:17 AST 19 U/L (0-32) 01/28/23 18:17 ALT 13 U/L (0-33) 01/28/23 18:17 Alkaline Phosphatase 71 U/L (35-105) 01/28/23 18:17 Total Protein 6.1 g/dL (6.6-8.7) L 01/28/23 18:17 Albumin 3.4 g/dL (3.5-5.2) L 01/28/23 18:17 Globulin 2.7 g/dL (1.3-4.6) 01/28/23 18:17 Urine Color Yellow (Yellow) 01/28/23 19:55 Urine Appearance Clear (CLEAR) 01/28/23 19:55 Urine pH 7 (5-7) 01/28/23 19:55 Ur Specific [place] 1.000 (1.005-1.030) L 01/28/23 19:55 Urine Protein 2+ (Negative) H 01/28/23 19:55 Urine Glucose (UA) Trace (Normal) H 01/28/23 19:55 Urine Ketones Negative (Negative) 01/28/23 19:55 Urine Blood Neg (Negative) 01/28/23 19:55 Urine Nitrate Negative (Negative) 01/28/23 19:55 Urine Bilirubin Neg (Negative) 01/28/23 19:55 Urine Urobilinogen Norm mg/dL (Negative) 01/28/23 19:55 Ur Leukocyte Esterase Negative (Negative) 01/28/23 19:55 Urine RBC 0-4 /hpf (0-2) H 01/28/23 19:55 Urine WBC 0-4 /hpf (0-5) H 01/28/23 19:55 Ur Squamous Epith Cells 5-10 /hpf (0-5) H 01/28/23 19:55 Amorphous Sediment Not Reportable 01/28/23 19:55 Urine Bacteria None /hpf (NONE) 01/28/23 19:55 Discharge Plan Discharge Patient Disposition: Home Clinical Impression: ESRD on peritoneal dialysis, Involuntary jerky movements Condition: Stable Prescriptions: No Action aspirin 81 mg tablet,delayed release (DR/EC) 81 mg PO DAILY@1999 cholecalciferol (vitamin D3) 50 mcg (2,000 unit) capsule 2,000 unit PO DAILY@08 polyethylene glycol 3350 [Miralax] 17 gram/dose powder 17 g PO DAILY losartan 25 mg tablet 25 mg PO DAILY budesonide 0.5 mg/2 mL suspension for nebulization 0.5 mg inhalation BID formoterol fumarate [Perforomist] 20 mcg/2 mL solution for nebulization 2 ml inhalation BID metoprolol succinate 50 mg tablet extended release 24 hr 50 mg PO DAILY Qty: 90 3RF clopidogrel 75 mg tablet 75 mg PO DAILY@08 Qty: 90 3RF Hold Instructions: Resume on 09/11/20. albuterol sulfate 90 mcg/actuation HFA aerosol inhaler See Rx Instructions .ROUTE .COMPLEX Qty: 9 4RF Dose Instruction: INHALE 2 PUFFS BY MOUTH EVERY 6 HOURS NEEDED FOR COUGH Rx Instructions: INHALE 2 PUFFS BY MOUTH EVERY 4 hours as needed citalopram 40 mg tablet 40 mg PO DAILY@ Qty: 90 2RF rosuvastatin 40 mg tablet 40 mg PO DAILY@1999 Qty: 90 3RF (DME) nebulizers [facility] [place] See Rx Instructions .Route Qty: 1 0RF Rx Instructions: 1 nebulizer and all required suppliesAs directed nystatin 100,000 unit/mL suspension 2.5 ml PO TID Qty: 160 0RF Rx Instructions: swish and spit pregabalin [Lyrica] 75 mg capsule 75 mg PO BID Qty: 60 0RF tramadol 50 mg tablet 50 mg PO Q8H PRN (Reason: pain) Qty: 60 0RF trazodone 50 mg tablet 100 mg PO BEDTIME hydralazine 25 mg tablet 25 mg PO TID PRN (Reason: Anxiety) glipizide 2.5 mg tablet extended release 24hr 2.5 mg PO DAILY bumetanide 2 mg tablet 2 mg PO BID RenaPlex-D 800 mcg-12.5 mg -2,000 unit tablet 1 tab PO DAILY gentamicin 0.1 % cream See Rx Instructions .ROUTE .COMPLEX Rx Instructions: 1 applic topically to exit site daily. calcitriol 0.25 mcg capsule 0.25 mcg PO DAILY lactulose 10 gram/15 mL solution See Rx Instructions .ROUTE .COMPLEX Rx Instructions: TAKE 30 ML BY MOUTH EVERY 4 HOURS NEEDED. Mucinex 600 mg Tablet Extended Release 12hr 1,200 mg PO BID Qty: 14 0RF prednisone 20 mg tablet 20 mg PO DAILY Qty: 11 0RF Rx Instructions: 2 tab for 3 days, then 1 tab for 3 days, then 1/2 tab for 4 days. Discharge Orders: Discharge ED (Routine); Ordered 01/28/23 Ordered By: David Hudson Referrals: Renay Duarte MD [Primary Care Provider] - Discharge Diet: Advance as tolerated Discharge Activity: Resume usual activity Patient Instructions: COPD, Pain Management Activity Restrictions/Additional Instructions: Please follow-up with your supervisor ticket sales. Follow-up with your primary care physician this week for recheck I have asked the showcase trimmer to assist with a pulmonology referral. It will probably be helpful to have BiPAP or CPAP at home. This will be discussed with pulmonology. There are some medications that may help with the tics that you are describing. Ativan is an example; however, we do not feel safe prescribing this to you currently since do not know how well you will clear it with the peritoneal dialysis. I would recommend pulmonology and nephrology weigh in on that. With regards to Mucinex, the literature says that it is safe for you to take that. However I would ask your supervisor ticket sales if (s)he agrees with that. Coding Level of Care Code ED Treasury Representative for Trell Nuñez
[2023-01-28 18:33] LABS: Basophils % 0.6 %; Eosinophils # 0.2 10^3/uL (0.0-0.8); Eosinophils % 4.5 %; Hematocrit 33.1 % (36-47); Lymphocytes # 0.7 10^3/uL (0.8-4.8); Lymphocytes % 15.2 %; Mean Corpuscular HGB Conc 31.1 g/dL (30-55); Mean Corpuscular Hemoglobin 31.1 pg (27-33); Mean Platelet Volume 9.3 fL (7.4-10.4); Monocytes # 0.9 10^3/uL (0.2-0.9); Monocytes % 19.1 %; Neutrophils # 2.92 10^3/uL (1.8-7.7); Neutrophils % 59.8 %; Nucleated Red Blood Cells % 0 %; Platelet Count 337 10^3/cmm (157-399); Red Blood Count 3.31 10^6/uL (3.85-5.65); Red Cell Distribution Width 14.2 % (12.1-15.1); White Blood Count 4.88 10^3/uL (3.29-11.43)
--- NOTE | 2023-01-28 18:40 | ECG_ITS ---
[facility] Test Date: 2023-01-28 Pat Name: Yas Oconnell Department: Room: Gender: Female Millinery Blocker: : 1955 Requested By: David Marcano Order Number: [id number] Lenin MD: Shabana Hall M.D. Measurements Intervals [place] Rate: 64 P: 108 [place]: 165 QRS: 73 QRSD: 93 T: 61 QT: 446 QTc: 463 Interpretive Statements SINUS RHYTHM Compared to ECG 06/07/2020 17:52:20 No significant changes Electronically Signed On 01-28-2023 20:30:02 CDT by Shabana Hall M.D. [id number]
[2023-01-28 18:56] LABS: Alanine Aminotransferase 13 U/L (0-33); Albumin Level 3.4 g/dL (3.5-5.2); Alkaline Phosphatase 71 U/L (35-105); Anion Gap 13.3 (5-19); Aspartate Amino Transferase 19 U/L (0-32); Blood Urea Nitrogen 75 mg/dL (8-23); Calcium 9.4 mg/dL (8.5-10.5); Carbon Dioxide 31 mmol/L (22-29); Chloride 94 mmol/L (98-107); Globulin 2.7 g/dL (1.3-4.6); Glomerular Filtration Rate 8.3 mL/min (90-130); Glucose 68 mg/dL (65-115); Osmolality Calculated 299 mOsm/kg (285-295); Potassium 4.3 mmol/L (3.5-5.1); Sodium 134 mmol/L (136-145); Total Bilirubin 0.3 mg/dL (0.15-1.2); Total Protein 6.1 g/dL (6.6-8.7)
[2023-01-28 18:59] LABS: ABG PCO2 45.9 mmHg (35-45); ABG PH Result 7.41 (7.35-7.45); Base Excess ABG 4.2 mmol/L (-2.0-2.0); Blood Gas Operator Identificat AMH; Blood Gas Sample Site Brachial, right; Blood Gas Sample Type Arterial; Carboxyhemoglobin 1.8 %THgb (0.4-20.1); HCO3 ABG 29.3 mmol/L (22-26); HGB O2 Sat 95.7 % (95-100); Methemoglobin 0.9 % (0.4-1.5); Oxygen Device NC; PO2 ABG 89.2 mmHg (80.0-100.0); Total Hemoglobin 9.8 g/dL (12-16)
[2023-01-28] MEDS: sodium chloride 0.9% 500 ML IV (19:53)
[2023-01-28 20:33] LABS: Add Urine Microscopic? YES; Bilirubin Urine Neg (Negative); Blood Urine Neg (Negative); Glucose Urine UA Trace (Normal); Ketones Urine Negative (Negative); Leukocyte Esterase Urine Negative (Negative); Nitrate Urine Negative (Negative); Protein Urine 2+ (Negative); Urine Appearance Clear (CLEAR); Urine Color Yellow (Yellow); Urobilinogen Urine Norm (Negative); pH Urine 7 (5-7)
[2023-01-28 20:34] LABS: Add Urine Culture? No; RBC Urine 0-4 /hpf (0-2); WBC Urine 0-4 /hpf (0-5)
--- NOTE | 2023-01-31 08:14 | DCPLANNER ---
Addendum entered by Naomi Joyce 02/02/23 11:05: Patient has a follow up appointment scheduled for Thursday, May 11, 2023 at 2:[address] Francis at pulmonology. Original Note: manager learning had message to schedule a follow up appointment for patient with pulmonology. manager learning sent patients information to the front office staff at [facility]. Patients information will be printed and reviewed. Clinic will call patient with appointment information.
[2023-01-31 11:36] LABS: Glucose Point of Care 72 mg/dL (70-110)
== END 2023-01-28 22:21 | disposition home or self-care (01) ==
PROVIDERS: Emergency Provider Nurse Practitioner; PCP Family Medicine
DX: G25.3 Myoclonus (principal); E11.22 Type 2 diabetes mellitus with diabetic chronic kidney disease; I12.0 Hypertensive chronic kidney disease with stage 5 chronic kidney disease or end stage renal disease; N18.6 End stage renal disease; Z99.2 Dependence on renal dialysis; I25.10 Atherosclerotic heart disease of native coronary artery without angina pectoris; J44.9 Chronic obstructive pulmonary disease, unspecified; E78.5 Hyperlipidemia, unspecified; I25.2 Old myocardial infarction; F17.210 Nicotine dependence, cigarettes, uncomplicated; Z79.82 Long term (current) use of aspirin; Z79.02 Long term (current) use of antithrombotics/antiplatelets; Z79.84 Long term (current) use of oral hypoglycemic drugs
CPT/HCPCS: 36415; 36416; 36600; 71045; 80053; 81001; 82805; 82962; 85025; 93005; 99285; J7040

== ENCOUNTER 2023-02-24 10:07 | Outpatient (CLI) | payer MEDICARE, SELFPAY ==
--- NOTE | 2023-02-24 11:00 | MR_ITS ---
WS: [id number] EXAMINATION: MR hip RT wo con* [id number] ORDER DATE: 02/24/2023 10:21 AM COMPARISON: CT 12/2022 HISTORY: right hip pain CONTRAST: None. TECHNIQUE: Coronal STIR of the Pelvis. Coronal proton density, coronal T1, axial T2 fat sat, axial T1 , sagittal T2 fat sat, and sagittal T1 performed of the hip. FINDINGS: Normal bone marrow signal in the RIGHT femoral head and neck. Normal bone marrow signal in the RIGHT acetabulum. RIGHT proximal femoral shaft is normal in appearance. Moderate degenerative narrowing RI GHT hip. No acute fractures. No occult RIGHT hip fractures. No significant joint effusion. Normal bone marrow signal in the LEFT femoral head and neck. Normal marcela ne marrow signal in the sacrum and bony pelvis. Subcutaneous soft tissue edema involving the gluteus and hip soft tissues bilaterally. No evidence of avascular necrosis. No sacral insufficiency fracture s. Intramuscular edema involving the RIGHT adductor Robert. Recommend correlation for muscular strain. IMPRESSION: 1. Moderate degenerative arthritis RIGHT hip. No acute fractures. No evidence of avascular necrosis. 2. No sacral insufficiency fractures. 3. Intramuscular edema involving the RIGHT adductor Robert extending to the pubic symphysis. Recomme nd correlation for muscular strain. 4. Diffuse subcutaneous soft tissue edema involving the hip and gluteal soft tissues in a symmetric fashion.
== END 2023-02-24 10:08 | disposition home or self-care (01) ==
PROVIDERS: PCP Family Medicine; Visit Provider Family Medicine
DX: M25.551 Pain in right hip (principal); M16.11 Unilateral primary osteoarthritis, right hip
CPT/HCPCS: 73721

== ENCOUNTER 2023-03-23 06:00 | Outpatient (RCR) | payer MEDICARE, SELFPAY | END 2023-03-29 23:59 | disposition home or self-care (01) | LOC: TPT 06:00 | PROVIDERS: Visit Provider Family Medicine | DX: S76.219D Strain of adductor muscle, fascia and tendon of unspecified thigh, subsequent encounter (principal); X58.XXXD Exposure to other specified factors, subsequent encounter | CPT/HCPCS: 97110; 97162 ==

== ENCOUNTER 2023-03-30 06:00 | Outpatient (RCR) | payer MEDICARE, SELFPAY | END 2023-04-28 23:59 | disposition home or self-care (01) | LOC: TPT 06:00 | PROVIDERS: Visit Provider Family Medicine | DX: S76.219D Strain of adductor muscle, fascia and tendon of unspecified thigh, subsequent encounter (principal); X58.XXXD Exposure to other specified factors, subsequent encounter | CPT/HCPCS: 97110 ==

== ENCOUNTER → 2023-04-06 13:23 | Outpatient (BNVA) | payer MEDICARE, SELFPAY | PROVIDERS: Visit Provider Podiatrist Foot & Ankle Surgery | DX: E11.42 Type 2 diabetes mellitus with diabetic polyneuropathy (principal); L60.3 Nail dystrophy; L60.8 Other nail disorders; I25.10 Atherosclerotic heart disease of native coronary artery without angina pectoris; N18.6 End stage renal disease; Z99.2 Dependence on renal dialysis; E11.22 Type 2 diabetes mellitus with diabetic chronic kidney disease | CPT/HCPCS: 11721; 99203 ==

== ENCOUNTER 2023-04-25 09:56 | Inpatient (IN) | payer MEDICARE, SELFPAY ==
[2023-04-25] VITALS (15 sets, daily range): BP systolic 104–167; BP diastolic 65–97; PULSE 65–82; RESP 14–18; TEMP 36.9–37; O2SAT 87–100; BMI 22.8
--- NOTE | 2023-04-25 09:57 | XRR_ITS ---
PROCEDURE INFORMATION: Exam: XR Chest Exam date and time: 04/25/2023 10:10 AM Age: 67 years old Clinical indication: Cough and dyspnea; Additional info: Dyspnea/cough TECHNIQUE: Imaging protocol: Radiologic exam of the chest. Views: 1 view. Total images: 1373 COMPARISON: CR (CHEST, ) 01/28/2023 6:24 PM FINDINGS: Lungs: Nonspecific left lung base opacity favors pneumonia. Pleural spaces: There is blunting of the left costophrenic angle, likely indicating a small to moderate pleural effusion. Heart/Mediastinum: Heart size is stable when compared to the prior exam. Bones/joints: Diffuse osteopenia noted. Osseous structures are unchanged from the prior exam. Soft tissues: Skin fold overlies the lateral chest. XR/XR chest 1V portable [id number] IMPRESSION: 1. Nonspecific left lung base opacity favors pneumonia. 2. There is blunting of the left costophrenic angle, likely indicating a small to moderate pleural effusion.
--- NOTE | 2023-04-25 10:07 | ECG_ITS ---
[facility] Test Date: 2023-04-25 Pat Name: Yas Oconnell Department: Room: Gender: Female Wine Blender: : 1955 Requested By: Fabian Butler Order Number: [id number] eLnin MD: Laurel Castro M.D. Measurements Intervals [place] Rate: 67 P: 108 [place]: 160 QRS: 79 QRSD: 94 T: 70 QT: 440 QTc: 467 Interpretive Statements SINUS RHYTHM WITH sinus arrhythmia Otherwise normal Compared to ECG 01/28/2023 18:47:46 No significant changes Electronically Signed On 04-26-2023 17:03:26 STICKER OPERATOR by Laurle Castro M.D. [id number]
--- NOTE | 2023-04-25 10:11 | W.ED.CHESTPA ---
HPI - Chest Pain General: Chief Complaint: ER Hold Stated Complaint: sob, left sided chest pain Time Seen by Provider: 04/25/23 09:57 Source: patient Mode of arrival: ambulatory History of Present Illness: 67-year-old female presents emergency room with complaints of fever dizziness chest pain is worse with deep inspiration for 5 days. She has been lightheaded and dizzy she fell last week 1 time she hit her left lower chest states since then she has had a little bit of blood-streaked sputum. Pain is worse when she takes a deep breath slightly worse with palpation as well as some low-grade fever also. She has a known history of coronary artery disease and type 2 diabetes mellitus. No vomiting or diarrhea. MD complaint: chest pain Onset (ago): day(s) (5) Pain location: left chest Exacerbating factors: inspiration Associated symptoms: Deny abdominal pain, diaphoresis, dyspnea, fever(s), leg edema, nausea, palpitations, sense of impending doom, syncope or vomiting Review of Systems Const: Denies: fever(s), chills or diaphoresis Card: Denies: chest pain, palpitations or syncope Resp: Denies: dyspnea GI: Denies: abdominal pain, nausea or vomiting : Denies: dysuria, urinary frequency or urinary urgency Musc: Denies: neck pain or back pain Skin/Breast: Denies: rash PFSH ED PFSH: Medical History Acute bronchitis Acute bronchitis Acute sinusitis CAD (coronary artery disease) -hx of CAD s/p stenting x 4 (LAD x 2, LCx, RCA) in 2018 -continue ASA, Plavix, statin -follows up with Dr. Leonardo CAD (coronary artery disease) Carotid stenosis, right Chronic obstructive pulmonary disease -recently treated for acute COPD exacerbation with short course of oral steroids and Keflex -noted wheezing on examination, decreased -would like to avoid steroids as patient thinks this contributed to edema as well as episodes of confusion, jitteriness -continue to monitor respiratory status, supplemental oxygen as needed, not oxygen dependent at baseline -neb treatments as needed; would hold off on additional antibiotic treatment at this time given recent use -rapid COVID-19 negative; influenza negative CKD (chronic kidney disease) stage 4, GFR 15-29 ml/min -baseline Cr appears to be around 2-3 -follows up with Contusion of right leg Cough History of heart attack Hyperlipidemia Hypertension Hypokalemia Impacted ear wax Insomnia Low Back Pain Myocardial infarct Right knee pain Skin lesion Type 2 diabetes mellitus with diabetic polyneuropathy -A1c-5.5 -accucheks, hypoglycemia precautions, ISS, hold oral hypoglycemic agents -renal diabetic diet as tolerated URI (upper respiratory infection) Surgical History H/O dilation and curettage H/O tubal ligation History of carotid endarterectomy History of carpal tunnel release History of colonoscopy with polypectomy 2018 Peritoneal dialysis catheter in situ (09/08/20) S/P pericardiocentesis S/P PTCA (percutaneous transluminal coronary angioplasty) S/P thoracentesis Status post carotid endarterectomy Family History Mother Heart disease Dementia Father Cancer Denies family history of Diabetes CAD (coronary artery disease) Clotting disorder Hyperlipidemia Psychiatric illness Chronic kidney disease (CKD) Suicide Anesthesia complication Bleeding disorder Family history of premature coronary artery disease Lung disease Hypertension Stroke Social History Smoking and tobacco/nicotine status: current every day tobacco/nicotine user cigarettes Packs smoked per day: 1.5 Years cigarettes smoked: 50 [ Other cigarette details: 4 cig/day] Alcohol intake: never Substance/Drug Use: never Household members: spouse Marital status: Current occupational status: retired and disabled Current gender identity: Female Physical Exam Const: COMMON NORMALS: no acute distress GENERAL APPEARANCE: cooperative and comfortable ORIENTATION/CONSCIOUSNESS: Yes awake, Yes oriented to person, Yes oriented to place and Yes oriented to time HENMT: COMMON NORMALS: normocephalic, atraumatic and hearing grossly normal bilaterally HEAD & SCALP: normocephalic and atraumatic Resp: COMMON NORMALS: normal respiratory effort, No retractions, No use of accessory muscles and clear to auscultation bilaterally AUSCULTATION: clear to auscultation bilaterally Cardio: COMMON NORMALS: regular rate and No murmurs present (Cardio) RATE: regular rate RHYTHM: abnormal rhythm irregularly irregular GI: COMMON NORMALS: Soft to palpation and No hepatosplenomegaly present AUSCULTATION: Yes normoactive bowel sounds PALPATION: Yes Soft to palpation, No Tenderness to palpation present (GI), No Guarding due to palpation present (GI) and Yes No hepatosplenomegaly present Extremity: COMMON NORMALS: normal to inspection, capillary refill normal, no clubbing, cyanosis or edema, no calf tenderness and no pedal edema Neuro: SENSORIUM/ORIENTATION: Yes oriented to person, Yes oriented to place and Yes oriented to time Skin: COMMON NORMALS: no rashes or lesions noted GENERAL SKIN EXAM: no rashes or lesions noted Course Vital Signs: Vital signs: Vital Signs Temperature 98.5 F 04/25/23 10:03 Pulse Rate 65 04/25/23 14:13 Respiratory Rate 16 04/25/23 14:13 Blood Pressure 115/65 04/25/23 14:13 Pulse Oximetry 99 04/25/23 14:13 Oxygen Delivery Me thod Room Air 04/25/23 14:13 Oxygen Flow Rate 2 04/25/23 14:13 MDM - Chest Pain Medical Decision Making Patient has chronic kidney disease. She is having left-sided chest pain shows a small pneumonia and pleural effusion. Is reporting some blood-streaked sputum as well. Her initial troponin is 150 significantly above her baseline is usually in the 30s. EKG did not show any acute ST changes shows normal sinus rhythm with a rate of 67. Her potassium is 4 3. Will discuss with hospitalist admit for completion of troponin series and further evaluation. Medical Records I reviewed the patient's medical records. Lab Data I reviewed the patient's lab results. 04/25/23 10:32 04/25/23 10:32 Radiology Impressions Chest X-Ray 04/25/23 09:57 IMPRESSION: 1. Nonspecific left lung base opacity favors pneumonia. 2. There is blunting of the left costophrenic angle, likely indicating a small to moderate pleural effusion. ADDENDUM: 04/25/23 1111 THIS REPORT CONTAINS FINDINGS THAT MAY BE CRITICAL TO PATIENT CARE. The findings were verbally communicated via telephone conference at 11:00 AM EDUCATIONAL RESOURCE COORDINATOR on 04/25/2023 with JOANNE PATRICK. The findings were acknowledged and understood. Laboratory Results WBC 16.04 10^3/uL (3.29-11.43) H 04/25/23 10:32 RBC 3.93 10^6/uL (3.85-5.65) 04/25/23 10:32 Hgb 12.10 g/dL (11.27-16.99) 04/25/23 10:32 Hct 40.0 % (36-47) 04/25/23 10:32 MCV 101.8 fl (85-98) H 04/25/23 10:32 MCH 30.8 pg (27-33) 04/25/23 10:32 MCHC 30.3 g/dL (30-55) 04/25/23 10:32 RDW 13.9 % (12.1-15.1) 04/25/23 10:32 Plt Count 287 10^3/cmm (157-399) 04/25/23 10:32 MPV 9.6 fL (7.4-10.4) 04/25/23 10:32 Neut % (Auto) 82.3 % 04/25/23 10:32 Lymph % (Auto) 6.2 % 04/25/23 10:32 [place] % (Auto) 10.3 % 04/25/23 10:32 Eos % (Auto) 0.4 % 04/25/23 10:32 Baso % (Auto) 0.4 % 04/25/23 10:32 Neut # (Auto) 13.19 10^3/uL (1.8-7.7) H 04/25/23 10:32 Lymph # (Auto) 1.0 10^3/uL (0.8-4.8) 04/25/23 10:32 [place] # (Auto) 1.7 10^3/uL (0.2-0.9) H 04/25/23 10:32 Eos # (Auto) 0.1 10^3/uL (0.0-0.8) 04/25/23 10:32 Baso # (Auto) 0.1 10^3/uL (0.0-0.1) 04/25/23 10:32 Nucleated RBC % (auto) 0 % 04/25/23 10:32 Nucleated RBCs # 0.0 /100WBC 04/25/23 10:32 PT 13.00 SECONDS (12.1-14.9) 04/25/23 10:32 INR 0.96 (0.8-1.2) 04/25/23 10:32 APTT 31.3 SECONDS (23.9-36.7) 04/25/23 10:32 Sodium 132 mmol/L (136-145) L 04/25/23 10:32 Potassium 4.3 mmol/L (3.5-5.1) 04/25/23 10:32 Chloride 95 mmol/L (98-107) L 04/25/23 10:32 Carbon Dioxide 24 mmol/L (22-29) 04/25/23 10:32 Anion Gap 17.3 (5-19) 04/25/23 10:32 BUN 63 mg/dL (8-23) H 04/25/23 10:32 Creatinine 6.1 mg/dL (0.5-0.9) H* 04/25/23 10:32 GFR Calculation 6.9 mL/min (90-130) L 04/25/23 10:32 Glucose 77 mg/dL (65-115) 04/25/23 10:32 Calculated Osmolality 291 mOsm/kg (285-295) 04/25/23 10:32 Calcium 10.2 mg/dL (8.5-10.5) 04/25/23 10:32 Total Bilirubin 0.3 mg/dL (0.15-1.2) 04/25/23 10:32 AST 19 U/L (0-32) 04/25/23 10:32 ALT 19 U/L (0-33) 04/25/23 10:32 Alkaline Phosphatase 92 U/L (35-105) 04/25/23 10:32 Troponin T Baseline 150 ng/L (0-10) H* 04/25/23 10:32 Total Protein 6.1 g/dL (6.6-8.7) L 04/25/23 10:32 Albumin 3.1 g/dL (3.5-5.2) L 04/25/23 10:32 Globulin 3.0 g/dL (1.3-4.6) 04/25/23 10:32 All radiology interpretation(s) finalized by discharge Discharge Plan Discharge Patient Disposition: Admitted As Inpatient Admit Provider: Jonnathan Delacruz Clinical Impression: Pneumonia, Chronic obstructive pulmonary disease, ESRD on peritoneal dialysis, Hemoptysis, Hypertension, Type 2 diabetes mellitus with diabetic polyneuropathy Condition: Stable Coding Level of Care Code ED Veterinary Practice Manager for Trell Nuñez
[2023-04-25 10:40] LABS: Basophils # 0.1 10^3/uL (0.0-0.1); Basophils % 0.4 %; Eosinophils # 0.1 10^3/uL (0.0-0.8); Eosinophils % 0.4 %; Lymphocytes % 6.2 %; Mean Corpuscular HGB Conc 30.3 g/dL (30-55); Mean Corpuscular Hemoglobin 30.8 pg (27-33); Mean Corpuscular Volume 101.8 fl (85-98); Mean Platelet Volume 9.6 fL (7.4-10.4); Monocytes # 1.7 10^3/uL (0.2-0.9); Monocytes % 10.3 %; Neutrophils # 13.19 10^3/uL (1.8-7.7); Neutrophils % 82.3 %; Nucleated Red Blood Cells % 0 %; Platelet Count 287 10^3/cmm (157-399); Red Blood Count 3.93 10^6/uL (3.85-5.65); Red Cell Distribution Width 13.9 % (12.1-15.1); White Blood Count 16.04 10^3/uL (3.29-11.43)
--- NOTE | 2023-04-25 10:41 | PC.NURSE ---
RN ASSUMED CARE AT THIS TIME
--- NOTE | 2023-04-25 10:57 | PC.NURSE ---
MD NOTIFIED THAT PATIENT IS UNABLE TO TAKE ASPIRIN DUE TO HER DIALYSIS, MD ORDERS TO OLD ASPIRIN.
[2023-04-25 11:16] LABS: Alanine Aminotransferase 19 U/L (0-33); Albumin Level 3.1 g/dL (3.5-5.2); Alkaline Phosphatase 92 U/L (35-105); Anion Gap 17.3 (5-19); Aspartate Amino Transferase 19 U/L (0-32); Blood Urea Nitrogen 63 mg/dL (8-23); Calcium 10.2 mg/dL (8.5-10.5); Carbon Dioxide 24 mmol/L (22-29); Chloride 95 mmol/L (98-107); Glomerular Filtration Rate 6.9 mL/min (90-130); Glucose 77 mg/dL (65-115); Osmolality Calculated 291 mOsm/kg (285-295); Potassium 4.3 mmol/L (3.5-5.1); Sodium 132 mmol/L (136-145); Total Bilirubin 0.3 mg/dL (0.15-1.2); Total Protein 6.1 g/dL (6.6-8.7)
[2023-04-25 11:24] LABS: Troponin(5th) Baseline 150 ng/L (0-10)
--- NOTE | 2023-04-25 11:35 | CT_ITS ---
WS: [id number] CTA OF THE CHEST WITH PULMONARY EMBOLISM PROTOCOL TECHNIQUE: High-resolution contrast enhanced CTA of the chest with coronal and sagittal reformatted i sierras with pulmonary embolism protocol. MIP images are also reviewed. CLINICAL INFORMATION: chest pain COMPARISON: CT chest 2019 DLP: 198.[address] scans at [facility] use at least one of these dose optimization techniques: automated e xposure control; mA and/or kV adjustment per patient size (includes targeted exams where dose is matc hed to clinical indication); or iterative reconstruction. FINDINGS: Proximal main pulmonary arteries are normal. Normal segmental and subsegmental pulmonary arteries. No evidence of pulmonary embolus. Aorta calcification. Coronary calcification. Diffuse body wall anasar ca. Small LEFT and tiny RIGHT pleural effusions. Interstitial thickening and interstitial edema withi n the LEFT lower lobe and lingula. Patchy infiltrates in the LEFT lower lobe. Circumferential pleural thickening LEFT lower lobe. Moderate chronic emphysematous changes. A few prominent AP window and anterior mediastinal lymph node s are nonspecific. New slightly spiculated opacity in the RIGHT upper lobe dorsally along the fissure measuring 1.1 x 1. 4 cm is new compared to 2019. Mild hypertrophic changes thoracic spine. Dense stenosis in the suprare nal abdominal aorta similar to 10/22/2022. Partially visualized mesenteric edema in the upper abdomen. IMPRESSION: 1. No evidence of pulmonary embolus. 2. Small LEFT and tiny RIGHT pleural effusions. 3. Interstitial thickening with interstitial edema in the LEFT lower lobe with circumferential pleur al thickening. Bronchovascular thickening about the LEFT hilum. 4. Patchy infiltrates the LEFT lower lobe. Findings suspicious for pneumonia. Recommend interval fol low-up after treatment and follow-up to resolution 5. New ovoid opacity RIGHT upper lobe along the fissure. This measures 1.4 x [address] fo llow-up in 4 to 6 weeks and if persistent, this could be further evaluated with PET/CT. Notified Fabian Tellez DO at 04/25/2023 12:29 PM.
[2023-04-25] MEDS: aspirin 81 mg Chew Tablet 324 MG PO (11:39)
[2023-04-25] MEDS: cefTRIAXone 1,000 MG in sodium chloride 0.9% (plus) 50 ML 100 MG IV (11:40)
[2023-04-25] MEDS: nitroglycerin 1 gm/inch oint Pkt 0.5 INCH TOPICAL (11:45)
[2023-04-25 11:55] LABS: INR 0.96 (0.8-1.2)
[2023-04-25 11:56] LABS: Partial Thromboplastin Time 31.3 SECONDS (23.9-36.7)
[2023-04-25] MEDS: iohexol 350 mg/mL 500 mL Btl (per mL) IV (12:04)
--- NOTE | 2023-04-25 12:07 | ECG_ITS ---
[facility] Test Date: 2023-04-25 Pat Name: Yas Oconnell Department: Room: Gender: Female Polisher Balance Screwhead: : 1955 Requested By: Fabian Butler Order Number: [id number] Lenin MD: Laurel Castro M.D. Measurements Intervals [place] Rate: 68 P: 100 IN: 166 QRS: 79 QRSD: 93 T: 54 QT: 427 QTc: 457 Interpretive Statements SINUS RHYTHM Compared to ECG 04/25/2023 10:15:54 No significant changes Electronically Signed On 04-26-2023 17:22:21 RELATIONSHIP BANKER by Laurel Castro M.D. [id number]
[2023-04-25] MEDS: azithromycin 500 MG in sodium chloride 0.9% 250 ML 250 MG IV (12:20)
--- NOTE | 2023-04-25 13:05 | PM.HP ---
Providers/Chief Complaint Admitting Physician: Jonnathan Delacruz MD Primary Care Provider: Renay Duarte MD Chief Complaint: sob, left sided chest pain History of Present Illness Yas Oconnell is a 67 year old female with end-stage renal disease on peritoneal dialysis presenting to the hospital with some chest discomfort, seems to wrap around the left lower side of her chest since . Hemoptysis started several days ago. She was coughing up a little yellowish substance before. She has had a temperature at home of 100.4. No vomiting, diarrhea. Some short of breath but she always is to some extent and is on 2 L of oxygen chronically. She denies any prior history of pulmonary embolism, and denies being on any anticoagulant. Review of Systems General: Reports: 10 or more systems reviewed and unremarkable except in HPI and below Card: Reports: chest pain; Denies: swelling of feet/ankles Resp: Reports: dyspnea and productive cough GI: Denies: abdominal pain, nausea, vomiting, hematochezia or melena Medications/Allergies Home Medications Medication Instructions Recorded Confirmed Last Taken Type aspirin 81 mg tablet,delayed 81 mg PO QPM 06/26/19 04/25/23 04/24/23 History release cholecalciferol (vitamin D3) 50 2,000 unit PO DAILY@08 06/26/19 04/25/23 04/25/23 History mcg (2,000 unit) capsule polyethylene glycol 3350 17 17 g PO DAILY 12/18/20 04/25/23 04/25/23 History gram/dose oral powder (Miralax) nebulizers #1 ea 10/22/21 04/25/23 Unknown Rx budesonide 0.5 mg/2 mL suspension 0.5 mg inhalation BID 07/14/22 04/25/23 04/25/23 History for nebulization formoterol fumarate 20 mcg/2 mL 2 ml inhalation BID 07/14/22 04/25/23 04/25/23 History solution for nebulization (Perforomist) bumetanide 2 mg tablet 2 mg PO BID 12/27/22 04/25/23 04/25/23 History calcitriol 0.25 mcg capsule 0.25 mcg PO DAILY 12/27/22 04/25/23 04/25/23 History gentamicin 0.1 % topical cream See Rx Instructions .Route .COMPLEX 12/27/22 04/25/2323 History glipizide 2.5 mg tablet, extended 2.5 mg PO DAILY 12/27/22 04/25/23 04/25/23 History release 24 hr lactulose 10 gram/15 mL oral 30 ml PO Q4H PRN Constipation 12/27/22 04/25/23 Unknown History solution trazodone 50 mg tablet 100 mg PO BEDTIME 12/27/22 04/25/23 04/24/23 History vit B,C-folic ac 800 mcg-zinc 12.5 1 tab PO DAILY 12/27/22 04/25/23 04/25/23 History mg-selen-D3 2,000 unit-vit E tablet (RenaPlex-D) guaifenesin 600 mg tablet, 1,200 mg PO BID #14 tabs 01/01/23 04/25/23 04/25/23 Rx extended release 12 hr (Mucinex) metoprolol succinate 50 mg 50 mg PO DAILY PRN blood pressure 03/03/23 04/25/23 Unknown Rx tablet,extended release 24 hr #90 tabs chlorpheniramine 4 5 ml PO Q6H PRN cold symptoms #160 03/09/23 04/25/23 Unknown Rx mg-phenylephrine 10 mg-DM 15 mg/5 mL mL oral liquid (Ed A-Hist DM) acetaminophen 300 mg-codeine 60 mg 1 tab PO Q8H PRN PAIN 04/25/23 04/25/23 Unknown History tablet albuterol sulfate 90 mcg/actuation 2 puff inhalation Q4H PRN 04/25/23 04/25/23 Unknown History aerosol inhaler Shortness Of Breath citalopram 40 mg tablet 40 mg PO QAM 04/25/23 04/25/23 04/25/23 History clopidogrel 75 mg tablet 75 mg PO QAM 04/25/23 04/25/23 04/25/23 History famotidine-Ca carb-mag hydrox 10 1 tab PO BID PRN Acid Reflux 04/25/23 04/25/23 Unknown History mg-800 mg-165 mg chewable tablet (Pepcid Complete) losartan 25 mg tablet 25 mg PO BEDTIME 04/25/23 04/25/23 Unknown History rosuvastatin 40 mg tablet 40 mg PO QPM 04/25/23 04/25/23 04/24/23 History sevelamer carbonate 800 mg tablet 800 mg PO TID 04/25/23 04/25/23 04/25/23 History Allergies Allergy/AdvReac Type Severity Reaction Status Date / Time prednisone AdvReac Mild ADR-Confusi Verified 04/06/23 13:46 on PFSH Acute PFSH: Medical History Acute bronchitis Acute bronchitis Acute sinusitis CAD (coronary artery disease) -hx of CAD s/p stenting x 4 (LAD x 2, LCx, RCA) in 2018 -continue ASA, Plavix, statin -follows up with Dr. Leonardo CAD (coronary artery disease) Carotid stenosis, right Chronic obstructive pulmonary disease -recently treated for acute COPD exacerbation with short course of oral steroids and Keflex -noted wheezing on examination, decreased -would like to avoid steroids as patient thinks this contributed to edema as well as episodes of confusion, jitteriness -continue to monitor respiratory status, supplemental oxygen as needed, not oxygen dependent at baseline -neb treatments as needed; would hold off on additional antibiotic treatment at this time given recent use -rapid COVID-19 negative; influenza negative CKD (chronic kidney disease) stage 4, GFR 15-29 ml/min -baseline Cr appears to be around 2-3 -follows up with Contusion of right leg Cough History of heart attack Hyperlipidemia Hypertension Hypokalemia Impacted ear wax Insomnia Low Back Pain Myocardial infarct Right knee pain Skin lesion Type 2 diabetes mellitus with diabetic polyneuropathy -A1c-5.5 -accucheks, hypoglycemia precautions, ISS, hold oral hypoglycemic agents -renal diabetic diet as tolerated URI (upper respiratory infection) Surgical History H/O dilation and curettage H/O tubal ligation History of carotid endarterectomy History of carpal tunnel release History of colonoscopy with polypectomy 2017 Peritoneal dialysis catheter in situ (09/08/20) S/P pericardiocentesis S/P PTCA (percutaneous transluminal coronary angioplasty) S/P thoracentesis Status post carotid endarterectomy Family History Mother Heart disease Dementia Father Cancer Denies family history of Diabetes CAD (coronary artery disease) Clotting disorder Hyperlipidemia Psychiatric illness Chronic kidney disease (CKD) Suicide Anesthesia complication Bleeding disorder Family history of premature coronary artery disease Lung disease Hypertension Stroke Social History Smoking and tobacco/nicotine status: current every day tobacco/nicotine user cigarettes Packs smoked per day: 1.5 Years cigarettes smoked: 50 [ Other cigarette details: 4 cig/day] Alcohol intake: never Substance/Drug Use: never Household members: spouse Marital status: Current occupational status: retired and disabled Current gender identity: Female Vitals/I&O/Wt Last Vital Signs Temp 98.5 F 04/25/23 10:03 Pulse 71 04/25/23 12:07 Resp 16 04/25/23 12:07 BP 104/88 04/25/23 12:07 Pulse Ox 100 04/25/23 12:07 O2 Del Method Room Air 04/25/23 12:07 O2 Flow Rate 2 04/25/23 10:48 04/24/23 04/25/23 04/25/23 22:59 06:59 14:59 Intake Total 50 / 50 Balance 50 / 50 Weight last 48 hrs Weight 51.256 kg Physical Exam Narrative: General exam is white female, reporting some chest discomfort in no apparent distress HEENT: Atraumatic normocephalic. Oropharynx clear. No evidence of nosebleed. Neck is supple no lymphadenopathy thyromegaly Cardiovascular regular rate and rhythm, clear but with diminished breath sounds bilaterally. No wheezing or crackles Abdomen is soft with positive bowel sounds. No obvious organomegaly exam is deferred Extremities no cyanosis clubbing or edema, cap refill brisk Skin no rash Neuro no obvious focal deficits. Heart sounds distant, no murmur Lungs Data 04/25/23 10:32 04/25/23 10:32 Other Labs: INR is normal See him is normal, albumin 3.1 LFTs normal Initial troponin 150, repeat pending Chest x-ray by my read demonstrates left effusion versus scarring CTA per my read demonstrates left lower lobe pneumonia, thickened pleura, small bilateral effusions. Radiology also noted a right upper lobe oval opacity that needs repeat CT in 4 to 6 months. There was no evidence of pulmonary embolism. Blood and sputum cultures were obtained. EKG demonstrates sinus rhythm, normal axis, no acute changes Micro: Microbiology 04/25/23 11:32 Blood Culture - Preliminary Blood SPECIMEN COLLECTED 04/25/23 11:28 Blood Culture - Preliminary Blood SPECIMEN COLLECTED A&P Assessment and plan (1) Pneumonia: Patient presents with pneumonia She has past history of Pseudomonas in her sputum, sensitive to Zosyn Sputum culture blood cultures been done Change antibiotics to Zosyn. Continue Zithromax that was already started Continue oxygen 2 L which she is on chronically, titrate if needed Check COVID and influenza (2) COPD (chronic obstructive pulmonary disease): No evidence of exacerbation currently DuoNeb every 6 hours Budesonide twice daily (3) Hemoptysis: Patient presents with hemoptysis. This is most less likely secondary to pneumonia. There is no evidence of pulmonary embolism. She does have nodule on the right, and will need repeat CT scan in 4 months or so. (4) ESRD on peritoneal dialysis: Nephrology consult for peritoneal dialysis (5) CAD (coronary artery disease): Continue statin, beta-dada, Plavix, aspirin Qualifiers: Coronary Disease-Associated Artery/Lesion type: [place] artery [place] vs. transplanted heart: [place] heart Associated angina: without angina Qualified Code(s): I25.10 - Atherosclerotic heart disease of [place] coronary artery without angina pectoris (6) Type 2 diabetes mellitus with diabetic polyneuropathy: Sliding scale insulin will be initiated Qualifiers: Diabetes mellitus long chain quiller tender insulin use: without retirement use Qualified Code(s): E11.42 - Type 2 diabetes mellitus with diabetic polyneuropathy Plan Other medical problems as outlined by past medical history Full code Heparin will suffice for DVT prophylaxis Attestations Medical Necessity Statement*: Currently she is not requiring above her baseline oxygen and is possible she may be improved enough for discharge tomorrow, therefore observation Diagnoses Pneumonia J18.9 COPD (chronic obstructive pulmonary disease) J44.9 Hemoptysis R04.2 ESRD on peritoneal dialysis N18.6; Z99.2 CAD (coronary artery disease) I25.10 Coronary Disease-Associated Artery/Lesion type: [place] artery [place] vs. transplanted heart: [place] heart Associated angina: without angina Type 2 diabetes mellitus with diabetic polyneuropathy E11.42 Diabetes mellitus long chain quiller tender insulin use: without long chain quiller tender use Time Spent (min) 56
[2023-04-25 13:19] LABS: Troponin 5 2HR 139.2 ng/L (0-10); Troponin 5 2HR Delta -10.8 ABS# (0-10)
[2023-04-25] MEDS: piperacillin-tazobactam 2.25 GM in sodium chloride 0.9% (plus) 50 ML IV (14:07)
[2023-04-25 14:13] LABS: Influenza A by IFA negative (Negative); Influenza B by IFA negative (Negative)
--- NOTE | 2023-04-25 14:47 | PM.CONSULT ---
Providers/Reason For Consult Consulting Physician/Specialty*: [facility]/Nephrology Reason for Consult*: ESRD Attending Physician: Jonnathan Delacruz MD Primary Care Provider: Renay Duarte MD History of Present Illness History of Present Illness Yas Oconnell is a 67 year old female With past medical history of end-stage renal disease on peritoneal dialysis, presented to the emergency department due to chest pain hemoptysis and also had a fever and cough. In ED patient was noted to have stable vital signs, lab data significant for hemoglobin of 12 sodium 132, creatinine 6.1. Chest x-ray showed left effusion. CT angiogram showed left lower lobe pneumonia. Patient started on antibiotics and admitted to the hospital. Review of Systems Narrative: Other review of systems negative Medications/Allergies Home Medications Medication Instructions Recorded Confirmed Last Taken Type aspirin 81 mg tablet,delayed 81 mg PO QPM 06/26/19 04/25/23 04/24/23 History release cholecalciferol (vitamin D3) 50 2,000 unit PO DAILY@08 06/26/19 04/25/23 04/25/23 History mcg (2,000 unit) capsule polyethylene glycol 3350 17 17 g PO DAILY 12/18/20 04/25/23 04/25/23 History gram/dose oral powder (Miralax) nebulizers #1 ea 10/22/21 04/25/23 Unknown Rx budesonide 0.5 mg/2 mL suspension 0.5 mg inhalation BID 07/14/22 04/25/23 04/25/23 History for nebulization formoterol fumarate 20 mcg/2 mL 2 ml inhalation BID 07/14/22 04/25/23 04/25/23 History solution for nebulization (Perforomist) bumetanide 2 mg tablet 2 mg PO BID 12/27/22 04/25/23 04/25/23 History calcitriol 0.25 mcg capsule 0.25 mcg PO DAILY 12/27/22 04/25/23 04/25/23 History gentamicin 0.1 % topical cream See Rx Instructions .Route .COMPLEX 12/27/22 04/25/23 12/26/22 History glipizide 2.5 mg tablet, extended 2.5 mg PO DAILY 12/27/22 04/25/23 04/25/23 History release 24 hr lactulose 10 gram/15 mL oral 30 ml PO Q4H PRN Constipation 12/27/22 04/25/23 Unknown History solution trazodone 50 mg tablet 100 mg PO BEDTIME 12/27/22 04/25/23 04/24/23 History vit B,C-folic ac 800 mcg-zinc 12.5 1 tab PO DAILY 12/27/22 04/25/23 04/25/23 History mg-selen-D3 2,000 unit-vit E tablet (RenaPlex-D) guaifenesin 600 mg tablet, 1,200 mg PO BID #14 tabs 01/01/23 04/25/23 04/25/23 Rx extended release 12 hr (Mucinex) metoprolol succinate 50 mg 50 mg PO DAILY PRN blood pressure 03/03/23 04/25/23 Unknown Rx tablet,extended release 24 hr #90 tabs chlorpheniramine 4 5 ml PO Q6H PRN cold symptoms #160 03/09/23 04/25/23 Unknown Rx mg-phenylephrine 10 mg-DM 15 mg/5 mL mL oral liquid (Ed A-Hist DM) acetaminophen 300 mg-codeine 60 mg 1 tab PO Q8H PRN PAIN 04/25/23 04/25/23 Unknown History tablet albuterol sulfate 90 mcg/actuation 2 puff inhalation Q4H PRN 04/25/23 04/25/23 Unknown History aerosol inhaler Shortness Of Breath citalopram 40 mg tablet 40 mg PO QAM 04/25/23 04/25/23 04/25/23 History clopidogrel 75 mg tablet 75 mg PO QAM 04/25/23 04/25/23 04/25/23 History famotidine-Ca carb-mag hydrox 10 1 tab PO BID PRN Acid Reflux 04/25/23 04/25/23 Unknown History mg-800 mg-165 mg chewable tablet (Pepcid Complete) losartan 25 mg tablet 25 mg PO BEDTIME 04/25/23 04/25/23 Unknown History rosuvastatin 40 mg tablet 40 mg PO QPM 04/25/23 04/25/23 04/24/23 History sevelamer carbonate 800 mg tablet 800 mg PO TID 04/25/23 04/25/23 04/25/23 History Allergies Allergy/AdvReac Type Severity Reaction Status Date / Time prednisone AdvReac Mild ADR-Confusi Verified 04/06/23 13:46 on Current Medications Generic Name Dose Route Start Last Admin Trade Name Freq PRN Reason Stop Dose Admin Piperacillin Sod/Tazobactam 50 mls @ 100 mls/hr 04/25/23 14:00 04/25/23 14:07 Sod 2.25 gm/ Sodium Chloride IV 100 mls/hr Q12H LUKE Administration Protocol As Directed PFSH Acute PFSH: Medical History Acute bronchitis Acute bronchitis Acute sinusitis CAD (coronary artery disease) -hx of CAD s/p stenting x 4 (LAD x 2, LCx, RCA) in 2018 -continue ASA, Plavix, statin -follows up with Dr. Leonardo CAD (coronary artery disease) Carotid stenosis, right Chronic obstructive pulmonary disease -recently treated for acute COPD exacerbation with short course of oral steroids and Keflex -noted wheezing on examination, decreased -would like to avoid steroids as patient thinks this contributed to edema as well as episodes of confusion, jitteriness -continue to monitor respiratory status, supplemental oxygen as needed, not oxygen dependent at baseline -neb treatments as needed; would hold off on additional antibiotic treatment at this time given recent use -rapid COVID-19 negative; influenza negative CKD (chronic kidney disease) stage 4, GFR 15-29 ml/min -baseline Cr appears to be around 2-3 -follows up with Contusion of right leg Cough History of heart attack Hyperlipidemia Hypertension Hypokalemia Impacted ear wax Insomnia Low Back Pain Myocardial infarct Right knee pain Skin lesion Type 2 diabetes mellitus with diabetic polyneuropathy -A1c-5.5 -accucheks, hypoglycemia precautions, ISS, hold oral hypoglycemic agents -renal diabetic diet as tolerated URI (upper respiratory infection) Surgical History H/O dilation and curettage H/O tubal ligation History of carotid endarterectomy History of carpal tunnel release History of colonoscopy with polypectomy 2017 Peritoneal dialysis catheter in situ (09/08/20) S/P pericardiocentesis S/P PTCA (percutaneous transluminal coronary angioplasty) S/P thoracentesis Status post carotid endarterectomy Family History Mother Heart disease Dementia Father Cancer Denies family history of Diabetes CAD (coronary artery disease) Clotting disorder Hyperlipidemia Psychiatric illness Chronic kidney disease (CKD) Suicide Anesthesia complication Bleeding disorder Family history of premature coronary artery disease Lung disease Hypertension Stroke Social History Smoking and tobacco/nicotine status: current every day tobacco/nicotine user cigarettes Packs smoked per day: 1.5 Years cigarettes smoked: 50 [ Other cigarette details: 4 cig/day] Alcohol intake: never Substance/Drug Use: never Household members: spouse Marital status: Current occupational status: retired and disabled Current gender identity: Female Vitals/I&O/Wt Last Vital Signs Temp 98.5 F 04/25/23 10:03 Pulse 65 04/25/23 14:13 Resp 16 04/25/23 14:13 BP 115/65 04/25/23 14:13 Pulse Ox 99 04/25/23 14:13 O2 Del Method Room Air 04/25/23 14:13 O2 Flow Rate 2 04/25/23 14:13 04/24/23 04/25/23 04/25/23 22:59 06:59 14:59 Intake Total 300 / 300 Balance 300 / 300 Weight last 48 hrs Weight 51.256 kg Physical Exam Narrative: Awake, alert, no acute distress On 2 L nasal cannula No edema Data 04/25/23 10:32 04/25/23 10:32 Micro: Microbiology 04/25/23 11:32 Blood Culture - Preliminary Blood SPECIMEN COLLECTED 04/25/23 11:28 Blood Culture - Preliminary Blood SPECIMEN COLLECTED A&P Assessment and plan (1) ESRD on peritoneal dialysis: 1. End-stage renal disease: On peritoneal dialysis, patient does cycler, 1500 mL x 2 exchanges, 2.5% dextrose solution every day, will do manual exchanges while in the hospital, patient family brought home supplies. Patient received IV contrast today. 2. History of coronary artery disease 3.Acute on chronic respiratory failure: Has pneumonia, on antibiotics, added nystatin as prophylaxis while patient on PD 4. History of COPD, ordered DuoNebs per primary team Patient evaluated using audiovisual cart. Time spent 40 minutes. Consult Attestations Medical Necessity Statement: Per medicine team Coding Level of Care Code Acute Code for Chg Fwd Diagnoses ESRD on peritoneal dialysis N18.6; Z99.2
[2023-04-25] MEDS: heparin 5,000 unit/mL INJ 1 mL 5000 UNIT SUBCUT (14:50)
[2023-04-25] MEDS: ipratropium-albuterol 3 mL Neb INHALATION ×2 (14:58→19:56)
[2023-04-25 15:35] LABS: Adenovirus Not Detected (NOT DETECT); Chlamydia Pneumoniae Not Detected (NOT DETECT); Coronavirus 229E,HKU1,NL63,OC4 Not Detected (NOT DETECT); Human Metapneumovirus Not Detected (NOT DETECT); Human Rhinovirus/Enterovirus Not Detected (NOT DETECT); Influenza A Not Detected (NOT DETECT); Influenza A H1 Not Detected (NOT DETECT); Influenza A H1-2009 Not Detected (NOT DETECT); Influenza A H3 Not Detected (NOT DETECT); Influenza B Not Detected (NOT DETECT); Mycoplasma Pneumoniae Not Detected (NOT DETECT); Parainfluenza Virus Type 1 Not Detected (NOT DETECT); Parainfluenza Virus Type 2 Not Detected (NOT DETECT); Parainfluenza Virus Type 3 Not Detected (NOT DETECT); Parainfluenza Virus Type 4 Not Detected (NOT DETECT); Respiratory Syncytial Virus A Not Detected (NOT DETECT); Respiratory Syncytial Virus B Not Detected (NOT DETECT); SARS-COV-2 Not Detected (NOT DETECT)
--- NOTE | 2023-04-25 16:34 | ECG_ITS ---
[facility] Test Date: 2023-04-25 Pat Name: Yas Oconnell Department: Room: ED Gender: Female Lime Boiler: : 1955 Requested By: Fabian Butler Order Number: [id number] Lenin MD: Laurel Castro M.D. Measurements Intervals [place] Rate: 66 P: 83 ME: 171 QRS: 82 QRSD: 97 T: 69 QT: 466 QTc: 490 Interpretive Statements SINUS RHYTHM PROLONGED QT INTERVAL Abnormal ECG Compared to ECG 04/25/2023 12:06:52 Prolonged QT interval now present Electronically Signed On 04-26-2023 17:21:02 BASEBALL COACH by Laurel Castro M.D. [id number]
[2023-04-25 17:17] LABS: Troponin 5 6HR 145.3 ng/L (0-10); Troponin 5 6HR Delta -4.7 ng/L (0-12)
[2023-04-25] MEDS: aspirin 81 mg EC Tablet PO (17:26)
[2023-04-25] MEDS: sevelamer 800 mg Tablet PO (17:58)
[2023-04-25] MEDS: nystatin 100,000 unit/mL UDC 5 mL 400000 UNIT PO ×2 (18:22→21:23)
[2023-04-25] MEDS: budesonide 0.5 mg/2 mL Neb INHALATION (19:56)
[2023-04-25] MEDS: losartan 50 mg Tablet 25 MG PO (21:22)
[2023-04-25] MEDS: trazodone 50 mg Tablet 100 MG PO (21:23)
[2023-04-25] MEDS: atorvastatin 40 mg Tablet 80 MG PO (21:23)
[2023-04-25] MEDS: bumetanide 1 mg Tablet 2 MG PO (21:23)
[2023-04-26] VITALS (9 sets, daily range): BP systolic 100–122; BP diastolic 54–69; PULSE 68–84; RESP 14–18; TEMP 36.6–37.1; O2SAT 91–97
[2023-04-26] MEDS: ipratropium-albuterol 3 mL Neb INHALATION ×4 (01:31→20:05)
[2023-04-26] MEDS: citalopram 20 mg Tablet 40 MG PO (06:00)
[2023-04-26] MEDS: clopidogrel 75 mg Tablet PO (06:00)
[2023-04-26 08:28] LABS: Alanine Aminotransferase 14 U/L (0-33); Albumin Level 2.4 g/dL (3.5-5.2); Alkaline Phosphatase 90 U/L (35-105); Anion Gap 19.8 (5-19); Aspartate Amino Transferase 12 U/L (0-32); Blood Urea Nitrogen 61 mg/dL (8-23); Calcium 9.9 mg/dL (8.5-10.5); Carbon Dioxide 22 mmol/L (22-29); Chloride 100 mmol/L (98-107); Globulin 2.7 g/dL (1.3-4.6); Glomerular Filtration Rate 6.7 mL/min (90-130); Glucose 77 mg/dL (65-115); Osmolality Calculated 302 mOsm/kg (285-295); Potassium 3.8 mmol/L (3.5-5.1); Sodium 138 mmol/L (136-145); Total Bilirubin 0.2 mg/dL (0.15-1.2); Total Protein 5.1 g/dL (6.6-8.7)
[2023-04-26] MEDS: budesonide 0.5 mg/2 mL Neb INHALATION ×2 (08:56→20:05)
[2023-04-26 09:19] LABS: Basophils % 0.2 %; Eosinophils # 0.1 10^3/uL (0.0-0.8); Eosinophils % 1.3 %; Hematocrit 35.8 % (36-47); Lymphocytes # 0.6 10^3/uL (0.8-4.8); Mean Corpuscular HGB Conc 29.9 g/dL (30-55); Mean Corpuscular Hemoglobin 30.4 pg (27-33); Mean Corpuscular Volume 101.7 fl (85-98); Mean Platelet Volume 10.1 fL (7.4-10.4); Monocytes # 1.2 10^3/uL (0.2-0.9); Monocytes % 11.5 %; Neutrophils # 8.32 10^3/uL (1.8-7.7); Neutrophils % 80.6 %; Nucleated Red Blood Cells % 0 %; Platelet Count 278 10^3/cmm (157-399); Red Blood Count 3.52 10^6/uL (3.85-5.65); White Blood Count 10.32 10^3/uL (3.29-11.43)
[2023-04-26] MEDS: bumetanide 1 mg Tablet 2 MG PO ×2 (09:42→18:25)
[2023-04-26] MEDS: sevelamer 800 mg Tablet PO ×3 (09:42→20:38)
[2023-04-26] MEDS: nystatin 100,000 unit/mL UDC 5 mL 400000 UNIT PO ×4 (09:42→20:38)
[2023-04-26] MEDS: calcitriol 0.25 mcg Capsule PO (09:42)
[2023-04-26] MEDS: polyethylene glycol 3350 Pkt 17 gm PO (09:42)
[2023-04-26] MEDS: pantoprazole DR 40 mg Tablet PO (09:42)
[2023-04-26] MEDS: guaiFENesin 600 mg Tablet PO ×2 (09:45→18:25)
[2023-04-26] MEDS: azithromycin 500 MG in sodium chloride 0.9% 250 ML 250 MG IV (09:47)
--- NOTE | 2023-04-26 09:59 | PC.CHAP ---
Pastoral Care Encounter/Spiritual Assessment Type of Contact [] Declined equity analyst visit [] Patient/Family/Request visit [] Outpatient visit [] Follow-up visit [] Physician referral [] Code/Alert [x] Routine visit [] Staff referral [] Actively dying [] Patient sleeping [x] Family support [] [] Out of room [] Palliative care [] [] Receiving care in room [] Pre-surgical visit [] Trauma [] Long length of stay [] ICU visit [] Other: Relational/Emotional Strength [x] Patient feels connected with others/family/visitors/staff [] Distress [] Loneliness/isolation [] Abandonment Spirituality of Patient [x] Person of Marta [] Attends Methodist of their Marta [x] Believes in Prayer [] Reads Bible or Mu-Ism materials [] There are Spiritual issues to be addressed Patternmaker Wood Interventions [x] Prayer [x] Active listening [] Non-anxious presence [x] Spiritual/emotional support [] Crisis/trauma care [] Spiritual counseling [] Bereavement support [] Provided bereavement packet [] Provided Bible/devotional materials [] Provided toy/stuffed animal, coloring book to patient or family member [] Provided Communion [] Anointing/[place] [] Salvation [] Completed spiritual assessment [] Other: Impact on Illness or Injury [] Angry [] Fearful [] Anxious [] Often cries [] Exhaustion [] Unable to work [] Unable to attend anglican [] Unable to walk/stand [] Unable to read [] Unable to drive [] Unable to eat/drink [] Unable to sleep [] Unable to be with family [] Patient intubated [] Other: Summary Time spent with patient 5 min
--- NOTE | 2023-04-26 10:19 | P.PN_ITS ---
Subjective 2 Subjective: no new complaints Medications: Reviewed: Yes Vitals/I&O/Wt Last Vital Signs Temp 98.8 F 04/26/23 00:35 Pulse 76 04/26/23 08:56 Resp 18 04/26/23 08:56 BP 122/69 04/26/23 00:35 Pulse Ox 91 04/26/23 08:56 O2 Del Method Nasal Cannula 04/26/23 08:56 O2 Flow Rate 1 04/26/23 08:56 04/25/23 04/26/23 04/26/23 22:59 06:59 14:59 Intake Total 50 / 350 120 / 470 Balance 50 / 350 120 / 470 Weight last 48 hrs Weight 51.256 kg Physical Exam 2 Narrative: Awake, alert, no acute distress On 2 L nasal cannula No edema Data 04/26/23 04:53 04/26/23 04:53 Micro: Microbiology 04/25/23 11:30 Gram Stain - Final Sputum - Expectorated Sputum 04/25/23 11:32 Blood Culture - Preliminary Blood SPECIMEN COLLECTED 04/25/23 11:28 Blood Culture - Preliminary Blood SPECIMEN COLLECTED A&P Assessment and plan (1) ESRD on peritoneal dialysis: 1. End-stage renal disease: On peritoneal dialysis, patient does cycler, 1500 mL x 2 exchanges, 2.5% dextrose solution every day, will do manual exchanges while in the hospital, patient family brought home supplies. Patient received IV contrast 2. History of coronary artery disease 3.Acute on chronic respiratory failure: Has pneumonia, on antibiotics, added nystatin as prophylaxis while patient on PD 4. History of COPD, ordered DuoNebs per primary team Patient evaluated using audiovisual cart. Time spent 20 minutes. Attestations 2 Medical Necessity Statement*: per medicien team Coding Level of Care Code Acute Code for Chg Fwd Diagnoses ESRD on peritoneal dialysis N18.6; Z99.2
[2023-04-26 13:18] LABS: Glucose Point of Care 234 mg/dL (70-110)
--- NOTE | 2023-04-26 13:29 | PM.PN ---
Subjective Subjective: Montserrat is still coughing some. She still has chest pain. She feels weak. She is short of breath when she moves around. Previous sputum culture showed Pseudomonas. Medications: Reviewed: Yes Vitals/I&O/Wt Last Vital Signs Temp 98.8 F 04/26/23 00:35 Pulse 76 04/26/23 08:56 Resp 18 04/26/23 08:56 BP 122/69 04/26/23 00:35 Pulse Ox 91 04/26/23 08:56 O2 Del Method Nasal Cannula 04/26/23 08:56 O2 Flow Rate 1 04/26/23 08:56 04/25/23 04/26/23 04/26/23 22:59 06:59 14:59 Intake Total 50 / 350 120 / 470 120 / 120 Balance 50 / 350 120 / 470 120 / 120 Weight last 48 hrs Weight 51.256 kg Physical Exam Narrative: General exam is white female, reporting chest discomfort Neck is supple no lymphadenopathy thyromegaly Cardiovascular regular rate and rhythm, Lungs: Clear but with diminished breath sounds bilaterally. No wheezing or crackles Abdomen is soft with positive bowel sounds. No obvious organomegaly Extremities no cyanosis clubbing or edema, cap refill brisk Data 04/26/23 04:53 04/26/23 04:53 Micro: Microbiology 04/25/23 11:30 Gram Stain - Final Sputum - Expectorated Sputum Sputum Culture - Preliminary 04/25/23 11:28 Blood Culture - Preliminary Blood NEGATIVE TO DATE 04/25/23 11:32 Blood Culture - Preliminary Blood NEGATIVE TO DATE A&P Assessment and plan (1) Pneumonia: Patient presents with pneumonia She has past history of Pseudomonas in her sputum, sensitive to Zosyn Sputum culture blood cultures been done, blood culture negative to date. Sputum culture pending Currently Zosyn, a Zithromax are her antibiotics Continue oxygen 2 L which she is on chronically, titrate if needed COVID and influenza were negative (2) COPD (chronic obstructive pulmonary disease): No evidence of exacerbation currently Continue DuoNeb every 6 hours Continue budesonide twice daily (3) Hemoptysis: Patient presents with hemoptysis. This is most less likely secondary to pneumonia. There is no evidence of pulmonary embolism. She does have nodule on the right, and will need repeat CT scan in 4 months or so. Hemoptysis appears to be improving (4) ESRD on peritoneal dialysis: Nephrology consult for peritoneal dialysis (5) CAD (coronary artery disease): Continue statin, beta-dada, Plavix, aspirin Qualifiers: Coronary Disease-Associated Artery/Lesion type: [place] artery [place] vs. transplanted heart: [place] heart Associated angina: without angina Qualified Code(s): I25.10 - Atherosclerotic heart disease of [place] coronary artery without angina pectoris (6) Type 2 diabetes mellitus with diabetic polyneuropathy: Continue sliding scale insulin Qualifiers: Diabetes mellitus detention insulin use: without detention use Qualified Code(s): E11.42 - Type 2 diabetes mellitus with diabetic polyneuropathy Plan Other medical problems as outlined by past medical history Full code Heparin will suffice for DVT prophylaxis Attestations Medical Necessity Statement*: Needs continued hospitalization for IV antibiotics secondary to pneumonia, possible discharge tomorrow. Past illness complicated by Pseudomonas. Diagnoses Pneumonia J18.9 COPD (chronic obstructive pulmonary disease) J44.9 Hemoptysis R04.2 ESRD on peritoneal dialysis N18.6; Z99.2 Coronary artery disease involving [place] coronary artery of [place] heart without angina pectoris I25.10 Coronary Disease-Associated Artery/Lesion type: [place] artery [place] vs. transplanted heart: [place] heart Associated angina: without angina Type 2 diabetes mellitus with diabetic polyneuropathy, without long-term current use of insulin E11.42 Diabetes mellitus detention insulin use: without detention use Time Spent (min) 27
[2023-04-26] MEDS: heparin 5,000 unit/mL INJ 1 mL 5000 UNIT SUBCUT (14:19)
[2023-04-26] MEDS: piperacillin-tazobactam 2.25 GM in sodium chloride 0.9% (plus) 50 ML IV (14:24)
[2023-04-26 17:27] LABS: Glucose Point of Care 116 mg/dL (70-110)
[2023-04-26] MEDS: atorvastatin 40 mg Tablet 80 MG PO (18:24)
[2023-04-26] MEDS: aspirin 81 mg EC Tablet PO (18:25)
[2023-04-26] MEDS: acetaminophen 325 mg Tablet 650 MG PO (18:31)
[2023-04-26] MEDS: trazodone 50 mg Tablet 100 MG PO (20:38)
[2023-04-26] MEDS: gabapentin 100 mg Capsule PO (20:38)
[2023-04-26] MEDS: losartan 50 mg Tablet 25 MG PO (20:41)
[2023-04-26 21:54] LABS: Glucose Point of Care 123 mg/dL (70-110)
[2023-04-27] VITALS (10 sets, daily range): BP systolic 95–139; BP diastolic 58–75; PULSE 71–89; RESP 16–18; TEMP 36.4–37.2; O2SAT 92–98
[2023-04-27] MEDS: ipratropium-albuterol 3 mL Neb INHALATION ×3 (02:46→13:42)
[2023-04-27] MEDS: piperacillin-tazobactam 2.25 GM in sodium chloride 0.9% (plus) 50 ML IV (03:09)
[2023-04-27] MEDS: heparin 5,000 unit/mL INJ 1 mL 5000 UNIT SUBCUT (03:10)
[2023-04-27 05:03] LABS: Basophils % 0.3 %; Eosinophils # 0.2 10^3/uL (0.0-0.8); Eosinophils % 2.7 %; Hematocrit 32.9 % (36-47); Lymphocytes # 1.1 10^3/uL (0.8-4.8); Lymphocytes % 11.9 %; Mean Corpuscular HGB Conc 31.3 g/dL (30-55); Mean Corpuscular Hemoglobin 30.7 pg (27-33); Mean Corpuscular Volume 98.2 fl (85-98); Mean Platelet Volume 9.5 fL (7.4-10.4); Monocytes # 0.9 10^3/uL (0.2-0.9); Monocytes % 9.8 %; Neutrophils # 6.61 10^3/uL (1.8-7.7); Nucleated Red Blood Cells % 0 %; Platelet Count 285 10^3/cmm (157-399); Red Blood Count 3.35 10^6/uL (3.85-5.65); Red Cell Distribution Width 14.1 % (12.1-15.1); White Blood Count 8.82 10^3/uL (3.29-11.43)
[2023-04-27 05:49] LABS: Anion Gap 17.9 (5-19); Blood Urea Nitrogen 55 mg/dL (8-23); Calcium 9.4 mg/dL (8.5-10.5); Carbon Dioxide 23 mmol/L (22-29); Chloride 101 mmol/L (98-107); Glomerular Filtration Rate 7.4 mL/min (90-130); Glucose 88 mg/dL (65-115); Osmolality Calculated 301 mOsm/kg (285-295); Potassium 3.9 mmol/L (3.5-5.1); Sodium 138 mmol/L (136-145)
[2023-04-27] MEDS: citalopram 20 mg Tablet 40 MG PO (06:17)
[2023-04-27] MEDS: clopidogrel 75 mg Tablet PO (06:17)
[2023-04-27 07:16] LABS: Glucose Point of Care 108 mg/dL (70-110)
[2023-04-27] MEDS: budesonide 0.5 mg/2 mL Neb INHALATION (08:37)
[2023-04-27] MEDS: calcitriol 0.25 mcg Capsule PO (08:42)
[2023-04-27] MEDS: polyethylene glycol 3350 Pkt 17 gm PO (08:42)
[2023-04-27] MEDS: sevelamer 800 mg Tablet PO (08:43)
[2023-04-27] MEDS: pantoprazole DR 40 mg Tablet PO (08:43)
[2023-04-27] MEDS: guaiFENesin 600 mg Tablet PO (08:43)
[2023-04-27] MEDS: bumetanide 1 mg Tablet 2 MG PO (08:43)
[2023-04-27] MEDS: lidocaine 5% Patch 1 PATCH TOPICAL (08:46)
[2023-04-27] MEDS: nystatin 100,000 unit/mL UDC 5 mL 400000 UNIT PO ×2 (08:48→13:17)
--- NOTE | 2023-04-27 09:17 | PC.PHAR ---
pts verified pts medications-pts states the pts calcitriol 0.25mcg daily was dced months ago ext shows last filled 03/14/23 90d/s-pts states the pt takes metoprolol succinate er 50mg qpm ext shows last filled 01/23/23 90d/s- rx written 03/03/23 for 50mg daily prn-pts states the pt takes hydralazine 25mg tid prn for bp over 130 ext shows last filled 12/13/22 90d/s 25mg tid-crestor was entered as 40mg qpm when med rec was done when pt was admitted ext shows 10mg daily filled 04/19/23 90d/s pts states the pt takes 10mg daily so fixed in system as 10mg qpm-
--- NOTE | 2023-04-27 10:22 | P.PN_ITS ---
Subjective 2 Subjective: feels better Medications: Reviewed: Yes Vitals/I&O/Wt Last Vital Signs Temp 98.1 F 04/27/23 07:57 Pulse 77 04/27/23 08:37 Resp 18 04/27/23 08:37 BP 95/62 04/27/23 07:57 Pulse Ox 92 04/27/23 08:37 O2 Del Method Nasal Cannula 04/27/23 08:37 O2 Flow Rate 1.5 04/27/23 08:37 04/26/23 04/27/23 04/27/23 22:59 06:59 14:59 Intake Total 900 / 1260 50 / 1310 120 / 120 Balance 900 / 1260 50 / 1310 120 / 120 Weight last 48 hrs Weight 54.913 kg Physical Exam 2 Narrative: Awake, alert, no acute distress On 2 L nasal cannula No edema Data 04/27/23 04:54 04/27/23 04:54 Micro: Microbiology 04/25/23 11:30 Gram Stain - Final Sputum - Expectorated Sputum Sputum Culture - Final 04/25/23 11:28 Blood Culture - Preliminary Blood NEGATIVE TO DATE 04/25/23 11:32 Blood Culture - Preliminary Blood NEGATIVE TO DATE A&P Assessment and plan (1) ESRD on peritoneal dialysis: 1. End-stage renal disease: On peritoneal dialysis, patient does cycler, 1500 mL x 2 exchanges, 2.5% dextrose solution every day, will do manual exchanges while in the hospital, patient family brought home supplies. Patient received IV contrast 2. History of coronary artery disease 3. Acute on chronic respiratory failure: Has pneumonia, on antibiotics, added nystatin as prophylaxis while patient on PD 4. History of COPD, ordered DuoNebs per primary team Patient evaluated using audiovisual cart. Time spent 20 minutes. Attestations 2 Medical Necessity Statement*: per medicien team Coding Level of Care Code Acute Code for Chg Fwd Diagnoses ESRD on peritoneal dialysis N18.6; Z99.2
--- NOTE | 2023-04-27 10:24 | PC.CHAP ---
Pastoral Care Encounter/Spiritual Assessment Type of Contact [] Declined gradall operator visit [] Patient/Family/Request visit [] Outpatient visit [] Follow-up visit [] Physician referral [] Code/Alert [x] Routine visit [] Staff referral [] Actively dying [] Patient sleeping [] Family support [] [] Out of room [] Palliative care [] [] Receiving care in room [] Pre-surgical visit [] Trauma [] Long length of stay [] ICU visit [] Other: Relational/Emotional Strength [x] Patient feels connected with others/family/visitors/staff [] Distress [] Loneliness/isolation [] Abandonment Spirituality of Patient [] Person of Marta [] Attends Confucianist of their Marta [x] Believes in Prayer [] Reads Bible or Adventist materials [] There are Spiritual issues to be addressed Gasoline Engine Inspector Interventions [x] Prayer [x] Active listening [] Non-anxious presence [] Spiritual/emotional support [] Crisis/trauma care [] Spiritual counseling [] Bereavement support [] Provided bereavement packet [] Provided Bible/devotional materials [] Provided toy/stuffed animal, coloring book to patient or family member [] Provided Communion [] Anointing/[place] [] Salvation [] Completed spiritual assessment [] Other: Impact on Illness or Injury [] Angry [] Fearful [] Anxious [] Often cries [] Exhaustion [] Unable to work [] Unable to attend lutheran [] Unable to walk/stand [] Unable to read [] Unable to drive [] Unable to eat/drink [] Unable to sleep [] Unable to be with family [] Patient intubated [] Other: Summary Time spent with patient 15 min
[2023-04-27] MEDS: azithromycin 500 MG in sodium chloride 0.9% 250 ML 250 MG IV (10:49)
[2023-04-27 11:51] LABS: Glucose Point of Care 152 mg/dL (70-110)
--- NOTE | 2023-04-27 14:19 | PM.DCS ---
Discharge Providers Date of Admission: 04/26/23 13:33 Date of Discharge: April 27, 2023 Attending Provider at Admission: Jonnathan Delacruz MD Attending Provider at Discharge: Jonnathan Delacruz MD Primary Care Provider: Renay Duarte MD Diagnoses at Discharge Discharge Diagnosis (1) ESRD on peritoneal dialysis: Status: Acute Reason for Visit Reason for Visit: sob, left sided chest pain Hospital Course Hospital Course Yas is a 67-year-old white female that presented to the hospital with cough, and left-sided chest pain. She was found to have a pneumonia. No pulmonary embolism was noted on CTA. She did have some hemoptysis with her cough. I alerted her and her family that she had a new opacity right lung that would need follow-up in 4 to 6 months. With treatment she continued to have some pain in her left chest, wrapping around her chest to the nerve distribution. We did add Neurontin while she was in the hospital. She was maintained on Zosyn and Zithromax in the hospital. I day of discharge she was doing better. She still had some pain but it was not as severe. She had been afebrile. She was on 1.5 L of oxygen, lower than her usual with 2. It was thought she could go home and continue to recover there. She was asked to follow-up with her primary care provider in 3 to 5 days. They will follow-up further on her CT scan, and from my understanding she has a pulmonary follow-up as well. They can make a decision whether further investigation of hemoptysis should occur with bronchoscopy. They were given an opportunity ask questions, and agreed with the plan. Physical Exam Narrative: General exam no distress Neck is supple Cardiovascular regular in rhythm Lungs clear. Diminished breath sounds noted bilaterally Abdomen is soft Extremities no sinus clubbing or edema Discharge Data Studies Completed and Pending Completed Studies During Hospitalization Category Date Time Status CT angio chest PE protcl [id number] Stat Cat Scan 04/25/23 11:35 Completed XR chest 1V portable [id number] Stat Exams 04/25/23 09:57 Completed Pending at discharge Category Date Time Status Blood Culture Stat Lab 04/25/23 11:32 Results Radiology Impressions Chest X-Ray 04/25/23 09:57 IMPRESSION: 1. Nonspecific left lung base opacity favors pneumonia. 2. There is blunting of the left costophrenic angle, likely indicating a small to moderate pleural effusion. ADDENDUM: 04/25/23 1111 THIS REPORT CONTAINS FINDINGS THAT MAY BE CRITICAL TO PATIENT CARE. The findings were verbally communicated via telephone conference at 11:00 AM [employer] on 04/25/2023 with JOANNE PATRICK. The findings were acknowledged and understood. Laboratory Results WBC 8.82 10^3/uL (3.29-11.43) 04/27/23 04:54 RBC 3.35 10^6/uL (3.85-5.65) L 04/27/23 04:54 Hgb 10.30 g/dL (11.27-16.99) L 04/27/23 04:54 Hct 32.9 % (36-47) L 04/27/23 04:54 MCV 98.2 fl (85-98) H 04/27/23 04:54 MCH 30.7 pg (27-33) 04/27/23 04:54 MCHC 31.3 g/dL (30-55) 04/27/23 04:54 RDW 14.1 % (12.1-15.1) 04/27/23 04:54 Plt Count 285 10^3/cmm (157-399) 04/27/23 04:54 MPV 9.5 fL (7.4-10.4) 04/27/23 04:54 Neut % (Auto) 75.0 % 04/27/23 04:54 Lymph % (Auto) 11.9 % 04/27/23 04:54 [place] % (Auto) 9.8 % 04/27/23 04:54 Eos % (Auto) 2.7 % 04/27/23 04:54 Baso % (Auto) 0.3 % 04/27/23 04:54 Neut # (Auto) 6.61 10^3/uL (1.8-7.7) 04/27/23 04:54 Lymph # (Auto) 1.1 10^3/uL (0.8-4.8) 04/27/23 04:54 [place] # (Auto) 0.9 10^3/uL (0.2-0.9) 04/27/23 04:54 Eos # (Auto) 0.2 10^3/uL (0.0-0.8) 04/27/23 04:54 Baso # (Auto) 0.0 10^3/uL (0.0-0.1) 04/27/23 04:54 Nucleated RBC % (auto) 0 % 04/27/23 04:54 Nucleated RBCs # 0.0 /100WBC 04/27/23 04:54 PT 13.00 SECONDS (12.1-14.9) 04/25/23 10:32 INR 0.96 (0.8-1.2) 04/25/23 10:32 APTT 31.3 SECONDS (23.9-36.7) 04/25/23 10:32 Sodium 138 mmol/L (136-145) 04/27/23 04:54 Potassium 3.9 mmol/L (3.5-5.1) 04/27/23 04:54 Chloride 101 mmol/L (98-107) 04/27/23 04:54 Carbon Dioxide 23 mmol/L (22-29) 04/27/23 04:54 Anion Gap 17.9 (5-19) 04/27/23 04:54 BUN 55 mg/dL (8-23) H 04/27/23 04:54 Creatinine 5.7 mg/dL (0.5-0.9) H* 04/27/23 04:54 GFR Calculation 7.4 mL/min (90-130) L 04/27/23 04:54 Glucose 88 mg/dL (65-115) 04/27/23 04:54 POC Glucose 152 mg/dL (70-110) H 04/27/23 11:07 Calculated Osmolality 301 mOsm/kg (285-295) H 04/27/23 04:54 Calcium 9.4 mg/dL (8.5-10.5) 04/27/23 04:54 Magnesium 3.0 mg/dL (1.7-2.3) H 04/26/23 04:53 Total Bilirubin 0.2 mg/dL (0.15-1.2) 04/26/23 04:53 AST 12 U/L (0-32) 04/26/23 04:53 ALT 14 U/L (0-33) 04/26/23 04:53 Alkaline Phosphatase 90 U/L (35-105) 04/26/23 04:53 Troponin T Baseline 150 ng/L (0-10) H* 04/25/23 10:32 Troponin T 120 Minute 139.2 ng/L (0-10) H 04/25/23 12:47 Delta Troponin T -10.8 ABS# (0-10) L 04/25/23 12:47 Troponin T Hi Sens 6Hr 145.3 ng/L (0-10) H 04/25/23 16:27 Troponin T Hi Sens 6Hr Delta -4.7 ng/L (0-12) L 04/25/23 16:27 Total Protein 5.1 g/dL (6.6-8.7) L 04/26/23 04:53 Albumin 2.4 g/dL (3.5-5.2) L 04/26/23 04:53 Globulin 2.7 g/dL (1.3-4.6) 04/26/23 04:53 Coronavirus 229E (PCR) Not detected (NOT DETECT) 04/25/23 13:00 Influenza Type A Ag negative (Negative) 04/25/23 13:00 Influenza Type B Ag negative (Negative) 04/25/23 13:00 SARS-CoV-2 (PCR) Not detected (NOT DETECT) 04/25/23 13:00 Vitals Last Vital Signs Temp 98.2 F 04/27/23 11:46 Pulse 73 04/27/23 13:48 Resp 16 04/27/23 13:42 BP 117/64 04/27/23 11:46 Pulse Ox 98 04/27/23 13:42 O2 Del Method Nasal Cannula 04/27/23 13:42 O2 Flow Rate 1.5 04/27/23 13:42 Discharge Plan Discharge Patient Disposition: Home Condition: Stable Prescriptions: New gabapentin 100 mg Capsule 100 mg PO BEDTIME Qty: 30 0RF ciprofloxacin HCl [Cipro] 500 mg tablet 500 mg PO DAILY Qty: 7 0RF Continued aspirin 81 mg tablet,delayed release (DR/EC) 81 mg PO QPM cholecalciferol (vitamin D3) 50 mcg (2,000 unit) capsule 2,000 unit PO DAILY@08 polyethylene glycol 3350 [Miralax] 17 gram/dose powder 17 g PO QAM budesonide 0.5 mg/2 mL suspension for nebulization 0.5 mg inhalation BID Rx Instructions: mixed with perforomist formoterol fumarate [Perforomist] 20 mcg/2 mL solution for nebulization 2 ml inhalation BID Rx Instructions: mixed with budesonide (DME) nebulizers Misc See Rx Instructions .Route Qty: 1 0RF Rx Instructions: 1 nebulizer and all required suppliesAs directed trazodone 50 mg tablet 100 mg PO BEDTIME glipizide 2.5 mg tablet extended release 24hr 2.5 mg PO QAM bumetanide 2 mg tablet 2 mg PO BID RenaPlex-D 800 mcg-12.5 mg -2,000 unit tablet 1 tab PO QAM gentamicin 0.1 % cream See Rx Instructions .ROUTE .COMPLEX Rx Instructions: 1 applic topically to exit site as directed lactulose 10 gram/15 mL solution 30 ml PO Q4H PRN (Reason: Constipation) losartan 25 mg tablet 25 mg PO QAM sevelamer carbonate 800 mg tablet 800 mg PO TID citalopram 40 mg tablet 40 mg PO QAM clopidogrel 75 mg tablet 75 mg PO QAM albuterol sulfate 90 mcg/actuation HFA aerosol inhaler 2 puff inhalation Q4H PRN (Reason: Shortness Of Breath) Pepcid Complete 10-800-165 mg Tablet,Chewable 1 tab PO DAILY PRN (Reason: Acid Reflux) albuterol sulfate 2.5 mg /3 mL (0.083 %) Solution For Nebulization 2.5 mg inhalation DAILY PRN (Reason: Shortness Of Breath) Zyrtec 10 mg Tablet 10 mg PO DAILY PRN (Reason: Allergy Symptoms) hydralazine 25 mg tablet 25 mg PO TID PRN (Reason: blood pressure over 130) Tylenol Ex Str Rapid Release 500 mg Tablet 500 mg PO Q6H PRN (Reason: Pain) Benadryl 25 mg Capsule 25 mg PO .UP TO 6 TIMES A DAY PRN (Reason: Itching) rosuvastatin 10 mg tablet 10 mg PO QPM Yupelri 175 mcg/3 mL Solution For Nebulization 175 mcg INHALATION DAILY@14 metoprolol succinate 50 mg tablet extended release 24 hr 50 mg PO QPM Mucinex 600 mg tablet extended release 12hr 600 mg PO BID Discharge Orders: Discharge Order (Routine); Ordered 04/27/23 Ordered By: Jonnathan Delacruz Referrals: Renay Duarte MD [Primary Care Provider] - Discharge Diet: Usual diet Discharge Activity: Increase activity as tolerated Patient Instructions: Opioid Safety Activity Restrictions/Additional Instructions: Resume your home oxygen at 1-1/2 L per nasal cannula Take all medicine as prescribed Finish your 7 days of antibiotics Follow-up with your primary care provider 3 to 5 days. Please notify them if any hemoptysis persists after treatment for your pneumonia. Discharge Attestations Time Spent in Discharge Care*: greater than 30 min Status at Discharge: Cognitive status at discharge: cognitively intact, Behavioral status at discharge: cooperative and independent in ADL's, Quality Metrics Clinical Quality Measures [ No reported AMI, CVA or VTE this stay] Coding Level of Care Code 25418 Total time (in minutes) for Discharge: 34 Diagnoses ESRD on peritoneal dialysis N18.6; Z99.2
--- NOTE | 2023-04-27 16:27 | PC.NURSE ---
Discussed discharge follow up appointments, new medications, continued medications and side effect paperwork. Patient verbalized understanding.
== END 2023-04-27 15:46 | disposition home or self-care (01) | DRG 193 ==
LOC: ER 10:18 → ER IP 13:29 → MEDSURG 18:44
PROVIDERS: Admitting Provider Internal Medicine; Emergency Provider Family Medicine; PCP Family Medicine; Visit Provider Internal Medicine
DX: J18.9 Pneumonia, unspecified organism (principal); J96.20 Acute and chronic respiratory failure, unspecified whether with hypoxia or hypercapnia; N18.6 End stage renal disease; J90 Pleural effusion, not elsewhere classified; I12.0 Hypertensive chronic kidney disease with stage 5 chronic kidney disease or end stage renal disease; R04.2 Hemoptysis; F17.210 Nicotine dependence, cigarettes, uncomplicated; Z99.81 Dependence on supplemental oxygen; I25.10 Atherosclerotic heart disease of native coronary artery without angina pectoris; Z98.61 Coronary angioplasty status; E11.22 Type 2 diabetes mellitus with diabetic chronic kidney disease; Z99.2 Dependence on renal dialysis; J44.9 Chronic obstructive pulmonary disease, unspecified; I25.2 Old myocardial infarction; E78.5 Hyperlipidemia, unspecified; Z86.711 Personal history of pulmonary embolism; R91.1 Solitary pulmonary nodule; E11.42 Type 2 diabetes mellitus with diabetic polyneuropathy
CPT/HCPCS: 36415; 36416; 71045; 71275; 80048; 80053; 82962; 83735; 84484; 85025; 85610; 85730; 87040; 87070; 87205; 87635; 87804; 93005; 94640; 96365; 96366; 96367; 96372; 99285; G0378; J0456; J0696; J1644; J2543; J7050; J7626; Q3014; Q9967

== ENCOUNTER 2023-04-29 06:00 | Outpatient (RCR) | payer MEDICARE, SELFPAY | END 2023-05-29 23:59 | disposition home or self-care (01) | LOC: TPT 06:00 | PROVIDERS: PCP Family Medicine; Visit Provider Family Medicine | DX: S76.219D Strain of adductor muscle, fascia and tendon of unspecified thigh, subsequent encounter (principal); X58.XXXD Exposure to other specified factors, subsequent encounter | CPT/HCPCS: 97110 ==

== ENCOUNTER 2023-05-11 11:25 | Outpatient (CLI) | payer MEDICARE, SELFPAY ==
--- NOTE | 2023-05-11 11:30 | MM_ITS ---
WS: [id number] VIEWS: MLO and CC views both breasts. 3D digital tomosynthesis is also included in this exam. Comparison made with prior exam of 10/22/2010, 04/12/2012, 06/15/2013, 07/10/2014, 07/11/2015, 07/16/2016, 01/06/2018, 01/26/2019, 03/06/2020, 04/16/2021, 04/19/2022.. Findings: There was no sign of mass, architectural distortion or suspicious calcification in either breast. The breasts are extremely dense which would lower the sensitivity of mammography. Impression: MM/[place] [id number] BI-RADS: 2-Benign finding. FOLLOW-UP: 1 Year Follow-up This mammogram was also analyzed by the Computer Aided Detection System [employer].
== END 2023-05-11 11:26 | disposition home or self-care (01) ==
LOC: RAD 11:26
PROVIDERS: PCP Family Medicine; Visit Provider Family Medicine
DX: Z12.31 Encounter for screening mammogram for malignant neoplasm of breast (principal)
CPT/HCPCS: 77063; 77067; 99204

== ENCOUNTER 2023-05-26 13:20 | Outpatient (CLI) | payer MEDICARE, SELFPAY ==
[2023-05-26 13:40] VITALS: PULSE 65; RESP 18; O2SAT 94
[2023-05-26] MEDS: albuterol 2.5 mg/3 mL Neb INHALATION (13:40)
[2023-05-26 13:44] VITALS: PULSE 63
== END 2023-05-26 13:21 | disposition home or self-care (01) ==
PROVIDERS: PCP Family Medicine; Visit Provider Internal Medicine Pulmonary Disease
DX: J44.9 Chronic obstructive pulmonary disease, unspecified (principal); R94.2 Abnormal results of pulmonary function studies
CPT/HCPCS: 94060; 94726; 94729

== ENCOUNTER 2023-05-30 06:00 | Outpatient (RCR) | payer MEDICARE, SELFPAY | END 2023-06-29 23:59 | disposition home or self-care (01) | LOC: TPT 06:00 | PROVIDERS: PCP Family Medicine; Visit Provider Family Medicine | DX: S76.219D Strain of adductor muscle, fascia and tendon of unspecified thigh, subsequent encounter (principal); X58.XXXD Exposure to other specified factors, subsequent encounter | CPT/HCPCS: 97110 ==

== ENCOUNTER → 2023-06-15 14:23 | Outpatient (BNVA) | payer MEDICARE, SELFPAY | PROVIDERS: PCP Family Medicine; Visit Provider Internal Medicine | DX: I13.0 Hypertensive heart and chronic kidney disease with heart failure and stage 1 through stage 4 chronic kidney disease, or unspecified chronic kidney disease (principal); E11.22 Type 2 diabetes mellitus with diabetic chronic kidney disease; I50.9 Heart failure, unspecified; N18.4 Chronic kidney disease, stage 4 (severe); Z87.891 Personal history of nicotine dependence; Z79.84 Long term (current) use of oral hypoglycemic drugs; I25.10 Atherosclerotic heart disease of native coronary artery without angina pectoris; N28.89 Other specified disorders of kidney and ureter | CPT/HCPCS: 99214 ==

== ENCOUNTER 2023-06-30 06:00 | Outpatient (RCR) | payer MEDICARE, SELFPAY | END 2023-07-12 23:59 | disposition home or self-care (01) | LOC: TPT 06:00 | PROVIDERS: PCP Family Medicine; Visit Provider Family Medicine | DX: S76.219D Strain of adductor muscle, fascia and tendon of unspecified thigh, subsequent encounter (principal); X58.XXXD Exposure to other specified factors, subsequent encounter | CPT/HCPCS: 97110 ==

== ENCOUNTER 2023-07-05 10:05 | Outpatient (CLI) | payer MEDICARE, SELFPAY ==
--- NOTE | 2023-07-05 10:30 | PETR_ITS ---
PROCEDURE INFORMATION: Exam: PET/CT Skull Base to Mid-thigh Exam date and time: 07/05/2023 11:17 AM Age: 67 years old Clinical indication: Abnormal findings; 5. New ovoid opacity right upper lobe along the fissure. This measures 1.4 x [address] Follow-up in 4 to 6 weeks and if persistent, this could be further evaluated with pet/ct. ; Additional info: Pulmonary opacities LABS AND CLINICAL REPORTS: Glucose: 91 mg/dl Treatment strategy for malignancy (PET staging): Initial Staging (PI) TECHNIQUE: Imaging protocol: Following at least four-hour fasting and following the injection of radiopharmaceutical, low dose CT images were obtained. Then, PET images were obtained. Attenuation corrected images were constructed using the CT scan. Fused images of PET and CT were reviewed. The standardized uptake values (SUV) reported below are maximum values within a region of interest, expressed in gm/ml. Exam includes orbital meatal line to mid-thigh. Radiopharmaceutical: 13.56 mCi F-18 FDG (Fluorodeoxyglucose), IV. Time of imaging post radiopharmaceutical administration: 1 hour Injection site: Right antecubital fossa COMPARISON: 1. CT abdomen w con* [id number] 10/22/2022 1:[address] angio chest PE protcl [id number] 04/25/2023 11:57 AM FINDINGS: Tubes, catheters and devices: Peritoneal dialysis catheter in place. Brain: Visualized brain has normal physiologic uptake. Pharynx: No abnormal uptake. Larynx: No abnormal uptake. Thyroid: There is diffuse thyroid uptake with SUV maximum of 3.5. Lungs, pleura and trachea: Posterior right upper lobe opacity abutting the fissure on series 3, image 63 measures 1.0 x 1.7 cm smaller than the previous study where it measured 1.3 x 1.7 cm when measured in the same fashion. The nodule appears less solid. There is no significant uptake on PET. Emphysema is unchanged. Nodular densities in the lingula measuring 9 mm on series 3, image 76 and 8 mm on series 3, image 71 are likely unchanged. These also do not have significant uptake. There is a spiculated opacity in the left lower lobe abutting the pleura for example on series 3, image 104 measuring 6.0 x 3.8 cm. This has uptake on PET with SUV maximum of 2.9. There is debris in the trachea and bronchi. Minimal subpleural opacity superior segment right lower lobe without significant uptake may be related to scarring, similar to previous. Heart: Normal physiologic uptake. Mediastinal space: There is mild uptake in the esophagus with SUV maximum of 2.4 suggesting possible esophagitis. Liver: No abnormal uptake. Gallbladder and bile ducts: No abnormal uptake. Pancreas: No abnormal uptake. Spleen: No abnormal uptake. Adrenal glands: No abnormal uptake. Kidneys and ureters: Atrophic right kidney with bilateral renal cysts, unchanged. Stomach and bowel: There are colonic diverticuli are present without inflammation. Intraperitoneal and retroperitoneal spaces: Minimal ascites. Vasculature: Marked atherosclerotic changes of the vasculature. Lymph nodes: No abnormal uptake. No lymphadenopathy in the head, neck, chest, abdomen, pelvis, and extremities. Bones/joints: No abnormal uptake in the visualized axial and appendicular skeleton. Soft tissues: Mild body wall edema. [facility] INITIAL [id number] IMPRESSION: 1. Posterior right upper lobe opacity abutting the fissure is smaller than the previous study and appears less solid. This does not have significant uptake on PET and is favored to be infectious/inflammatory. Nodular densities in the lingula are similar without significant uptake and may also be infectious/inflammatory. A spiculated nodular opacity is seen in the left lower lobe abutting the pleura with mild uptake on PET. This is new since the comparison CT abdomen and likely was present on CT 04/25/2023. Differential diagnosis is malignancy versus infection. Short-term follow-up chest CT recommended to confirm persistence. A biopsy may be necessary. 2. Diffuse uptake in the thyroid gland suggests thyroiditis. 3. Small volume ascites with peritoneal dialysis catheter in place.
== END 2023-07-05 10:06 | disposition home or self-care (01) ==
LOC: RAD 10:06
PROVIDERS: PCP Family Medicine; Visit Provider Internal Medicine Pulmonary Disease
DX: R91.8 Other nonspecific abnormal finding of lung field (principal); R18.8 Other ascites; Z99.2 Dependence on renal dialysis; Z96.89 Presence of other specified functional implants
CPT/HCPCS: 78815; A9552

== ENCOUNTER → 2023-07-13 12:34 | Outpatient (BNVA) | payer MEDICARE, SELFPAY | PROVIDERS: PCP Family Medicine; Visit Provider Podiatrist Foot & Ankle Surgery | DX: E11.42 Type 2 diabetes mellitus with diabetic polyneuropathy (principal); I25.10 Atherosclerotic heart disease of native coronary artery without angina pectoris; L60.3 Nail dystrophy; L60.8 Other nail disorders; N18.6 End stage renal disease; Z99.2 Dependence on renal dialysis | CPT/HCPCS: 11721 ==

== ENCOUNTER → 2023-07-25 10:12 | Outpatient (BNVA) | payer MEDICARE, SELFPAY | PROVIDERS: PCP Family Medicine; Visit Provider Family Medicine | DX: I50.9 Heart failure, unspecified (principal); I15.1 Hypertension secondary to other renal disorders; N28.89 Other specified disorders of kidney and ureter; E11.42 Type 2 diabetes mellitus with diabetic polyneuropathy; E78.5 Hyperlipidemia, unspecified | CPT/HCPCS: 80053; 80061; 83036; 84443; 85025 ==

== ENCOUNTER → 2023-07-28 11:14 | Outpatient (BNVA) | payer MEDICARE, SELFPAY | PROVIDERS: PCP Family Medicine; Visit Provider Family Medicine | DX: M25.552 Pain in left hip (principal); R79.89 Other specified abnormal findings of blood chemistry | CPT/HCPCS: 73502; 84439; 84443; 84481 ==

== ENCOUNTER → 2023-08-11 12:58 | Outpatient (BNVA) | payer MEDICARE, SELFPAY | PROVIDERS: PCP Family Medicine; Visit Provider Internal Medicine Pulmonary Disease | DX: J43.2 Centrilobular emphysema (principal); J18.1 Lobar pneumonia, unspecified organism; I95.9 Hypotension, unspecified; Z87.891 Personal history of nicotine dependence | CPT/HCPCS: 99214 ==

== ENCOUNTER → 2023-08-29 12:57 | Outpatient (BNVA) | payer MEDICARE, SELFPAY | PROVIDERS: PCP Family Medicine; Visit Provider Dermatology | DX: D48.5 Neoplasm of uncertain behavior of skin (principal); L57.0 Actinic keratosis; L82.0 Inflamed seborrheic keratosis; L03.032 Cellulitis of left toe; L85.3 Xerosis cutis; L82.1 Other seborrheic keratosis; Q82.5 Congenital non-neoplastic nevus; Z85.828 Personal history of other malignant neoplasm of skin | CPT/HCPCS: 11102; 17000; 17110; 99203 ==

== ENCOUNTER 2023-09-07 09:42 | Outpatient (CLI) | payer MEDICARE, SELFPAY ==
--- NOTE | 2023-09-07 10:00 | CT_ITS ---
WS: [id number] CT chest wo con [id number] HISTORY: 6 week f/u TECHNIQUE: Axial imaging performed through the thorax. Coronal and sagittal reformats are submitted. All CT scans at [facility] use at least one of these dose optimization techniques: automated exposure control; mA and/or kV adjustment per patient size (includes targeted exams where dose is mat ched to clinical indication); or iterative reconstruction. CONTRAST: None DLP: 227.89 mGy.cm COMPARISON: 12/08/2018 and 04/25/2023 Lungs and central airway: Severe centrilobular emphysema. Moderate improvement in the areas of consol idation and interstitial thickening in the LEFT lung. There is a spiculated mass with pleural tetheri ng at the LEFT lung base. This is an irregular spiculated mass measuring approximately 4.7 x 2.7 cm. This mass was being obscured by the airspace disease on the prior study. Potentially this could still represent an area of fibrosis and scarring but highly suspicious for neoplasm. Interval resolution o f the opacification along the RIGHT fissure. There are a few additional scattered areas of interstiti al thickening noted bilaterally. These are not masslike at this time. Pleura: Small bilateral pleural effusions. LEFT pleural effusion is slightly decreased in size. Heart and pericardium: Moderate cardiomegaly. Extensive coronary artery calcifications. Mediastinum and pietr: Mediastinum and hilar regions are difficult to evaluate without IV contrast. Vessels: Moderate atherosclerosis aorta. Dense calcification continues into the great vessels. Compon ent of stenosis involving the great vessels is likely. Chest wall and lower neck: Mild soft tissue edema. Upper abdomen: Dense suprarenal aortic calcifications. Some of the calcification is displaced towards the lumen of the aorta probably causing at least a mild obstruction. LEFT renal cyst 1.4 cm. Osseous structures: No destructive process. IMPRESSION: 1. Significant improvement in aeration throughout the LEFT lung with resolving pneumonia. 2. There is a spiculated mass now present at the LEFT lung base measuring 4.2 x 2.7 cm. This needs t o be evaluated for possible neoplasm. This could potentially be an area of scarring and fibrosis and residual pneumonia. Favor neoplasm. Consider follow-up PET/CT imaging. 3. Severe centrilobular emphysema. 4. Small bilateral pleural effusions. 5. Hilar regions and mediastinum are difficult to evaluate for adenopathy without IV contrast. 6. Severe atherosclerosis thoracic aorta and suprarenal aorta. Component of arterial stenosis extend s into the great vessels.
== END 2023-09-07 09:43 | disposition home or self-care (01) ==
LOC: RAD 09:43
PROVIDERS: PCP Family Medicine; Visit Provider Internal Medicine Pulmonary Disease
DX: R94.2 Abnormal results of pulmonary function studies (principal); E11.42 Type 2 diabetes mellitus with diabetic polyneuropathy; L60.3 Nail dystrophy; I25.10 Atherosclerotic heart disease of native coronary artery without angina pectoris; L60.8 Other nail disorders; N18.6 End stage renal disease; Z99.2 Dependence on renal dialysis
CPT/HCPCS: 11721; 71250

== ENCOUNTER → 2023-09-12 11:08 | Outpatient (BNVA) | payer MEDICARE, SELFPAY | PROVIDERS: PCP Family Medicine; Visit Provider Nurse Practitioner Family | DX: D04.5 Carcinoma in situ of skin of trunk (principal); L57.8 Other skin changes due to chronic exposure to nonionizing radiation; L81.4 Other melanin hyperpigmentation; D22.5 Melanocytic nevi of trunk; Z85.828 Personal history of other malignant neoplasm of skin | CPT/HCPCS: 17262; 99213 ==

== ENCOUNTER → 2023-09-15 14:54 | Outpatient (BNVA) | payer MEDICARE, SELFPAY | PROVIDERS: PCP Family Medicine; Visit Provider Family Medicine | DX: R07.9 Chest pain, unspecified (principal) | CPT/HCPCS: 71046; 84439; 84443 ==

== ENCOUNTER 2023-09-21 19:12 | Emergency (ER) | payer MEDICARE, SELFPAY ==
[2023-09-21 19:18] VITALS: BP 110/76; PULSE 87; RESP 20; TEMP 37.2; O2SAT 94; BMI 24.2
--- NOTE | 2023-09-21 19:23 | W.ED.SOB ---
HPI - SOB/Dyspnea General: Chief Complaint: Shortness of Breath/Dyspnea Stated Complaint: SOB Time Seen by Provider: 09/21/23 19:18 History of Present Illness: HPI Narrative: Patient presents to the ER via the [facility] with complaints of being short of breath. Patient was diagnosed about a week ago with pneumonia and given a Z-Fernando which she has completed. Patient states that she is no better with her shortness of breath and hurts when she takes a big deep breath. Patient was given albuterol nebulizer en route. Patient normally wears 2 L of oxygen per nasal cannula at all times she is requiring 3 L of oxygen to keep her sats upwards of about 94%. Review of Systems General: Reports: 10 or more systems reviewed and unremarkable except in HPI and below PFSH ED PFSH: Medical History Hyperlipidemia Low Back Pain Right knee pain Impacted ear wax Acute sinusitis Acute bronchitis Cough URI (upper respiratory infection) Hypokalemia Acute bronchitis Insomnia Myocardial infarct CAD (coronary artery disease) CKD (chronic kidney disease) stage 4, GFR 15-29 ml/min -baseline Cr appears to be around 2-3 -follows up with Chronic obstructive pulmonary disease -recently treated for acute COPD exacerbation with short course of oral steroids and Keflex -noted wheezing on examination, decreased -would like to avoid steroids as patient thinks this contributed to edema as well as episodes of confusion, jitteriness -continue to monitor respiratory status, supplemental oxygen as needed, not oxygen dependent at baseline -neb treatments as needed; would hold off on additional antibiotic treatment at this time given recent use -rapid COVID-19 negative; influenza negative Carotid stenosis, right CAD (coronary artery disease) -hx of CAD s/p stenting x 4 (LAD x 2, LCx, RCA) in 2018 -continue ASA, Plavix, statin -follows up with Dr. Leonardo Contusion of right leg Skin lesion Type 2 diabetes mellitus with diabetic polyneuropathy -A1c-5.5 -accucheks, hypoglycemia precautions, ISS, hold oral hypoglycemic agents -renal diabetic diet as tolerated Hypertension History of heart attack Surgical History Peritoneal dialysis catheter in situ (09/08/20) History of colonoscopy with polypectomy 2018 H/O tubal ligation S/P thoracentesis Status post carotid endarterectomy S/P PTCA (percutaneous transluminal coronary angioplasty) S/P pericardiocentesis History of carpal tunnel release H/O dilation and curettage History of carotid endarterectomy Family History Mother Heart disease Dementia Father Cancer Denies family history of Diabetes CAD (coronary artery disease) Clotting disorder Hyperlipidemia Psychiatric illness Chronic kidney disease (CKD) Suicide Anesthesia complication Bleeding disorder Family history of premature coronary artery disease Lung disease Hypertension Stroke Social History Smoking and tobacco/nicotine status: former use of tobacco/nicotine Quit status (tobacco/nicotine): has quit using Year quit tobacco: November, Former quit date comment: 1.5 ppd X 53 years Alcohol intake: never Substance/Drug Use: never Household members: spouse Marital status: Current occupational status: retired and disabled Current gender identity: Female Physical Exam Const: COMMON NORMALS: no acute distress, average body habitus, patient oriented x3, no limitations, healthy appearing, alert and well nourished HENMT: COMMON NORMALS: normocephalic, atraumatic, hearing grossly normal bilaterally, external ears normal, Normal external nose present, moist oral mucous membranes and oropharynx normal HEAD & SCALP: normocephalic and atraumatic NOSE: Normal external nose present EXTERNAL EAR: Yes external ears normal Neck/C-Spine: COMMON NORMALS: no JVD Chest: COMMONS NORMALS: normal inspection of the chest and normal palpation of entire chest wall Resp: COMMON NORMALS: normal respiratory effort, No retractions and No use of accessory muscles; negative for clear to auscultation bilaterally (Decreased bilaterally with occasional wheeze) AUSCULTATION: not clear to auscultation bilaterally (Decreased bilaterally with occasional wheeze) Cardio: COMMON NORMALS: no JVD, regular rate, regular rhythm, S1 normal heart sound present, S2 normal heart sound present, No gallops present (Cardio), No clicks present (Cardio), No murmurs present (Cardio) and No rub (Cardio) RATE: regular rate RHYTHM: regular rhythm HEART SOUNDS: S1 normal heart sound present and S2 normal heart sound present GI: COMMON NORMALS: Normal to inspection, nondistended, normoactive bowel sounds present, Soft to palpation, non-tender, No hepatosplenomegaly present and no masses PALPATION: Yes Soft to palpation and Yes No hepatosplenomegaly present Neuro: COMMON NORMALS: patient oriented x3 SENSORIUM/ORIENTATION: Yes alert Course Vital Signs: Vital signs: Vital Signs Temperature 99.0 F 09/21/23 19:18 Pulse Rate 81 09/21/23 23:27 Respiratory Rate 18 09/21/23 22:00 Blood Pressure 102/76 09/21/23 23:27 Pulse Oximetry 91 09/21/23 23:27 Oxygen Delivery Me thod Room Air 09/21/23 21:30 Oxygen Flow Rate 3 09/21/23 19:18 MDM - SOB/Dyspnea Medical Decision Making Texted first [address] Holt and discussed the case with him he says her troponin is elevated because of her dialysis, this is only a partial left bundle branch block and because she is not having constant chronic pain only pain when she breathes he would not classify this as a STEMI. Dr. Sotelo was consulted who suggested since the patient has oxygen at home and does not appear septic or toxic we can change her antibiotic to Levaquin every other day and or add doxycycline. This was discussed with the patient patient feels comfortable with this as she has taken Levaquin before. Patient be discharged home. Differential Diagnosis Likely acute exacerbation of chronic obstructive airways disease and community acquired pneumonia; Unlikely congestive heart failure, asthma with exacerbation or pulmonary embolism Medical Records I reviewed the patient's medical records. Lab Data I reviewed the patient's lab results. 09/21/23 20:38 09/21/23 20:38 Labs/Radiology: Radiology Impressions Chest X-Ray 09/21/23 19:24 IMPRESSION: 1. Grossly stable sopu-kw-gmnveqri left basilar atelectasis and/or pneumonia. 2. Decreased opacities with mild residual interstitial pattern consistent with infectious pneumonitis, allergic pneumonitis or pulmonary interstitial edema. Laboratory Results WBC 9.25 10^3/uL (3.29-11.43) 09/21/23 20:38 RBC 3.93 10^6/uL (3.85-5.65) 09/21/23 20:38 Hgb 12.30 g/dL (11.27-16.99) 09/21/23 20:38 Hct 39.7 % (36-47) 09/21/23 20:38 MCV 101.0 fl (85-98) H 09/21/23 20:38 MCH 31.3 pg (27-33) 09/21/23 20:38 MCHC 31.0 g/dL (30-55) 09/21/23 20:38 RDW 13.2 % (12.1-15.1) 09/21/23 20:38 Plt Count 223 10^3/cmm (157-399) 09/21/23 20:38 MPV 9.3 fL (7.4-10.4) 09/21/23 20:38 Neut % (Auto) 87.1 % 09/21/23 20:38 Lymph % (Auto) 3.9 % 09/21/23 20:38 [place] % (Auto) 7.5 % 09/21/23 20:38 Eos % (Auto) 0.9 % 09/21/23 20:38 Baso % (Auto) 0.3 % 09/21/23 20:38 Neut # (Auto) 8.06 10^3/uL (1.8-7.7) H 09/21/23 20:38 Lymph # (Auto) 0.4 10^3/uL (0.8-4.8) L 09/21/23 20:38 [place] # (Auto) 0.7 10^3/uL (0.2-0.9) 09/21/23 20:38 Eos # (Auto) 0.1 10^3/uL (0.0-0.8) 09/21/23 20:38 Baso # (Auto) 0.0 10^3/uL (0.0-0.1) 09/21/23 20:38 Nucleated RBC % (auto) 0 % 09/21/23 20:38 Nucleated RBCs # 0.0 /100WBC 09/21/23 20:38 Sodium 138 mmol/L (136-145) 09/21/23 20:38 Potassium 4.4 mmol/L (3.5-5.1) 09/21/23 20:38 Chloride 99 mmol/L (98-107) 09/21/23 20:38 Carbon Dioxide 23 mmol/L (22-29) 09/21/23 20:38 Anion Gap 20.4 (5-19) H 09/21/23 20:38 BUN 83 mg/dL (8-23) H* 09/21/23 20:38 Creatinine 6.8 mg/dL (0.5-0.9) H* 09/21/23 20:38 GFR Calculation 6.1 mL/min (90-130) L 09/21/23 20:38 Glucose 110 mg/dL (65-115) 09/21/23 20:38 Calculated Osmolality 312 mOsm/kg (285-295) H 09/21/23 20:38 Lactic Acid 0.7 mmol/L (0.5-2.2) 09/21/23 20:38 Calcium 9.7 mg/dL (8.5-10.5) 09/21/23 20:38 Total Bilirubin 0.2 mg/dL (0.15-1.2) 09/21/23 20:38 AST 16 U/L (0-32) 09/21/23 20:38 ALT 12 U/L (0-33) 09/21/23 20:38 Alkaline Phosphatase 65 U/L (35-105) 09/21/23 20:38 Troponin T Baseline 181 ng/L (0-10) H* 09/21/23 20:38 Troponin T 120 Minute 184.3 ng/L (0-10) H 09/21/23 22:27 Delta Troponin T 3.3 ABS# (0-10) 09/21/23 22:27 NT-Pro-B Natriuret Pep 65641 pg/mL (0-125) H 09/21/23 20:38 Total Protein 5.8 g/dL (6.6-8.7) L 09/21/23 20:38 Albumin 3.2 g/dL (3.5-5.2) L 09/21/23 20:38 Globulin 2.6 g/dL (1.3-4.6) 09/21/23 20:38 Procalcitonin 0.31 ng/mL (0-0.5) 09/21/23 20:38 All radiology interpretation(s) finalized by discharge Discharge Plan Discharge Patient Disposition: Home Clinical Impression: ESRD on peritoneal dialysis Community acquired pneumonia Qualifiers: Laterality: left Lung location: lower lobe of lung Qualified Code(s): J18.9 - Pneumonia, unspecified organism Condition: Stable Prescriptions: New levofloxacin 500 mg tablet 500 mg PO Q48H Qty: 4 0RF No Action aspirin 81 mg tablet,delayed release (DR/EC) 81 mg PO QPM cholecalciferol (vitamin D3) 50 mcg (2,000 unit) capsule 2,000 unit PO DAILY@08 polyethylene glycol 3350 [Miralax] 17 gram/dose powder 17 g PO QAM budesonide 0.5 mg/2 mL suspension for nebulization 0.5 mg inhalation BID Rx Instructions: mixed with perforomist formoterol fumarate [Perforomist] 20 mcg/2 mL solution for nebulization 2 ml inhalation BID Rx Instructions: mixed with budesonide metoprolol succinate 25 mg tablet extended release 24 hr 25 mg PO DAILY Qty: 90 3RF Mircera 75 mcg/0.3 mL syringe SUBCUT .month Patient Comments: patient gets an injection once a month azithromycin [Zithromax Z-Fernando] 250 mg tablet See Rx Instructions PO .COMPLEX Qty: 6 0RF Rx Instructions: take 500 mg today (day 1), then 250 mg for 4 days (days 2-5) PO (DME) nebulizers [facility] [place] See Rx Instructions .Route Qty: 1 0RF Rx Instructions: 1 nebulizer and all required suppliesAs directed trazodone 50 mg tablet 100 mg PO BEDTIME Qty: 90 3RF gabapentin 100 mg capsule 100 mg PO .qhs Qty: 90 1RF RSVPreF3 antigen-AS01E (PF) 120 mcg/0.5 mL suspension for reconstitution 0.5 ml IM ONCE Qty: 1 0RF (DME) nebulizer See Rx Instructions .Route .MEDSUPPLY Qty: 1 0RF Rx Instructions: As directed clopidogrel 75 mg tablet See Rx Instructions .ROUTE .COMPLEX Qty: 90 3RF Dose Instruction: TAKE 1 TABLET BY MOUTH ONCE DAILY AT 8 AM Rx Instructions: TAKE 1 TABLET BY MOUTH ONCE DAILY AT 8 AM glipizide 2.5 mg tablet extended release 24hr 2.5 mg PO QAM Qty: 30 3RF levothyroxine 75 mcg capsule 75 mcg PO DAILY Qty: 30 2RF bumetanide 2 mg tablet 2 mg PO BID RenaPlex-D 800 mcg-12.5 mg -2,000 unit tablet 1 tab PO QAM gentamicin 0.1 % cream See Rx Instructions .ROUTE .COMPLEX Rx Instructions: 1 applic topically to exit site as directed lactulose 10 gram/15 mL solution 30 ml PO Q4H PRN (Reason: Constipation) losartan 25 mg tablet 25 mg PO QAM sevelamer carbonate 800 mg tablet 800 mg PO TID citalopram 40 mg tablet 40 mg PO QAM albuterol sulfate 90 mcg/actuation HFA aerosol inhaler 2 puff inhalation Q4H PRN (Reason: Shortness Of Breath) Pepcid Complete 10-800-165 mg Tablet,Chewable 1 tab PO DAILY PRN (Reason: Acid Reflux) albuterol sulfate 2.5 mg /3 mL (0.083 %) Solution For Nebulization 2.5 mg inhalation DAILY PRN (Reason: Shortness Of Breath) Zyrtec 10 mg Tablet 10 mg PO DAILY PRN (Reason: Allergy Symptoms) hydralazine 25 mg tablet 25 mg PO TID PRN (Reason: blood pressure over 130) acetaminophen 500 mg Tablet 500 mg PO Q6H PRN (Reason: Pain) rosuvastatin 10 mg tablet 10 mg PO QPM Yupelri 175 mcg/3 mL Solution For Nebulization 175 mcg INHALATION DAILY@14 Mucinex 600 mg tablet extended release 12hr 600 mg PO BID Discharge Orders: Discharge ED (Routine); Ordered 09/21/23 Ordered By: Anton Conner Referrals: Renay Duarte MD [Primary Care Provider] - 1 week Patient Instructions: Pneumonia (ED) Activity Restrictions/Additional Instructions: Please take your antibiotics as directed which is 1 pill every other day. Please follow-up with your primary care within next week for further evaluation treatment. Coding Level of Care Code ED Plaster Machine Operator for Trell Nuñez
--- NOTE | 2023-09-21 19:24 | XRR_ITS ---
PROCEDURE INFORMATION: Exam: XR Chest Exam date and time: 09/21/2023 8:14 PM Age: 67 years old Clinical indication: Chest wall pain; Additional info: Chest pain, dyspnea TECHNIQUE: Imaging protocol: Radiologic exam of the chest. Views: 1 view. COMPARISON: CR XR chest 2V* [id number] 09/15/2023 3:00 PM FINDINGS: Lungs: Grossly stable ufhm-yc-ftuyhycw left basilar atelectasis and/or pneumonia. Decreased opacities with mild residual interstitial pattern consistent with infectious pneumonitis, allergic pneumonitis or pulmonary interstitial edema. Pleural spaces: Unremarkable. No pleural effusion. No pneumothorax. Heart/Mediastinum: Unremarkable. No cardiomegaly. Vasculature: Calcification of the thoracic aorta and/or great vessels consistent with atherosclerotic vessel disease. Bones/joints: Unremarkable. Other findings: . XR/XR chest 1V portable [id number] IMPRESSION: 1. Grossly stable vdae-vq-lltfqnyz left basilar atelectasis and/or pneumonia. 2. Decreased opacities with mild residual interstitial pattern consistent with infectious pneumonitis, allergic pneumonitis or pulmonary interstitial edema.
--- NOTE | 2023-09-21 19:24 | ECG_ITS ---
[facility] Test Date: 2023-09-21 Pat Name: Yas Oconnell Department: Room: Gender: Female Blow Mold Operator: : 1955 Requested By: Anton Conner Order Number: [id number] Lenin MD: Alek Holt M.D. Measurements Intervals [place] Rate: 81 P: 87 AR: 174 QRS: -18 QRSD: 149 T: 81 QT: 443 QTc: 517 Interpretive Statements SINUS RHYTHM LEFT BUNDLE BRANCH BLOCK [120+ ms QRS DURATION, 80+ ms Q/S IN V1/V2, 85+ ms R IN I/aVL/V5/V6] Compared to ECG 04/25/2023 16:34:36 Left bundle-branch block now present Prolonged QT interval no longer present Electronically Signed On 09-22-2023 15:07:46 CDT by Alek Holt M.D. [id number]
[2023-09-21 20:46] LABS: Basophils % 0.3 %; Eosinophils # 0.1 10^3/uL (0.0-0.8); Eosinophils % 0.9 %; Hematocrit 39.7 % (36-47); Lymphocytes # 0.4 10^3/uL (0.8-4.8); Lymphocytes % 3.9 %; Mean Corpuscular Hemoglobin 31.3 pg (27-33); Mean Platelet Volume 9.3 fL (7.4-10.4); Monocytes # 0.7 10^3/uL (0.2-0.9); Monocytes % 7.5 %; Neutrophils # 8.06 10^3/uL (1.8-7.7); Neutrophils % 87.1 %; Nucleated Red Blood Cells % 0 %; Platelet Count 223 10^3/cmm (157-399); Red Blood Count 3.93 10^6/uL (3.85-5.65); Red Cell Distribution Width 13.2 % (12.1-15.1); White Blood Count 9.25 10^3/uL (3.29-11.43)
[2023-09-21 20:54] VITALS: BP 99/76; PULSE 92; RESP 16; O2SAT 93
[2023-09-21 21:03] LABS: Lactic Sepsis W/Reflex 0.7 mmol/L (0.5-2.2)
[2023-09-21 21:07] LABS: Troponin(5th) Baseline 181 ng/L (0-10)
[2023-09-21 21:28] LABS: NT Pro B Type Natriuretic Pept 33929 pg/mL (0-125); Procalcitonin 0.31 ng/mL (0-0.5)
[2023-09-21 21:30] VITALS: BP 95/68; PULSE 77; RESP 16; O2SAT 95
[2023-09-21 21:39] LABS: Alanine Aminotransferase 12 U/L (0-33); Albumin Level 3.2 g/dL (3.5-5.2); Alkaline Phosphatase 65 U/L (35-105); Anion Gap 20.4 (5-19); Aspartate Amino Transferase 16 U/L (0-32); Calcium 9.7 mg/dL (8.5-10.5); Carbon Dioxide 23 mmol/L (22-29); Chloride 99 mmol/L (98-107); Creatinine Clr Calc Pharmacy 6.8984; Globulin 2.6 g/dL (1.3-4.6); Glomerular Filtration Rate 6.1 mL/min (90-130); Glucose 110 mg/dL (65-115); Osmolality Calculated 312 mOsm/kg (285-295); Potassium 4.4 mmol/L (3.5-5.1); Sodium 138 mmol/L (136-145); Total Bilirubin 0.2 mg/dL (0.15-1.2); Total Protein 5.8 g/dL (6.6-8.7)
[2023-09-21 21:47] LABS: Blood Urea Nitrogen 83 mg/dL (8-23)
--- NOTE | 2023-09-21 21:48 | ECG_ITS ---
[facility] Test Date: 2023-09-21 Pat Name: Yas Oconnell Department: Room: Gender: Female Carriage Rider: : 1955 Requested By: Anton Conner Order Number: [id number] Lenin MD: Alek Holt M.D. Measurements Intervals [place] Rate: 76 P: 91 WV: 181 QRS: -34 QRSD: 158 T: 72 QT: 486 QTc: 547 Interpretive Statements SINUS RHYTHM LEFT AXIS DEVIATION [QRS AXIS < -30] LEFT BUNDLE BRANCH BLOCK [120+ ms QRS DURATION, 80+ ms Q/S IN V1/V2, 85+ ms R IN I/aVL/V5/V6] Compared to ECG 09/21/2023 20:30:07 Left-axis deviation now present Electronically Signed On 09-22-2023 15:11:56 CDT by Alek Holt M.D. [id number]
[2023-09-21 22:00] VITALS: BP 118/74; PULSE 75; RESP 18
[2023-09-21] MEDS: piperacillin-tazobactam 3.375 GM in sodium chloride 0.9% (plus) 50 ML IV (22:49)
[2023-09-21 23:12] LABS: Troponin 5 2HR Delta 3.3 ABS# (0-10)
[2023-09-21 23:15] LABS: Troponin 5 2HR 184.3 ng/L (0-10)
[2023-09-21 23:27] VITALS: BP 102/76; PULSE 81; O2SAT 91
== END 2023-09-22 00:39 | disposition home or self-care (01) ==
PROVIDERS: Emergency Provider Emergency Medicine; PCP Family Medicine
DX: J44.0 Chronic obstructive pulmonary disease with (acute) lower respiratory infection (principal); J18.9 Pneumonia, unspecified organism; E11.22 Type 2 diabetes mellitus with diabetic chronic kidney disease; I12.0 Hypertensive chronic kidney disease with stage 5 chronic kidney disease or end stage renal disease; N18.6 End stage renal disease; Z99.2 Dependence on renal dialysis; E78.5 Hyperlipidemia, unspecified; I25.2 Old myocardial infarction; I25.10 Atherosclerotic heart disease of native coronary artery without angina pectoris; Z87.891 Personal history of nicotine dependence; Z79.82 Long term (current) use of aspirin; Z79.02 Long term (current) use of antithrombotics/antiplatelets; Z79.84 Long term (current) use of oral hypoglycemic drugs
CPT/HCPCS: 36415; 71045; 80053; 83605; 83880; 84145; 84484; 85025; 87040; 93005; 96365; 99285; J2543

== ENCOUNTER → 2023-09-29 09:46 | Outpatient (BNVA) | payer MEDICARE, SELFPAY | PROVIDERS: PCP Family Medicine; Referring Provider Family Medicine; Visit Provider Student in an Organized Health Care Education/Training Program | DX: M16.12 Unilateral primary osteoarthritis, left hip (principal); M54.2 Cervicalgia; M25.552 Pain in left hip; S70.02XA Contusion of left hip, initial encounter; X58.XXXA Exposure to other specified factors, initial encounter | CPT/HCPCS: 73502; 99203 ==

== ENCOUNTER 2023-10-11 09:21 | Outpatient (CLI) | payer MEDICARE, SELFPAY ==
--- NOTE | 2023-10-11 10:00 | PETR_ITS ---
PROCEDURE INFORMATION: Exam: PET/CT Skull Base to Mid-thigh Exam date and time: 10/11/2023 10:04 AM Age: 67 years old Clinical indication: Abnormal findings; Spiculated mass in L lung LABS AND CLINICAL REPORTS: Glucose: 101 mg/dl Treatment strategy for malignancy (PET staging): Initial Staging (PI) TECHNIQUE: Imaging protocol: Following at least four-hour fasting and following the injection of radiopharmaceutical, low dose CT images were obtained. Then, PET images were obtained. Attenuation corrected images were constructed using the CT scan. Fused images of PET and CT were reviewed. The standardized uptake values (SUV) reported below are maximum values within a region of interest, expressed in gm/ml. Exam includes orbital meatal line to mid-thigh. Radiopharmaceutical: 12.08 mCi F-18 FDG (Fluorodeoxyglucose), IV. Time of imaging post radiopharmaceutical administration: 1 hour COMPARISON: PT PET [facility] INITIAL [id number] 07/05/2023 11:17 AM FINDINGS: Tubes, catheters and devices: Small volume ascites with Tenckhoff catheter in the pelvis. Brain: Visualized brain has normal physiologic uptake. Pharynx: No abnormal uptake. Larynx: No abnormal uptake. Lungs, pleura and trachea: There is minimal FDG uptake associated with the area of spiculation in the left lower lobe with SUV max 2.0. Increased size of a moderate right pleural effusion with possible loculation. Heart: Normal physiologic uptake. Mediastinal space: No abnormal uptake. Liver: No abnormal uptake. Gallbladder and bile ducts: No abnormal uptake. Pancreas: No abnormal uptake. Spleen: No abnormal uptake. Adrenal glands: No abnormal uptake. Kidneys and ureters: Bilateral renal cysts. Stomach and bowel: Some mild FDG uptake in the region of the sigmoid colon with SUV max 4.0 may be inflammatory. This appears similar to prior. Vasculature: No abnormal uptake. Lymph nodes: No abnormal uptake. No lymphadenopathy in the head, neck, chest, abdomen, pelvis, and extremities. Bones/joints: There is some increased FDG uptake along the periphery of an area of fat stranding adjacent to the left iliac crest with SUV max 3.5. This is new from 07/05/2023. Soft tissues: Anasarca. PET/PET [facility] SUBSEQ [id number] IMPRESSION: 1. Stable appearance of the area of spiculation in the left lower lobe, which has only minimal FDG uptake and may reflect an area of scarring. 2. There is some new ovoid fat stranding in the subcutaneous soft tissues adjacent to the left iliac crest with mild FDG uptake along the periphery. This could be inflammatory or reflect a resolving hematoma or contusion. 3. Mild FDG uptake in the region of the sigmoid colon appears similar to prior and may be inflammatory. 4. Increased size of a moderate right pleural effusion with possible loculation.
== END 2023-10-11 09:22 | disposition home or self-care (01) ==
PROVIDERS: PCP Family Medicine; Visit Provider Internal Medicine Pulmonary Disease
DX: R91.8 Other nonspecific abnormal finding of lung field (principal); Z96.0 Presence of urogenital implants; J90 Pleural effusion, not elsewhere classified; Q61.02 Congenital multiple renal cysts; R94.8 Abnormal results of function studies of other organs and systems
CPT/HCPCS: 78815; A9552

== ENCOUNTER → 2023-10-13 10:02 | Outpatient (BNVA) | payer MEDICARE, SELFPAY | PROVIDERS: PCP Family Medicine; Visit Provider Orthopaedic Surgery | DX: M54.2 Cervicalgia (principal); M47.22 Other spondylosis with radiculopathy, cervical region | CPT/HCPCS: 72050; 99204 ==

== ENCOUNTER 2023-10-25 10:52 | Day surgery (SDC) | payer MEDICARE, SELFPAY ==
[2023-10-25 11:07] VITALS: BP 102/68; PULSE 78; RESP 18; TEMP 36.7; O2SAT 97
[2023-10-25 11:23] VITALS: BMI 25.0
[2023-10-25 12:05] VITALS: BP 93/62; PULSE 69; RESP 22; O2SAT 96
[2023-10-25] MEDS: midodrine 5 mg TABLET 2.5 MG PO (12:28)
[2023-10-25 12:30] VITALS: BP 86/60; PULSE 70; RESP 20; O2SAT 92
--- NOTE | 2023-10-25 12:30 | XR_ITS ---
WS: [id number] Exam: XR chest 1V portable [id number] Date/Time of Exam: 10/25/2023 12:30 PM Reason For Exam: POST THORACENTESIS Comparison 09/21/2023. Chronic interstitial changes noted throughout both lungs with hyperinflation. Chronic plaque atelecta sis in the LEFT base unchanged. Cardiomediastinal silhouette is unremarkable. No pleural effusions. B maverick structures are intact. XR/XR chest 1V portable [id number] IMPRESSION: 1. Pulmonary hyperinflation with chronic interstitial changes throughout both l ungs. 2. Focal area of chronic plaque atelectasis in the LEFT lower lobe. 3. No pneumothorax.
--- NOTE | 2023-10-25 12:37 | PM.OUTPTPROC ---
Outpatient Procedures Thoracentesis Consent signed and on chart: Yes Time Out Performed: Yes Procedure: therapeutic thoracentesis and diagnostic thoracentesis Location: Right Local anesthetic used: lidocaine 1% Bedside ultrasound used: yes, pleural effusion confirmed and location marked and yes, real-time guidance Preparation: sterile prep and drape Amount of fluid obtained (mL): 1,100 Fluid: clear Post Procedure Exam: awake, alert, normal BP, normal HR and normal SpO2 Post-procedure chest x-ray ordered: Yes Estimated blood loss (mL): 5 Procedure Note: Pulmonary & Critical Care Medicine Procedure - Ultrasound guided Thoracentesis Procedure: CPT code 25281 thoracentesis, needle or catheter, aspiration of the pleural space; with imaging guidance Indication: Worsening right pleural effusion. C56.2 Manager Terminal(s): Abdulkadir Betts MD [facility] Clinical history: 67-year-old female with past medical history of COPD on 2 L supplemental oxygen, ESRD on peritoneal dialysis, CAD s/p multiple stents, CHF-had worsening right pleural effusion on recent PET/CT which appeared loculated. Today she is scheduled for outpatient thoracentesis for therapeutic and diagnostic purposes. Technique: The study was performed in an ACR accredited facility. Medication reconciliation form reviewed and any changes related this procedure resolved. Prior to procedure her blood pressure was soft with maps > 65. Patient reported taking midodrine for low blood pressure however she did not take today's dose. Report: The procedure for thoracentesis was explained to the patient including the risks, benefits and possible complications. The patient was given the opportunity to ask questions, wished to proceed, and signed the written informed consent form. Using ultrasound guidance, a safe route of access was identified into the right pleural space. The site was then prepped and draped using maximal sterile barrier technique. The 1% lidocaine was used for local anesthetic. With sonographic guidance, a 6 Kosovan thoracentesis catheter was placed with return of 5 cc straw-colored pleural fluid. The catheter was slipped into the pleural cavity and approximately 1.1 l straw-colored pleural fluid was removed. The patient tolerated the procedure well without any immediate complications. Impression: 1. Successful ultrasound-guided right thoracentesis with removal of approximately 1.1 L of straw-colored pleural fluid. ICD-10 code-J90 pleural effusion, not elsewhere classified
[2023-10-25 12:55] VITALS: BP 96/68; PULSE 69; RESP 21; O2SAT 94
[2023-10-25 13:09] LABS: Cyto Order Verification Order Verified
[2023-10-25 13:10] LABS: Apprearance, Body Fluid CLOUDY; Color, Body Fluid YELLOW; PATH Referral YES
[2023-10-25 13:12] LABS: Body Fluid Polynuclear #Cells 0.609; Body Fluid WBC 1075 /uL; Monocytes # Body Fluid 0.466
[2023-10-25 13:51] LABS: Albumin Body Fluid 1.6 g/dL; Cholesterol Body Fluid 43 mg/dL (0-200); Fluid Alkaline Phos. 20 IU/L; LDH Body Fluid 122 U/L; Triglycerides Body Fluid 2 mg/dL (0-150)
[2023-10-25 13:52] LABS: Uric Acid Body Fluid 6 mg/dL
[2023-10-25 14:25] LABS: Total Protein Pleural Fluid 2.3 g/dL
[2023-10-29 20:29] LABS: Amylase, Peritoneal Fluid 19 U/L; Amylase, Pleural Fluid 19 U/L
== END 2023-10-25 13:04 | disposition home or self-care (01) ==
PROVIDERS: PCP Family Medicine; Visit Provider Internal Medicine Pulmonary Disease
PROC: (CPT 32554; principal; 2023-10-25 11:30)
DX: J90 Pleural effusion, not elsewhere classified (principal); J44.9 Chronic obstructive pulmonary disease, unspecified; Z99.81 Dependence on supplemental oxygen; N18.9 Chronic kidney disease, unspecified; Z99.2 Dependence on renal dialysis; I25.10 Atherosclerotic heart disease of native coronary artery without angina pectoris; Z95.5 Presence of coronary angioplasty implant and graft; I50.9 Heart failure, unspecified
CPT/HCPCS: 32555; 71045; 80503; 82042; 82150; 82465; 82945; 83615; 83986; 84075; 84157; 84315; 84478; 84560; 87070; 87075; 87205; 88112; 88305; 89050

== ENCOUNTER 2023-11-07 13:48 | Outpatient (CLI) | payer MEDICARE, SELFPAY ==
--- NOTE | 2023-11-07 13:54 | XRR_ITS ---
PROCEDURE INFORMATION: Exam: XR Chest Exam date and time: 11/07/2023 2:23 PM Age: 67 years old Clinical indication: Condition or disease; Lung condition and disease; Copd; Complications not specified; Additional info: J44.1 - chronic obstructive pulmonary disease with (acute. . . TECHNIQUE: Imaging protocol: Radiologic exam of the chest. Views: 2 views. COMPARISON: CR XR chest 1V portable [id number] 10/25/2023 12:47 PM FINDINGS: Lungs: There is unchanged COPD.. There is an irregular opacity again seen within the left lung base. There are calcified nodules within the right lung apex. There has been development of mild right lower lobe opacities. Pleural spaces: There has been development of a egtfo-iw-ffumezyt right pleural effusion No pneumothorax is seen. Heart/Mediastinum: The heart size is within normal limits. Bones/joints: Unremarkable. XR/XR chest 2V* [id number] IMPRESSION: 1. Development of a obmvw-bi-ezfopfnq right pleural effusion with mild right lower lobe opacities indeterminate between pneumonia versus atelectasis. 2. Unchanged irregular left basilar opacity indeterminate between scarring versus neoplastic process.
--- NOTE | 2023-11-07 14:45 | USCV_ITS ---
Yas Oconnell Age: 67 Gender: F : 1955 Exam Date: 11/07/2023 14:35 Ordering Phys: Abdulkadir Betts MD Technologist: CT Exam Location: [facility] [place] Indication: sob BP: 115 / 71 HR: 82 Rhythm: Sinus Technical Quality: Adequate MEASUREMENTS (Male / Female) Normal Values 2D ECHO LVOT Diameter 2.0 cm LV Ejection Fraction MOD 2C 66.4 % LV Ejection Fraction 2C AL 66.0 % LA Diameter 4.7 cm RA Systolic Volume 4C AL 65.5 ml RA Systolic Volume 4C MOD 62.1 ml LA Sys Volume AL 84.1 cm cubed LA Sys Volume Index AL 54.2 cm cubed/m squared Aorta at Sinotubular Diameter 1.6 cm IVC Diameter 2.0 cm M-MODE LA Ao Ratio MM 2.6 AV Cusp Separation MM 1.1 cm DOPPLER AV Peak Velocity 186.0 cm/s LVOT Peak Velocity 84.0 cm/s AV Area Cont Eq vti 1.9 cm squared AV Area Cont Eq pk 1.4 cm squared MV Peak Velocity 171.0 cm/s MV Area PHT 4.0 cm squared Mitral E to A Ratio 1.5 TV Peak Velocity 237.5 cm/s TR Peak Velocity 329.0 cm/s TR Peak Gradient 43.3 mmHg TV Peak E Velocity 75.0 cm/s Right Atrial Pressure 8.0 mmHg Pulmonary Artery Systolic Pressu 51.3 mmHg PV Peak Velocity 160.0 cm/s FINDINGS Left Ventricle Left ventricle is normal size. LV systolic function is normal with EF 55 to 60%. No regional wall motion abnormalities are seen. Right Ventricle Normal in size and function Right Atrium Dilated Left Atrium Dilated Mitral Valve Mild mitral annular calcification. Moderate mitral regurgitation. Mild mitral stenosis with mean gradient of 4.2 mmHg. Aortic Valve Aortic valve is thickened and calcified. Mild aortic regurgitation. Mild aortic stenosis with aortic valve area 1.9 cm2 and mean gradient of 7.1 mmHg. However Doppler signal is not of good quality. Aortic stenosis could be underestimated. Tricuspid Valve Mild tricuspid regurgitation. Pulmonary artery systolic pressure is 50 to 55 mmHg. This is consistent with moderate pulmonary hypertension. Pulmonic Valve Not well visualized Pericardium Normal Aorta Normal in size IVC Appears to be normal CONCLUSIONS LV systolic function is normal with EF of 55-60% Biatrial dilation Moderate mitral regurgitation. Mild mitral stenosis Aortic valve is thickened and calcified. Mild aortic regurgitation. Mild aortic stenosis with aortic valve area 1.9 cm2 and mean gradient of 7.1 mmHg. However Doppler signal is not of good quality. Aortic stenosis could be underestimated. Mild tricuspid regurgitation. Moderate pulmonary hypertension Compared to prior echocardiogram from 2020, no significant changes are seen. Robert Cook MD (Electronically Signed) Final Date: 13 November 2023 22:21 S
== END 2023-11-07 13:49 | disposition home or self-care (01) ==
PROVIDERS: PCP Family Medicine; Visit Provider Internal Medicine Pulmonary Disease
DX: J44.1 Chronic obstructive pulmonary disease with (acute) exacerbation (principal); I34.81 Nonrheumatic mitral (valve) annulus calcification; I34.0 Nonrheumatic mitral (valve) insufficiency; I34.2 Nonrheumatic mitral (valve) stenosis; I35.1 Nonrheumatic aortic (valve) insufficiency; I35.0 Nonrheumatic aortic (valve) stenosis; I36.1 Nonrheumatic tricuspid (valve) insufficiency; R91.8 Other nonspecific abnormal finding of lung field
CPT/HCPCS: 71046; 93306

== ENCOUNTER 2023-11-14 06:26 | Day surgery (SDC) | payer MEDICARE, SELFPAY ==
[2023-11-14 07:03] VITALS: BP 102/78; PULSE 71; RESP 20; TEMP 36.4; O2SAT 95; BMI 22.9
--- NOTE | 2023-11-14 07:40 | XR_ITS ---
WS: [id number] PORTABLE CHEST HISTORY: Post thoracentesis right COMPARISON: 11/07/2023 No pneumothorax status post RIGHT thoracentesis. Mildly hyperexpanded lungs with interstitial lung disease. Reidentified is a spiculated mass posterio r to the LEFT heart. This was previously described on a prior CT from 09/07/2023. Less pulmonary venou s congestion as compared to 11/07/2023. Mild pleural thickening bilaterally. Cardiac size: Normal. Mediastinum/Aorta: Mild atherosclerosis aorta. No osseous abnormality seen. XR/XR chest 1V portable [id number] IMPRESSION: 1. No pneumothorax status post RIGHT thoracentesis. 2. Reidentified is a spiculated consolidation posterior to the LEFT heart conc erning for neoplasm. This has been previously described. 3. Less pulmonary congestion as compared to 11/07/2023.
[2023-11-14 07:53] VITALS: PULSE 65; RESP 16; TEMP 36.4; O2SAT 95
[2023-11-14 07:58] VITALS: BP 86/45
[2023-11-14 07:58] LABS: Body Fluid WBC 315 /uL; Monocytes # Body Fluid 0.205; RBC, Body Fluid 0 10^3/uL
[2023-11-14 08:00] VITALS: BP 145/79
[2023-11-14 08:09] LABS: Apprearance, Body Fluid CLEAR; Color, Body Fluid YELLOW
[2023-11-14 08:15] LABS: Cyto Order Verification Order Verified
[2023-11-14 08:19] LABS: Basophils % 0.4 %; Eosinophils # 0.2 10^3/uL (0.0-0.8); Eosinophils % 2.6 %; Hematocrit 37.9 % (36-47); Lymphocytes # 1.1 10^3/uL (0.8-4.8); Lymphocytes % 13.8 %; Mean Corpuscular HGB Conc 30.6 g/dL (30-55); Mean Corpuscular Hemoglobin 30.4 pg (27-33); Mean Corpuscular Volume 99.2 fl (85-98); Mean Platelet Volume 9.2 fL (7.4-10.4); Monocytes # 0.5 10^3/uL (0.2-0.9); Monocytes % 6.9 %; Neutrophils # 5.81 10^3/uL (1.8-7.7); Neutrophils % 76.2 %; Nucleated Red Blood Cells % 0 %; Platelet Count 229 10^3/cmm (157-399); Red Blood Count 3.82 10^6/uL (3.85-5.65); White Blood Count 7.63 10^3/uL (3.29-11.43)
[2023-11-14 08:32] LABS: Alanine Aminotransferase 12 U/L (0-33); Albumin Level 3.4 g/dL (3.5-5.2); Alkaline Phosphatase 60 U/L (35-105); Anion Gap 16.9 (5-19); Aspartate Amino Transferase 21 U/L (0-32); Calcium 10.9 mg/dL (8.5-10.5); Carbon Dioxide 30 mmol/L (22-29); Chloride 96 mmol/L (98-107); Creatinine Clr Calc Pharmacy 5.8534; Globulin 2.7 g/dL (1.3-4.6); Glomerular Filtration Rate 5.3 mL/min (90-130); Glucose 101 mg/dL (65-115); Osmolality Calculated 321 mOsm/kg (285-295); Potassium 3.9 mmol/L (3.5-5.1); Sodium 139 mmol/L (136-145); Total Bilirubin 0.2 mg/dL (0.15-1.2); Total Protein 6.1 g/dL (6.6-8.7)
--- NOTE | 2023-11-14 08:36 | PM.OUTPTPROC ---
Outpatient Procedures Thoracentesis Consent signed and on chart: Yes Time Out Performed: Yes Procedure: therapeutic thoracentesis Location: Right Local anesthetic used: lidocaine 1% Bedside ultrasound used: yes, pleural effusion confirmed and location marked and yes, real-time guidance Preparation: sterile prep and drape and 10 blade used to make krystal in skin Amount of fluid obtained (mL): 1,300 Fluid: clear (STRAW COLORED) Post Procedure Exam: awake, alert, normal BP, normal HR and normal SpO2 Post-procedure chest x-ray ordered: Yes Estimated blood loss (mL): 5 Patient Tolerated Procedure: well and no complications Procedure Note: Pulmonary & Critical Care Medicine Procedure - Ultrasound guided Thoracentesis Procedure: CPT code 52689 thoracentesis, needle or catheter, aspiration of the pleural space; with imaging guidance Indication: Recurrent right pleural effusion. C56.2 Causing symptomatic dyspnea Switch Repairer(s): Abdulkadir Betts MD [facility] Clinical history: 67-year-old female with past medical history of COPD on 2 L supplemental oxygen, ESRD on peritoneal dialysis, CAD s/p multiple stents, CHF-had worsening right pleural effusion on recent PET/CT which appeared loculated. She was drained 10/25/2023 1.1 L aspirated transudative fluid. Outpatient chest x-ray 11/07/2023 showed worsening right pleural effusion and patient is symptomatic with dyspnea. Today she is scheduled for outpatient thoracentesis for therapeutic and diagnostic purposes. Technique: The study was performed in an ACR accredited facility. Medication reconciliation form reviewed and any changes related this procedure resolved. Report: The procedure for thoracentesis was explained to the patient including the risks, benefits and possible complications. The patient was given the opportunity to ask questions, wished to proceed, and signed the written informed consent form. Using ultrasound guidance, a safe route of access was identified into the right pleural space. The site was then prepped and draped using maximal sterile barrier technique. The 1% lidocaine was used for local anesthetic. With sonographic guidance, a 6 Sudanese thoracentesis catheter was placed with return of 5 cc straw-colored pleural fluid. The catheter was slipped into the pleural cavity and approximately 1300 cc straw-colored pleural fluid was removed. The patient tolerated the procedure well without any immediate complications. Impression: 1. Successful ultrasound-guided right thoracentesis with removal of approximately 1300 cc of straw-colored pleural fluid. Postprocedure chest x-ray today 11/14/2023 showed resolution of right pleural effusion and no pneumothorax. Reidentified spiculated consolidation posterior to the left heart concerning for neoplasm which on recent PET/CT scan 10/11/2023-showed stable appearance of left lower lobe spiculation with minimal FDG uptake SUV 2.0 likely reflecting scarring. Will inform primary care physician to repeat imaging in 3 months to follow-up on left lower lobe lesion. Echocardiogram showed moderate MR with moderate pulmonary hypertension; patient has ESRD and on peritoneal dialysis 3 times a week and due to low blood pressure she could not tolerate volumes of dialysis. Her albumin 3.2 and she is on protein supplements. Informed patient and her that transudative fluid can be secondary to insufficient dialysis as well as underlying moderate MR causing increased pulmonary pressures leading to transudative effusions. I will discuss with cardiology she needs repair of her mitral valve. Informed patient if she has recurrent effusion causing symptomatic dyspnea too quickly-she may need Pleurx catheter. I informed the patient that I wont be here in [facility] after October 2023; Told patient to talk to primary care physician about new pulmonary referral. Patient agreed to do so.
[2023-11-14 08:48] LABS: Blood Urea Nitrogen 104 mg/dL (8-23)
[2023-11-14 14:56] LABS: Lactate Dehydrogenase 168 U/L (135-214)
[2023-11-14 15:04] LABS: Creatinine Body Fluid 7.86 (0.5-0.9); LDH Pleural Fluid 102 U/L; Pleural Fluid Albumin 1.8 g/dL; Total Protein Pleural Fluid 2.5 g/dL
== END 2023-11-14 08:15 | disposition home or self-care (01) ==
LOC: GILAB 06:27
PROVIDERS: PCP Family Medicine; Visit Provider Internal Medicine Pulmonary Disease
PROC: (CPT 32554; principal; 2023-11-14 07:00)
DX: J90 Pleural effusion, not elsewhere classified (principal)
CPT/HCPCS: 32555; 71045; 80053; 80503; 82042; 82570; 82945; 83615; 84157; 85025; 87070; 87075; 87205; 88112; 88305; 89050

== ENCOUNTER 2023-11-14 10:46 | Outpatient (CLI) | payer MEDICARE, SELFPAY ==
--- NOTE | 2023-11-14 11:45 | MR_ITS ---
WS: [id number] MRI CERVICAL SPINE NONCONTRAST TECHNIQUE: Sagittal T1, T2 and STIR imaging. Axial T2, gradient, and fiesta imaging. CLINICAL INFORMATION: Neck Pain COMPARISON: None. FINDINGS: Images moderately degraded by patient motion due to pain. Straightening of the normal cervical lordosis. Moderate spondylitic changes. Disc bulging worse at C3 -C4 and C6-7. Cord signal appears normal considering motion artifact. C2-C3: Mild facet arthropathy. Spinal canal and foramen are patent. C3-C4: Mild central canal stenosis. Mild bilateral bony foraminal narrowing. Mild central canal steno sis. Moderate facet arthropathy. C4-C5: Disc osteophyte complex with mild central canal stenosis. Mild bilateral bony foraminal narrow ing. Moderate facet arthropathy. C5-C6: Disc osteophyte complex with mild central canal stenosis. Slight indentation of the cervical c ord. Moderate LEFT greater than RIGHT bony foraminal narrowing. Moderate facet arthropathy. C6-C7: Disc osteophyte complex with mild to moderate central canal stenosis. Mild LEFT bony foraminal narrowing. Mild facet arthropathy. C7-T1: Spinal canal and foramen are patent. Visualized brain stem structures: Normal. Prevertebral soft tissues: Normal. MR/MR cervical spin wo con* [id number] IMPRESSION: 1. Straightening of the normal cervical lordosis. Moderate spondylitic changes . 2. Cord signal appears normal considering motion. 3. Mild central canal stenosis C3-C4 C4-C5 and C5-C6 with slight contact of th e cervical cord. Mild to moderate central canal stenosis C6-7. 4. Mild bilateral C3-C4 C4-C5, moderate C5-C6, and mild LEFT C6-7 bony foramin al narrowing.
[2023-11-14] MEDS: gadobenate dimeglumine 20 mL vial IV (11:49)
== END 2023-11-14 10:47 | disposition home or self-care (01) ==
PROVIDERS: PCP Family Medicine; Visit Provider Orthopaedic Surgery
DX: M47.892 Other spondylosis, cervical region (principal); M48.02 Spinal stenosis, cervical region; M25.78 Osteophyte, vertebrae
CPT/HCPCS: 72141; A9577

== ENCOUNTER → 2023-11-16 14:15 | Outpatient (BNVA) | payer MEDICARE, SELFPAY | PROVIDERS: PCP Family Medicine; Visit Provider Family Medicine | DX: I50.9 Heart failure, unspecified (principal) | CPT/HCPCS: 84439; 84443 ==

== ENCOUNTER 2023-11-28 11:43 | Outpatient (CLI) | payer MEDICARE, SELFPAY ==
--- NOTE | 2023-11-28 11:49 | XR_ITS ---
WS: [id number] XR chest 2V* [id number] REASON FOR EXAM: R06.02 - Shortness of breath FINDINGS: Compared to the previous examination of 11/14/2023, the complex opacities in the left lower lung are s table. There appear to be multiple bronchial cuffing of small airways within ill-defined airspace [place] and linear reticular interstitial lung opacities. Prominent upper lobe pulmonary veins which are also seen on the previous examination. Irregular aeration of the lung knight. In comparison to the previous examination there is a significantly increased amount of pleural fluid in the right hemithorax. Volume loss in the right lower lung which may be due to compressive atelectasis. Previously demonstrated mass in the posterior right upper lobe contiguous with the major fissure is n ot readily identifiable on this examination. XR/XR chest 2V* [id number] IMPRESSION: Central lobar emphysema. Atelectasis and small airway disease in the left lower lobe presumed related to resolving of more diffuse abnormality in the left lower lobe 04/25/2023 CT sca n. Increased right pleural effusion compared to 11/14/2023. Right lung mass not readily identified.
== END 2023-11-28 11:44 | disposition home or self-care (01) ==
LOC: RAD 11:45
PROVIDERS: PCP Family Medicine; Visit Provider Family Medicine
DX: R06.02 Shortness of breath (principal); J43.9 Emphysema, unspecified; J98.11 Atelectasis; J90 Pleural effusion, not elsewhere classified; R91.8 Other nonspecific abnormal finding of lung field
CPT/HCPCS: 71046

== ENCOUNTER → 2023-12-08 12:56 | Outpatient (BNVA) | payer MEDICARE, SELFPAY | PROVIDERS: PCP Family Medicine; Visit Provider Orthopaedic Surgery | DX: Z09 Encounter for follow-up examination after completed treatment for conditions other than malignant neoplasm (principal) | CPT/HCPCS: 99214 ==

== ENCOUNTER → 2023-12-14 10:45 | Outpatient (BNVA) | payer MEDICARE, SELFPAY | PROVIDERS: PCP Family Medicine; Visit Provider Podiatrist Foot & Ankle Surgery | DX: E11.8 Type 2 diabetes mellitus with unspecified complications (principal); E11.42 Type 2 diabetes mellitus with diabetic polyneuropathy; I25.10 Atherosclerotic heart disease of native coronary artery without angina pectoris; L60.3 Nail dystrophy; L60.8 Other nail disorders; N18.6 End stage renal disease; Z99.2 Dependence on renal dialysis; E11.29 Type 2 diabetes mellitus with other diabetic kidney complication | CPT/HCPCS: 11721 ==

== ENCOUNTER → 2023-12-20 09:44 | Outpatient (BNVA) | payer MEDICARE, SELFPAY | PROVIDERS: PCP Family Medicine; Visit Provider Student in an Organized Health Care Education/Training Program | DX: M79.642 Pain in left hand (principal) | CPT/HCPCS: 73130 ==

== ENCOUNTER → 2023-12-21 11:29 | Outpatient (BNVA) | payer MEDICARE, SELFPAY | PROVIDERS: PCP Family Medicine; Visit Provider Internal Medicine | DX: I13.0 Hypertensive heart and chronic kidney disease with heart failure and stage 1 through stage 4 chronic kidney disease, or unspecified chronic kidney disease (principal); I25.10 Atherosclerotic heart disease of native coronary artery without angina pectoris; I50.9 Heart failure, unspecified; E11.22 Type 2 diabetes mellitus with diabetic chronic kidney disease; N18.4 Chronic kidney disease, stage 4 (severe); Z79.84 Long term (current) use of oral hypoglycemic drugs | CPT/HCPCS: 99214 ==

== ENCOUNTER 2023-12-27 06:00 | Outpatient (RCR) | payer MEDICARE, SELFPAY | END 2023-12-28 23:59 | disposition home or self-care (01) | LOC: TPT 06:00 | PROVIDERS: PCP Family Medicine; Visit Provider Orthopaedic Surgery | DX: M54.2 Cervicalgia (principal); G89.29 Other chronic pain | CPT/HCPCS: 97161 ==

== ENCOUNTER 2023-12-27 06:00 | Outpatient (RCR) | payer MEDICARE, SELFPAY | END 2023-12-28 23:59 | disposition home or self-care (01) | LOC: TPT 06:00 | PROVIDERS: PCP Family Medicine; Visit Provider Family Medicine | DX: M54.9 Dorsalgia, unspecified (principal); G89.29 Other chronic pain | CPT/HCPCS: 97162 ==